=== PATIENT | male | born 1935 | race Caucasian/White ===

== ENCOUNTER 2016-04-19 | Outpatient (CLI) | END 2016-04-19 10:45 | disposition critical access hospital (66) | CPT/HCPCS: A0425; A0429 ==

== ENCOUNTER 2016-04-19 11:02 | Observation (INO) | payer MEDICARE, OTHER, MEDICAID ==
[2016-04-19] MEDS ORDERED: SODIUM CHLORIDE 0.9% 500 ML IV ONE ×2 (11:32→13:29)
[2016-04-19] MEDS ORDERED: SODIUM CHLORIDE FLUSH 0.9% 10 ML SYRINGE IVP PRN (18:18)
[2016-04-19] MEDS ORDERED: DEXTROSE 50% ABBOJECT 25 GM/50 ML SYRINGE IVP PRN (18:43)
[2016-04-19] MEDS ORDERED: DEXTROSE GEL 37.5 GM TUBE PO PRN (18:43)
[2016-04-19] MEDS ORDERED: GLUCAGON 1 MG/ML VIAL SUBQ PRN (18:43)
[2016-04-19] MEDS ORDERED: DEXTROSE 5% 1,000 ML IV PRN (18:43)
[2016-04-19] MEDS: BUDESONIDE 0.5 MG/2 ML NEB INH SCH (20:00)
[2016-04-19] MEDS: SODIUM CHLORIDE FLUSH 0.9% 10 ML SYRINGE IVP SCH (21:18)
[2016-04-19] MEDS: SODIUM CHLORIDE 0.9% 1,000 ML IV SCH (21:18)
[2016-04-20] MEDS: CALCIUM CARBONATE CHEW 500 MG TABLET PO PRN (00:37)
[2016-04-20] MEDS: SODIUM CHLORIDE FLUSH 0.9% 10 ML SYRINGE IVP SCH ×3 (06:30→23:33)
[2016-04-20] MEDS: BUDESONIDE 0.5 MG/2 ML NEB INH SCH ×2 (07:30→19:00)
[2016-04-20] MEDS: SODIUM CHLORIDE 0.9% 1,000 ML IV SCH (09:34)
[2016-04-20] MEDS: ENOXAPARIN 40 MG/0.4 ML SYRINGE SUBQ SCH (09:35)
[2016-04-20] MEDS ORDERED: METOPROLOL TARTRATE 25 MG TABLET PO SCH (11:00)
[2016-04-20] MEDS: IBUPROFEN 400 MG TABLET PO PRN (11:46)
[2016-04-21] MEDS: TAMSULOSIN 0.4 MG CAPSULE PO SCH ×2 (00:01→09:40)
[2016-04-21] MEDS: ACETAMINOPHEN 325 MG TABLET PO PRN ×2 (00:09→05:15)
[2016-04-21] MEDS: IBUPROFEN 400 MG TABLET PO PRN ×3 (00:09→18:54)
[2016-04-21] MEDS: SODIUM CHLORIDE FLUSH 0.9% 10 ML SYRINGE IVP SCH ×2 (05:44→14:19)
[2016-04-21] MEDS: BUDESONIDE 0.5 MG/2 ML NEB INH SCH ×2 (07:45→19:00)
[2016-04-21] MEDS: ENOXAPARIN 40 MG/0.4 ML SYRINGE SUBQ SCH (09:35)
[2016-04-21] MEDS: CALCIUM CARBONATE CHEW 500 MG TABLET PO PRN (09:50)
[2016-04-22] MEDS: SODIUM CHLORIDE FLUSH 0.9% 10 ML SYRINGE IVP SCH ×3 (04:41→14:01)
[2016-04-22] MEDS: ENOXAPARIN 40 MG/0.4 ML SYRINGE SUBQ SCH (09:38)
[2016-04-22] MEDS: TAMSULOSIN 0.4 MG CAPSULE PO SCH (09:38)
[2016-04-22] MEDS: IBUPROFEN 400 MG TABLET PO PRN (09:38)
[2016-04-22] MEDS: BUDESONIDE 0.5 MG/2 ML NEB INH SCH (09:45)
== END 2016-04-22 16:05 | disposition home or self-care (01) ==
DX: R26.0 Ataxic gait (principal); E86.0 Dehydration; M25.552 Pain in left hip; E11.9 Type 2 diabetes mellitus without complications; I15.2 Hypertension secondary to endocrine disorders; F03.90 Unspecified dementia, unspecified severity, without behavioral disturbance, psychotic disturbance, mood disturbance, and anxiety; J44.9 Chronic obstructive pulmonary disease, unspecified; Z79.84 Long term (current) use of oral hypoglycemic drugs; Z79.82 Long term (current) use of aspirin; Z87.891 Personal history of nicotine dependence; Z66 Do not resuscitate; Z60.2 Problems related to living alone; Z86.79 Personal history of other diseases of the circulatory system
CPT/HCPCS: 36415; 36600; 70450; 71010; 73502; 80048; 80053; 81001; 82248; 82550; 82553; 82803; 83036; 83690; 83880; 84484; 85025; 87275; 87276; 93005; 93010; 94640; 96360; 96361; 97116; 97162; 97530; 99285; A9270; G0378; G8978; G8979; J1650; J7626

== ENCOUNTER 2016-04-23 | Outpatient (CLI) | payer MEDICARE, OTHER | END 2016-04-23 07:13 | disposition critical access hospital (66) | DX: R06.02 Shortness of breath (principal) | CPT/HCPCS: A0425; A0427 ==

== ENCOUNTER 2016-04-23 07:31 | Inpatient (IN) | payer MEDICARE, OTHER, MEDICAID ==
[2016-04-23] MEDS ORDERED: ALBUTEROL NEB 2.5 MG/3 ML INH STA (07:45)
[2016-04-23] MEDS ORDERED: IPRATROPIUM/ALBUTEROL 3 ML NEB INH STA (07:52)
[2016-04-23] MEDS ORDERED: ALBUTEROL NEB 2.5 MG/3 ML INH ONE (08:00)
[2016-04-23] MEDS ORDERED: IPRATROPIUM/ALBUTEROL 3 ML NEB INH ONE (08:00)
[2016-04-23] MEDS ORDERED: SODIUM CHLORIDE 0.9% 500 ML IV ONE (08:15)
[2016-04-23] MEDS ORDERED: methylPREDNISolone SUCCINATE 125 MG/2 ML VIAL IVP STA (08:56)
[2016-04-23] MEDS ORDERED: methylPREDNISolone SUCCINATE 125 MG/2 ML VIAL IVP ONE (09:06)
[2016-04-23] MEDS ORDERED: SODIUM CHLORIDE 0.9% 1,000 ML IV ONE (09:44)
[2016-04-23] MEDS ORDERED: METOPROLOL TARTRATE 25 MG TABLET PO SCH (11:00)
[2016-04-23] MEDS ORDERED: ASPIRIN CHEW 81 MG TABLET PO SCH (11:00)
[2016-04-23] MEDS ORDERED: IPRATROPIUM/ALBUTEROL 3 ML NEB INH SCH (11:00)
[2016-04-23] MEDS: METOPROLOL TARTRATE 25 MG TABLET PO SCH ×2 (13:55→21:08)
[2016-04-23] MEDS: SODIUM CHLORIDE FLUSH 0.9% 10 ML SYRINGE IVP SCH ×2 (14:29→21:09)
[2016-04-23] MEDS: SODIUM CHLORIDE 0.9% 1,000 ML IV SCH ×2 (16:22→21:08)
[2016-04-23] MEDS ORDERED: glipiZIDE 5 MG TABLET PO SCH (16:30)
[2016-04-23] MEDS: IPRATROPIUM/ALBUTEROL 3 ML NEB INH SCH ×2 (16:51→23:55)
[2016-04-23] MEDS: FORMOTEROL FUMARATE NEB 20 MCG/2 ML INH SCH ×2 (16:54→16:55)
[2016-04-23] MEDS: BUDESONIDE 0.5 MG/2 ML NEB INH SCH ×2 (16:55)
[2016-04-23] MEDS ORDERED: metFORMIN 500 MG TABLET PO SCH (17:00)
[2016-04-23] MEDS ORDERED: DEXTROSE 5% 1,000 ML IV PRN (17:35)
[2016-04-23] MEDS ORDERED: DEXTROSE GEL 37.5 GM TUBE PO PRN (17:35)
[2016-04-23] MEDS ORDERED: DEXTROSE 50% ABBOJECT 25 GM/50 ML SYRINGE IVP PRN (17:35)
[2016-04-23] MEDS ORDERED: GLUCAGON 1 MG/ML VIAL SUBQ PRN (17:35)
[2016-04-23] MEDS ORDERED: MIN OIL/DIMETHICON/COCONUT OIL 92 GM TUBE TOP PRN (17:55)
[2016-04-23] MEDS: INSULIN ASPART 300 UNIT/3 ML PEN SUBQ SCH ×2 (18:36→21:07)
[2016-04-23] MEDS ORDERED: CLOPIDOGREL 300 MG TABLET PO ONE (19:30)
[2016-04-23] MEDS: methylPREDNISolone SUCCINATE 40 MG/ML VIAL IVP SCH (21:08)
[2016-04-23] MEDS: LATANOPROST 0.005% OPHTH DROPS EACHEYE SCH (21:08)
[2016-04-24] MEDS: IPRATROPIUM/ALBUTEROL 3 ML NEB INH SCH ×5 (00:08→16:30)
[2016-04-24] MEDS: SODIUM CHLORIDE FLUSH 0.9% 10 ML SYRINGE IVP SCH ×3 (06:44→23:07)
[2016-04-24] MEDS: SODIUM CHLORIDE 0.9% 1,000 ML IV SCH ×2 (07:01→17:39)
[2016-04-24] MEDS ORDERED: INSULIN GLARGINE 300 UNIT/3 ML PEN SUBQ SCH (08:00)
[2016-04-24] MEDS: CLOPIDOGREL 75 MG TABLET PO SCH (08:16)
[2016-04-24] MEDS: methylPREDNISolone SUCCINATE 40 MG/ML VIAL IVP SCH ×2 (08:16→23:05)
[2016-04-24] MEDS: METOPROLOL TARTRATE 25 MG TABLET PO SCH ×2 (08:19→23:06)
[2016-04-24] MEDS: POLYETHYLENE GLYCOL 3350 17 GM PACKET PO SCH (08:23)
[2016-04-24] MEDS: INSULIN ASPART 300 UNIT/3 ML PEN SUBQ SCH ×4 (08:25→23:05)
[2016-04-24] MEDS: FORMOTEROL FUMARATE NEB 20 MCG/2 ML INH SCH ×2 (09:30→16:30)
[2016-04-24] MEDS: BUDESONIDE 0.5 MG/2 ML NEB INH SCH ×2 (09:30→16:30)
[2016-04-24] MEDS ORDERED: DOCUSATE SODIUM 250 MG CAPSULE PO ONE (11:00)
[2016-04-24] MEDS ORDERED: INSULIN GLARGINE 300 UNIT/3 ML PEN SUBQ ONE (13:00)
[2016-04-24] MEDS: LATANOPROST 0.005% OPHTH DROPS EACHEYE SCH (23:05)
[2016-04-25] MEDS: IPRATROPIUM/ALBUTEROL 3 ML NEB INH SCH ×3 (02:10→13:03)
[2016-04-25] MEDS ORDERED: LORazepam 2 MG/ML SYRINGE IVP STA (05:53)
[2016-04-25] MEDS: SODIUM CHLORIDE FLUSH 0.9% 10 ML SYRINGE IVP SCH ×3 (05:58→17:07)
[2016-04-25] MEDS: FORMOTEROL FUMARATE NEB 20 MCG/2 ML INH SCH (07:15)
[2016-04-25] MEDS: BUDESONIDE 0.5 MG/2 ML NEB INH SCH ×2 (07:15→19:00)
[2016-04-25] MEDS: INSULIN ASPART 300 UNIT/3 ML PEN SUBQ SCH ×4 (08:00→21:23)
[2016-04-25] MEDS: INSULIN GLARGINE 300 UNIT/3 ML PEN SUBQ SCH (08:44)
[2016-04-25] MEDS ORDERED: LORazepam 2 MG/ML SYRINGE IVP PRN (09:29)
[2016-04-25] MEDS: methylPREDNISolone SUCCINATE 40 MG/ML VIAL IVP SCH ×2 (09:47→21:13)
[2016-04-25] MEDS: METOPROLOL TARTRATE 25 MG TABLET PO SCH ×2 (09:47→21:15)
[2016-04-25] MEDS: CLOPIDOGREL 75 MG TABLET PO SCH (09:47)
[2016-04-25] MEDS: POLYETHYLENE GLYCOL 3350 17 GM PACKET PO SCH (09:48)
[2016-04-25] MEDS: SODIUM CHLORIDE FLUSH 0.9% 10 ML SYRINGE IVP PRN ×2 (09:50→10:10)
[2016-04-25] MEDS: LORazepam 2 MG/ML SYRINGE IVP PRN ×3 (11:07→19:19)
[2016-04-25] MEDS ORDERED: SODIUM CHLORIDE 0.9% 500 ML IV ONE (15:21)
[2016-04-25] MEDS ORDERED: LEVALBUTEROL 1.25 MG INH PRN (16:15)
[2016-04-25] MEDS: SODIUM CHLORIDE 0.9% 1,000 ML IV SCH (17:11)
[2016-04-25] MEDS ORDERED: cefTRIAXone 2 GM in SODIUM CHLORIDE 0.9% MINIBAG 100 ML IV SCH (19:00)
[2016-04-25] MEDS ORDERED: VANCOMYCIN PER PHARMACY 1 GM in SODIUM CHLORIDE 0.9% 250 ML IV SCH (20:00)
[2016-04-25] MEDS: ACETAMINOPHEN 1,000 MG/100 ML 100 ML IV PRN (20:11)
[2016-04-25] MEDS: PIPERACILLIN/TAZOBACTAM 3.375 GM in SODIUM CHLORIDE 0.9% MINIBAG 100 ML IV SCH (20:38)
[2016-04-25] MEDS ORDERED: OSELTAMIVIR 75 MG CAPSULE PO SCH (21:00)
[2016-04-25] MEDS: LATANOPROST 0.005% OPHTH DROPS EACHEYE SCH (21:35)
[2016-04-25] MEDS: LEVALBUTEROL 1.25 MG INH SCH (22:00)
[2016-04-25] MEDS ORDERED: VANCOMYCIN INJ 1.25 GM in SODIUM CHLORIDE 0.9% 500 ML IV SCH (22:00)
[2016-04-25] MEDS ORDERED: METOPROLOL 5 MG/5 ML VIAL IVP SCH (22:22)
[2016-04-26] MEDS: SODIUM CHLORIDE FLUSH 0.9% 10 ML SYRINGE IVP SCH ×3 (00:37→21:04)
[2016-04-26] MEDS: PIPERACILLIN/TAZOBACTAM 3.375 GM in SODIUM CHLORIDE 0.9% MINIBAG 100 ML IV SCH ×4 (01:56→20:06)
[2016-04-26] MEDS: ACETAMINOPHEN 1,000 MG/100 ML 100 ML IV PRN (06:20)
[2016-04-26] MEDS: INSULIN REGULAR HUMAN 100 UNIT/1 ML 10 ML MDV SUBQ SCH ×2 (06:20→11:32)
[2016-04-26] MEDS: SODIUM CHLORIDE 0.9% 1,000 ML IV SCH ×2 (06:30→20:06)
[2016-04-26] MEDS: BUDESONIDE 0.5 MG/2 ML NEB INH SCH ×2 (07:40→20:55)
[2016-04-26] MEDS: LEVALBUTEROL 1.25 MG INH SCH ×3 (07:40→20:55)
[2016-04-26] MEDS: METOPROLOL TARTRATE 25 MG TABLET PO SCH ×2 (08:30→21:04)
[2016-04-26] MEDS: methylPREDNISolone SUCCINATE 40 MG/ML VIAL IVP SCH ×2 (08:30→21:03)
[2016-04-26] MEDS: INSULIN GLARGINE 300 UNIT/3 ML PEN SUBQ SCH (08:33)
[2016-04-26] MEDS: POLYETHYLENE GLYCOL 3350 17 GM PACKET PO SCH (09:24)
[2016-04-26] MEDS: CLOPIDOGREL 75 MG TABLET PO SCH (09:24)
[2016-04-26] MEDS: VANCOMYCIN INJ 1 GM in SODIUM CHLORIDE 0.9% 250 ML IV SCH ×2 (10:08→22:12)
[2016-04-26] MEDS ORDERED: LISINOPRIL 5 MG TABLET PO SCH ×2 (11:00→16:00)
[2016-04-26] MEDS: SODIUM CHLORIDE INHALATION 3 ML NEB INH PRN (14:15)
[2016-04-26] MEDS ORDERED: DEXTROSE 5% 1,000 ML IV PRN (15:49)
[2016-04-26] MEDS ORDERED: DEXTROSE GEL 37.5 GM TUBE PO PRN (15:49)
[2016-04-26] MEDS ORDERED: GLUCAGON 1 MG/ML VIAL SUBQ PRN (15:49)
[2016-04-26] MEDS ORDERED: DEXTROSE 50% ABBOJECT 25 GM/50 ML SYRINGE IVP PRN (15:49)
[2016-04-26] MEDS: INSULIN ASPART 300 UNIT/3 ML PEN SUBQ SCH ×2 (17:21→21:03)
[2016-04-26] MEDS ORDERED: SODIUM CHLORIDE 0.9% 500 ML IV ONE (20:59)
[2016-04-26] MEDS: LATANOPROST 0.005% OPHTH DROPS EACHEYE SCH (21:04)
[2016-04-27] MEDS: PIPERACILLIN/TAZOBACTAM 3.375 GM in SODIUM CHLORIDE 0.9% MINIBAG 100 ML IV SCH ×4 (02:32→20:17)
[2016-04-27] MEDS: ACETAMINOPHEN 325 MG TABLET PO PRN (03:44)
[2016-04-27] MEDS: SODIUM CHLORIDE FLUSH 0.9% 10 ML SYRINGE IVP SCH ×3 (05:20→21:44)
[2016-04-27] MEDS: BUDESONIDE 0.5 MG/2 ML NEB INH SCH ×2 (07:54→19:18)
[2016-04-27] MEDS: LEVALBUTEROL 1.25 MG INH SCH ×3 (07:54→19:18)
[2016-04-27] MEDS: SODIUM CHLORIDE INHALATION 3 ML NEB INH PRN ×3 (07:54→19:17)
[2016-04-27] MEDS: POLYETHYLENE GLYCOL 3350 17 GM PACKET PO SCH (08:45)
[2016-04-27] MEDS: INSULIN ASPART 300 UNIT/3 ML PEN SUBQ SCH ×4 (08:46→21:43)
[2016-04-27] MEDS: INSULIN GLARGINE 300 UNIT/3 ML PEN SUBQ SCH (08:47)
[2016-04-27] MEDS: CLOPIDOGREL 75 MG TABLET PO SCH (08:49)
[2016-04-27] MEDS: METOPROLOL TARTRATE 25 MG TABLET PO SCH ×2 (08:52→21:42)
[2016-04-27] MEDS: methylPREDNISolone SUCCINATE 40 MG/ML VIAL IVP SCH ×2 (08:52→21:42)
[2016-04-27] MEDS: SODIUM CHLORIDE 0.9% 1,000 ML IV SCH ×3 (08:53→21:47)
[2016-04-27] MEDS ORDERED: LISINOPRIL 5 MG TABLET PO SCH (09:00)
[2016-04-27] MEDS: VANCOMYCIN INJ 1 GM in SODIUM CHLORIDE 0.9% 250 ML IV SCH ×2 (10:14→21:54)
[2016-04-27] MEDS: LATANOPROST 0.005% OPHTH DROPS EACHEYE SCH (21:42)
[2016-04-28] MEDS: PIPERACILLIN/TAZOBACTAM 3.375 GM in SODIUM CHLORIDE 0.9% MINIBAG 100 ML IV SCH ×4 (02:08→20:10)
[2016-04-28] MEDS: ACETAMINOPHEN 325 MG TABLET PO PRN ×3 (03:47→17:45)
[2016-04-28] MEDS: SODIUM CHLORIDE FLUSH 0.9% 10 ML SYRINGE IVP SCH ×3 (06:10→21:42)
[2016-04-28] MEDS: INSULIN ASPART 300 UNIT/3 ML PEN SUBQ SCH ×4 (08:20→21:18)
[2016-04-28] MEDS: CLOPIDOGREL 75 MG TABLET PO SCH (08:21)
[2016-04-28] MEDS: INSULIN GLARGINE 300 UNIT/3 ML PEN SUBQ SCH (08:21)
[2016-04-28] MEDS: METOPROLOL TARTRATE 25 MG TABLET PO SCH ×2 (08:22→21:20)
[2016-04-28] MEDS: methylPREDNISolone SUCCINATE 40 MG/ML VIAL IVP SCH ×2 (08:30→21:17)
[2016-04-28] MEDS: POLYETHYLENE GLYCOL 3350 17 GM PACKET PO SCH (08:33)
[2016-04-28] MEDS: LEVALBUTEROL 1.25 MG INH SCH ×2 (09:33→14:55)
[2016-04-28] MEDS: BUDESONIDE 0.5 MG/2 ML NEB INH SCH (09:33)
[2016-04-28] MEDS: SODIUM CHLORIDE 0.9% 1,000 ML IV SCH ×2 (10:13→20:25)
[2016-04-28] MEDS: PHENAZOPYRIDINE 100 MG TABLET PO SCH ×3 (10:13→21:37)
[2016-04-28] MEDS: VANCOMYCIN INJ 1 GM in SODIUM CHLORIDE 0.9% 250 ML IV SCH ×2 (10:13→21:29)
[2016-04-28] MEDS: SODIUM CHLORIDE INHALATION 3 ML NEB INH PRN (14:55)
[2016-04-28] MEDS: LIDOCAINE JELLY 2% 30 ML TUBE TOP PRN ×2 (16:50→21:28)
[2016-04-28] MEDS: HYDROCORTISONE 1% CREAM 28 GM TUBE TOP SCH ×2 (16:50→21:28)
[2016-04-28] MEDS: LATANOPROST 0.005% OPHTH DROPS EACHEYE SCH (21:18)
[2016-04-29] MEDS: LEVALBUTEROL 1.25 MG INH SCH ×4 (00:37→20:10)
[2016-04-29] MEDS: BUDESONIDE 0.5 MG/2 ML NEB INH SCH ×3 (00:37→20:10)
[2016-04-29] MEDS: SODIUM CHLORIDE FLUSH 0.9% 10 ML SYRINGE IVP PRN ×3 (01:15→07:14)
[2016-04-29] MEDS: PIPERACILLIN/TAZOBACTAM 3.375 GM in SODIUM CHLORIDE 0.9% MINIBAG 100 ML IV SCH ×4 (01:15→21:16)
[2016-04-29] MEDS: ACETAMINOPHEN 325 MG TABLET PO PRN ×2 (01:15→06:32)
[2016-04-29] MEDS: LIDOCAINE JELLY 2% 30 ML TUBE TOP PRN ×2 (01:45→08:41)
[2016-04-29] MEDS: SODIUM CHLORIDE FLUSH 0.9% 10 ML SYRINGE IVP SCH ×3 (05:30→14:06)
[2016-04-29] MEDS: PHENAZOPYRIDINE 100 MG TABLET PO SCH ×3 (06:32→21:15)
[2016-04-29] MEDS: INSULIN GLARGINE 300 UNIT/3 ML PEN SUBQ SCH (07:13)
[2016-04-29] MEDS: INSULIN ASPART 300 UNIT/3 ML PEN SUBQ SCH ×4 (07:13→20:42)
[2016-04-29] MEDS: METOPROLOL TARTRATE 25 MG TABLET PO SCH ×2 (08:29→21:15)
[2016-04-29] MEDS: methylPREDNISolone SUCCINATE 40 MG/ML VIAL IVP SCH ×2 (08:29→21:15)
[2016-04-29] MEDS: CLOPIDOGREL 75 MG TABLET PO SCH (08:30)
[2016-04-29] MEDS: POLYETHYLENE GLYCOL 3350 17 GM PACKET PO SCH (08:31)
[2016-04-29] MEDS: HYDROCORTISONE 1% CREAM 28 GM TUBE TOP SCH ×2 (08:41→21:15)
[2016-04-29] MEDS: VANCOMYCIN INJ 1 GM in SODIUM CHLORIDE 0.9% 250 ML IV SCH ×2 (11:07→22:17)
[2016-04-29] MEDS ORDERED: LIDOCAINE OINTMENT 5% 35.44 GM TUBE TOP PRN (11:28)
[2016-04-29] MEDS: HYDROcod/ACETAM 10 MG/325 MG TABLET PO PRN (11:51)
[2016-04-29] MEDS: SODIUM CHLORIDE INHALATION 3 ML NEB INH PRN ×2 (13:35→20:10)
[2016-04-29] MEDS: HYDROcod/ACETAM 5/325 MG TABLET PO PRN (21:15)
[2016-04-29] MEDS: LATANOPROST 0.005% OPHTH DROPS EACHEYE SCH (21:21)
[2016-04-30] MEDS: PIPERACILLIN/TAZOBACTAM 3.375 GM in SODIUM CHLORIDE 0.9% MINIBAG 100 ML IV SCH ×2 (02:03→08:17)
[2016-04-30] MEDS: SODIUM CHLORIDE FLUSH 0.9% 10 ML SYRINGE IVP SCH ×3 (03:19→21:20)
[2016-04-30] MEDS: PHENAZOPYRIDINE 100 MG TABLET PO SCH ×3 (06:38→21:13)
[2016-04-30] MEDS: BUDESONIDE 0.5 MG/2 ML NEB INH SCH ×2 (07:30→19:35)
[2016-04-30] MEDS: LEVALBUTEROL 1.25 MG INH SCH ×3 (07:30→19:35)
[2016-04-30] MEDS: INSULIN ASPART 300 UNIT/3 ML PEN SUBQ SCH ×4 (08:24→21:35)
[2016-04-30] MEDS: INSULIN GLARGINE 300 UNIT/3 ML PEN SUBQ SCH (08:24)
[2016-04-30] MEDS: methylPREDNISolone SUCCINATE 40 MG/ML VIAL IVP SCH ×2 (08:26→21:13)
[2016-04-30] MEDS: CLOPIDOGREL 75 MG TABLET PO SCH (08:26)
[2016-04-30] MEDS: HYDROCORTISONE 1% CREAM 28 GM TUBE TOP SCH ×2 (08:26→21:35)
[2016-04-30] MEDS: POLYETHYLENE GLYCOL 3350 17 GM PACKET PO SCH (08:29)
[2016-04-30] MEDS: METOPROLOL TARTRATE 25 MG TABLET PO SCH ×2 (08:31→21:14)
[2016-04-30] MEDS: AMOX/CLAV 875 MG/125 MG TABLET PO SCH ×2 (11:54→21:13)
[2016-04-30] MEDS: SODIUM CHLORIDE INHALATION 3 ML NEB INH PRN (15:00)
[2016-04-30] MEDS: HYDROcod/ACETAM 10 MG/325 MG TABLET PO PRN (17:42)
[2016-04-30] MEDS: LATANOPROST 0.005% OPHTH DROPS EACHEYE SCH (21:35)
[2016-05-01] MEDS ORDERED: CALCIUM CARBONATE CHEW 500 MG TABLET PO PRN (02:13)
[2016-05-01] MEDS: SODIUM CHLORIDE FLUSH 0.9% 10 ML SYRINGE IVP SCH (05:05)
[2016-05-01] MEDS: PHENAZOPYRIDINE 100 MG TABLET PO SCH ×2 (05:05→14:07)
[2016-05-01] MEDS: LEVALBUTEROL 1.25 MG INH SCH (07:20)
[2016-05-01] MEDS: BUDESONIDE 0.5 MG/2 ML NEB INH SCH (07:20)
[2016-05-01] MEDS ORDERED: glyBURIDE 2.5 MG TABLET PO SCH (08:00)
[2016-05-01] MEDS: metFORMIN 850 MG TABLET PO SCH ×2 (09:09→12:03)
[2016-05-01] MEDS: AMOX/CLAV 875 MG/125 MG TABLET PO SCH (09:10)
[2016-05-01] MEDS: CLOPIDOGREL 75 MG TABLET PO SCH (09:10)
[2016-05-01] MEDS: HYDROCORTISONE 1% CREAM 28 GM TUBE TOP SCH (09:11)
[2016-05-01] MEDS: INSULIN ASPART 300 UNIT/3 ML PEN SUBQ SCH ×2 (09:11→12:03)
[2016-05-01] MEDS: POLYETHYLENE GLYCOL 3350 17 GM PACKET PO SCH (09:11)
[2016-05-01] MEDS: METOPROLOL TARTRATE 25 MG TABLET PO SCH (09:14)
[2016-05-01] MEDS: HYDROcod/ACETAM 5/325 MG TABLET PO PRN (10:30)
== END 2016-05-01 15:00 | DRG 64 ==
DX: I63.29 Cerebral infarction due to unspecified occlusion or stenosis of other precerebral arteries (principal); J44.1 Chronic obstructive pulmonary disease with (acute) exacerbation; R09.02 Hypoxemia; R07.9 Chest pain, unspecified; I95.9 Hypotension, unspecified; F03.90 Unspecified dementia, unspecified severity, without behavioral disturbance, psychotic disturbance, mood disturbance, and anxiety; J69.0 Pneumonitis due to inhalation of food and vomit; E11.9 Type 2 diabetes mellitus without complications; Z79.84 Long term (current) use of oral hypoglycemic drugs; Z79.82 Long term (current) use of aspirin; Z87.891 Personal history of nicotine dependence; N39.0 Urinary tract infection, site not specified; G81.94 Hemiplegia, unspecified affecting left nondominant side; F03.91 Unspecified dementia, unspecified severity, with behavioral disturbance; R27.0 Ataxia, unspecified; R29.810 Facial weakness; B96.89 Other specified bacterial agents as the cause of diseases classified elsewhere; R31.29 Other microscopic hematuria; N32.89 Other specified disorders of bladder; R33.9 Retention of urine, unspecified; E11.65 Type 2 diabetes mellitus with hyperglycemia; I10 Essential (primary) hypertension; S50.319A Abrasion of unspecified elbow, initial encounter; S20.409A Unspecified superficial injuries of unspecified back wall of thorax, initial encounter; S09.90XA Unspecified injury of head, initial encounter; W06.XXXA Fall from bed, initial encounter; W18.30XA Fall on same level, unspecified, initial encounter; Y92.230 Patient room in hospital as the place of occurrence of the external cause; Z66 Do not resuscitate; Z78.1 Physical restraint status; Z91.81 History of falling

== ENCOUNTER 2016-05-05 08:00 | Outpatient (CLI) | payer MEDICARE, OTHER | END 2016-05-05 08:01 | disposition home or self-care (01) | DX: J09.X2 Influenza due to identified novel influenza A virus with other respiratory manifestations (principal) ==

== ENCOUNTER 2016-05-12 05:40 | Outpatient (CLI) | payer MEDICARE, OTHER | END 2016-05-12 05:41 | disposition home or self-care (01) | DX: R68.89 Other general symptoms and signs (principal); N39.0 Urinary tract infection, site not specified; I10 Essential (primary) hypertension ==

== ENCOUNTER 2016-05-21 | Outpatient (CLI) | payer MEDICARE, OTHER | END 2016-05-21 11:31 | disposition home or self-care (01) ==

== ENCOUNTER 2016-05-30 21:00 | Outpatient (CLI) | payer MEDICARE, OTHER | END 2016-05-30 21:01 | disposition home or self-care (01) | DX: N39.0 Urinary tract infection, site not specified (principal) ==

== ENCOUNTER 2016-05-31 | Outpatient (CLI) | payer MEDICARE, OTHER | END 2016-05-31 13:31 | disposition home or self-care (01) ==

== ENCOUNTER 2016-06-17 15:15 | Outpatient (CLI) | payer MEDICARE, OTHER | END 2016-06-17 15:16 | disposition home or self-care (01) | DX: J44.9 Chronic obstructive pulmonary disease, unspecified (principal); J18.9 Pneumonia, unspecified organism; Z99.81 Dependence on supplemental oxygen; L03.031 Cellulitis of right toe; R33.9 Retention of urine, unspecified; R05 Cough; I63.9 Cerebral infarction, unspecified; M79.662 Pain in left lower leg; M79.661 Pain in right lower leg; M79.672 Pain in left foot; M79.671 Pain in right foot; L60.0 Ingrowing nail; M25.519 Pain in unspecified shoulder; M54.9 Dorsalgia, unspecified; Z66 Do not resuscitate; Z51.5 Encounter for palliative care; E11.9 Type 2 diabetes mellitus without complications ==

== ENCOUNTER 2016-06-27 13:00 | Outpatient (CLI) | payer MEDICARE, OTHER | END 2016-06-27 13:01 | disposition home or self-care (01) | DX: J18.9 Pneumonia, unspecified organism (principal); B37.9 Candidiasis, unspecified; L03.031 Cellulitis of right toe; J44.9 Chronic obstructive pulmonary disease, unspecified; R63.0 Anorexia; G62.9 Polyneuropathy, unspecified; I50.9 Heart failure, unspecified; M54.9 Dorsalgia, unspecified; M25.519 Pain in unspecified shoulder; Z66 Do not resuscitate; Z51.5 Encounter for palliative care; E11.9 Type 2 diabetes mellitus without complications; Z99.3 Dependence on wheelchair ==

== ENCOUNTER 2016-06-27 16:30 | Outpatient (CLI) | payer MEDICARE, OTHER | END 2016-06-27 16:31 | disposition home or self-care (01) | DX: N39.0 Urinary tract infection, site not specified (principal) ==

== ENCOUNTER 2016-08-07 14:30 | Outpatient (CLI) | payer MEDICARE, OTHER | END 2016-08-07 14:31 | disposition home or self-care (01) | DX: Z51.5 Encounter for palliative care (principal); J44.9 Chronic obstructive pulmonary disease, unspecified; Z99.81 Dependence on supplemental oxygen; R63.0 Anorexia; R33.9 Retention of urine, unspecified; M25.511 Pain in right shoulder; R53.83 Other fatigue; Z66 Do not resuscitate; Z99.3 Dependence on wheelchair; Z79.51 Long term (current) use of inhaled steroids ==

== ENCOUNTER 2016-08-21 11:00 | Outpatient (CLI) | payer MEDICARE, OTHER | END 2016-08-21 11:01 | disposition home or self-care (01) | DX: R73.09 Other abnormal glucose (principal) ==

== ENCOUNTER 2016-09-10 16:52 | Outpatient (CLI) | payer MEDICARE, OTHER, MEDICAID ==
[2016-09-10 12:17] LABS: BILIRUBIN,URINE NEGATIVE (NEGATIVE); PH,URINE 7.5 PH (5.0-7.5)
[2016-09-10 12:45] LABS: UR CULTURE IF IND INDICATED; WBC,URINE >25 /HPF (0-3)
== END 2016-09-10 16:53 | disposition home or self-care (01) ==
LOC: LAB.R 16:52
PROVIDERS: ATTEND Family Medicine
DX: R82.5 Elevated urine levels of drugs, medicaments and biological substances (principal)
CPT/HCPCS: 81001; 87077; 87086

== ENCOUNTER 2016-09-18 09:30 | Outpatient (CLI) | payer MEDICARE, OTHER, MEDICAID ==
--- NOTE | 2016-09-19 06:43 | CONSULTATION NOTE ---
DATE OF CONSULTATION: 09/18/2016 00:00:00 REQUESTING PROVIDER: Dr. Alvarez Monge. TIME OF VISIT: 9:30 a.m. to 10. TOPIC: Followup palliative care consult. Thank you, Dr. Monge, for asking the palliative care consult service to be involved in the care of yo ur patient. I am seeing him at [facility], as this is his home now. I am providing support for pain and symptom management, as well as palliative care support. EXAM LIMITATIONS: The patient with very short term memory issues. Has friends who are providing overs ight and multiple clinical staff involved in care. BRIEF HISTORY OF PRESENT ILLNESS: This is a yung 81-year-old gentleman with severe end-stage COPD, recurrent pneumonias, most recently treated in June. He does have urinary retention with colonized u rine and was increasingly symptomatic on 09/10/2016. The patient was complaining of need to urinate, more confused and febrile. Bladder scan was negative. Had had severely resistant urine in the past, s o UA with CandS was obtained after catheter changed. 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 Did consult with Dr. Weiss, covering for Dr. Monge, and Omnicef was ord ered, a third generation cephalosporin, to satisfy coverage for now. He is just finishing this up. A concern of staff reported was that he had the same symptoms of needing to urinate and frequently into the bathroom to try. Currently, during our exam, he reports his catheter is "finally normal." He cam s appear to have constipation and indeed had passed just a few hard stools. The patient himself seems to be in quite good spirits. He does have still kind of a rough, red bright rash on his face and nec k. He had been on hydrocortisone 1% cream. It does get exacerbated with shaving, which he does like t o be shaved, but does seem to be worsening. SYMPTOM BURDEN: The patient does complain of bilateral shoulder pain, right greater, does demonstrate pain behaviors today with any kind of movement or demonstration and palpation. He denies fatigue. Re ports his appetite is good. No nausea. Does deny depression and perceives his quality of life as good enough. Reports his appetite has been doing well and the chart does show he has been working with sp eech therapy. I have left a message, but no feedback yet. CODE STATUS: THE PATIENT IS DO NOT ATTEMPT RESUSCITATION, DO NOT INTUBATE, LIMITED INTERVENTIONS, DET ERMINE THE USE OR LIMITATION OF ANTIBIOTICS WITH COMFORT THE GOAL AND NO MEDICALLY ASSISTED NUTRIT ION. HIS DPOAs are AlyElijah Bergeron and their phone number is [phone]. REVIEW OF SYSTEMS HEENT: The patient is hard of hearing. He denies trouble with swallowing. CARDIOVASCULAR: Denies chest pain. RESPIRATORY: Denies shortness of breath. He is back on oxygen. He does have an order to discontinue i f his sats are greater than 90%. GASTROINTESTINAL: He is reporting constipation. He was given a glass of prune juice during our visit. GENITOURINARY: Continues to have a Santamaria catheter. INTEGUMENTARY: His right toe is resolved. Candidiasis is improved as well. NEUROLOGIC: He does seem to recognize me, is able to recall my name. He is able to tell me as far as Gwendolyn and Vinny visiting and the fact that their dog had . He can speak in full sentences. He mariee s a yung sense of humor and does not appear confused from his baseline today. PSYCHIATRIC: Does not appear depressed or anxious, though I have ordered some lorazepam for p.r.n. ag itation given the report that he was having trouble with his catheter. This does seem more anxiety ba sed from the nurse I talked to. They have not used it yet. ENDOCRINE: He is on his metformin. His blood sugar has been running on the lower side. HEMATOLOGIC/IMMUNOLOGIC: Most recently was treated in June with Levaquin for community-acquired pneu monia, cellulitis in his right toe, and now has been treated with that for his UTI. PHYSICAL EXAMINATION GENERAL APPEARANCE: He does appear somewhat fatigued. He is making good eye contact. He still has alanna te a bit of facial rash and is unshaven. EYES: With slight periorbital edema. HEENT: His mucous membranes are slightly dry with some concern for candidiasis. I did have him take o ut his dentures, which were quite dirty. No signs of ulceration or candidiasis after he rinsed his mo uth. NECK: Trachea midline. No lymphadenopathy. RESPIRATORY: They are diminished, but clear. No wheezing, which is usually his baseline. CARDIOVASCULAR: His temperature is 98.8, O2 saturation 95% on 2 liters. I did take him off for about 10 minutes, and his sats dropped into the low 80s. His oxygen was replaced. His pulse is 95, blood pr essure 118/52. ABDOMEN: Rounded, soft. It is nontender to palpation. No bladder distention noted. SKIN: His groin folds are improved. His coccyx is clear. His right toe is healed. He is due for an ap pointment with Dr. Wilson. EXTREMITIES: He is able to move all extremities, but has limited range of motion in his upper arms, p articularly right shoulder. He remains mostly wheelchair bound. PALLIATIVE CARE DISCUSSION: Who is present, myself and the patient and Kathi De Jesus, the nurse practit lauren. He is getting regular visits from the palliative care floorleader, which he does enjoy. I did sonya ck with his DPOA, Gwendolyn. They are trying to visit at least 1-2 times a week and getting other members from the museum to drop in and check on him as well, trying to decrease his isolation. When asked wha t he worries about most, he says it does not do any good to worry. He does seem a little bit more lig hter than the last time I saw him. We did discuss about a volunteer to break up the isolation. I did speak with Gwendolyn, though he had only short service time, his being a has been very important w ith him and will refer him to our [facility] program. IMPRESSION: This is a yung 81-year-old gentleman, who has end-stage COPD, now presents with urinary tract infection. He does have multiple drug resistances and I am concerned that we are hopefully not running out of options for improving his quality of life, as well as extending quantity. He will rem ain colonized, but most recently exacerbated with symptoms. Today, he does feel like he is improving, though presents with constipation. RECOMMENDATIONS/COUNSELING DONE 1. Endstage chronic obstructive pulmonary disease. His oxygen sats still drop off of the O2 in the 80 's. In following up with the nursing staff, this has been sporadic, has been able to have it off for short periods of time. 2. Cellulitis of his right toe. This has resolved. I did phone both Gwendolyn, they do have an appointment with Dr. Wilson coming up. 3. Right shoulder pain. The patient is unable due to his underlying cognitive deficits to ask for Tyl enol consistently, does perceive it helps. I will go ahead and schedule 325 two tabs t.i.d. to see if there is improvement with that. If this is not improved, we will consider a stronger opioid or consi dering possibly an NSAID. 4. Facial rash. We will increase his hydrocortisone cream to 2.5% and have it scheduled for b.i.d. 5. Depression. It does appear improved. We will go ahead and make a referral to the [facility] program, as well as continue with floorleader visits, which he does enjoy on a regular basis. MEDICATION LIST 1. Ondansetron 4 mg every 6 hours as needed for nausea. 2. Lorazepam 0.5 mg 1/2 tab every 8 hours as needed for anxiety. 3. House bowel program. 4. Acetaminophen 325 mg 2 tabs t.i.d. 5. Glucagon emergency kit available. 6. Metformin 500 mg b.i.d. 7. Tums 500 mg b.i.d. 8. DuoNeb solution 0.5-2.5 mg in 3 mL, 1 vial 3 times a day. 9. Gabapentin 100 mg t.i.d. for lower extremity pain. 10. Advair Diskus 1 puff b.i.d. 11. Cefdinir capsule 300 mg 1 tab b.i.d. x10 days and date of 09/21. 12. Florastor 250 mg 1 tab b.i.d. 13. Plavix 75 mg daily. 14. Remeron 15 mg daily. 15. Tamsulosin 0.4 mg daily. 16. Latanoprost solution 1 drop in both eyes at bedtime. TIME SPENT: 30 minutes with greater than 50% of this done in counseling and coordination. Follow up w ith his DPOA and facility staff. JOB #: [id number] EXT JOB #:[id number]
== END 2016-09-18 09:31 | disposition home or self-care (01) ==
LOC: PC 09:30
PROVIDERS: ATTEND Nurse Practitioner Adult Health
DX: Z51.5 Encounter for palliative care (principal); J44.9 Chronic obstructive pulmonary disease, unspecified; Z99.81 Dependence on supplemental oxygen; M25.512 Pain in left shoulder; M25.511 Pain in right shoulder; R21 Rash and other nonspecific skin eruption; F32.9 Major depressive disorder, single episode, unspecified; R41.3 Other amnesia; N39.0 Urinary tract infection, site not specified; K59.00 Constipation, unspecified; Z66 Do not resuscitate; R45.1 Restlessness and agitation; Z99.3 Dependence on wheelchair; Z79.51 Long term (current) use of inhaled steroids; E11.9 Type 2 diabetes mellitus without complications
CPT/HCPCS: 99309

== ENCOUNTER 2016-10-03 11:30 | Outpatient (CLI) | payer MEDICARE, OTHER, MEDICAID ==
--- NOTE | 2016-10-04 18:10 | CONSULTATION NOTE ---
DATE OF CONSULTATION: 10/03/2016 00:00:00 REQUESTING PROVIDER: Dr. Monge. TIME OF VISIT: 11:30 to 12:15. TOPIC: Followup palliative care consult. Thank you, Dr. Monge for asking the palliative care consult service to be involved in the care of your patient. I am seeing the patient at [facility] as he is transitioning to his Medicaid stay and providing support for pain and symptom management. EXAMINATION LIMITATIONS: The patient with very poor short-term memory. His friends are providing oversight but has multiple clinical staff who are involved in his care. BRIEF HISTORY OF PRESENT ILLNESS UPDATE: This is a yung 81-year-old gentleman with severe end-stage COPD, recurrent pneumonias and recurrent urinary infections. He does have urinary retention, but had been increasing symptomatic and was treated with Omnicef. had improved his symptoms somewhat, but over the last week he has had signs and symptoms of a viral infection. There has been a cold going around the facility. He was reported to have a low-grade temperature of 99.7 on the with a runny nose, clear drainage and productive cough. His O2 saturations remained stable at 94% and was eating and drinking. Continues to kind of wax and wane and most recently in the last few days he denies shortness of breath. He does have some expiratory rhonchi in the right lower lobe. He is diminished throughout but is afebrile. He is taking his nebulizer 3 times a day , his temperature today is 97.8, O2 saturations on 2 liters 93%, as well as off about 3 minutes 93%. His pulse is 87, blood pressure 132/64. He reports he just does not "feel well." He is unable to really pinpoint what is uncomfortable. He denies shortness of breath. He denies pain, but does report pain on exam with his bilateral shoulder pain. He just seems quite depressed and withdrawn. Of note, his mirtazapine was decreased to 7.5 because of his weight gain and the need to revisit psychotropic drugs in a nursing facility. The patient does perceive himself as depressed. SYMPTOM BURDEN: The patient does complain of bilateral shoulder pain, is tender with palpation. Does demonstrate pain behaviors with movement. The patient remains quite reticent to take "medications" as far as asking if he would like something better to manage this. The staff reports his appetite has been poor and does seem much more withdrawn and less energetic today. CODE STATUS: THE PATIENT IS A DO NOT ATTEMPT RESUSCITATION, DO NOT INTUBATE, LIMITED INTERVENTIONS, DETERMINE USE OR LIMITATION OF ANTIBIOTICS WITH COMFORT THE GOAL AND NO MEDICALLY ASSISTED NUTRITION. HIS DPOA IS AD NARANJO THEIR PHONE NUMBER IS [phone]. REVIEW OF SYSTEMS: HEENT: The patient is hard of hearing. CARDIOVASCULAR: Denies chest pain. RESPIRATORY: Denies shortness of breath. He is on baseline oxygen. GASTROINTESTINAL: He did have diarrhea and some vomiting last week. GENITOURINARY: He continues to have a Santamaria catheter. NEUROLOGIC: He does seem to recognize me, cannot recall my name. He does speak in full sentences, but he is quite quiet today. PSYCHIATRIC: He does appear much more depressed, withdrawn. Does report he is feeling poorly, staff have reported this as well. ENDOCRINE: His blood sugars continue to run on the low side. HEMATOLOGIC/IMMUNOLOGIC: Recently treated for his UTI. PHYSICAL EXAMINATION: GENERAL APPEARANCE: He does appear somewhat fatigued. He is less energetic, has still some facial rash and is unshaven. EYES: With slight periorbital edema. ENT: Mucous membranes are slightly dry. NECK: Trachea midline. No lymphadenopathy. RESPIRATORY: As noted above. CARDIOVASCULAR: Vital signs as noted above, his regular rate and rhythm. ABDOMEN: Rounded, soft, nontender to palpation. No bladder distention noted. SKIN: His coccyx is clear. His right toe is healed, his heels are clear. EXTREMITIES: He is a difficult transfer as far as weightbearing, has limited range of motion in his upper arms. This does exacerbate his pain, and he remains mostly wheelchair bound. PALLIATIVE CARE DISCUSSION/WHO IS PRESENT: Myself, the patient, and Kathi Rodríguez , nurse practitioner. He is getting regular visits from the palliative care staff antisubmarine officer. He does report feeling depressed, staff are concerned as he is less "jovial." Is spending more time sleeping and time in the chair. He is eating less, is unclear to really be able to put pinpoint anything in particular other than this viral illness and his decrease in his mirtazapine. Did make a volunteer referral, it does not look that has been initiated yet. He is getting visits from the palliative care staff antisubmarine officer. This is a yung 78-year-old gentleman who has end-stage COPD recently treated for a urinary tract infection. He does have multiple drug resistances. He has had recently within the last couple weeks a viral illness, this has been improving though he has had increased weight loss. He was 149.6 today, diminished energy, increased symptoms of depression and sleeping more. RECOMMENDATIONS/COUNSELING DONE: 1. End-stage chronic obstructive pulmonary disease. He does have risk for recurrent pneumonia. He has been improving with his viral illness. He is afebrile. He does have some advantageous breath sounds as far as rhonchi with expiration in the right lobe but diminished in bases, but it is not tight or wheezy, does not perceive himself as short of breath. We will get a CBC to see if his white count is elevated. 2. He is receiving scheduled Tylenol. Unclear if this has been more effective for him. We can possibly consider an NSAID, a CMP has been taken and will look at his kidney function. 3. Facial rash, it is slightly improved, though still present. 4. Depression. We will go head and increase mirtazapine back up to 50 mg daily. We will followup on volunteer, continue with palliative care staff antisubmarine officer visits. 5. Diabetes type 2. His A1c was well within the range. He continues to have intermittent low blood sugars and he is eating less. Will go ahead and stop his metformin and keep an eye on his blood sugars for 2 weeks and see if this is impactfull. TIME SPENT: Forty-five minutes with greater than 50% of this done in counseling and coordination of care. I will followup on his labs and DPOA, did followup with facility staff for plan of care. ADDENDUM: 10/07 Follow up with Alyyesenia, notices rash resolving, reports he was doing better on Friday. Worried about continued shoulder pain, has difficulty dressing. Patient has been hesitant to add "more" pills. Will try Voltaren Gel three times a day, kidney function was good, will continue the APAP as well. Update provided, no further concerns. JOB #: [id number] EXT JOB #:[id number] DAVID
== END 2016-10-03 11:31 | disposition home or self-care (01) ==
LOC: PC 11:30
PROVIDERS: ATTEND Nurse Practitioner Adult Health
DX: Z51.5 Encounter for palliative care (principal); J44.9 Chronic obstructive pulmonary disease, unspecified; R21 Rash and other nonspecific skin eruption; F32.9 Major depressive disorder, single episode, unspecified; E11.9 Type 2 diabetes mellitus without complications; R33.9 Retention of urine, unspecified; M25.512 Pain in left shoulder; M25.511 Pain in right shoulder; H91.93 Unspecified hearing loss, bilateral; Z96.0 Presence of urogenital implants; N39.0 Urinary tract infection, site not specified; J18.9 Pneumonia, unspecified organism; Z66 Do not resuscitate
CPT/HCPCS: 99310

== ENCOUNTER 2016-10-04 07:21 | Outpatient (CLI) | payer MEDICARE, OTHER, MEDICAID ==
[2016-10-04 08:59] LABS: BASOPHILS % (AUTO) 0.5 %; EOSINOPHILS # (AUTO) 0.6 10^3/uL (0.0-0.7); EOSINOPHILS % (AUTO) 6.8 %; HCT - HEMATOCRIT 34.3 % (42.0-52.0); HGB - HEMOGLOBIN 11.4 g/dL (14.0-18.0); LYMPHOCYTES # (AUTO) 1.6 10^3/uL (1.5-3.5); LYMPHOCYTES % (AUTO) 19.7 %; MEAN CORPUSCULAR HEMOGLOBIN 30.8 pg (27.0-31.0); MEAN CORPUSCULAR HGB CONC 33.2 g/dL (32.0-36.0); MEAN CORPUSCULAR VOLUME 92.6 fL (80.0-94.0); MEAN PLATELET VOLUME 7.4 fL (7.4-11.4); MONOCYTES # (AUTO) 0.6 10^3/uL (0.0-1.0); MONOCYTES % (AUTO) 6.9 %; NEUTROPHILS # (AUTO) 5.5 10^3/uL (1.5-6.6); NEUTROPHILS % (AUTO) 66.1 %; NUCLEATED RED BLOOD CELLS AUTO 0.1 /100WBC; RED BLOOD COUNT 3.71 10^6/uL (4.70-6.10); RED CELL DISTRIBUTION WIDTH 12.6 % (12.0-15.0); UNCORRECTED WHITE BLOOD COUNT 8.4 x10^3/uL; WHITE BLOOD COUNT 8.4 x10^3/uL (4.8-10.8)
[2016-10-04 09:07] LABS: ALBUMIN/GLOBULIN RATIO 0.9 (1.0-2.2); BILIRUBIN,TOTAL 0.3 mg/dL (0.2-1.0); CALCIUM 8.9 mg/dL (8.5-10.3); CREATININE 0.7 mg/dL (0.6-1.2); POTASSIUM 4.3 mmol/L (3.5-5.0); TOTAL PROTEIN 6.5 g/dL (6.7-8.2)
== END 2016-10-04 07:22 | disposition home or self-care (01) ==
LOC: LAB.R 07:21
DX: Z79.899 Other long term (current) drug therapy (principal)
CPT/HCPCS: 80053; 85025

== ENCOUNTER 2016-11-02 12:38 | Outpatient (CLI) | payer MEDICARE, OTHER, MEDICAID | END 2016-11-02 12:39 | disposition critical access hospital (66) | LOC: EMS 12:38 | PROVIDERS: ATTEND Surgery | DX: R39.9 Unspecified symptoms and signs involving the genitourinary system (principal); R10.30 Lower abdominal pain, unspecified | CPT/HCPCS: A0425; A0429 ==

== ENCOUNTER 2016-11-02 12:41 | Inpatient (IN) | payer MEDICARE, OTHER, MEDICAID ==
[2016-11-02] MEDS ORDERED: HYDROmorphone 1 MG/ML SYRINGE IVP STA (13:30)
[2016-11-02] MEDS ORDERED: HYDROmorphone 1 MG/ML SYRINGE ONE (13:34)
[2016-11-02] MEDS ORDERED: LIDOCAINE 2% URO-JET 5 ML SYRINGE UR ONE (13:40)
[2016-11-02 13:46] LABS: BASOPHILS # (AUTO) 0.1 10^3/uL (0.0-0.1); BASOPHILS % (AUTO) 0.6 %; EOSINOPHILS # (AUTO) 0.2 10^3/uL (0.0-0.7); EOSINOPHILS % (AUTO) 1.1 %; HCT - HEMATOCRIT 36.7 % (42.0-52.0); HGB - HEMOGLOBIN 12.4 g/dL (14.0-18.0); LYMPHOCYTES # (AUTO) 0.8 10^3/uL (1.5-3.5); MEAN CORPUSCULAR HEMOGLOBIN 30.8 pg (27.0-31.0); MEAN CORPUSCULAR HGB CONC 33.9 g/dL (32.0-36.0); MEAN CORPUSCULAR VOLUME 91.1 fL (80.0-94.0); MEAN PLATELET VOLUME 7.8 fL (7.4-11.4); MONOCYTES # (AUTO) 0.7 10^3/uL (0.0-1.0); MONOCYTES % (AUTO) 4.8 %; NEUTROPHILS # (AUTO) 13.6 10^3/uL (1.5-6.6); NEUTROPHILS % (AUTO) 88.5 %; NUCLEATED RED BLOOD CELLS AUTO 0.1 /100WBC; RED BLOOD COUNT 4.03 10^6/uL (4.70-6.10); RED CELL DISTRIBUTION WIDTH 13.9 % (12.0-15.0); UNCORRECTED WHITE BLOOD COUNT 15.3 x10^3/uL; WHITE BLOOD COUNT 15.3 x10^3/uL (4.8-10.8)
[2016-11-02 14:10] LABS: ALBUMIN/GLOBULIN RATIO 0.9 (1.0-2.2); BILIRUBIN,TOTAL 0.8 mg/dL (0.2-1.0); CALCIUM 9.5 mg/dL (8.5-10.3); CREATININE 0.7 mg/dL (0.6-1.2); POTASSIUM 4.3 mmol/L (3.5-5.0); TOTAL PROTEIN 7.4 g/dL (6.7-8.2)
[2016-11-02 14:13] LABS: BILIRUBIN,URINE NEGATIVE (NEGATIVE); PH,URINE 6.5 PH (5.0-7.5)
[2016-11-02 14:14] LABS: UA CHARGE (STRIP ONLY) YES
[2016-11-02 14:15] LABS: UR CULTURE IF IND INDICATED
[2016-11-02] MEDS ORDERED: cefTRIAXone 1 GM in SODIUM CHLORIDE 0.9% MINIBAG 100 ML IV STA (14:20)
[2016-11-02] MEDS ORDERED: IOPAMIDOL-300 100 ML VIAL IVP ONE (14:31)
[2016-11-02] MEDS ORDERED: cefTRIAXone 1 GM VIAL ONE (14:36)
--- NOTE | 2016-11-02 14:36 | ED Physician Documentation ---
PD HPI ABD PAIN - Stated complaint Stated Complaint: MALE - Chief complaint Chief Complaint: Abd Pain - History obtained from History obtained from: Patient, EMS - History of Present Illness Timing - onset: Today Timing - duration: Days (1) Timing - details: Abrupt onset Pain level max: 10 Pain level now: 10 Quality: Pain Location: Suprapubic, LLQ Improved by: Other (nothing) Worsened by: Other (nothing) Associated symptoms: No: Fever, Nausea, Vomiting, Hematemesis, Diarrhea, Constipation, Melena, Hematochezia, Dysuria Similar symptoms before: Has not had sx before Recently seen: Not recently seen Review of Systems Ten Systems: 10 systems reviewed and negative Constitutional: denies: Fever, Chills Ears: denies: Ear pain Throat: denies: Sore throat Cardiac: denies: Chest pain / pressure Respiratory: denies: Cough GI: denies: Nausea, Vomiting, Diarrhea Skin: denies: Rash Musculoskeletal: denies: Neck pain, Back pain Neurologic: denies: Focal weakness, Numbness, Headache PD PAST MEDICAL HISTORY - Past Medical History Cardiovascular: Congestive heart failure, Hypertension Respiratory: COPD Neuro: None, Other Endocrine/Autoimmune: Type 2 diabetes GI: None : None HEENT: Chronic vision loss, Other Psych: None Musculoskeletal: Chronic back pain Derm: None - Past Surgical History Past Surgical History: Yes General: Colonoscopy HEENT: Cataracts - Present Medications Home Medications: Ambulatory Orders Medication Instructions Recorded Confirmed Latanoprost 1 drops EACHEYE QPM 12/25/15 11/02/16 Acetaminophen 325 mg PO Q4H PRN 03/09/16 11/02/16 Fluticasone/Salmeterol [Advair 1 inh INH BID 03/09/16 11/02/16 100-50 Diskus] Calcium Carbonate [Tums (Calcium 500 mg PO Q8HR PRN #0 tablet 05/01/16 11/02/16 Carbonate 500mg)] Clopidogrel [Plavix] 75 mg PO DAILY 30 Days 05/01/16 11/02/16 Gabapentin [Neurontin] 100 mg PO TID 11/02/16 11/02/16 Ipratropium/Albuterol [Duoneb] 3 ml INH Q6H PRN 11/02/16 11/02/16 Lorazepam 0.25 mg PO TID PRN 11/02/16 11/02/16 Mirtazapine [Remeron] 15 mg PO QPM 11/02/16 11/02/16 Tamsulosin HCl [Flomax] 0.4 mg PO QPM 11/02/16 11/02/16 - Allergies Allergies/Adverse Reactions: Allergies Allergy/AdvReac Type Severity Reaction Status Date / Time No Known Drug Allergies Allergy Verified 11/02/16 13:07 - Social History Does the pt smoke?: No Smoking Status: Former smoker Does the pt drink ETOH?: No Does the pt have substance abuse?: No - Immunizations Immunizations are current?: No Immunizations: TDAP >10years/unknown - POLST Patient has POLST: No PD ED PE NORMAL - Vitals Vital signs reviewed: Yes - General General: Alert and oriented X 3, No acute distress - HEENT HEENT: Moist mucous membranes - Neck Neck: Supple, no meningeal sign - Cardiac Cardiac: RRR, Strong equal pulses - Respiratory Respiratory: No respiratory distress, Clear bilaterally - Abdomen Abdomen: Soft, Other (TTP LLQ/suprapubic) - Back Back: No CVA TTP, No spinal TTP - Derm Derm: Warm and dry - Neuro Neuro: Alert and oriented X 3 - Psych Psych: Normal mood, Normal affect Results - Vitals Vitals: Vital Signs - 24 hr 11/02/16 11/02/16 11/02/16 12:44 14:46 15:46 Temperature 36.8 C Heart Rate 135 H 115 H 110 H Respiratory 22 22 20 Rate Blood Pressure 146/72 H 102/54 L 109/51 L O2 Saturation 96 93 97 11/02/16 16:01 Temperature 36.1 C L Heart Rate Respiratory Rate Blood Pressure O2 Saturation Oxygen O2 Source [With Activity] Room air O2 Source [Without Activity] 2L via NC O2 Source Nasal cannula - Labs Labs: Laboratory Tests 11/02/16 11/02/16 11/02/16 13:30 13:30 13:40 WBC 15.3 H RBC 4.03 L Hgb 12.4 L Hct 36.7 L MCV 91.1 MCH 30.8 MCHC 33.9 RDW 13.9 Plt Count 290 MPV 7.8 Neut # 13.6 H Lymph # 0.8 L [place] # 0.7 Eos # 0.2 Baso # 0.1 Absolute Nucleated RBC 0.02 Nucleated RBCs 0.1 Sodium 136 Potassium 4.3 Chloride 97 L Carbon Dioxide 29 Anion Gap 10.0 BUN 10 Creatinine 0.7 Estimated GFR (MDRD) 108 Glucose 215 H Lactic Acid 1.7 Calcium 9.5 Total Bilirubin 0.8 AST 18 ALT 12 Alkaline Phosphatase 116 Total Protein 7.4 Albumin 3.6 Globulin 3.8 Albumin/Globulin Ratio 0.9 L Lipase 19 L Urine Color Urine Clarity Urine pH Ur Specific [place] Urine Protein Urine Glucose (UA) Urine Ketones Urine Occult Blood Urine Nitrite Urine Bilirubin Urine Urobilinogen Ur Leukocyte Esterase Ur Microscopic Review Urine Culture Comments 11/02/16 14:00 WBC RBC Hgb Hct MCV MCH MCHC RDW Plt Count MPV Neut # Lymph # [place] # Eos # Baso # Absolute Nucleated RBC Nucleated RBCs Sodium Potassium Chloride Carbon Dioxide Anion Gap BUN Creatinine Estimated GFR (MDRD) Glucose Lactic Acid Calcium Total Bilirubin AST ALT Alkaline Phosphatase Total Protein Albumin Globulin Albumin/Globulin Ratio Lipase Urine Color YELLOW Urine Clarity CLOUDY Urine pH 6.5 Ur Specific [place] 1.020 Urine Protein 100 H Urine Glucose (UA) NEGATIVE Urine Ketones NEGATIVE Urine Occult Blood LARGE H Urine Nitrite POSITIVE H Urine Bilirubin NEGATIVE Urine Urobilinogen 0.2 (NORMAL) Ur Leukocyte Esterase MODERATE H Ur Microscopic Review NOT INDICATED Urine Culture Comments INDICATED - Rads (name of study) CT abd/pelvis Radiology: Prelim report reviewed, EMP read contemporaneously, See rad report ( 1. Colon diverticulosis and probable mild diverticulitis in the proximal mid sigmoid colon without drainable abscess. Normal appendix. Negative for bowel obstruction. 2. Bilateral intrarenal stones, greater in the right tibia without hydronephrosis. 3. Cholelithiasis without acute cholecystitis or bile duct dilatation. 4. Borderline to mild splenomegaly without cirrhosis or adenopathy, nonspecific finding. 5. There is a small to moderately-sized right inguinal indirect hernia containing fat with minimal fat stranding. 6. Small dependent pulmonary opacity in the bilateral lung bases, greater left base with small left pleural effusion, infiltrate process or pneumonia in the left lower lobe may have similar appearance. ) PD MEDICAL DECISION MAKING - ED course Complexity details: reviewed old records, reviewed results, re-evaluated patient (Abdomen remains mildly tender in the left lower quadrant where the diverticulitis was seen on CT scan.), considered differential, d/w patient, d/w senior energy consultant ED course: Patient is an 81-year-old gentleman who presents to the emergency department with abdominal pain, tachycardia. He was found to have urinary obstruction with a blocked catheter from pyuria. This was attempted to be irrigated, but this did not work therefore a new catheter was placed and drained well. His abdominal pain resolved, but his heart rate remained elevated at 110-115. Given IV fluids and did not change his tachycardia much. Also found to be hypotensive, systolic around 100-110. His lactate is normal. We will admit him to the hospital for further evaluation and care. He was started on Rocephin IV. He was also found to have mild diverticulitis on the CT scan, therefore Flagyl was added to this. Discussed the case with the hospitalist, Dr. Andrade who accepts. This document was made in part using voice recognition software. While efforts are made to proofread this document, sound alike and grammatical errors may occur. Initially HR was charted at 96 upon arrival, after discussion with RN, it was updated to reflect his true HR of 135 at the time of presentation (1550). Departure - Departure Disposition: 66 [facility] DC/Xfer Clinical Impression: Acute urinary retention UTI (urinary tract infection) Qualifiers: Urinary tract infection type: acute cystitis Hematuria presence: without hematuria Qualified Code(s): N30.00 - Acute cystitis without hematuria Sepsis Qualifiers: Sepsis type: sepsis due to unspecified organism Qualified Code(s): A41.9 - Sepsis, unspecified organism Diverticulitis Qualifiers: Diverticulitis site: large intestine Diverticulitis bleeding: without bleeding Diverticulitis complication: without perforation or abscess Qualified Code(s): K57.32 - Diverticulitis of large intestine without perforation or abscess without bleeding Condition: Stable
[2016-11-02] MEDS ORDERED: SODIUM CHLORIDE 0.9% 1,000 ML IV ONE (14:49)
--- NOTE | 2016-11-02 15:36 | CT Report ---
EXAM: CT ABDOMEN AND PELVIS EXAM DATE: 11/02/2016 02:20 PM. CLINICAL HISTORY: Diffuse abdominal pain. COMPARISONS: None. TECHNIQUE: Routine helical CT imaging was performed through the abdomen and pelvis. IV contrast: 100 cc Isovue 300. Enteric contrast: No. Reconstructions: Coronal and sagittal. In accordance with CT protocol optimization, one or more of the following dose reduction techniques w ere utilized for this exam: automated exposure control, adjustment of mA and/or KV based on patient s ize, or use of iterative reconstructive technique. FINDINGS: Lung Bases: Bibasilar small dependent opacity and small left pleural effusion visualized. Coronary ar macarena calcification, aortic valve calcification without cardiomegaly are seen. There is tiny hiatal he rnia. Liver: No contour changes or masses. Gallbladder/Bile Ducts: Multiple small gallbladder stones without gallbladder wall thickening, abnorm al enhancement or bile duct dilatation visualized. Spleen: 13.7 cm in the longest dimension without splenic masses. Pancreas: Normal. Adrenal Glands: Normal. Kidneys: There is a stone in the left lower renal pelvis, 3 mm and there is also right main renal pel vis, 8 x 10 x 7 mm without hydronephrosis on either side. There are multiple bilateral small renal s imple cortical cysts. There is a focal cortical indentation containing a tiny calcification in the po sterior mid cortex of the right kidney, probable chronic scarring versus a tiny obstructing stone in the calyx with atrophic parenchyma. Peritoneal Cavity/Bowel: There is colon diverticulosis; there is borderline or minimal colon wall thi ckening with small eliezer colon fat stranding in the proximal mid sigmoid, otherwise, No discrete colon diverticulitis or pericolon abscess formation seen. No free fluid, free air or adenopathy. No small bowel dilatation or acute inflammatory process. The appendix is well visualized and normal. Pelvic Organs: There is Santamaria catheter in the bladder; otherwise, the bladder and visualized pelvic o rgans are within normal limits. Vasculature: No aneurysms or other significant abnormality. Bones: No bony destructive abnormality. Multilevel moderate to severe degenerative disk disease in th e spine, predominantly lower lumbar spine. Other: There is a small to moderately-sized right inguinal indirect hernia containing fat with minima l fat stranding. IMPRESSION: 1. Colon diverticulosis and probable mild diverticulitis in the proximal mid sigmoid colon without dr ainable abscess. Normal appendix. Negative for bowel obstruction. 2. Bilateral intrarenal stones, greater in the right tibia without hydronephrosis. 3. Cholelithiasis without acute cholecystitis or bile duct dilatation. 4. Borderline to mild splenomegaly without cirrhosis or adenopathy, nonspecific finding. 5. There is a small to moderately-sized right inguinal indirect hernia containing fat with minimal fa t stranding. 6. Small dependent pulmonary opacity in the bilateral lung bases, greater left base with small left p leural effusion, infiltrate process or pneumonia in the left lower lobe may have similar appearance. [facility] Referring Provider Line: [phone] SITE ID: [id number]
[2016-11-02] MEDS ORDERED: metroNIDAZOLE 500 MG/100 ML 100 ML IV ONE (16:00)
[2016-11-02] MEDS ORDERED: metroNIDAZOLE 500 MG/100 ML 100 ML ONE (16:08)
[2016-11-02] MEDS ORDERED: ONDANSETRON 4 MG/2 ML VIAL IVP PRN (17:14)
[2016-11-02] MEDS ORDERED: ALBUTEROL NEB 2.5 MG/3 ML INH PRN (17:30)
[2016-11-02] MEDS ORDERED: CALCIUM CARBONATE CHEW 500 MG TABLET PO PRN (17:31)
--- NOTE | 2016-11-02 18:06 | HISTORY & PHYSICAL EXAMINATION ---
Chief Complaint - Chief Complaint Chief Complaint: "did not feel so good for couple of days" History of Present Illness - Admitted From Admitted From:: emergence department - History Obtained From History obtained from: patient - History of Present Illness HPI Comment/Other: This is a 81-year-old male with a Past Medical History of hypertension , COPD, DM2, chronic vision loss, chronic back pain, chronic shoulder pain, questionable congenital heart failure, who present emergence department for evaluation of severe pain in penis. Patient initially report he has been on illness and felt not good for couple days. Upon further interview, patient specifically report he had severe pain in his penis, especially when he urinates. The patient is not a good historian, he does not provide much information about exact questions. Patient did report he did not have short of breathing, chest pain, headache, nausea, vomiting, abdominal pain. He report loose stool but no diarrhea. He report his shoulder pain before he came into emergence department, now he feel better "after they put something on." Review of patient's ECHO study on 04/2015, it reveals mild concentric LVH with normal systolic function, EF 65%, There is mild diastolic dysfunction but left atrium is normal in size. Aortic and mitrial valves are normal function. Normal right ventricular size and function. Pulmonary pressure could not be determined. CT of abdomen on today reveals colon diverticulosis and probable mild diverticulitis in the proximal mild sigmoid colon without drainable abscess, Normal appendix, negative for bowel obstruction, bilateral intrarenal stones without hydronephrosis, Cholelithiasis without acute cholecystitis, small left pleural effusion, infiltrate process or pneumonia in the left lower lobe may be similar appearance. CXR is pending. UA reveals positive urine protein, urine occult blood, nitrite, and leukocyte esterase. Patient has been inserted Santamaria catheter in the emergence department. Lab test reveals patient has elevated WBC to 15.3 and left shift. Glucose is 215. The nearest vital sign are as the following: Temperature 36.1, heart rate 110, blood pressure 109/51, RR 20, SO2 97% with 2 liter of O2. Patient is admitted to treatment for UTI, diverticulitis and pneumonia Review of Systems - Constitutional Constitutional: reports: Fatigue. denies: Fever, Chills, Malaise, Diaphoresis, Night sweats, Weight gain, Weight loss - Eyes Eyes: reports: Vision loss (chronic vision loss per patient report). denies: Pain, Irritation, Blurred vision, Spots in vision, Dipolpia - Ears, Nose & Throat Ears, Nose & Throat: denies: Ear pain, Hearing loss, Tinnitus, Vertigo, Nasal discharge, Nosebleeds, Sore throat, Mouth lesions, Dental pain - Cardiovascular Cariovascular: denies: Irregular heart rate, Palpitations, Chest pain, Edema, Lightheadedness, Syncope, Exertional dyspnea, Orthopnea - Respiratory Respiratory: reports: Cough. denies: Sputum production, Wheezing, Snoring, Hemoptysis, Orthopnea, SOB at rest - Gastrointestinal Gastrointestinal: reports: Constipation. denies: Abdominal pain, Abdominal distention, Diarrhea, Change in bowel habits, Rectal bleeding, Black stools, Nausea, Vomiting, Ernesto blood emesis - Genitourinary Genitourinary: reports: Dysuria, Frequency, Incontinence. denies: Urgency, Hematuria, Flank pain, Nocturia, Urethral discharge - Musculoskeletal Musculoskeletal: reports: Joint pain (bilateral shoulder pain). denies: Muscle pain, Back pain, Muscle aches, Stiffness, Limited range of motion, Joint swelling - Integumentary Integumentary: reports: Dryness. denies: Rash, Pruritis, Nail changes - Neurological Neurological: reports: General weakness. denies: Focal weakness, Headache, Dizziness, Numbness, Seizures, Slurred speech - Psychiatric Psychiatric: denies: Depression, Anxiety, Suicidal, Delusions, Hallucinations, Homicidal - Endocrine Endocrine: denies: Polyuria, Polydypsia, Polyphagia, Intolerance to cold, Intolerance to heat - Hematologic/Lymphatic Hematologic/Lymphatic: reports: Recurrent infections. denies: Bruising, Petechiae, Blood clots, Lymphadenopathy History - Past Medical History Cardiovascular: reports: Congestive heart failure, Hypertension Respiratory: reports: COPD Neuro: reports: None, Other Endocrine/Autoimmune: reports: Type 2 diabetes GI: reports: None : reports: None HEENT: reports: Chronic vision loss, Other Psych: reports: None Musculoskeletal: reports: Chronic back pain Derm: reports: None MRSA Hx?: No - Past Surgical History General: reports: Colonoscopy HEENT: reports: Cataracts - POLST Patient has POLST: No POLST Status: DNR Meds/Allgy - Home Medications Home Medications: Ambulatory Orders Medication Instructions Recorded Confirmed Latanoprost 1 drops EACHEYE QPM 09//16 11/02/17 Acetaminophen 325 mg PO Q4H PRN 03/09/16 11/02/16 Fluticasone/Salmeterol [Advair 1 inh INH BID 03/09/16 11/02/16 100-50 Diskus] Calcium Carbonate [Tums (Calcium 500 mg PO Q8HR PRN #0 tablet 05/01/16 11/02/16 Carbonate 500mg)] Clopidogrel [Plavix] 75 mg PO DAILY 30 Days 05/01/16 11/02/16 Gabapentin [Neurontin] 100 mg PO TID 11/02/16 11/02/16 Ipratropium/Albuterol [Duoneb] 3 ml INH Q6H PRN 11/02/16 11/02/16 Lorazepam 0.25 mg PO TID PRN 11/02/16 11/02/16 Mirtazapine [Remeron] 15 mg PO QPM 11/02/16 11/02/16 Tamsulosin HCl [Flomax] 0.4 mg PO QPM 11/02/16 11/02/16 Latanoprost 0.005% Ophth Drops 1 drops EACHEYE QPM #1 bottle 11/05/16 [Xalatan Ophth Drops] Lidocaine Patch 5% [Lidoderm Patch] 2 patch TOP DAILY PRN #15 patch 11/05/16 - Allergies Allergies/Adverse Reactions: Allergies Allergy/AdvReac Type Severity Reaction Status Date / Time No Known Drug Allergies Allergy Verified 11/02/16 13:07 Exam - Vital Signs Vital Signs: Vital Signs x48h Temp Pulse Resp BP Pulse Ox 11/02/16 17:41 109 H 22 92 11/02/16 16:01 36.1 C L 11/02/16 15:46 110 H 20 109/51 L 97 11/02/16 14:46 115 H 22 102/54 L 93 11/02/16 12:44 36.8 C 135 H 22 146/72 H 96 - Physical Exam General Appearance: positive: No acute distress, Alert Eyes Bilateral: positive: Normal inspection, PERRL ENT: positive: ENT inspection nml, Pharynx nml, No signs of dehydration Neck: positive: Nml inspection, Thyroid nml, No JVD, Trachea midline Respiratory: positive: Chest non-tender, No respiratory distress, Other (some cracker sound at left lobe) Cardiovascular: positive: Regular rate & rhythm, No murmur, No gallop, Tachycardia Peripheral Pulses: positive: 2+ Abdomen: positive: Non-tender, No organomegaly, Nml bowel sounds, No distention Back: positive: Nml inspection Skin: positive: Color nml, No rash, Warm, Dry Extremities: positive: Non-tender, Full ROM, Nml appearance Neurologic/Psychiatric: positive: Oriented x3, Motor nml, Sensation nml, Mood/ affect nml Conclusion/Plan - Problem List (1) Diverticulitis of sigmoid colon Conclusion/Plan: Flagyl IV follow up blood culture (2) UTI (urinary tract infection) with pyuria Conclusion/Plan: Unasyn can be used for both UTI and pneumonia follow up with blood culture (3) Acute urinary retention Conclusion/Plan: Santamaria catheter, reconciliation of home Flomax (4) Left lower lobe pneumonia Conclusion/Plan: treat with Unasyn, follow up blood culture (5) Sepsis associated hypotension Conclusion/Plan: hydration, antibiotics. IVF and NS bolus as needed on tele (6) History of COPD Conclusion/Plan: reconciliation of Duoneb PRN, albuteral PRN (7) Hypotension Conclusion/Plan: Patient at ER had BP 89/48, HR 99, Tem 37.2, RR 20, SO2 94% with 2L NC O2. Patient was given IVF bolus in ER. Patient will be closely monitored, mild to moderate IVF remain, check lactic acid, continue on antibiotic Qualifiers: Hypotension type: unspecified hypotension type Qualified Code(s): I95.9 - Hypotension, unspecified - Lab Results Fish Bones: 11/05/16 05:35 11/05/16 05:35 Issues/Core Measures - Anticipated LOS Anticipated Stay Length: 2 or more midnights - Issues Hospital Issues and Management Plan: SCD and Lovenox for DVT prophylaxis - DVT/VTE - Prophylaxis VTE/DVT Device ordered at admit?: Yes
[2016-11-02 18:09] LABS: HEMOGLOBIN A1C 0.64 g/dL
--- NOTE | 2016-11-02 18:18 | XRAY Preliminary Report ---
Exam: XR Chest 2 View PA/LAT IMPRESSION: No acute cardiopulmonary process. [facility] SITE ID: [id number]
--- NOTE | 2016-11-02 18:20 | XRAY Report ---
EXAM: CHEST RADIOGRAPHY EXAM DATE: 11/02/2016 05:30 PM. CLINICAL HISTORY: Cough. COMPARISON: 04/28/2016 chest x-ray. TECHNIQUE: 2 views. FINDINGS: Lungs/Pleura: Scarring and/or atelectasis medially at the right lung base. The lungs are otherwise cl ear. No pleural effusion or pneumothorax. Mediastinum: Heart and mediastinal contours are unremarkable. Other: None. IMPRESSION: No acute cardiopulmonary process. [facility] Referring Provider Line: [phone] SITE ID: [id number]
[2016-11-02] MEDS: SODIUM CHLORIDE 0.9% 1,000 ML IV SCH (18:25)
[2016-11-02] MEDS: AMPICILLIN/SULBACTAM 1.5 GM in SODIUM CHLORIDE 0.9% MINIBAG 100 ML IV SCH (19:16)
[2016-11-02] MEDS ORDERED: SALMETEROL INH SCH (21:00)
[2016-11-02] MEDS ORDERED: FLUTICASONE INH SCH (21:00)
[2016-11-02] MEDS: LATANOPROST 0.005% OPHTH DROPS EACHEYE SCH (21:13)
[2016-11-02] MEDS: SODIUM CHLORIDE FLUSH 0.9% 10 ML SYRINGE IVP SCH (21:14)
[2016-11-02] MEDS: TAMSULOSIN 0.4 MG CAPSULE PO SCH (21:14)
[2016-11-02] MEDS: MIRTAZAPINE 15 MG TABLET PO SCH (21:14)
[2016-11-02] MEDS: GABAPENTIN 100 MG CAPSULE PO SCH (21:14)
[2016-11-02] MEDS: INSULIN ASPART 300 UNIT/3 ML PEN SUBQ SCH (21:16)
[2016-11-02] MEDS: metroNIDAZOLE 500 MG/100 ML 100 ML IV SCH (23:48)
[2016-11-03] MEDS: AMPICILLIN/SULBACTAM 1.5 GM in SODIUM CHLORIDE 0.9% MINIBAG 100 ML IV SCH ×2 (01:26→06:26)
[2016-11-03] MEDS: GABAPENTIN 100 MG CAPSULE PO SCH ×3 (06:26→20:48)
[2016-11-03] MEDS: SODIUM CHLORIDE 0.9% 1,000 ML IV SCH ×3 (06:26→23:41)
[2016-11-03] MEDS: SODIUM CHLORIDE FLUSH 0.9% 10 ML SYRINGE IVP SCH ×3 (06:29→20:49)
[2016-11-03] MEDS: IPRATROPIUM/ALBUTEROL 3 ML NEB INH PRN (07:15)
[2016-11-03] MEDS: MORPHINE 2 MG/ML CARPUJECT IVP PRN (07:44)
[2016-11-03] MEDS: metroNIDAZOLE 500 MG/100 ML 100 ML IV SCH ×3 (07:45→23:40)
[2016-11-03] MEDS ORDERED: MAGNESIUM SULFATE 2 GRAM 50 ML IV ONE (08:30)
[2016-11-03 08:59] LABS: BASOPHILS # (AUTO) 0.1 10^3/uL (0.0-0.1); BASOPHILS % (AUTO) 1.1 %; EOSINOPHILS # (AUTO) 0.6 10^3/uL (0.0-0.7); EOSINOPHILS % (AUTO) 6.2 %; HCT - HEMATOCRIT 32.8 % (42.0-52.0); LYMPHOCYTES # (AUTO) 0.9 10^3/uL (1.5-3.5); LYMPHOCYTES % (AUTO) 10.1 %; MEAN CORPUSCULAR HEMOGLOBIN 31.1 pg (27.0-31.0); MEAN CORPUSCULAR HGB CONC 33.6 g/dL (32.0-36.0); MEAN CORPUSCULAR VOLUME 92.6 fL (80.0-94.0); MONOCYTES # (AUTO) 0.6 10^3/uL (0.0-1.0); MONOCYTES % (AUTO) 6.6 %; RED BLOOD COUNT 3.54 10^6/uL (4.70-6.10); RED CELL DISTRIBUTION WIDTH 14.3 % (12.0-15.0); UNCORRECTED WHITE BLOOD COUNT 9.2 x10^3/uL; WHITE BLOOD COUNT 9.2 x10^3/uL (4.8-10.8)
[2016-11-03] MEDS ORDERED: MAGNESIUM OXIDE 400 MG TABLET PO ONE (09:00)
[2016-11-03] MEDS ORDERED: cefTRIAXone 1 GM VIAL IVP SCH (09:00)
[2016-11-03 09:07] LABS: BILIRUBIN,TOTAL 0.9 mg/dL (0.2-1.0); CALCIUM 8.7 mg/dL (8.5-10.3); CREATININE 0.6 mg/dL (0.6-1.2); POTASSIUM 3.5 mmol/L (3.5-5.0); TOTAL PROTEIN 5.8 g/dL (6.7-8.2)
[2016-11-03] MEDS: FAMOTIDINE 20 MG TABLET PO SCH (09:25)
[2016-11-03] MEDS: CLOPIDOGREL 75 MG TABLET PO SCH (09:25)
[2016-11-03] MEDS: POLYETHYLENE GLYCOL 3350 17 GM PACKET PO SCH (09:26)
[2016-11-03] MEDS: ENOXAPARIN 40 MG/0.4 ML SYRINGE SUBQ SCH (09:28)
[2016-11-03] MEDS ORDERED: LIDOCAINE PATCH 5% TOP PRN ×3 (09:29→11:40)
[2016-11-03] MEDS: INSULIN ASPART 300 UNIT/3 ML PEN SUBQ SCH ×4 (09:42→20:42)
--- NOTE | 2016-11-03 10:23 | PROVIDER PROGRESS NOTE ---
Subjective - Subjective Pt reports feeling: Improved Subjective: patient report he feel better. Patient report some pain on his bilateral shoulders. Objective - Vital Signs/Intake & Output Vital Signs: Vital Signs x48h Temp Pulse Pulse Resp BP Pulse Ox 11/03/16 08:21 37.0 C 99 20 109/64 94 11/03/16 07:15 96 24 11/03/16 04:55 37.2 C 98 18 94 Intake & Output: Intake & Output 10/31/16 11/01/16 11/02/16 11/03/16 23:59 23:59 23:59 23:59 Intake Total 840 478 Output Total 850 700 Balance - - Objective General Appearance: positive: No acute distress, Alert Eyes Bilateral: positive: Normal inspection, PERRL ENT: positive: ENT inspection nml, Pharynx nml, No signs of dehydration Neck: positive: Nml inspection, Thyroid nml, Trachea midline Respiratory: positive: Chest non-tender, No respiratory distress, Other ( diminished but no abnormality of sound) Cardiovascular: positive: Regular rate & rhythm, No murmur Peripheral Pulses: 2+ Radial (R), 2+ Radial (L), 2+ Dorsalis pedis (R), 2+ Dorsalis pedis (L) Abdomen: positive: Non-tender, Nml bowel sounds, No distention Back: positive: Nml inspection Skin: positive: Color nml, Warm Extremities: positive: Non-tender, Full ROM, Nml appearance Neurologic/Psychiatric: positive: Oriented x3, Motor nml, Sensation nml, Mood/ affect nml - Lab Results Fish Bones: 11/05/16 05:35 11/05/16 05:35 Other Labs: Lab Results x24hrs 11/03/16 11/03/16 11/03/16 Range/Units 05:19 05:19 05:19 WBC 9.2 (4.8-10.8) x10^3/uL RBC 3.54 L (4.70-6.10) 10^6/uL Hgb 11.0 L (14.0-18.0) g/dL Hct 32.8 L (42.0-52.0) % MCV 92.6 (80.0-94.0) fL MCH 31.1 H (27.0-31.0) pg MCHC 33.6 (32.0-36.0) g/dL RDW 14.3 (12.0-15.0) % Plt Count 244 (130-450) 10^3/uL MPV 8.0 (7.4-11.4) fL Neut # 7.0 H (1.5-6.6) 10^3/uL Lymph # 0.9 L (1.5-3.5) 10^3/uL [place] # 0.6 (0.0-1.0) 10^3/uL Eos # 0.6 (0.0-0.7) 10^3/uL Baso # 0.1 (0.0-0.1) 10^3/uL Absolute Nucleated RBC 0.00 x10^3/uL Nucleated RBCs 0.0 /100WBC Sodium 140 (135-145) mmol/L Potassium 3.5 (3.5-5.0) mmol/L Chloride 104 (101-111) mmol/L Carbon Dioxide 30 (21-32) mmol/L Anion Gap 6.0 (6-13) BUN 7 (6-20) mg/dL Creatinine 0.6 (0.6-1.2) mg/dL Estimated GFR (MDRD) 129 (>89) Glucose 123 H (70-100) mg/dL Calcium 8.7 (8.5-10.3) mg/dL Magnesium 1.4 L (1.7-2.8) mg/dL Total Bilirubin 0.9 (0.2-1.0) mg/dL AST 15 (10-42) IU/L ALT 10 (10-60) IU/L Alkaline Phosphatase 80 (42-121) IU/L Total Protein 5.8 L (6.7-8.2) g/dL Albumin 2.9 L (3.2-5.5) g/dL Globulin 2.9 (2.1-4.2) g/dL Albumin/Globulin Ratio 1.0 (1.0-2.2) Assessment/Plan - Problem List (1) Diverticulitis of sigmoid colon Impression: patient denies diarrhea, abdominal pain, nausea and vomiting. continue to treat with flagyl, follow up culture (2) UTI (urinary tract infection) with pyuria Impression: patient with history PBH, urinary retention, UTI. follow up UA culture, use Levaquin, more specific for UTI, instead of Unasyn. Follow up culture (3) Acute urinary retention Impression: history of urinary retention, BPH, Santamaria Catheter. Continue on Santamaria, follow up the protocol to remove the Santamaria. reconciliation of BPH medication. (4) Left lower lobe pneumonia Impression: CT reveals pneumonia, CXR indicate no acute process. Patient has dry cough, feel not well, no fever but at high limited temperatures board, history of multiple times of pneumonia, came from longterm, still continue to treat with pneumonia with Levaquin now. Follow up blood culture. Patient was bed- bound in longterm, but will try PT as the best. (5) Sepsis associated hypotension Impression: patient is hemodynamically stable now, will continue IV of NS, antibiotics, follow up blood culture, closely monitor nurse report patient has lower BP, patient had 1.5 liter NS bolus. (6) History of COPD Impression: patient with history of end stage of COPD, SO2 stable, no obvious respiratory distress now. reconciliaition of home INH treatment, continue to treat, consult with RT (7) Shortness of breath Impression: patient developed shortness of breath, order CXR
[2016-11-03] MEDS: ACETAMINOPHEN 325 MG TABLET PO PRN (11:43)
[2016-11-03] MEDS ORDERED: SODIUM CHLORIDE 0.9% 500 ML IV ONE (11:45)
[2016-11-03] MEDS: DOCUSATE SODIUM 100 MG CAPSULE PO SCH (11:47)
[2016-11-03] MEDS ORDERED: LIDOCAINE PATCH 5% TOP ONE (12:00)
[2016-11-03] MEDS: BUDESONIDE 0.5 MG/2 ML NEB INH SCH ×2 (12:45→20:00)
[2016-11-03] MEDS: FORMOTEROL FUMARATE NEB 20 MCG/2 ML INH SCH ×2 (12:45→20:00)
[2016-11-03] MEDS ORDERED: cefTRIAXone 1 GM in SODIUM CHLORIDE 0.9% MINIBAG 100 ML IV SCH (14:00)
[2016-11-03] MEDS ORDERED: SODIUM CHLORIDE 0.9% 1,000 ML IV ONE (16:16)
--- NOTE | 2016-11-03 20:19 | XRAY Preliminary Report ---
Exam: XR Chest 2 View PA/LAT IMPRESSION: Small bilateral pleural effusions. [facility] SITE ID: [id number]
--- NOTE | 2016-11-03 20:21 | XRAY Report ---
EXAM: CHEST RADIOGRAPHY EXAM DATE: 11/03/2016 07:24 PM. CLINICAL HISTORY: Short of breathing. COMPARISON: None. TECHNIQUE: 2 views. FINDINGS: Lungs/Pleura: Small posterior sulcus effusions. The lungs are otherwise clear. No pneumothorax. Mediastinum: Heart and mediastinal contours are unremarkable. Other: None. IMPRESSION: Small bilateral pleural effusions. [facility] Referring Provider Line: [phone] SITE ID: [id number]
[2016-11-03] MEDS: TAMSULOSIN 0.4 MG CAPSULE PO SCH (20:48)
[2016-11-03] MEDS: MIRTAZAPINE 15 MG TABLET PO SCH (20:48)
[2016-11-03] MEDS: LATANOPROST 0.005% OPHTH DROPS EACHEYE SCH (20:48)
[2016-11-04] MEDS: MORPHINE 2 MG/ML CARPUJECT IVP PRN ×2 (01:51→21:38)
[2016-11-04] MEDS ORDERED: LORazepam 1 MG/0.5 ML ORAL SYRINGE PO STA (02:55)
[2016-11-04] MEDS: LORazepam 2 MG/ML SYRINGE IVP PRN ×3 (03:21→13:27)
[2016-11-04] MEDS: SODIUM CHLORIDE FLUSH 0.9% 10 ML SYRINGE IVP SCH ×3 (05:05→20:15)
[2016-11-04] MEDS: GABAPENTIN 100 MG CAPSULE PO SCH ×3 (05:38→20:14)
[2016-11-04 05:55] LABS: BASOPHILS % (AUTO) 0.3 %; EOSINOPHILS # (AUTO) 0.3 10^3/uL (0.0-0.7); HCT - HEMATOCRIT 31.8 % (42.0-52.0); HGB - HEMOGLOBIN 10.6 g/dL (14.0-18.0); LYMPHOCYTES % (AUTO) 12.7 %; MEAN CORPUSCULAR HEMOGLOBIN 30.9 pg (27.0-31.0); MEAN CORPUSCULAR HGB CONC 33.2 g/dL (32.0-36.0); MEAN CORPUSCULAR VOLUME 93.1 fL (80.0-94.0); MEAN PLATELET VOLUME 7.7 fL (7.4-11.4); MONOCYTES # (AUTO) 0.6 10^3/uL (0.0-1.0); MONOCYTES % (AUTO) 7.9 %; NEUTROPHILS # (AUTO) 6.1 10^3/uL (1.5-6.6); NEUTROPHILS % (AUTO) 75.1 %; NUCLEATED RED BLOOD CELLS AUTO 0.1 /100WBC; RED BLOOD COUNT 3.42 10^6/uL (4.70-6.10); UNCORRECTED WHITE BLOOD COUNT 8.2 x10^3/uL; WHITE BLOOD COUNT 8.2 x10^3/uL (4.8-10.8)
[2016-11-04 06:16] LABS: ALBUMIN/GLOBULIN RATIO 0.9 (1.0-2.2); CALCIUM 8.2 mg/dL (8.5-10.3); CREATININE 0.8 mg/dL (0.6-1.2); POTASSIUM 3.4 mmol/L (3.5-5.0)
[2016-11-04] MEDS: INSULIN ASPART 300 UNIT/3 ML PEN SUBQ SCH ×4 (07:32→20:39)
[2016-11-04] MEDS: metroNIDAZOLE 500 MG/100 ML 100 ML IV SCH ×3 (07:37→23:27)
[2016-11-04] MEDS ORDERED: MAGNESIUM SULFATE 1 GM in SODIUM CHLORIDE 0.9% 50 ML IV ONE (08:00)
[2016-11-04] MEDS: CLOPIDOGREL 75 MG TABLET PO SCH (08:01)
[2016-11-04] MEDS: FAMOTIDINE 20 MG TABLET PO SCH (08:01)
[2016-11-04] MEDS: DOCUSATE SODIUM 100 MG CAPSULE PO SCH (08:01)
[2016-11-04] MEDS: POLYETHYLENE GLYCOL 3350 17 GM PACKET PO SCH (08:02)
[2016-11-04] MEDS ORDERED: POTASSIUM CHLORIDE 20 MEQ TABLET PO ONE (08:30)
[2016-11-04] MEDS: ENOXAPARIN 40 MG/0.4 ML SYRINGE SUBQ SCH (08:42)
[2016-11-04] MEDS: FORMOTEROL FUMARATE NEB 20 MCG/2 ML INH SCH ×2 (10:49→12:29)
[2016-11-04] MEDS: BUDESONIDE 0.5 MG/2 ML NEB INH SCH ×3 (10:49→20:49)
--- NOTE | 2016-11-04 11:03 | PROVIDER PROGRESS NOTE ---
Subjective - Prog Note Date Prog Note Date: 11/04/16 Prog Note Time: 10:59 - Subjective Pt reports feeling: Improved Subjective: patient report he is better. patient cooperate to answer questions. Patient has a very good appetite. Patient was reported to have some confuse on last night, and attempted to pull out IV. Objective - Vital Signs/Intake & Output Vital Signs: Vital Signs x48h Temp Pulse Resp BP Pulse Ox 11/04/16 08:33 37.2 C 110 H 16 138/75 H 94 11/04/16 05:25 36.2 C L 71 18 132/68 H 93 Intake & Output: Intake & Output 11/01/16 11/02/16 11/03/16 11/04/16 23:59 23:59 23:59 23:59 Intake Total 840 2502 2257 Output Total 850 1550 2725 Balance -10 146 -605 - Objective General Appearance: positive: No acute distress, Alert Eyes Bilateral: positive: Normal inspection, PERRL ENT: positive: ENT inspection nml, Pharynx nml, No signs of dehydration Neck: positive: Nml inspection, Thyroid nml, Trachea midline Respiratory: positive: Chest non-tender, No respiratory distress, Other ( breathing sound is diminished more at right side, no rhonchi, or cracker sound) Cardiovascular: positive: Regular rate & rhythm, No murmur, No gallop Peripheral Pulses: 2+ Radial (R), 2+ Radial (L), 2+ Dorsalis pedis (R), 2+ Dorsalis pedis (L) Abdomen: positive: Non-tender, Nml bowel sounds, No distention Back: positive: Nml inspection Skin: positive: Color nml, Warm, Dry Extremities: positive: Non-tender, Full ROM, Nml appearance Neurologic/Psychiatric: positive: Oriented x3 (oriented X1 as his basal line), Motor nml, Sensation nml - Lab Results Fish Bones: 11/05/16 05:35 11/05/16 05:35 Other Labs: Lab Results x24hrs 11/04/16 11/04/16 11/04/16 Range/Units 07:27 05:33 05:33 WBC (4.8-10.8) x10^3/uL RBC (4.70-6.10) 10^6/uL Hgb (14.0-18.0) g/dL Hct (42.0-52.0) % MCV (80.0-94.0) fL MCH (27.0-31.0) pg MCHC (32.0-36.0) g/dL RDW (12.0-15.0) % Plt Count (130-450) 10^3/uL MPV (7.4-11.4) fL Neut # (1.5-6.6) 10^3/uL Lymph # (1.5-3.5) 10^3/uL [place] # (0.0-1.0) 10^3/uL Eos # (0.0-0.7) 10^3/uL Baso # (0.0-0.1) 10^3/uL Absolute Nucleated RBC x10^3/uL Nucleated RBCs /100WBC Sodium 139 (135-145) mmol/L Potassium 3.4 L (3.5-5.0) mmol/L Chloride 105 (101-111) mmol/L Carbon Dioxide 27 (21-32) mmol/L Anion Gap 7.0 (6-13) BUN 7 (6-20) mg/dL Creatinine 0.8 (0.6-1.2) mg/dL Estimated GFR (MDRD) 92 (>89) Glucose 148 H (70-100) mg/dL POC Whole Bld Glucose 128 H (70 - 100) mg/dL Lactic Acid (0.5-2.2) mmol/L Calcium 8.2 L (8.5-10.3) mg/dL Magnesium 1.4 L (1.7-2.8) mg/dL Total Bilirubin 1.0 (0.2-1.0) mg/dL AST 16 (10-42) IU/L ALT 10 (10-60) IU/L Alkaline Phosphatase 86 (42-121) IU/L B-Natriuretic Peptide (5-100) pg/mL Total Protein 6.0 L (6.7-8.2) g/dL Albumin 2.9 L (3.2-5.5) g/dL Globulin 3.1 (2.1-4.2) g/dL Albumin/Globulin Ratio 0.9 L (1.0-2.2) 11/04/16 11/03/16 11/03/16 Range/Units 05:33 16:24 16:02 WBC 8.2 (4.8-10.8) x10^3/uL RBC 3.42 L (4.70-6.10) 10^6/uL Hgb 10.6 L (14.0-18.0) g/dL Hct 31.8 L (42.0-52.0) % MCV 93.1 (80.0-94.0) fL MCH 30.9 (27.0-31.0) pg MCHC 33.2 (32.0-36.0) g/dL RDW 14.0 (12.0-15.0) % Plt Count 228 (130-450) 10^3/uL MPV 7.7 (7.4-11.4) fL Neut # 6.1 (1.5-6.6) 10^3/uL Lymph # 1.0 L (1.5-3.5) 10^3/uL [place] # 0.6 (0.0-1.0) 10^3/uL Eos # 0.3 (0.0-0.7) 10^3/uL Baso # 0.0 (0.0-0.1) 10^3/uL Absolute Nucleated RBC 0.01 x10^3/uL Nucleated RBCs 0.1 /100WBC Sodium (135-145) mmol/L Potassium (3.5-5.0) mmol/L Chloride (101-111) mmol/L Carbon Dioxide (21-32) mmol/L Anion Gap (6-13) BUN (6-20) mg/dL Creatinine (0.6-1.2) mg/dL Estimated GFR (MDRD) (>89) Glucose (70-100) mg/dL POC Whole Bld Glucose 100 (70 - 100) mg/dL Lactic Acid 1.0 (0.5-2.2) mmol/L Calcium (8.5-10.3) mg/dL Magnesium (1.7-2.8) mg/dL Total Bilirubin (0.2-1.0) mg/dL AST (10-42) IU/L ALT (10-60) IU/L Alkaline Phosphatase (42-121) IU/L B-Natriuretic Peptide (5-100) pg/mL Total Protein (6.7-8.2) g/dL Albumin (3.2-5.5) g/dL Globulin (2.1-4.2) g/dL Albumin/Globulin Ratio (1.0-2.2) 11/03/16 11/03/16 Range/Units 15:19 11:00 WBC (4.8-10.8) x10^3/uL RBC (4.70-6.10) 10^6/uL Hgb (14.0-18.0) g/dL Hct (42.0-52.0) % MCV (80.0-94.0) fL MCH (27.0-31.0) pg MCHC (32.0-36.0) g/dL RDW (12.0-15.0) % Plt Count (130-450) 10^3/uL MPV (7.4-11.4) fL Neut # (1.5-6.6) 10^3/uL Lymph # (1.5-3.5) 10^3/uL [place] # (0.0-1.0) 10^3/uL Eos # (0.0-0.7) 10^3/uL Baso # (0.0-0.1) 10^3/uL Absolute Nucleated RBC x10^3/uL Nucleated RBCs /100WBC Sodium (135-145) mmol/L Potassium (3.5-5.0) mmol/L Chloride (101-111) mmol/L Carbon Dioxide (21-32) mmol/L Anion Gap (6-13) BUN (6-20) mg/dL Creatinine (0.6-1.2) mg/dL Estimated GFR (MDRD) (>89) Glucose (70-100) mg/dL POC Whole Bld Glucose 206 H (70 - 100) mg/dL Lactic Acid (0.5-2.2) mmol/L Calcium (8.5-10.3) mg/dL Magnesium (1.7-2.8) mg/dL Total Bilirubin (0.2-1.0) mg/dL AST (10-42) IU/L ALT (10-60) IU/L Alkaline Phosphatase (42-121) IU/L B-Natriuretic Peptide 40 (5-100) pg/mL Total Protein (6.7-8.2) g/dL Albumin (3.2-5.5) g/dL Globulin (2.1-4.2) g/dL Albumin/Globulin Ratio (1.0-2.2) Assessment/Plan - Problem List (1) Diverticulitis of sigmoid colon Impression: continue to treat with flagyl. no diarrhea or abdominal pain is reported (2) UTI (urinary tract infection) with pyuria Impression: continue to treat with Levoquin, follow UA culture (4) Left lower lobe pneumonia Impression: continue to treat with Levoquin, follow up blood culture. Stop IVF, CXR reveals patient has bilateral small effusion (5) Sepsis associated hypotension Impression: patient is reported to have lower SBP yesterday. 1.5 liter NS was prescribed. Patient's SBP is around 130. Patient is well responded to fluid hydration. Since patient developed small bilateral pleural effusion, stop the IVF. will closely monitor, Q4H vital recheck (6) History of COPD Impression: patient's SO2 is around 96% at 2 L O2, no acute distress now. continue the current medical management. (7) Slurred speech Impression: CT of head. Patient is no other focus neurological deficits (8) Confused Impression: stop Ativan. test of Ammonia, B12, TSH. closely monitor, neurological check (9) Acute sinusitis Impression: CT of head reveals acute sinusitis. Switch pt's antibiotics Levaquin to Unasyn, since patient is confused as well.
[2016-11-04] MEDS: SODIUM CHLORIDE FLUSH 0.9% 10 ML SYRINGE IVP PRN ×3 (12:29→23:28)
[2016-11-04] MEDS: IPRATROPIUM/ALBUTEROL 3 ML NEB INH PRN (12:30)
[2016-11-04] MEDS: LIDOCAINE PATCH 5% TOP PRN (12:54)
--- NOTE | 2016-11-04 14:53 | CT Preliminary Report ---
Exam: CT Head W/O Stroke Protocol IMPRESSION: 1. No definite acute infarct, intracranial hemorrhage, mass, or hydrocephalus. 2. Fayw-tu-vftaceig white matter changes that appear similar to CT 04/25/2016 and may represent sequel a of chronic vessel ischemic disease. If there is clinical concern for acute stroke or clinical sympt oms persist an MR brain without contrast can be considered to evaluate for small or subtle infarct. 3. Large volume left maxillary sinus and right sphenoid sinus air-fluid levels that may represent acu te sinusitis in the proper clinical setting. [facility] The call report notification system was initiated by Dr. Alex Ludwig at 14:46 hrs on 10/13 07/29. The above findings were discussed with Montiel by Dr. Alex Ludwig at 14:52 hrs on . SITE ID: [id number]
--- NOTE | 2016-11-04 14:56 | CT Report ---
EXAM: CT HEAD EXAM DATE: 11/04/2016 02:30 PM. CLINICAL HISTORY: 81-year-old with altered mental status COMPARISON: CT head 04/25/2016. TECHNIQUE: Multiaxial CT images were obtained from the foramen magnum to the vertex. IV contrast: Non e. Reformats: Coronal. In accordance with CT protocol optimization, one or more of the following dose reduction techniques w ere utilized for this exam: automated exposure control, adjustment of mA and/or KV based on patient s ize, or use of iterative reconstructive technique. FINDINGS: Parenchyma: No definite acute parenchymal hemorrhage, mass, or midline shift. There is mild to modera te bilateral areas of white matter hypoattenuation that appears similar to 04/25/2016. There is no def inite new white matter hypoattenuation or loss of bustamante-white differentiation. Extraaxial Spaces: No abnormal extra axial fluid collection/mass seen. Ventricles: The ventricles and sulci appear prominent but appropriate for extent of volume loss. Vent ricular size and configuration are unchanged from prior study. Cisterns are patent Sinuses: There is large volume left maxillary sinus and right sphenoid sinus air-fluid levels that ma y represent acute sinusitis in the proper clinical setting. There is moderate mucosal thickening the ethmoid air cells. Mastoid air cells and middle ear cavities are clear. Orbits: Changes of bilateral lens replacement. Bones: No evidence of fracture or calvarial defect. Other: Extensive vascular calcifications of the cavernous ICA segments. Vascular calcifications of th e intradural vertebral arteries. IMPRESSION: 1. No definite acute infarct, intracranial hemorrhage, mass, or hydrocephalus. 2. Rxyt-da-[id number] white matter changes that appear similar to CT 04/25/2016 and may represent sequel a of chronic vessel ischemic disease. If there is clinical concern for acute stroke or clinical sympt oms persist an MR brain without contrast can be considered to evaluate for small or subtle infarct. 3. Large volume left maxillary sinus and right sphenoid sinus air-fluid levels that may represent acu te sinusitis in the proper clinical setting. [facility] The call report notification system was initiated by Dr. Alex Ludwig at 14:46 hrs on 10/13 07/29. The above findings were discussed with Montiel by Dr. Alex Ludwig at 14:52 hrs on . Referring Provider Line: [phone] SITE ID: [id number]
[2016-11-04] MEDS ORDERED: AMPICILLIN/SULBACTAM 1.5 GM in SODIUM CHLORIDE 0.9% MINIBAG 100 ML IV SCH (15:00)
[2016-11-04 17:58] LABS: THYROID STIMULATING HORMONE 4.95 uIU/mL (0.34-5.60)
[2016-11-04] MEDS: AMPICILLIN/SULBACTAM 1.5 GM in SODIUM CHLORIDE 0.9% MINIBAG 100 ML IV SCH (19:42)
[2016-11-04] MEDS: TAMSULOSIN 0.4 MG CAPSULE PO SCH (20:14)
[2016-11-04] MEDS: LATANOPROST 0.005% OPHTH DROPS EACHEYE SCH (20:14)
[2016-11-04] MEDS: MIRTAZAPINE 15 MG TABLET PO SCH (20:14)
[2016-11-04] MEDS: IPRATROPIUM/ALBUTEROL 3 ML NEB INH SCH (20:49)
[2016-11-04] MEDS ORDERED: OLANZapine 10 MG VIAL IM ONE (22:27)
[2016-11-04] MEDS ORDERED: OLANZapine ODT 5 MG TABLET TL PRN (22:28)
[2016-11-05] MEDS: MORPHINE 2 MG/ML CARPUJECT IVP PRN ×4 (01:35→18:23)
[2016-11-05] MEDS: AMPICILLIN/SULBACTAM 1.5 GM in SODIUM CHLORIDE 0.9% MINIBAG 100 ML IV SCH ×2 (01:36→07:42)
[2016-11-05] MEDS: GABAPENTIN 100 MG CAPSULE PO SCH ×3 (05:38→22:37)
[2016-11-05] MEDS: SODIUM CHLORIDE FLUSH 0.9% 10 ML SYRINGE IVP SCH ×3 (05:38→18:14)
[2016-11-05 06:08] LABS: BASOPHILS % (AUTO) 0.5 %; EOSINOPHILS # (AUTO) 0.4 10^3/uL (0.0-0.7); EOSINOPHILS % (AUTO) 6.7 %; HCT - HEMATOCRIT 31.2 % (42.0-52.0); HGB - HEMOGLOBIN 10.6 g/dL (14.0-18.0); LYMPHOCYTES # (AUTO) 0.9 10^3/uL (1.5-3.5); LYMPHOCYTES % (AUTO) 13.6 %; MEAN CORPUSCULAR HEMOGLOBIN 31.5 pg (27.0-31.0); MEAN CORPUSCULAR HGB CONC 33.9 g/dL (32.0-36.0); MEAN PLATELET VOLUME 7.9 fL (7.4-11.4); MONOCYTES # (AUTO) 0.7 10^3/uL (0.0-1.0); MONOCYTES % (AUTO) 10.8 %; NEUTROPHILS # (AUTO) 4.4 10^3/uL (1.5-6.6); NEUTROPHILS % (AUTO) 68.4 %; RED BLOOD COUNT 3.35 10^6/uL (4.70-6.10); RED CELL DISTRIBUTION WIDTH 13.9 % (12.0-15.0); UNCORRECTED WHITE BLOOD COUNT 6.4 x10^3/uL; WHITE BLOOD COUNT 6.4 x10^3/uL (4.8-10.8)
[2016-11-05 06:24] LABS: ALBUMIN/GLOBULIN RATIO 0.9 (1.0-2.2); BILIRUBIN,TOTAL 1.3 mg/dL (0.2-1.0); BUN - BLOOD UREA NITROGEN 5 mg/dL (6-20); CALCIUM 8.2 mg/dL (8.5-10.3); CARBON DIOXIDE - CO2 29 mmol/L (21-32); CHLORIDE 103 mmol/L (101-111); CREATININE 0.6 mg/dL (0.6-1.2); GFR - MDRD 129 (>89); GLUCOSE 95 mg/dL (70-100); POTASSIUM 3.5 mmol/L (3.5-5.0); SODIUM 139 mmol/L (135-145); TOTAL PROTEIN 5.8 g/dL (6.7-8.2)
[2016-11-05] MEDS: FORMOTEROL FUMARATE NEB 20 MCG/2 ML INH SCH ×3 (07:22→20:10)
[2016-11-05] MEDS: INSULIN ASPART 300 UNIT/3 ML PEN SUBQ SCH ×4 (07:46→22:32)
[2016-11-05] MEDS: BUDESONIDE 0.5 MG/2 ML NEB INH SCH ×2 (07:49→20:09)
[2016-11-05] MEDS: IPRATROPIUM/ALBUTEROL 3 ML NEB INH SCH ×4 (07:49→20:00)
[2016-11-05] MEDS: ENOXAPARIN 40 MG/0.4 ML SYRINGE SUBQ SCH (08:38)
[2016-11-05] MEDS: DOCUSATE SODIUM 100 MG CAPSULE PO SCH (08:38)
[2016-11-05] MEDS: FAMOTIDINE 20 MG TABLET PO SCH (08:38)
[2016-11-05] MEDS: CLOPIDOGREL 75 MG TABLET PO SCH (08:38)
[2016-11-05] MEDS: POLYETHYLENE GLYCOL 3350 17 GM PACKET PO SCH (08:39)
[2016-11-05] MEDS: metroNIDAZOLE 500 MG/100 ML 100 ML IV SCH ×2 (08:44→16:36)
--- NOTE | 2016-11-05 11:33 | Discharge Plan ---
Discharge Plan Disposition: [facility] DC/Xfer Condition: Good Prescriptions: Calcium Carbonate [Tums (Calcium Carbonate 500mg)] 500 mg PO Q8HR PRN #30 tablet PRN Reason: Indigestion Lidocaine Patch 5% [Lidoderm Patch] 2 patch TOP DAILY PRN #15 patch PRN Reason: Pain Cholecalciferol [Vitamin D3] 5,000 unit PO BID #30 capsule Latanoprost 0.005% Ophth Drops [Xalatan Ophth Drops] 1 drops EACHEYE QPM #1 bottle Linezolid [Zyvox] 600 mg PO BID #20 tablet Diet: Cardiac Activity Restrictions: Activity as Tolerated Shower Restrictions: No Driving Restrictions: No Assistance Devices: Walker, Cane Weight Bearing: Full Weight Instruction Topics: Catheter Indwelling Urinary Dc Additional Instructions or Follow Up instructions: Please continue all home medications as prescribed. continue on antibiotic for pneumonia. You will need to see your primary care provider 1 week after discharge or sooner if the symptoms worsen. Continue on your regular diet cardiac as tolerated. You will need to get plenty of water daily and avoid soda and caffeineproducts. Walking is good exercise daily. Use your cane and or walker for assistance with ambulation Return to the ER if symptoms should get worse or you have chest pain or shortness of breath. No Smoking: If you smoke, Please STOP! Call for help. Follow-up with: Alvarez Monge DO [Primary Care Provider] -
[2016-11-05] MEDS ORDERED: MAGNESIUM SULFATE 2 GRAM 50 ML IV ONE (11:45)
--- NOTE | 2016-11-05 12:01 | PROVIDER PROGRESS NOTE ---
Assessment/Plan - Problem List (1) Low blood magnesium level Assessment/Plan: acute. replace magnesium with IV and continue to monitor daily with labs (2) B12 deficiency anemia Qualifiers: Vitamin B12 deficiency anemia type: unspecified B12 deficiency Qualified Code(s): D51.9 - Vitamin B12 deficiency anemia, unspecified Assessment/Plan: acute. gave B12 injection and will monitor CBC with daily labs (3) Acute urinary retention Assessment/Plan: acute. with UTI with staph aureus bacterial organism. stopped Levaquin since bacteria is resistant and started on Zyvox. continue to monitor WBC with daily lab draw. monitor output. continue with indwelling gonzáles (4) History of COPD Assessment/Plan: chronic. acute shortness of breath with bilateral pleural effusins. question CHF exacerbation. will repeat BNP and get chest xray (5) Acute sinusitis Qualifiers: Sinusitis location: frontal Recurrence: recurrent Qualified Code(s): J01.11 - Acute recurrent frontal sinusitis Assessment/Plan: resolving. continue with antibiotic therapy. RT support - Current Meds Current Meds: Current Medications Generic Name Dose Route Start Last Admin Trade Name Freq PRN Reason Stop Dose Admin Acetaminophen 650 mg 11/02/16 17:14 11/03/16 11:43 Tylenol PO 650 mg Q4HR PRN Administration Pain 1 to 4 Albuterol/Ipratropium 3 ml 11/04/16 17:35 11/05/16 11:22 Duoneb INH 3 ml RTQ4H QUINTON Administration Budesonide 0.5 mg 11/03/16 12:00 11/05/16 07:49 Pulmicort INH 0.5 mg RTBID QUINTON Administration Clopidogrel Bisulfate 75 mg 11/03/16 09:00 11/05/16 08:38 Plavix PO 75 mg DAILY QUINTON Administration Docusate Sodium 100 mg 11/03/16 10:00 11/05/16 08:38 Colace 100mg Capsule PO 100 mg DAILY QUINTNO Administration Enoxaparin Sodium 40 mg 11/03/16 09:00 11/05/16 08:38 Lovenox SUBQ 40 mg DAILY QUINTON Administration Famotidine 20 mg 11/03/16 09:00 11/05/16 08:38 Pepcid PO 20 mg DAILY QUINTON Administration Formoterol Fumarate 20 mcg 11/03/16 12:00 11/05/16 07:49 Perforomist INH 20 mcg RTBID QUINTON Administration Gabapentin 100 mg 11/02/16 22:00 11/05/16 05:38 Neurontin PO 100 mg TID QUINTON Administration Metronidazole 100 mls @ 100 mls/hr 11/03/16 00:00 11/05/16 08:44 Flagyl 500 Mg/100 Ml IV 100 mls/hr Q8H QUINTON Administration Insulin Aspart 1 - 9 unit 11/02/16 21:00 11/05/16 07:46 Novolog SUBQ Not Given 0800,1200,1700,2100 [facility] Protocol Latanoprost 1 drops 11/02/16 21:00 11/04/16 20:14 Xalatan Ophth Drops EACHEYE 1 drops QPM QUINTON Administration Lidocaine 2 patch 11/04/16 09:00 11/04/16 12:54 Lidoderm Patch TOP 2 patch DAILY PRN Administration PAIN Mirtazapine 15 mg 11/02/16 21:00 11/04/16 20:14 Remeron PO 15 mg QPM QUINTON Administration Morphine Sulfate 2 mg 11/02/16 17:14 11/05/16 09:21 Morphine IVP 2 mg Q2HR PRN Administration Pain 8 to 10 Polyethylene Glycol 17 gm 11/03/16 09:00 11/05/16 08:39 Miralax PO 17 gm DAILY QUINTON Administration Sodium Chloride 10 ml 11/02/16 17:14 11/04/16 23:28 Normal Saline Flush 0.9% IVP 10 ml PRN PRN Administration NEEDED PER PROVIDER ORDERS Sodium Chloride 10 ml 11/02/16 22:00 11/05/16 05:38 Normal Saline Flush 0.9% IVP 10 ml Q8HR QUINTON Administration Tamsulosin HCl 0.4 mg 11/02/16 21:00 11/04/16 20:14 Flomax PO 0.4 mg QPM QUINTON Administration - Lab Result Lab results reviewed: Yes Fish Bone Diagrams: 11/06/16 09:03 11/06/16 09:03 Other Lab Results: Abnormal Lab Results 11/04/16 11/04/16 11/04/16 05:33 05:33 05:33 RBC 3.42 10^6/uL L 10^6/uL (4.70-6.10) Hgb 10.6 g/dL L g/dL (14.0-18.0) Hct 31.8 % L % (42.0-52.0) MCH Lymph # 1.0 10^3/uL L 10^3/uL (1.5-3.5) ABG pO2 ABG HCO3 ABG Total CO2 ABG O2 Saturation ABG Base Excess Potassium 3.4 mmol/L L mmol/L (3.5-5.0) BUN Glucose 148 mg/dL H mg/dL (70-100) POC Whole Bld Glucose Calcium 8.2 mg/dL L mg/dL (8.5-10.3) Magnesium 1.4 mg/dL L mg/dL (1.7-2.8) Total Bilirubin ALT Total Protein 6.0 g/dL L g/dL (6.7-8.2) Albumin 2.9 g/dL L g/dL (3.2-5.5) Albumin/Globulin Ratio 0.9 L (1.0-2.2) 11/04/16 11/05/16 11/05/16 07:27 05:35 05:35 RBC 3.35 10^6/uL L 10^6/uL (4.70-6.10) Hgb 10.6 g/dL L g/dL (14.0-18.0) Hct 31.2 % L % (42.0-52.0) MCH 31.5 pg H pg (27.0-31.0) Lymph # 0.9 10^3/uL L 10^3/uL (1.5-3.5) ABG pO2 ABG HCO3 ABG Total CO2 ABG O2 Saturation ABG Base Excess Potassium BUN 5 mg/dL L mg/dL (6-20) Glucose POC Whole Bld Glucose 128 mg/dL H mg/dL (70 - 100) Calcium 8.2 mg/dL L mg/dL (8.5-10.3) Magnesium Total Bilirubin 1.3 mg/dL H mg/dL (0.2-1.0) ALT < 10 IU/L L IU/L (10-60) Total Protein 5.8 g/dL L g/dL (6.7-8.2) Albumin 2.8 g/dL L g/dL (3.2-5.5) Albumin/Globulin Ratio 0.9 L (1.0-2.2) 11/05/16 12:00 RBC Hgb Hct MCH Lymph # ABG pO2 51 mmHg L* mmHg (80-100) ABG HCO3 29.5 mmol/L H mmol/L (22.0-26.0) ABG Total CO2 30.9 MMOL/L H MMOL/L (21.0-29.0) ABG O2 Saturation 88 % L % (94-98) ABG Base Excess 4.6 mmol/L H mmol/L (-2.0-3.0) Potassium BUN Glucose POC Whole Bld Glucose Calcium Magnesium Total Bilirubin ALT Total Protein Albumin Albumin/Globulin Ratio - EKG Results EKG Interpreted Independently: No - Additional Planning Condition/Complexity: Stable My Orders: My Active Orders 11/05/16 11:42 Discharge [RC] .ONCE 11/05/16 11:44 ABG [Arterial Blood Gases - RT] [RC] .ONCE ABG - ARTERIAL BLOOD GAS [BG] Stat 11/05/16 11:45 Magnesium Sulfate 2 Gram [Magnesium Sulfate] 50 ml IV ONCE 11/05/16 12:00 Linezolid 600 mg/300 ml [Zyvox 600 mg/300 ml] 300 ml IV Q12H Consult/Specialty: OT, PT Plan Discussed with:: Patient, Case Management Time Spent: 31-60 minutes Subjective - Subjective Patient Reports: Resting Comfortably, No Complaints, Shortness of Breath (with walking and off oxygen. patient is on 2liters. He drops to 88% without NC oxygen.) Nursing Reports: Confused, Shortness of Breath Objective Vital Signs: Vital Signs - 24 hr 11/04/16 11/04/16 11/04/16 12:30 15:51 18:34 Temperature 37.4 C Heart Rate 110 H Heart Rate [ 100 106 H Brachial] Respiratory 20 18 Rate Blood Pressure 172/77 H [Left Brachial artery] Blood Pressure 157/71 H [Right Brachial artery] O2 Saturation 95 94 11/04/16 11/04/16 11/05/16 20:49 21:00 01:00 Temperature 37.5 C 37.1 C Heart Rate 110 H Heart Rate [ 114 H 91 Brachial] Respiratory 20 12 20 Rate Blood Pressure 197/82 H [Left Brachial artery] Blood Pressure 117/59 L [Right Brachial artery] O2 Saturation 98 96 11/05/16 11/05/16 11/05/16 05:45 07:52 08:27 Temperature 36.8 C 36.7 C Heart Rate 77 Heart Rate [ 86 92 Brachial] Respiratory 18 20 16 Rate Blood Pressure 136/53 H [Left Brachial artery] Blood Pressure 123/56 L [Right Brachial artery] O2 Saturation 97 96 11/05/16 11:26 Temperature Heart Rate 84 Heart Rate [ Brachial] Respiratory 16 Rate Blood Pressure [Left Brachial artery] Blood Pressure [Right Brachial artery] O2 Saturation Oxygen O2 Source Nasal cannula I&O (Last 24 Hrs): Intake and Output Totals x24h 11/03/16 11/04/16 11/05/16 23:59 23:59 23:59 Intake Total 2502 2961 508 Output Total 1550 3875 350 Balance 952 -914 158 General: Alert, Cooperative, No acute distress HEENT: PERRLA, EOMI Neck: Supple, No JVD, No thyromegaly Lymphatic: no adenopathy Neuro: Alert, Disoriented Cardiovascular: Normal S1, Normal S2 Respiratory: Chest non-tender, No respiratory distress, Rhonchi Abdomen: Soft, No hepatospenomegaly Genitourinary: No Mass, Abnormal Prostate, No Discharge, Other (gonzáles to gravity with dark yellow urine no sediment) Extremities: No clubbing, No cyanosis, No edema, Normal pulses Skin: No rashes, No breakdown, No significant lesion - Results Results: Laboratory Results WBC 6.4 x10^3/uL (4.8-10.8) 11/05/16 05:35 RBC 3.35 10^6/uL (4.70-6.10) L 11/05/16 05:35 Hgb 10.6 g/dL (14.0-18.0) L 11/05/16 05:35 Hct 31.2 % (42.0-52.0) L 11/05/16 05:35 MCV 93.0 fL (80.0-94.0) 11/05/16 05:35 MCH 31.5 pg (27.0-31.0) H 11/05/16 05:35 MCHC 33.9 g/dL (32.0-36.0) 11/05/16 05:35 RDW 13.9 % (12.0-15.0) 11/05/16 05:35 Plt Count 201 10^3/uL (130-450) 11/05/16 05:35 MPV 7.9 fL (7.4-11.4) 11/05/16 05:35 Neut # 4.4 10^3/uL (1.5-6.6) 11/05/16 05:35 Lymph # 0.9 10^3/uL (1.5-3.5) L 11/05/16 05:35 [place] # 0.7 10^3/uL (0.0-1.0) 11/05/16 05:35 Eos # 0.4 10^3/uL (0.0-0.7) 11/05/16 05:35 Baso # 0.0 10^3/uL (0.0-0.1) 11/05/16 05:35 Absolute Nucleated RBC 0.00 x10^3/uL 11/05/16 05:35 Nucleated RBCs 0.0 /100WBC 11/05/16 05:35 Sodium 139 mmol/L (135-145) 11/05/16 05:35 Potassium 3.5 mmol/L (3.5-5.0) 11/05/16 05:35 Chloride 103 mmol/L (101-111) 11/05/16 05:35 Carbon Dioxide 29 mmol/L (21-32) 11/05/16 05:35 Anion Gap 7.0 (6-13) 11/05/16 05:35 BUN 5 mg/dL (6-20) L 11/05/16 05:35 Creatinine 0.6 mg/dL (0.6-1.2) 11/05/16 05:35 Estimated GFR (MDRD) 129 (>89) 11/05/16 05:35 Glucose 95 mg/dL (70-100) 11/05/16 05:35 POC Whole Bld Glucose 128 mg/dL (70 - 100) H 11/04/16 07:27 Glycated Hemoglobin 6.5 % (4.6-6.2) H 11/02/16 13:30 Estim Average Glucose 140 (70-100) H 11/02/16 13:30 Lactic Acid 1.0 mmol/L (0.5-2.2) 11/03/16 16:02 Calcium 8.2 mg/dL (8.5-10.3) L 11/05/16 05:35 Magnesium 1.7 mg/dL (1.7-2.8) 11/05/16 05:35 Total Bilirubin 1.3 mg/dL (0.2-1.0) H 11/05/16 05:35 AST 18 IU/L (10-42) 11/05/16 05:35 ALT < 10 IU/L (10-60) L 11/05/16 05:35 Alkaline Phosphatase 67 IU/L (42-121) 11/05/16 05:35 Ammonia 25.2 umol/L (7-35) 11/04/16 Unknown B-Natriuretic Peptide 40 pg/mL (5-100) 11/03/16 15:19 Total Protein 5.8 g/dL (6.7-8.2) L 11/05/16 05:35 Albumin 2.8 g/dL (3.2-5.5) L 11/05/16 05:35 Globulin 3.0 g/dL (2.1-4.2) 11/05/16 05:35 Albumin/Globulin Ratio 0.9 (1.0-2.2) L 11/05/16 05:35 Lipase 19 U/L (22-51) L 11/02/16 13:30 Vitamin B12 200 pg/mL (180-914) 11/04/16 16:11 TSH 4.95 uIU/mL (0.34-5.60) 11/04/16 16:11 Urine Color YELLOW 11/02/16 14:00 Urine Clarity CLOUDY (CLEAR) 11/02/16 14:00 Urine pH 6.5 PH (5.0-7.5) 11/02/16 14:00 Ur Specific [place] 1.020 (1.002-1.030) 11/02/16 14:00 Urine Protein 100 mg/dL (NEGATIVE) H 11/02/16 14:00 Urine Glucose (UA) NEGATIVE mg/dL (NEGATIVE) 11/02/16 14:00 Urine Ketones NEGATIVE mg/dL (NEGATIVE) 11/02/16 14:00 Urine Occult Blood LARGE (NEGATIVE) H 11/02/16 14:00 Urine Nitrite POSITIVE (NEGATIVE) H 11/02/16 14:00 Urine Bilirubin NEGATIVE (NEGATIVE) 11/02/16 14:00 Urine Urobilinogen 0.2 (NORMAL) E.U./dL (NORMAL) 11/02/16 14:00 Ur Leukocyte Esterase MODERATE (NEGATIVE) H 11/02/16 14:00 Ur Microscopic Review NOT INDICATED 11/02/16 14:00 Urine Culture Comments INDICATED 11/02/16 14:00 - Procedures Procedures: Procedures CATARAC PHACOEMULS/ASPIR (04/28/14) INSERT LENS AT CATAR EXT (04/28/14)
[2016-11-05] MEDS ORDERED: CYANOCOBALAMIN 1,000 MCG/ML VIAL IM ONE (12:02)
[2016-11-05 12:09] LABS: ABG ANALYSIS TIME 1210; ABG PCO2 45 mmHg (34-45); ABG PH 7.43 (7.35-7.45)
[2016-11-05 12:10] LABS: ABG BASE EXCESS 4.6 mmol/L (-2.0-3.0); ABG HCO3 29.5 mmol/L (22.0-26.0); ABG OXYGEN SATURATION 88 % (94-98); ABG SITE OF DRAW LEFT BRACHIAL; ABG TCO2 30.9 MMOL/L (21.0-29.0)
[2016-11-05 12:11] LABS: ABG ROOM AIR YES
[2016-11-05 12:19] LABS: ABG PO2 51 mmHg (80-100)
[2016-11-05] MEDS: ACETAMINOPHEN 325 MG TABLET PO PRN (13:15)
[2016-11-05] MEDS: LINEZOLID 600 MG/300 ML 300 ML IV SCH (13:15)
--- NOTE | 2016-11-05 17:08 | XRAY Preliminary Report ---
Exam: XR Chest 1 View IMPRESSION: 1. Interval increase in perihilar reticular opacity. There are small to moderate-sized bilateral pleu ral effusions. Findings may represent developing lung edema. 2. There is no evidence of focal infiltrate or pneumothorax. [facility] SITE ID: [id number]
--- NOTE | 2016-11-05 17:10 | XRAY Report ---
EXAM: CHEST RADIOGRAPHY EXAM DATE: 11/05/2016 04:43 PM. CLINICAL HISTORY: Dyspnea. COMPARISON: 11/03/2016. TECHNIQUE: 1 view. FINDINGS: Lungs/Pleura: Costophrenic sulcus blunting may represent small effusions. There is perihilar reticula r opacity which is slightly increased as compared to the previous study. No evidence of focal infiltr ate. No pneumothorax. Mediastinum: Within exam limitations, cardiomediastinal contour is normal. 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 IMPRESSION: 1. Interval increase in perihilar reticular opacity. There are small to moderate-sized bilateral pleu ral effusions. Findings may represent developing lung edema. 2. There is no evidence of focal infiltrate or pneumothorax. [facility] Referring Provider Line: [phone] SITE ID: [id number]
[2016-11-05] MEDS: SODIUM CHLORIDE FLUSH 0.9% 10 ML SYRINGE IVP PRN (19:58)
[2016-11-05] MEDS: FUROSEMIDE 40 MG/4 ML VIAL IVP SCH (19:58)
[2016-11-05] MEDS ORDERED: CHOLECALCIFEROL 5,000 UNIT CAPSULE PO SCH (21:00)
[2016-11-05] MEDS: TAMSULOSIN 0.4 MG CAPSULE PO SCH (21:15)
[2016-11-05] MEDS: CHOLECALCIFEROL 5,000 UNIT CAPSULE PO SCH (21:16)
[2016-11-05] MEDS: MIRTAZAPINE 15 MG TABLET PO SCH (21:16)
[2016-11-05] MEDS: LATANOPROST 0.005% OPHTH DROPS EACHEYE SCH (21:16)
[2016-11-06] MEDS: LINEZOLID 600 MG/300 ML 300 ML IV SCH ×2 (00:25→11:58)
[2016-11-06] MEDS: SODIUM CHLORIDE FLUSH 0.9% 10 ML SYRINGE IVP PRN (00:25)
[2016-11-06] MEDS ORDERED: IPRATROPIUM/ALBUTEROL 3 ML NEB INH PRN (01:29)
[2016-11-06] MEDS: metroNIDAZOLE 500 MG/100 ML 100 ML IV SCH ×3 (01:47→16:34)
[2016-11-06] MEDS: GABAPENTIN 100 MG CAPSULE PO SCH ×3 (06:50→21:13)
[2016-11-06] MEDS: SODIUM CHLORIDE FLUSH 0.9% 10 ML SYRINGE IVP SCH ×3 (06:50→21:23)
[2016-11-06] MEDS: FORMOTEROL FUMARATE NEB 20 MCG/2 ML INH SCH ×2 (07:30→19:35)
[2016-11-06] MEDS: BUDESONIDE 0.5 MG/2 ML NEB INH SCH ×2 (07:30→19:35)
[2016-11-06] MEDS: INSULIN ASPART 300 UNIT/3 ML PEN SUBQ SCH ×4 (08:34→21:22)
[2016-11-06] MEDS: FUROSEMIDE 40 MG/4 ML VIAL IVP SCH (08:35)
[2016-11-06] MEDS: ENOXAPARIN 40 MG/0.4 ML SYRINGE SUBQ SCH (08:35)
[2016-11-06] MEDS: CLOPIDOGREL 75 MG TABLET PO SCH (08:35)
[2016-11-06] MEDS: FAMOTIDINE 20 MG TABLET PO SCH (08:35)
[2016-11-06] MEDS: CHOLECALCIFEROL 5,000 UNIT CAPSULE PO SCH ×2 (08:35→21:22)
[2016-11-06] MEDS: POLYETHYLENE GLYCOL 3350 17 GM PACKET PO SCH (08:35)
[2016-11-06] MEDS: DOCUSATE SODIUM 100 MG CAPSULE PO SCH (08:35)
[2016-11-06] MEDS ORDERED: IMIPENEM/CILASTATIN 1,000 MG in SODIUM CHLORIDE 0.9% 250 ML IV SCH (09:00)
--- NOTE | 2016-11-06 09:01 | PROVIDER PROGRESS NOTE ---
Assessment/Plan - Problem List (1) UTI (urinary tract infection) Qualifiers: Urinary tract infection type: acute cystitis Hematuria presence: without hematuria Qualified Code(s): N30.00 - Acute cystitis without hematuria Assessment/Plan: acute. micro culture positive for enterobacter cloacae. sensitive to imipenem. will give IV. continue to monitor CBC with daily lab draws. (2) Hypokalemia due to loss of potassium Assessment/Plan: acute. will replace with potassium oral 40meq and repeat levels in the morning. (3) B12 deficiency anemia Qualifiers: Vitamin B12 deficiency anemia type: unspecified B12 deficiency Qualified Code(s): D51.9 - Vitamin B12 deficiency anemia, unspecified Assessment/Plan: resolved. already replaced with B12 shot. (4) Acute urinary retention Assessment/Plan: resolving. continue to give oral replacement and monitor output of urine in gonzáles (5) History of COPD Assessment/Plan: chronic. continue with supplemental oxygen and with respiratory therapy support. Duonebs when needed. (6) Low blood magnesium level Assessment/Plan: acute. will continue to monitor the magnesium levels with daily lab values. stable now at 1.8 - Current Meds Current Meds: Current Medications Generic Name Dose Route Start Last Admin Trade Name Freq PRN Reason Stop Dose Admin Acetaminophen 650 mg 11/02/16 17:14 11/05/16 13:15 Tylenol PO 650 mg Q4HR PRN Administration Pain 1 to 4 Budesonide 0.5 mg 11/03/16 12:00 11/06/16 07:30 Pulmicort INH 0.5 mg RTBID QUINTON Administration Cholecalciferol 5,000 unit 11/05/16 21:00 11/06/16 08:35 Vitamin D3 PO 5,000 unit BID QUINTON Administration Clopidogrel Bisulfate 75 mg 11/03/16 09:00 11/06/16 08:35 Plavix PO 75 mg DAILY QUINTON Administration Docusate Sodium 100 mg 11/03/16 10:00 11/06/16 08:35 Colace 100mg Capsule PO 100 mg DAILY QUINTON Administration Enoxaparin Sodium 40 mg 11/03/16 09:00 11/06/16 08:35 Lovenox SUBQ 40 mg DAILY QUINTON Administration Famotidine 20 mg 11/03/16 09:00 11/06/16 08:35 Pepcid PO 20 mg DAILY QUINTON Administration Formoterol Fumarate 20 mcg 11/03/16 12:00 11/06/16 07:30 Perforomist INH 20 mcg RTBID QUINTON Administration Furosemide 40 mg 11/05/16 20:00 11/06/16 08:35 Lasix Inj 40 Mg Vial IVP 40 mg DAILY QUINTON Administration Gabapentin 100 mg 11/02/16 22:00 11/06/16 06:50 Neurontin PO 100 mg TID QUINTON Administration Metronidazole 100 mls @ 100 mls/hr 11/03/16 00:00 11/06/16 07:57 Flagyl 500 Mg/100 Ml IV 100 mls/hr Q8H QUINTON Administration Linezolid 300 mls @ 300 mls/hr 11/05/16 12:00 11/06/16 00:25 Zyvox 600 Mg/300 Ml IV 300 mls/hr Q12H QUINTON Administration Insulin Aspart 1 - 9 unit 11/02/16 21:00 11/06/16 08:34 Novolog SUBQ Not Given 0800,1200,1700,2100 [facility] Protocol Latanoprost 1 drops 11/02/16 21:00 11/05/16 21:16 Xalatan Ophth Drops EACHEYE 1 drops QPM QUINTON Administration Lidocaine 2 patch 11/04/16 09:00 11/04/16 12:54 Lidoderm Patch TOP 2 patch DAILY PRN Administration PAIN Mirtazapine 15 mg 11/02/16 21:00 11/05/16 21:16 Remeron PO 15 mg QPM QUINTON Administration Morphine Sulfate 2 mg 11/02/16 17:14 11/05/16 18:23 Morphine IVP 2 mg Q2HR PRN Administration Pain 8 to 10 Polyethylene Glycol 17 gm 11/03/16 09:00 11/06/16 08:35 Miralax PO 17 gm DAILY QUINTON Administration Sodium Chloride 10 ml 11/02/16 17:14 11/06/16 00:25 Normal Saline Flush 0.9% IVP 10 ml PRN PRN Administration NEEDED PER PROVIDER ORDERS Sodium Chloride 10 ml 11/02/16 22:00 11/06/16 06:50 Normal Saline Flush 0.9% IVP 10 ml Q8HR QUINTON Administration Tamsulosin HCl 0.4 mg 11/02/16 21:00 11/05/16 21:15 Flomax PO 0.4 mg QPM QUINTON Administration - Lab Result Lab results reviewed: Yes Fish Bone Diagrams: 11/06/16 09:03 11/06/16 09:03 Other Lab Results: Abnormal Lab Results 11/04/16 11/04/16 11/04/16 11:14 16:27 20:38 RBC Hgb Hct MCH Lymph # ABG pO2 ABG HCO3 ABG Total CO2 ABG O2 Saturation ABG Base Excess Potassium Chloride BUN Glucose POC Whole Bld Glucose 111 mg/dL H mg/dL 106 mg/dL H mg/dL 110 mg/dL H mg/dL (70 - 100) (70 - 100) (70 - 100) Calcium Total Bilirubin ALT Total Protein Albumin Albumin/Globulin Ratio 11/05/16 11/05/16 11/05/16 05:35 05:35 11:25 RBC 3.35 10^6/uL L 10^6/uL (4.70-6.10) Hgb 10.6 g/dL L g/dL (14.0-18.0) Hct 31.2 % L % (42.0-52.0) MCH 31.5 pg H pg (27.0-31.0) Lymph # 0.9 10^3/uL L 10^3/uL (1.5-3.5) ABG pO2 ABG HCO3 ABG Total CO2 ABG O2 Saturation ABG Base Excess Potassium Chloride BUN 5 mg/dL L mg/dL (6-20) Glucose POC Whole Bld Glucose 152 mg/dL H mg/dL (70 - 100) Calcium 8.2 mg/dL L mg/dL (8.5-10.3) Total Bilirubin 1.3 mg/dL H mg/dL (0.2-1.0) ALT < 10 IU/L L IU/L (10-60) Total Protein 5.8 g/dL L g/dL (6.7-8.2) Albumin 2.8 g/dL L g/dL (3.2-5.5) Albumin/Globulin Ratio 0.9 L (1.0-2.2) 11/05/16 11/05/16 11/05/16 12:00 16:49 20:41 RBC Hgb Hct MCH Lymph # ABG pO2 51 mmHg L* mmHg (80-100) ABG HCO3 29.5 mmol/L H mmol/L (22.0-26.0) ABG Total CO2 30.9 MMOL/L H MMOL/L (21.0-29.0) ABG O2 Saturation 88 % L % (94-98) ABG Base Excess 4.6 mmol/L H mmol/L (-2.0-3.0) Potassium Chloride BUN Glucose POC Whole Bld Glucose 191 mg/dL H mg/dL 117 mg/dL H mg/dL (70 - 100) (70 - 100) Calcium Total Bilirubin ALT Total Protein Albumin Albumin/Globulin Ratio 11/06/16 11/06/16 09:03 09:03 RBC 3.43 10^6/uL L 10^6/uL (4.70-6.10) Hgb 10.7 g/dL L g/dL (14.0-18.0) Hct 31.5 % L % (42.0-52.0) MCH 31.3 pg H pg (27.0-31.0) Lymph # 1.2 10^3/uL L 10^3/uL (1.5-3.5) ABG pO2 ABG HCO3 ABG Total CO2 ABG O2 Saturation ABG Base Excess Potassium 3.2 mmol/L L mmol/L (3.5-5.0) Chloride 100 mmol/L L mmol/L (101-111) BUN Glucose 140 mg/dL H mg/dL (70-100) POC Whole Bld Glucose Calcium 8.3 mg/dL L mg/dL (8.5-10.3) Total Bilirubin ALT Total Protein 6.3 g/dL L g/dL (6.7-8.2) Albumin 2.9 g/dL L g/dL (3.2-5.5) Albumin/Globulin Ratio 0.9 L (1.0-2.2) - EKG Results EKG Interpreted Independently: No - Additional Planning Condition/Complexity: Improved My Orders: My Active Orders 11/05/16 11:42 Discharge [RC] .ONCE 11/05/16 12:00 Linezolid 600 mg/300 ml [Zyvox 600 mg/300 ml] 300 ml IV Q12H 11/05/16 20:00 FUROSEMIDE INJ 40mg VIAL [LASIX INJ 40 mg VIAL] 40 mg IVP DAILY 11/05/16 21:00 Cholecalciferol [Vitamin D3] 5,000 unit PO BID 11/06/16 01:29 Ipratropium/Albuterol [Duoneb] 3 ml INH RTQ6H PRN 11/06/16 09:00 Imipenem/Cilastatin [Primaxin] 1,000 mg Sodium Chloride 0.9% [Normal Saline 0.9%] 250 ml IV Q8HR Consult/Specialty: OT, PT Plan Discussed with:: Patient, Case Management (patient will be going back to [facility] tomorrow. He is needing one more overnight. He will go home on antibiotics for UTI) Time Spent: 31-60 minutes Subjective - Subjective Patient Reports: Feeling Better, Resting Comfortably Nursing Reports: No Complaints, Confused (baseline is confused but he is improved and more alert today) Objective Vital Signs: Vital Signs - 24 hr 11/05/16 11/05/16 11/05/16 11:26 13:00 14:02 Temperature 37.7 C H 36.9 C Heart Rate 84 Heart Rate [ 98 96 Brachial] Respiratory 16 22 18 Rate Blood Pressure 106/47 L 115/50 L [Left Brachial artery] Blood Pressure [Right Brachial artery] O2 Saturation 92 95 11/05/16 11/05/16 11/05/16 15:11 15:43 20:00 Temperature 37.0 C Heart Rate 94 87 Heart Rate [ 104 H Brachial] Respiratory 18 22 18 Rate Blood Pressure 106/50 L [Left Brachial artery] Blood Pressure [Right Brachial artery] O2 Saturation 92 11/05/16 11/06/16 11/06/16 20:34 01:00 05:36 Temperature 37.1 C 37.6 C H 37.2 C Heart Rate Heart Rate [ 89 87 86 Brachial] Respiratory 24 16 18 Rate Blood Pressure 132/58 H [Left Brachial artery] Blood Pressure 125/57 L 127/51 L [Right Brachial artery] O2 Saturation 94 93 94 11/06/16 11/06/16 07:30 08:55 Temperature 37.4 C Heart Rate 84 Heart Rate [ 85 Brachial] Respiratory 24 20 Rate Blood Pressure [Left Brachial artery] Blood Pressure 119/52 L [Right Brachial artery] O2 Saturation 92 Oxygen O2 Source Nasal cannula I&O (Last 24 Hrs): Intake and Output Totals x24h 11/04/16 11/05/16 11/06/16 23:59 23:59 23:59 Intake Total 2961 1964 555 Output Total 3875 1005 350 Balance -914 959 205 General: Alert, Cooperative, No acute distress HEENT: Atraumatic, PERRLA Neck: No thyromegaly Lymphatic: no adenopathy Neuro: Alert, Other (oriented to his name and birthdate) Cardiovascular: Regular rate, Normal S1, Normal S2 Respiratory: Chest non-tender, No respiratory distress, Other (diminished but improving.) Abdomen: Normal bowel sounds, No tenderness, No hepatospenomegaly, No masses Genitourinary: No Mass, Other (gonzáles in place) Extremities: No clubbing, No cyanosis, No edema, Normal pulses, No tenderness/ swelling Skin: No rashes, No breakdown, No significant lesion - Results Results: Laboratory Results WBC 6.4 x10^3/uL (4.8-10.8) 11/05/16 05:35 RBC 3.35 10^6/uL (4.70-6.10) L 11/05/16 05:35 Hgb 10.6 g/dL (14.0-18.0) L 11/05/16 05:35 Hct 31.2 % (42.0-52.0) L 11/05/16 05:35 MCV 93.0 fL (80.0-94.0) 11/05/16 05:35 MCH 31.5 pg (27.0-31.0) H 11/05/16 05:35 MCHC 33.9 g/dL (32.0-36.0) 11/05/16 05:35 RDW 13.9 % (12.0-15.0) 11/05/16 05:35 Plt Count 201 10^3/uL (130-450) 11/05/16 05:35 MPV 7.9 fL (7.4-11.4) 11/05/16 05:35 Neut # 4.4 10^3/uL (1.5-6.6) 11/05/16 05:35 Lymph # 0.9 10^3/uL (1.5-3.5) L 11/05/16 05:35 [place] # 0.7 10^3/uL (0.0-1.0) 11/05/16 05:35 Eos # 0.4 10^3/uL (0.0-0.7) 11/05/16 05:35 Baso # 0.0 10^3/uL (0.0-0.1) 11/05/16 05:35 Absolute Nucleated RBC 0.00 x10^3/uL 11/05/16 05:35 Nucleated RBCs 0.0 /100WBC 11/05/16 05:35 Bld Gas Analysis Time 1210 11/05/16 12:00 Sample Site LEFT BRACHIAL 11/05/16 12:00 ABG pH 7.43 (7.35-7.45) 11/05/16 12:00 ABG pCO2 45 mmHg (34-45) 11/05/16 12:00 ABG pO2 51 mmHg (80-100) L* 11/05/16 12:00 ABG HCO3 29.5 mmol/L (22.0-26.0) H 11/05/16 12:00 ABG Total CO2 30.9 MMOL/L (21.0-29.0) H 11/05/16 12:00 ABG O2 Saturation 88 % (94-98) L 11/05/16 12:00 ABG Base Excess 4.6 mmol/L (-2.0-3.0) H 11/05/16 12:00 Ozzie Test NOT APPLICABLE 11/05/16 12:00 Room Air YES 11/05/16 12:00 Sodium 139 mmol/L (135-145) 11/05/16 05:35 Potassium 3.5 mmol/L (3.5-5.0) 11/05/16 05:35 Chloride 103 mmol/L (101-111) 11/05/16 05:35 Carbon Dioxide 29 mmol/L (21-32) 11/05/16 05:35 Anion Gap 7.0 (6-13) 11/05/16 05:35 BUN 5 mg/dL (6-20) L 11/05/16 05:35 Creatinine 0.6 mg/dL (0.6-1.2) 11/05/16 05:35 Estimated GFR (MDRD) 129 (>89) 11/05/16 05:35 Glucose 95 mg/dL (70-100) 11/05/16 05:35 POC Whole Bld Glucose 191 mg/dL (70 - 100) H 11/05/16 16:49 Glycated Hemoglobin 6.5 % (4.6-6.2) H 11/02/16 13:30 Estim Average Glucose 140 (70-100) H 11/02/16 13:30 Lactic Acid 1.0 mmol/L (0.5-2.2) 11/03/16 16:02 Calcium 8.2 mg/dL (8.5-10.3) L 11/05/16 05:35 Magnesium 1.8 mg/dL (1.7-2.8) 11/06/16 05:20 Total Bilirubin 1.3 mg/dL (0.2-1.0) H 11/05/16 05:35 AST 18 IU/L (10-42) 11/05/16 05:35 ALT < 10 IU/L (10-60) L 11/05/16 05:35 Alkaline Phosphatase 67 IU/L (42-121) 11/05/16 05:35 Ammonia 25.2 umol/L (7-35) 11/04/16 Unknown B-Natriuretic Peptide 40 pg/mL (5-100) 11/03/16 15:19 Total Protein 5.8 g/dL (6.7-8.2) L 11/05/16 05:35 Albumin 2.8 g/dL (3.2-5.5) L 11/05/16 05:35 Globulin 3.0 g/dL (2.1-4.2) 11/05/16 05:35 Albumin/Globulin Ratio 0.9 (1.0-2.2) L 11/05/16 05:35 Lipase 19 U/L (22-51) L 11/02/16 13:30 Vitamin B12 200 pg/mL (180-914) 11/04/16 16:11 TSH 4.95 uIU/mL (0.34-5.60) 11/04/16 16:11 Urine Color YELLOW 11/02/16 14:00 Urine Clarity CLOUDY (CLEAR) 11/02/16 14:00 Urine pH 6.5 PH (5.0-7.5) 11/02/16 14:00 Ur Specific Ackerly 1.020 (1.002-1.030) 11/02/16 14:00 Urine Protein 100 mg/dL (NEGATIVE) H 11/02/16 14:00 Urine Glucose (UA) NEGATIVE mg/dL (NEGATIVE) 11/02/16 14:00 Urine Ketones NEGATIVE mg/dL (NEGATIVE) 11/02/16 14:00 Urine Occult Blood LARGE (NEGATIVE) H 11/02/16 14:00 Urine Nitrite POSITIVE (NEGATIVE) H 11/02/16 14:00 Urine Bilirubin NEGATIVE (NEGATIVE) 11/02/16 14:00 Urine Urobilinogen 0.2 (NORMAL) E.U./dL (NORMAL) 11/02/16 14:00 Ur Leukocyte Esterase MODERATE (NEGATIVE) H 11/02/16 14:00 Ur Microscopic Review NOT INDICATED 11/02/16 14:00 Urine Culture Comments INDICATED 11/02/16 14:00 - Procedures Procedures: Procedures CATARAC PHACOEMULS/ASPIR (04/28/14) INSERT LENS AT CATAR EXT (04/28/14)
[2016-11-06] MEDS ORDERED: MAGNESIUM SULFATE 2 GRAM 50 ML IV ONE (09:02)
[2016-11-06 09:24] LABS: BASOPHILS % (AUTO) 0.3 %; EOSINOPHILS # (AUTO) 0.5 10^3/uL (0.0-0.7); EOSINOPHILS % (AUTO) 5.6 %; HCT - HEMATOCRIT 31.5 % (42.0-52.0); HGB - HEMOGLOBIN 10.7 g/dL (14.0-18.0); LYMPHOCYTES # (AUTO) 1.2 10^3/uL (1.5-3.5); LYMPHOCYTES % (AUTO) 13.8 %; MEAN CORPUSCULAR HEMOGLOBIN 31.3 pg (27.0-31.0); MEAN CORPUSCULAR HGB CONC 34.1 g/dL (32.0-36.0); MEAN CORPUSCULAR VOLUME 91.9 fL (80.0-94.0); MEAN PLATELET VOLUME 7.7 fL (7.4-11.4); MONOCYTES # (AUTO) 0.7 10^3/uL (0.0-1.0); MONOCYTES % (AUTO) 8.2 %; NEUTROPHILS # (AUTO) 6.4 10^3/uL (1.5-6.6); NEUTROPHILS % (AUTO) 72.1 %; RED BLOOD COUNT 3.43 10^6/uL (4.70-6.10); RED CELL DISTRIBUTION WIDTH 14.3 % (12.0-15.0); UNCORRECTED WHITE BLOOD COUNT 8.9 x10^3/uL; WHITE BLOOD COUNT 8.9 x10^3/uL (4.8-10.8)
[2016-11-06 09:40] LABS: ALBUMIN/GLOBULIN RATIO 0.9 (1.0-2.2); CALCIUM 8.3 mg/dL (8.5-10.3); CREATININE 0.8 mg/dL (0.6-1.2); POTASSIUM 3.2 mmol/L (3.5-5.0); TOTAL PROTEIN 6.3 g/dL (6.7-8.2)
[2016-11-06] MEDS: IMIPENEM/CILASTATIN 1,000 MG in SODIUM CHLORIDE 0.9% 250 ML IV SCH ×2 (10:48→18:32)
[2016-11-06] MEDS: ACETAMINOPHEN 325 MG TABLET PO PRN (16:33)
[2016-11-06] MEDS ORDERED: POTASSIUM CHLOR 10 MEQ/100 ML 100 ML IV SCH (18:00)
[2016-11-06] MEDS ORDERED: HYDROcod/ACETAM 5/325 MG TABLET PO PRN (20:29)
[2016-11-06] MEDS: TAMSULOSIN 0.4 MG CAPSULE PO SCH (21:13)
[2016-11-06] MEDS: POTASSIUM CHLOR 10 MEQ/100 ML 100 ML IV SCH ×3 (21:13→23:45)
[2016-11-06] MEDS: HYDROcod/ACETAM 10 MG/325 MG TABLET PO PRN (21:13)
[2016-11-06] MEDS: LINEZOLID 600 MG TABLET PO SCH (21:17)
[2016-11-06] MEDS: MIRTAZAPINE 15 MG TABLET PO SCH (21:17)
[2016-11-06] MEDS: LATANOPROST 0.005% OPHTH DROPS EACHEYE SCH (21:22)
[2016-11-07] MEDS: metroNIDAZOLE 500 MG/100 ML 100 ML IV SCH ×2 (00:42→08:06)
[2016-11-07] MEDS: IMIPENEM/CILASTATIN 1,000 MG in SODIUM CHLORIDE 0.9% 250 ML IV SCH ×2 (02:16→10:41)
[2016-11-07] MEDS: HYDROcod/ACETAM 10 MG/325 MG TABLET PO PRN (03:24)
[2016-11-07] MEDS: SODIUM CHLORIDE FLUSH 0.9% 10 ML SYRINGE IVP SCH ×2 (05:55→14:01)
[2016-11-07] MEDS: GABAPENTIN 100 MG CAPSULE PO SCH ×2 (05:55→14:00)
[2016-11-07] MEDS: MORPHINE 2 MG/ML CARPUJECT IVP PRN (05:55)
[2016-11-07] MEDS: FORMOTEROL FUMARATE NEB 20 MCG/2 ML INH SCH (07:20)
[2016-11-07] MEDS: BUDESONIDE 0.5 MG/2 ML NEB INH SCH (07:20)
[2016-11-07] MEDS: CLOPIDOGREL 75 MG TABLET PO SCH (08:06)
[2016-11-07] MEDS: DOCUSATE SODIUM 100 MG CAPSULE PO SCH (08:06)
[2016-11-07] MEDS: LINEZOLID 600 MG TABLET PO SCH (08:06)
[2016-11-07] MEDS: FAMOTIDINE 20 MG TABLET PO SCH (08:06)
[2016-11-07] MEDS: FUROSEMIDE 40 MG/4 ML VIAL IVP SCH (08:06)
[2016-11-07] MEDS: ENOXAPARIN 40 MG/0.4 ML SYRINGE SUBQ SCH (08:07)
[2016-11-07] MEDS ORDERED: POTASSIUM CHLORIDE 20 MEQ/15 ML UDC PO SCH (09:00)
[2016-11-07 09:13] LABS: BASOPHILS # (AUTO) 0.1 10^3/uL (0.0-0.1); BASOPHILS % (AUTO) 0.8 %; EOSINOPHILS # (AUTO) 0.6 10^3/uL (0.0-0.7); EOSINOPHILS % (AUTO) 7.7 %; HCT - HEMATOCRIT 30.8 % (42.0-52.0); HGB - HEMOGLOBIN 10.5 g/dL (14.0-18.0); LYMPHOCYTES # (AUTO) 1.6 10^3/uL (1.5-3.5); MEAN CORPUSCULAR HEMOGLOBIN 31.4 pg (27.0-31.0); MEAN CORPUSCULAR HGB CONC 33.9 g/dL (32.0-36.0); MEAN CORPUSCULAR VOLUME 92.5 fL (80.0-94.0); MEAN PLATELET VOLUME 7.8 fL (7.4-11.4); MONOCYTES # (AUTO) 0.7 10^3/uL (0.0-1.0); MONOCYTES % (AUTO) 9.2 %; NEUTROPHILS # (AUTO) 4.5 10^3/uL (1.5-6.6); NEUTROPHILS % (AUTO) 60.3 %; RED BLOOD COUNT 3.34 10^6/uL (4.70-6.10); RED CELL DISTRIBUTION WIDTH 14.4 % (12.0-15.0); UNCORRECTED WHITE BLOOD COUNT 7.4 x10^3/uL; WHITE BLOOD COUNT 7.4 x10^3/uL (4.8-10.8)
[2016-11-07] MEDS: INSULIN ASPART 300 UNIT/3 ML PEN SUBQ SCH ×2 (09:15→11:51)
[2016-11-07 09:26] LABS: ALBUMIN/GLOBULIN RATIO 0.9 (1.0-2.2); BILIRUBIN,TOTAL 0.7 mg/dL (0.2-1.0); CREATININE 0.7 mg/dL (0.6-1.2); POTASSIUM 3.5 mmol/L (3.5-5.0)
[2016-11-07] MEDS: POLYETHYLENE GLYCOL 3350 17 GM PACKET PO SCH (10:41)
[2016-11-07] MEDS: CHOLECALCIFEROL 5,000 UNIT CAPSULE PO SCH (11:50)
--- NOTE | 2016-11-07 12:19 | DISCHARGE SUMMARY ---
Discharge Summary Admit Date: 11/02/16 Discharge Date: 11/07/16 Discharging Provider: Alley Sy APRN Primary Care Provider: Jake Stephen MD Code Status: Attempt Resuscitation Condition at Discharge: Good Discharge Disposition: SNF DC/Xfer Discharge Facility Name: [facility] - DIAGNOSES Admission Diagnoses: 1. Septicemia with Urinary tract infection, unspecified bacteria 2. noninsulin diabetes melllitus, uncontrolled 3. Hypotension, unspecified 4. Diverticulitis, mild 5. Possible Pneumonia Discharge Diagnoses with Status of Each Condition: 1. Acute urinary tract infection secondary to sepsis with enterobacter clocae bacteria 2. Acute hypotension 3. 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 Acute hypokalemia 5. Acute low magnesium level in serum 6. Chronic indwelling gonzáles catheter for urinary retention - HPI History of Present Illness: his is a 81-year-old male with a Past Medical History of hypertension , COPD, DM2, chronic vision loss, chronic back pain, chronic shoulder pain, questionable congenital heart failure, who present emergence department for evaluation of severe pain in penis. Patient initially report he has been on illness and felt not good for couple days. Upon further interview, patient specifically report he had severe pain in his penis, especially when he urinates. The patient is not a good historian, he does not provide much information about exact questions. Patient did report he did not have short of breathing, chest pain, headache, nausea, vomiting, abdominal pain. He report loose stool but no diarrhea. He report his shoulder pain before he came into emergence department, now he feel better "after they put something on." Review of patient's ECHO study on 04/2015, it reveals mild concentric LVH with normal systolic function, EF 65%, There is mild diastolic dysfunction but left atrium is normal in size. Aortic and mitrial valves are normal function. Normal right ventricular size and function. Pulmonary pressure could not be determined. CT of abdomen on today reveals colon diverticulosis and probable mild diverticulitis in the proximal mild sigmoid colon without drainable abscess, Normal appendix, negative for bowel obstruction, bilateral intrarenal stones without hydronephrosis, Cholelithiasis without acute cholecystitis, small left pleural effusion, infiltrate process or pneumonia in the left lower lobe may be similar appearance. CXR is pending. UA reveals positive urine protein, urine occult blood, nitrite, and leukocyte esterase. Patient has been inserted Gonzáles catheter in the emergence department. Lab test reveals patient has elevated WBC to 15.3 and left shift. Glucose is 215. The nearest vital sign are as the following: Temperature 36.1, heart rate 110, blood pressure 109/51, RR 20, SO2 97% with 2 liter of O2. Patient is admitted to treatment for UTI, diverticulitis and pneumonia - CONSULTS | PROCEDURES Consultations: none Procedures: gonzáles placement - HOSPITAL COURSE Hospital Course: Patient is a 81-year-old male with a Past Medical History of hypertension, COPD, DM2, chronic vision loss, chronic back pain, chronic shoulder pain, questionable congenital heart failure, who presented to the ER and admitted with severe pain in penis. Patient was admitted with UTI and chronic indwelling gonzáles, with a new one placed in the ER prior to admission. He was started on antibiotic treatment in the ER, Rocephin and then changed to Unasyn after admission. He was on Levaquin for UTI and unasyn for sinusitis. Once sensitivities were reported from culture, patient was changed to Imipenem. He is resistant to multiple antibiotics. He will need to be discahrge to [facility] on appropriate oral antibioitcs. He continued with indwelling gonzáles as inpatient. He worked with pT and OT to assist with ambulation. Upon review of ECHO study on 04/2015, it reveals mild concentric LVH with normal systolic function, EF 65%, There is mild diastolic dysfunction but left atrium is normal in size. Aortic and mitrial valves are normal function. Normal right ventricular size and function. Pulmonary pressure could not be determined. He did have some mild pulmonary edema, probably from IVF hydartion and was given lasix 40mg IV and his oxygenation improved to 92% or better. He had a CT of abdomen on today revealing colon diverticulosis and probable mild diverticulitis in the proximal mild sigmoid colon without drainable abscess, He was being treated with antibiotics including Flagyl PO. At admission, he was thought to have a small infiltrate in the lung. Repeat Chest xray showed no infiltrate or effusion but more edema in the lungs. UA had protein, urine occult blood, nitrite, and leukocyte esterase. His diabetes was treated with diabetic diet and blood glucose monitored daily ACHS and sliding scale insulin. He received breathing treatments with RT. Physical and occupational therapy worked with patient for ambulation. On day of discharge to [facility], he was more alert and able to be safely discharged. . He will be discharged to SNF on antibiotics and home medications. - ALLERGIES Allergies/Adverse Reactions: Allergies Allergy/AdvReac Type Severity Reaction Status Date / Time No Known Drug Allergies Allergy Verified 11/02/16 13:07 - MEDICATIONS Home Medications: Ambulatory Orders Medication Instructions Recorded Confirmed Latanoprost 1 drops EACHEYE QPM 12/25/15 11/02/16 Acetaminophen 325 mg PO Q4H PRN 03/09/16 11/02/16 Fluticasone/Salmeterol [Advair 1 inh INH BID 03/09/16 11/02/16 100-50 Diskus] Calcium Carbonate [Tums (Calcium 500 mg PO Q8HR PRN #0 tablet 05/01/16 11/02/16 Carbonate 500mg)] Clopidogrel [Plavix] 75 mg PO DAILY 30 Days 05/01/16 11/02/16 Gabapentin [Neurontin] 100 mg PO TID 11/02/16 11/02/16 Ipratropium/Albuterol [Duoneb] 3 ml INH Q6H PRN 11/02/16 11/02/16 Lorazepam 0.25 mg PO TID PRN 11/02/16 11/02/16 Mirtazapine [Remeron] 15 mg PO QPM 11/02/16 11/02/16 Tamsulosin HCl [Flomax] 0.4 mg PO QPM 11/02/16 11/02/16 Latanoprost 0.005% Ophth Drops 1 drops EACHEYE QPM #1 bottle 11/05/16 [Xalatan Ophth Drops] Lidocaine Patch 5% [Lidoderm Patch] 2 patch TOP DAILY PRN #15 patch 11/05/16 Calcium Carbonate [Tums (Calcium 500 mg PO Q8HR PRN #30 tablet 11/07/16 Carbonate 500mg)] Cholecalciferol [Vitamin D3] 5,000 unit PO BID #30 capsule 11/07/16 Linezolid [Zyvox] 600 mg PO BID #20 tablet 11/07/16 - PHYSICAL EXAM AT DISCHARGE General Appearance: positive: No acute distress, Alert Eyes Bilateral: positive: Normal inspection, PERRL ENT: positive: ENT inspection nml, Pharynx nml, No signs of dehydration Neck: positive: Nml inspection, Thyroid nml, No JVD Respiratory: positive: Chest non-tender, No respiratory distress, Other ( diminished in bases) Cardiovascular: positive: Regular rate & rhythm, No murmur, No gallop Peripheral Pulses: positive: 2+ Abdomen: positive: Non-tender, No organomegaly, Nml bowel sounds, No distention Back: positive: Nml inspection. negative: CVA tenderness (R) Skin: positive: No rash, Warm, Dry Neurologic/Psychiatric: positive: Sensation nml, Mood/affect nml, Disoriented to person. negative: Sensory loss, Facial droop Physical Exam Other/Comments: Will have pt follow up with PCP for further care or return if pt worsens. Pt comfortable with plan. Time spent with patient for planning and assessment was 45 minutes - LABS Result Diagrams: 11/07/16 09:03 11/07/16 09:03 - DIAGNOSTIC IMAGING Diagnostic Imaging Results Comments: Ambulatory Orders Medication Instructions Recorded Confirmed Latanoprost 1 drops EACHEYE QPM 12/25/15 11/02/16 Acetaminophen 325 mg PO Q4H PRN 03/09/16 11/02/16 Fluticasone/Salmeterol [Advair 1 inh INH BID 03/09/16 11/02/16 100-50 Diskus] Calcium Carbonate [Tums (Calcium 500 mg PO Q8HR PRN #0 tablet 05/01/16 11/02/16 Carbonate 500mg)] Clopidogrel [Plavix] 75 mg PO DAILY 30 Days 05/01/16 11/02/16 Gabapentin [Neurontin] 100 mg PO TID 11/02/16 11/02/16 Ipratropium/Albuterol [Duoneb] 3 ml INH Q6H PRN 11/02/16 11/02/16 Lorazepam 0.25 mg PO TID PRN 11/02/16 11/02/16 Mirtazapine [Remeron] 15 mg PO QPM 11/02/16 11/02/16 Tamsulosin HCl [Flomax] 0.4 mg PO QPM 11/02/16 11/02/16 Latanoprost 0.005% Ophth Drops 1 drops EACHEYE QPM #1 bottle 11/05/16 [Xalatan Ophth Drops] Lidocaine Patch 5% [Lidoderm Patch] 2 patch TOP DAILY PRN #15 patch 11/05/16 Calcium Carbonate [Tums (Calcium 500 mg PO Q8HR PRN #30 tablet 11/07/16 Carbonate 500mg)] Cholecalciferol [Vitamin D3] 5,000 unit PO BID #30 capsule 11/07/16 Linezolid [Zyvox] 600 mg PO BID #20 tablet 11/07/16 - FOLLOW UP Follow Up: Abnormal Lab Results 11/04/16 11/04/16 11/04/16 11:14 16:27 20:38 RBC Hgb Hct MCH Lymph # Potassium Chloride Glucose POC Whole Bld Glucose 111 mg/dL H mg/dL 106 mg/dL H mg/dL 110 mg/dL H mg/dL (70 - 100) (70 - 100) (70 - 100) Calcium Total Protein Albumin Albumin/Globulin Ratio 11/05/16 11/05/16 11/05/16 11:25 16:49 20:41 RBC Hgb Hct MCH Lymph # Potassium Chloride Glucose POC Whole Bld Glucose 152 mg/dL H mg/dL 191 mg/dL H mg/dL 117 mg/dL H mg/dL (70 - 100) (70 - 100) (70 - 100) Calcium Total Protein Albumin Albumin/Globulin Ratio 11/06/16 11/06/16 11/06/16 09:03 09:03 16:39 RBC 3.43 10^6/uL L 10^6/uL (4.70-6.10) Hgb 10.7 g/dL L g/dL (14.0-18.0) Hct 31.5 % L % (42.0-52.0) MCH 31.3 pg H pg (27.0-31.0) Lymph # 1.2 10^3/uL L 10^3/uL (1.5-3.5) Potassium 3.2 mmol/L L mmol/L (3.5-5.0) Chloride 100 mmol/L L mmol/L (101-111) Glucose 140 mg/dL H mg/dL (70-100) POC Whole Bld Glucose 134 mg/dL H mg/dL (70 - 100) Calcium 8.3 mg/dL L mg/dL (8.5-10.3) Total Protein 6.3 g/dL L g/dL (6.7-8.2) Albumin 2.9 g/dL L g/dL (3.2-5.5) Albumin/Globulin Ratio 0.9 L (1.0-2.2) 11/06/16 11/07/16 11/07/16 20:43 07:48 09:03 RBC 3.34 10^6/uL L 10^6/uL (4.70-6.10) Hgb 10.5 g/dL L g/dL (14.0-18.0) Hct 30.8 % L % (42.0-52.0) MCH 31.4 pg H pg (27.0-31.0) Lymph # Potassium Chloride Glucose POC Whole Bld Glucose 154 mg/dL H mg/dL 121 mg/dL H mg/dL (70 - 100) (70 - 100) Calcium Total Protein Albumin Albumin/Globulin Ratio 11/07/16 11/07/16 09:03 11:21 RBC Hgb Hct MCH Lymph # Potassium Chloride 100 mmol/L L mmol/L (101-111) Glucose 181 mg/dL H mg/dL (70-100) POC Whole Bld Glucose 141 mg/dL H mg/dL (70 - 100) Calcium 8.0 mg/dL L mg/dL (8.5-10.3) Total Protein 6.0 g/dL L g/dL (6.7-8.2) Albumin 2.8 g/dL L g/dL (3.2-5.5) Albumin/Globulin Ratio 0.9 L (1.0-2.2)
[2016-11-07] MEDS: LIDOCAINE PATCH 5% TOP PRN (12:42)
[2016-11-07 15:54] VITALS: BP 133/59
== END 2016-11-07 16:40 | DRG 871 ==
LOC: EDUNIT# → ED 12:41 → MS 17:14 → MS2 11-04 09:33
PROVIDERS: ADMIT Nurse Practitioner Gerontology; ATTEND Nurse Practitioner
DX: T83.091A Other mechanical complication of indwelling urethral catheter, initial encounter (principal); A41.59 Other Gram-negative sepsis; A41.9 Sepsis, unspecified organism; N30.00 Acute cystitis without hematuria; J18.9 Pneumonia, unspecified organism; J81.1 Chronic pulmonary edema; I11.0 Hypertensive heart disease with heart failure; I50.9 Heart failure, unspecified; N30.01 Acute cystitis with hematuria; E11.9 Type 2 diabetes mellitus without complications; K57.32 Diverticulitis of large intestine without perforation or abscess without bleeding; Z87.891 Personal history of nicotine dependence; J44.0 Chronic obstructive pulmonary disease with (acute) lower respiratory infection; I95.9 Hypotension, unspecified; E11.65 Type 2 diabetes mellitus with hyperglycemia; E11.22 Type 2 diabetes mellitus with diabetic chronic kidney disease; N18.9 Chronic kidney disease, unspecified; E87.6 Hypokalemia; N40.1 Benign prostatic hyperplasia with lower urinary tract symptoms; R33.8 Other retention of urine; J01.11 Acute recurrent frontal sinusitis; D51.9 Vitamin B12 deficiency anemia, unspecified; I10 Essential (primary) hypertension; M25.512 Pain in left shoulder; M25.511 Pain in right shoulder; G89.29 Other chronic pain; Z16.24 Resistance to multiple antibiotics; Z66 Do not resuscitate; Z96.0 Presence of urogenital implants; Z79.02 Long term (current) use of antithrombotics/antiplatelets; Z74.01 Bed confinement status; Z78.1 Physical restraint status
CPT/HCPCS: 36415; 36600; 51700; 51702; 70450; 71010; 71020; 74177; 80053; 81001; 81003; 82140; 82607; 82803; 83036; 83605; 83690; 83735; 83880; 84443; 85025; 87040; 87077; 87086; 87640; 94640; 96361; 96365; 96367; 96375; 99284; 99285

== ENCOUNTER 2016-11-12 15:48 | Outpatient (CLI) | payer MEDICARE, OTHER, MEDICAID ==
--- NOTE | 2016-11-12 15:57 | PROVIDER PROGRESS NOTE ---
Palliative Care Follow Up - Referral Referring Provider: Dr. Alvarez Monge Time of Visit: 14:30 Referral setting: [facility] ([facility]) - Information Sources History obtained from: Patient, Other (Nursing staff) Exam limitations: No limitations, Clinical condition (The patient has very poor short-term memory. His friends are providing oversight but he has multiple clinical saff who are involved in his care.) - History of Present Illness Update Brief HPI Update: This is a yung 81-year-old gentleman with severe end-stage COPD, recurrent pneumonias and recurrent urinary infections. He was hospitalized last week with shortness of breath and pain in penis, especially with urination. He was treated for UTI and initially pneumonia with a series of antibiotics (Rocephin, Unasyn, Levaquin, imipenem, Flagyl) as cultures came back revealing multiple resistance. Repeat chest radiographs revealed edema in the lungs rather than infiltrate or effusion. He was discharged to [facility] on linezolid and cefuroxime , and is currently completing the course of cefuroxime. Nursing reports he is significantly improved post-hospitalization, eating, participating in the exercise classes, more energy and joking and talking with staff and appears to be back to baseline. He agrees that he feels well and see his quality of life as good. When I asked him if he did or didnt want to go to the hospital in the future if needed, he couldnt see why he wouldnt want go. He knows he was recently in the hospital, but his short term memory is very poor and he doesnt recall much about it. He is pleasant today, able to joke and smile with me, and was able to sit up on the edge of the bed from a lying position with me helping pull him up by his arms. He does tire after sitting up, with no back support, after 10-15 minutes. He is drinking more cranberry juice and urine color has improved and he doesnt appear dehydrated. Previously he was drinking a lot of V8 juice. Nursing says he doesnt drink much water. His weight has fluctuated since May from 142.l8 lbs to 160 and most recently (10/25/16) at 157 lbs. Patient is not a reliable historian but states his normal weight is around 160 lbs. His appetite is good. Social History - Living Situation Living arrangement: skilled nursing Support System: Co-DPOAs lRdejon Cherry and Jenise ("Tayolr") Ade live in the area. See "Palliative Care" for contact details. Medications/Allergies - Medications Home Medications: Ambulatory Orders Medication Instructions Recorded Confirmed Acetaminophen 325 mg PO Q4H PRN 03/09/16 11/12/16 Fluticasone/Salmeterol [Advair 1 inh INH BID 03/09/16 11/12/16 100-50 Diskus] Clopidogrel [Plavix] 75 mg PO DAILY 30 Days 05/01/16 11/12/16 Gabapentin [Neurontin] 100 mg PO TID 11/02/16 11/12/16 Ipratropium/Albuterol [Duoneb] 3 ml INH Q6H PRN 11/02/16 11/12/16 Lorazepam 0.25 mg PO TID PRN 11/02/16 11/12/16 Mirtazapine [Remeron] 15 mg PO QPM 11/02/16 11/12/16 Tamsulosin HCl [Flomax] 0.4 mg PO QPM 11/02/16 11/12/16 Latanoprost 0.005% Ophth Drops 1 drops EACHEYE QPM #1 bottle 11/05/16 11/12/16 [Xalatan Ophth Drops] Lidocaine Patch 5% [Lidoderm Patch] 2 patch TOP DAILY PRN #15 patch 11/05/1604/30 Calcium Carbonate [Tums (Calcium 500 mg PO Q8HR PRN #30 tablet 11/07/16 11/12/16 Carbonate 500mg)] Cefuroxime Axetil [Ceftin] 500 mg PO BID #20 susp.recon 11/07/16 11/12/16 Cholecalciferol [Vitamin D3] 5,000 unit PO BID #30 capsule 11/07/16 11/12/16 - Allergies Allergies/Adverse Reactions: Allergies Allergy/AdvReac Type Severity Reaction Status Date / Time No Known Drug Allergies Allergy Verified 11/02/16 13:07 Review of Systems - Constitutional Constitutional: denies: Fever, Chills, Poor appetite - Eyes Eyes: reports: Pain (Chronic shoulder pain) - Cardiovascular Cariovascular: denies: Chest pain - Respiratory Respiratory: reports: SOB with exertion (On O2). denies: Cough, Sputum production - Gastrointestinal Gastrointestinal: denies: Abdominal pain - Neurological Neurological: reports: Memory problems - Psychiatric Psychiatric: reports: Depression, Anxiety (He's not sure what he is anxious about) Physical Examination - Vital Signs Temperature: 98.8 C Pulse Rate: 85 O2 Saturation: 95 Blood Pressure: 125/68 - Physical Exam General Appearance: positive: No acute distress, Alert Eyes Bilateral: positive: EOMI, No lid inflammation, Conjunctivae nml, No scleral icterus, Other (mild periorbital edema) ENT: positive: No signs of dehydration Neck: positive: Trachea midline Cardiovascular: positive: Regular rate & rhythm Abdomen: positive: Non-tender Skin: positive: No symptoms Extremities: positive: No pedal edema, Other (Holds shoulders stiffly) Neurologic/Psychiatric: positive: Mood/affect nml, Weakness (in hand shop cooper) Palliative Care - POLST Patient has POLST: No POLST Status: DNR, Limited Interventions Pain: Pain unchanged Drowsiness: None Nausea: None Dyspnea: Mild (1-3) Anorexia: None Insomnia: Sleeps well Constipation: No Feelings of wellbeing/Perceived Quality of Life: Comment (Not anxious about his health or the future. "The good lord takes care of me.") Performance Status: Current level of functioning: Improved since hospitalization; returning to baseline. He is eating and drinking cranberry juice, participating in activities , talking and joking with staff and me. This is a noticeable improvement from my recent encounters. Short term memory is significantly impaired. He is still weak, able to sit up on the side of the bed for 10-15 minutes. Has weak hand shop cooper. Palliative Care Performance Status: 60% - Palliative Care Discussion: Who is present: Patient and myself. I also interviewed several staff members. Surrogate decision maker: Co-DPOAs: Vinny Cherry [phone] and mobile [phone]. Jenise ("Taylor") Ade mobile [phone] or [phone]. Patient/Family understanding of the illness: Patients understanding of his disease is limited due to his short-term memory loss and dementia. He mentioned his daughter who at age 57, which was 10-15 years ago Most important goals: Previous goal had been to avoid hospitalization, but patient stated today that he would want to go back to the hospital if necessary. Patient/family concerns: DPOAs not reachable by phone today. I will follow up with them regarding clarification of goals of care. Impression and Recommendations - Palliative Care Impression: This is a yung 78-year-old gentleman who has end-stage COPD and recent and repetitive urinary tract infections with multiple drug resistances. He has improved energy and mental status since recent hospitalization and antibiotic treatment and reports being satisfied with his current quality of life. Recommendations/Counseling Done: 1. End-stage COPD: He continues at risk for recurrent pneumonia, recent radiographs indicate lung edema. Lung sounds diminished. Continue O2 and inhaled corticosteroids. 2. Chronic pain: Stable, he is not complaining about shoulder pain today. Will continue voltaren gel with Tylenol as needed and gabapentin scheduled three times a day. May consider NSAID in the future if pain worsens. Kidney function good: GFR on 11/07/16 is 108, BUN and Cr normal. Liver function tests also normal. 3. Depression: No current symptoms on mirtazapine 15mg daily. 4. Anxiety: Mild, reports satisfaction with life. Use lorazepam as needed. 5. Advanced care planning: Previous goals had been to avoid hospitalization, today he says he would want hospitalization if needed. I will follow up with DPOA. Time Spent: 30 minutes with greater than 50% of this done in counseling, symptom management , goals of care, and coordination of care.
== END 2016-11-12 15:49 | disposition home or self-care (01) ==
LOC: PC 15:48
PROVIDERS: ATTEND Nurse Practitioner
DX: Z51.5 Encounter for palliative care (principal); J44.9 Chronic obstructive pulmonary disease, unspecified; G89.29 Other chronic pain; F32.9 Major depressive disorder, single episode, unspecified; F41.9 Anxiety disorder, unspecified; R41.3 Other amnesia; Z79.51 Long term (current) use of inhaled steroids; R06.09 Other forms of dyspnea; Z66 Do not resuscitate; F03.90 Unspecified dementia, unspecified severity, without behavioral disturbance, psychotic disturbance, mood disturbance, and anxiety; J81.1 Chronic pulmonary edema; N39.0 Urinary tract infection, site not specified; J18.9 Pneumonia, unspecified organism
CPT/HCPCS: 99309

== ENCOUNTER 2016-12-03 14:30 | Outpatient (CLI) | payer MEDICARE, OTHER, MEDICAID ==
--- NOTE | 2016-12-03 16:04 | PROVIDER PROGRESS NOTE ---
Palliative Care Follow Up - Referral Referring Provider: Alvarez Monge MD Time of Visit: 12/03/16 14:30 Referral setting: Residential Facility - Information Sources Exam limitations: Clinical condition (The patient has very poor short-term memory, and he is an unreliable historian. His friends/DPOA provide oversight and he has multiple clinical staff who are involved in his care.) - History of Present Illness Update Brief HPI Update: This is a yung 81-year-old gentleman with severe end-stage COPD, recurrent pneumonias and recurrent urinary infections. He was hospitalized last month and was treated for UTI and initially pneumonia with a series of antibiotics ( Rocephin, Unasyn, Levaquin, imipenem, Flagyl) as cultures came back revealing multiple resistance. Repeat chest radiographs revealed edema in the lungs rather than infiltrate or effusion. He was discharged to [facility] on antibiotics and has completed those regimens Nursing reports he has been stable since his hospitalization, with a good appetite and drinking more often than previously. His friends/DPOAs, Taylor and Vinny, visit him regularly and see that he is doing well and seems to be enjoying life. The patient himself states to me that he feels his quality of life is good, and when asked if he ever feels depressed or unhappy, replies Depressed is not part of my vocabulary. Sliding scale Novolog was started during hospitalization, and he was very unhappy about the repetitive blood sugar checks. We have DCd the insulin and decreased BS checks to every other day, with the hope and intent of discontinuing them altogether, if an acceptable BG range is noted. He continues with generalized weakness, unable to independently raise himself from lying to sitting without aid, and is able to sit up for only a short period before wanting to lie down. One thing he is particularly happy about is that his special cowboy hat, which was recently lost, was found today. He mentioned that several times. Although his short-term memory is deficient, he does remember people and emotional events. He remembers ZACHERY Landaverde, saying, She is always full of corine. During my last visit he mentioned his daughter, who has . During this visit he said he would like to see his grandchildren. When I explored this further, he said he hadnt seen them in many years and does not want to pursue it. I spoke with Onee, the DPOA, and she has had similar experiences with him. She knows very little about his background except that perhaps he may be estranged from them. His advanced dementia effectively prevents any further ability to help him reconnect with his family. Social History - Living Situation Living arrangement: retirement Support System: Co-DPOAs Vinny Cherry and Jenise ("Taylor") dAe (a couple) live in the area. See "Palliative Care" for contact details. Medications/Allergies - Medications Home Medications: Ambulatory Orders Medication Instructions Recorded Confirmed Acetaminophen 325 mg PO Q4H PRN 03/09/16 12/03/16 Fluticasone/Salmeterol [Advair 1 inh INH BID 03/09/16 12/03/16 100-50 Diskus] Clopidogrel [Plavix] 75 mg PO DAILY 30 Days 05/01/16 12/03/16 Gabapentin [Neurontin] 100 mg PO TID 11/02/16 12/03/16 Ipratropium/Albuterol [Duoneb] 3 ml INH Q6H PRN 11/02/16 12/03/16 Lorazepam 0.25 mg PO TID PRN 11/02/16 12/03/16 Mirtazapine [Remeron] 15 mg PO QPM 11/02/16 12/03/16 Tamsulosin HCl [Flomax] 0.4 mg PO QPM 11/02/16 12/03/16 Latanoprost 0.005% Ophth Drops 1 drops EACHEYE QPM #1 bottle 11/05/16 12/03/16 [Xalatan Ophth Drops] Calcium Carbonate [Tums (Calcium 500 mg PO Q8HR PRN #30 tablet 11/07/16 12/03/16 Carbonate 500mg)] Cholecalciferol [Vitamin D3] 5,000 unit PO BID #30 capsule 11/07/16 12/03/16 - Allergies Allergies/Adverse Reactions: Allergies Allergy/AdvReac Type Severity Reaction Status Date / Time No Known Drug Allergies Allergy Verified 11/02/16 13:07 Review of Systems - Constitutional Constitutional: denies: Fever, Chills, Malaise - Cardiovascular Cariovascular: denies: Chest pain - Respiratory Respiratory: denies: Cough, SOB at rest - Gastrointestinal Gastrointestinal: denies: Abdominal pain, Constipation, Diarrhea - Genitourinary Genitourinary: denies: Dysuria - Musculoskeletal Musculoskeletal: reports: Back pain (chronic), Joint pain (chronic bilateral shoulders, especially left shoulder) - Neurological Neurological: reports: General weakness - Psychiatric Psychiatric: denies: Depression, Anxiety, Suicidal Physical Examination - Vital Signs Temperature: 98.9 C Pulse Rate: 67 O2 Saturation: 95 Blood Pressure: 128/60 - Physical Exam General Appearance: positive: No acute distress Eyes Bilateral: positive: EOMI, No lid inflammation, Conjunctivae nml, No scleral icterus Neck: positive: Trachea midline Respiratory: positive: Chest non-tender, No respiratory distress. negative: Wheezes, Rales, Rhonchi Cardiovascular: positive: Systolic murmur (3/6) Abdomen: positive: Non-tender, No distention, Abnml bowel sounds (hypoactive) Skin: positive: No symptoms Neurologic/Psychiatric: positive: Motor nml, Sensation nml, Mood/affect nml, Weakness (unable to raise himself up from lying to sitting position in bed without aid) Palliative Care - POLST Patient has POLST: Yes POLST Status: Limited Interventions Pain: Pain unchanged (chronic lumbar pain and bilateral shoulder pain. No longer complaining of pain in wrist.) Drowsiness: None Nausea: None Anxiety: None Dyspnea: Mild (1-3) (requires continuous oxygen) Anorexia: None Insomnia: Sleeps well Performance Status: Previous level of function prior to this episode: Improved since hospitalization, but generally slowly declining. Risk factors: history of repetitive infections and hospitalizations; chronic indwelling catheter. Current level of functioning: Requires considerable help with ADLs, unable to sit up in bed without help; has bed alarm due to requiring help with all transfers. Short term memory is significantly impaired. Palliative Care Performance Status: 60% - Palliative Care Discussion: Who is present: Patient and myself. I interviewed several staff members and telephoned DONNA Vazquez, before and after visit. Surrogate decision maker: Co-DPOAs: Vinny Cherry [phone] and mobile [phone]. Jenise ("Taylor") Ade mobile [phone] or [phone]. Patient/Family understanding of the illness: Patients understanding of his disease is limited due to his short-term memory loss and dementia. Discussed with DPOA his recent hospitalization and his advanced care planning. She and her visit him regularly. She had seen him several times during the October hospitalization, and noted that one day he was doing very poorly and appeared weak and very sick, but the next day he was sitting up, talking, and appearing to enjoy himself. We reviewed the current POLST (DNR with limited intervention, ie, allowing hospitalization), and agreed to continue with this for now. I provided anticipatory guidance about eventually moving to comfort care, declining further hospitalizations when burden outweighs benefits, and eventual transition to Hospice. DONNA feels he is currently enjoying life and has already recuperated from numerous hospitalizations in the past and will want to continue to be cared for in this way as long as the hospitalizations permit him to go back to his current level of functioning. Most important goals: Quality of life, controlling chronic pain. Impression and Recommendations - Palliative Care Impression: This is a charming 78-year-old gentleman who has end-stage COPD and a history of repetitive urinary tract infections with multiple drug resistances and multiple hospitalizations. He does not currently qualify for Hospice, but has significant risk of future infections, hospitalizations, and continuing decline. Recommendations/Counseling Done: 1. End-stage COPD: High risk for pneumonia due to h/o recurrent pneumonias and fytsv-jcoo-lfoeroqum organisms. Continue eaeed-llj-vzyyt O2 via nasal cannula and inhaled corticosteroids. 2. Diabetes: Stopped sliding scale Novolin, which was started in hospital. Continue checking blood sugar every other day for 7-14 days to see trends, consider starting an oral medication and checking A1C every 3 months. 3. Chronic pain: Stable, he is not complaining about shoulder pain today. Restarted Voltaren gel TID on shoulders and lower back, plus use as needed on those joints, and wrists too. Do not exceed 32g/day. Continue Tylenol 325mg Q4hr as needed and gabapentin 100mg TID. 4. Depression: Stable, no symptoms. Continue mirtazapine 15mg daily. 5. Advanced care planning: Discussed with DPMIYA the current POLST being DNR with limited intervention (ie, hospitalization), and will continue with this for the time being. Provided anticipatory guidance about eventually moving to comfort care and no further hospitalizations; DPMIYA feels the patient is not currently ready. Time Spent: 30 minutes with greater than 50% of this done in counseling, symptom management , as well as goals of care and anticipatory guidance with DPOA.
== END 2016-12-03 14:31 | disposition home or self-care (01) ==
LOC: PC 14:30
PROVIDERS: ATTEND Nurse Practitioner
DX: Z51.5 Encounter for palliative care (principal); J44.9 Chronic obstructive pulmonary disease, unspecified; E11.9 Type 2 diabetes mellitus without complications; F32.9 Major depressive disorder, single episode, unspecified; M54.5 Low back pain; Z99.81 Dependence on supplemental oxygen; Z87.01 Personal history of pneumonia (recurrent); Z96.0 Presence of urogenital implants; R41.3 Other amnesia; Z87.440 Personal history of urinary (tract) infections; R53.1 Weakness; F03.90 Unspecified dementia, unspecified severity, without behavioral disturbance, psychotic disturbance, mood disturbance, and anxiety; Z79.82 Long term (current) use of aspirin; Z79.51 Long term (current) use of inhaled steroids; M25.512 Pain in left shoulder; M25.511 Pain in right shoulder; R06.00 Dyspnea, unspecified; Z66 Do not resuscitate
CPT/HCPCS: 99310

== ENCOUNTER 2016-12-29 23:21 | Outpatient (CLI) | payer MEDICARE, OTHER, MEDICAID | END 2016-12-29 23:22 | disposition critical access hospital (66) | LOC: EMS 23:21 | PROVIDERS: ATTEND Surgery | DX: R50.9 Fever, unspecified (principal); R39.9 Unspecified symptoms and signs involving the genitourinary system | CPT/HCPCS: A0425; A0429 ==

== ENCOUNTER 2016-12-29 23:25 | Inpatient (IN) | payer MEDICARE, OTHER, MEDICAID ==
--- NOTE | 2016-12-30 00:04 | ED Physician Documentation ---
PD HPI DYSPNEA - Stated complaint Stated Complaint: SOA - Chief complaint Chief Complaint: Resp - History obtained from History obtained from: Patient, EMS - History of Present Illness Timing - onset: How many days ago (2) Timing - onset during: Rest Timing - duration: Days (2) Timing - details: Gradual onset, Still present Inciting event(s): URI Improved by: O2 Worsened by: Exertion, Coughing Associated symptoms: Fever, Cough Similar symptoms before: Diagnosis (pneumonia and sepsis) Recently seen: Admitted (In October for urosepsis) - Additional information Additional information: 81-year-old male was a resident of [facility] with chronic urinary retention with indwelling Santamaria catheter has had an admission for urosepsis back in October of this year he has been encouraged since that time. He has had increased shortness of breath tachycardia and altered level of consciousness. Review of Systems Unable to obtain: AMS, Confused PD PAST MEDICAL HISTORY - Past Medical History Cardiovascular: Congestive heart failure, Hypertension Respiratory: COPD Neuro: None, Other Endocrine/Autoimmune: Type 2 diabetes GI: None : None HEENT: Chronic vision loss, Other Psych: None Musculoskeletal: Chronic back pain Derm: None - Past Surgical History Past Surgical History: Yes General: Colonoscopy HEENT: Cataracts - Present Medications Home Medications: Ambulatory Orders Medication Instructions Recorded Confirmed Acetaminophen 325 mg PO Q4H PRN 03/09/16 12/30/16 Fluticasone/Salmeterol [Advair 1 inh INH BID 03/09/16 12/30/16 100-50 Diskus] Clopidogrel [Plavix] 75 mg PO DAILY 30 Days 05/01/16 12/30/16 Gabapentin [Neurontin] 100 mg PO TID 11/02/16 12/30/16 Ipratropium/Albuterol [Duoneb] 3 ml INH Q6H PRN 11/02/16 12/30/16 Lorazepam 0.25 mg PO TID PRN 11/02/16 12/30/16 Mirtazapine [Remeron] 15 mg PO QPM 11/02/16 12/30/16 Tamsulosin HCl [Flomax] 0.4 mg PO QPM 11/02/16 12/30/16 Latanoprost 0.005% Ophth Drops 1 drops EACHEYE QPM #1 bottle 11/05/16 12/30/16 [Xalatan Ophth Drops] Calcium Carbonate [Tums (Calcium 500 mg PO Q8HR PRN #30 tablet 11/07/16 12/30/16 Carbonate 500mg)] Cholecalciferol [Vitamin D3] 5,000 unit PO BID #30 capsule 11/07/16 12/30/16 - Allergies Allergies/Adverse Reactions: Allergies Allergy/AdvReac Type Severity Reaction Status Date / Time No Known Drug Allergies Allergy Verified 11/02/16 13:07 - Social History Does the pt smoke?: No Smoking Status: Former smoker Does the pt drink ETOH?: No Does the pt have substance abuse?: No - Immunizations Immunizations are current?: No Immunizations: TDAP >10years/unknown - POLST Patient has POLST: Yes POLST Status: DNR PD ED PE NORMAL - Vitals Vital signs reviewed: Yes (tachcy hypotensive and hypoxic) - General General: Well developed/nourished, Other (The patient is minimally responsive and ) - HEENT HEENT: Atraumatic - Cardiac Cardiac: RRR, No murmur - Respiratory Respiratory: Other (tachypneic with bibasilar rhonchi) - Abdomen Abdomen: Soft, Non tender - Back Back: No CVA TTP, No spinal TTP - Derm Derm: Normal color, No rash - Extremities Extremities: No deformity, No edema - Neuro Neuro: No motor deficit, No sensory deficit Results - Vitals Vitals: Vital Signs - 24 hr 12/29/16 12/30/16 12/30/16 23:27 00:00 00:15 Temperature 37.2 C Heart Rate 117 H 119 H 118 H Respiratory 24 20 20 Rate Blood Pressure 88/39 L 74/40 L 77/38 L O2 Saturation 90 L 95 95 12/30/16 00:28 Temperature Heart Rate 117 H Respiratory 22 Rate Blood Pressure 89/43 L O2 Saturation 99 Oxygen O2 Source [] Room air O2 Source [] 2L via NC O2 Source Nasal cannula - Labs Labs: Laboratory Tests 12/30/16 12/30/16 12/30/16 00:00 00:00 00:00 WBC 28.4 H RBC 3.76 L Hgb 11.8 L Hct 35.5 L MCV 94.6 H MCH 31.4 H MCHC 33.2 RDW 13.1 Plt Count 225 MPV 8.2 Sodium 131 L Potassium 4.2 Chloride 96 L Carbon Dioxide 24 Anion Gap 11.0 BUN 27 H Creatinine 2.0 H Estimated GFR (MDRD) 32 L Glucose 200 H Lactic Acid Calcium 8.5 Total Bilirubin 4.3 H AST 21 ALT 11 Alkaline Phosphatase 74 Troponin I < 0.04 Total Protein 6.2 L Albumin 3.1 L Globulin 3.1 Albumin/Globulin Ratio 1.0 Lipase 10 L 12/30/ 00:00 WBC RBC Hgb Hct MCV MCH MCHC RDW Plt Count MPV Sodium Potassium Chloride Carbon Dioxide Anion Gap BUN Creatinine Estimated GFR (MDRD) Glucose Lactic Acid 4.4 H* Calcium Total Bilirubin AST ALT Alkaline Phosphatase Troponin I Total Protein Albumin Globulin Albumin/Globulin Ratio Lipase Procedures - IVC sono (time) 3248 Bedside IVC sono: IVC measures (cm) (0.98), IVC collapsed c insp (cm) (complete) , Dehydration PD MEDICAL DECISION MAKING - ED course Complexity details: reviewed old records, reviewed results, re-evaluated patient , considered differential, d/w patient ED course: 81-year-old male with a history of sepsis previously presents today with what appears to be sepsis he has low central venous pressure hypotension hypoxia tachypnea and tachycardia. He has been given 750 mL's of saline prior to arrival to the emergency department he continues to have low central venous pressure and he is administered further fluids as workup is begun. Departure - Departure Disposition: 66 [facility] DC/Xfer Clinical Impression: Altered level of consciousness Sepsis Qualifiers: Sepsis type: sepsis due to unspecified organism Qualified Code(s): A41.9 - Sepsis, unspecified organism Condition: Critical
[2016-12-30 00:14] LABS: BASOPHILS % (AUTO) 0.3 %; HCT - HEMATOCRIT 35.5 % (42.0-52.0); HGB - HEMOGLOBIN 11.8 g/dL (14.0-18.0); LYMPHOCYTES % (AUTO) 4.1 %; MEAN CORPUSCULAR HEMOGLOBIN 31.4 pg (27.0-31.0); MEAN CORPUSCULAR HGB CONC 33.2 g/dL (32.0-36.0); MEAN CORPUSCULAR VOLUME 94.6 fL (80.0-94.0); MEAN PLATELET VOLUME 8.2 fL (7.4-11.4); MONOCYTES % (AUTO) 4.1 %; NEUTROPHILS % (AUTO) 91.5 %; RED BLOOD COUNT 3.76 10^6/uL (4.70-6.10); RED CELL DISTRIBUTION WIDTH 13.1 % (12.0-15.0); UNCORRECTED WHITE BLOOD COUNT 28.4 x10^3/uL; WHITE BLOOD COUNT 28.4 x10^3/uL (4.8-10.8)
[2016-12-30 00:24] LABS: BILIRUBIN,TOTAL 4.3 mg/dL (0.2-1.0); CALCIUM 8.5 mg/dL (8.5-10.3); POTASSIUM 4.2 mmol/L (3.5-5.0); TOTAL PROTEIN 6.2 g/dL (6.7-8.2)
[2016-12-30 00:42] LABS: UA w/ MICROSCOPIC CHARGE YES
[2016-12-30 00:43] LABS: BILIRUBIN,URINE NEGATIVE (NEGATIVE)
[2016-12-30 00:44] LABS: UR CULTURE IF IND INDICATED
[2016-12-30 00:51] LABS: BAND NEUTROPHILS % (MANUAL) 20 %; LYMPHOCYTES % (MANUAL) 4 %; NEUTROPHILS % (MANUAL) 70 %; TOTAL CELLS COUNTED 100
[2016-12-30] MEDS ORDERED: ACETAMINOPHEN 325 MG TABLET PO PRN (00:51)
[2016-12-30] MEDS ORDERED: IPRATROPIUM 0.2 MG/ML NEB INH PRN (00:51)
[2016-12-30] MEDS ORDERED: SODIUM CHLORIDE FLUSH 0.9% 10 ML SYRINGE IVP PRN (00:51)
[2016-12-30 00:52] LABS: NP AUTO DIFFERENTIAL? YES; NP MAN DIFFERENTIAL? NO; PLATELET ESTIMATE, MANUAL NORMAL (130-450,000) (NORMAL); PLATELET MORPHOLOGY NORMAL APPEARANCE (NORMAL)
--- NOTE | 2016-12-30 00:56 | XRAY Preliminary Report ---
Exam: XR Chest 1 View IMPRESSION: Pulmonary venous congestion with no focal airspace disease or significant edema. [facility] SITE ID: [id number]
--- NOTE | 2016-12-30 00:58 | XRAY Report ---
EXAM: CHEST RADIOGRAPHY EXAM DATE: 12/30/2016 12:27 AM. CLINICAL HISTORY: Shortness of breath COMPARISON: None. TECHNIQUE: 1 view. FINDINGS: Lungs/Pleura: Pulmonary vascular congestion without overt edema. No lobar consolidation. No pleural e ffusion or pneumothorax. Mediastinum: Within exam limitations, cardiomediastinal contour is normal. Other: None. IMPRESSION: Pulmonary venous congestion with no focal airspace disease or significant edema. [facility] Referring Provider Line: [phone] SITE ID: [id number]
[2016-12-30] MEDS ORDERED: IMIPENEM/CILASTATIN 500 MG in SODIUM CHLORIDE 0.9% MINIBAG 100 ML IV SCH (01:00)
[2016-12-30] MEDS: SODIUM CHLORIDE 0.9% 1,000 ML IV SCH ×3 (01:20→18:20)
[2016-12-30] MEDS ORDERED: SODIUM CHLORIDE 0.9% 2,000 ML IV ONE (01:27)
[2016-12-30] MEDS ORDERED: IMIPENEM/CILASTATIN 250 MG in SODIUM CHLORIDE 0.9% MINIBAG 100 ML IV SCH (02:00)
[2016-12-30] MEDS ORDERED: metroNIDAZOLE 500 MG/100 ML 100 ML ONE (02:19)
[2016-12-30] MEDS: metroNIDAZOLE 500 MG/100 ML 100 ML IV SCH ×4 (02:22→19:37)
[2016-12-30] MEDS: ACETAMINOPHEN 1,000 MG/100 ML 100 ML IV SCH ×4 (03:02→18:15)
[2016-12-30] MEDS ORDERED: HALOPERIDOL 5 MG/ML VIAL IVP PRN (04:27)
--- NOTE | 2016-12-30 06:03 | XRAY Preliminary Report ---
Exam: XR Chest for Line Placement IMPRESSION: 1. Interim development of right lung pulmonary edema. Small bibasilar opacities may be from atelectas is or edema. 2. Trace right effusion. 3. Right adjacent to venous catheter tip projects over the midportion of SVC. [facility] SITE ID: [id number]
--- NOTE | 2016-12-30 06:08 | HISTORY & PHYSICAL EXAMINATION ---
DATE OF ADMISSION: 12/30/2016 CHIEF COMPLAINT: Multiple complaints including shortness of breath and altered mental status. SOURCE OF HISTORY: The history was obtained from the ER physician and reviewing the electronic medical record. The patient was acutely ill with altered mental status and could not meaningfully interact. PRIMARY CARE PHYSICIAN: Jake Stephen MD. HISTORY OF PRESENT ILLNESS: The patient is an 81-year-old chronically ill white male with multiple past medical problems who was hospitalized at the end of October at [facility] with urosepsis. His urine culture grew multiple organisms including Enterobacter cloacae, Staphylococcus aureus, and in the past he also had enterococcus in his urine. Following 5 days hospitalization in October, he was discharged to an extended care facility. Overnight on 12/29 through 12/30, he was brought in to [facility] ER by ambulance from a local care home. He appeared acutely ill. On admission, his vital signs were unstable, he was hypotensive with blood pressure in the 80s, which did not improve after IV hydration. The patient received initially 750 mL IV fluid and another 750 in the ER and altogether after 1.5 liters IV fluid, he still remained hypotensive. He also was tachycardic with heart rate in the 120s and his heart rate did not decrease during the ER stay. If anything, it actually increased. His temperature was 37.5, so it was mildly elevated. He was saturating 100% on 2 liters nasal cannula; however, when observed, he appeared gurgling with his breathing. The ER workup showed multiple severe abnormalities including white blood cell count of 28.4, lactic acid of 4.4, creatinine of 2. Of note, last time creatinine was 0.7. Urinalysis was positive, but not overly impressive. It did show some bacteria and yeast as well. Of note, the patient has chronic urinary retention and he does have an indwelling Santamaria catheter. Chest x-ray showed pulmonary vascular congestion, but the radiologist did not describe discrete infiltrate. Blood glucose was 200. Notably, troponin was negative. The patient has a POLST form, which lists DO NOT RESUSCITATE CODE STATUS WITH LIMITED ADDITIONAL INTERVENTION. When I examined the patient in the ER, he could not meaningfully interact and he could not provide any history. He appeared acutely and severely ill. PAST MEDICAL HISTORY 1. Diabetes. 2. Chronic urinary retention, has indwelling Santamaria catheter. 3. History of pneumonia. 4. Urinary tract infection. 5. Chronic kidney disease; however, creatinine during last admission was normal. 6. Hypertension. 7. COPD. 8. Chronic back pain. 9. Diastolic dysfunction. Last echocardiogram in the electronic medical record showed normal systolic function. 10. Diverticulosis. 11. Cerebrovascular accident. 12. Dementia. 13. Dyslipidemia. 14. History of pneumothorax. 15. History of B12 deficiency. OUTPATIENT MEDICATIONS Included 1. Gabapentin. 2. Latanoprost eyedrops. 3. Advair. 4. Tums. 5. Remeron. 6. DuoNebs. 7. Flomax. 8. Lorazepam. 9. Plavix. 10. Vitamin D. 11. Tylenol. ALLERGIES: NO KNOWN DRUG ALLERGIES. SOCIAL HISTORY: The patient is an extended care facility resident, he could not provide social history. FAMILY HISTORY: Unobtainable due to altered mental status. REVIEW OF SYMPTOMS: Unobtainable due to altered mental status. PHYSICAL EXAMINATION VITAL SIGNS: Please see listed above in history of present illness. GENERAL: The patient is a well developed, acutely ill-appearing male who was in acute distress. SKIN: With pallor, diaphoretic. NEUROLOGIC: Appeared encephalopathic, with global encephalopathy. No focal deficit was arousable, could not meaningfully interact. PSYCH: Mildly agitated, moaning, appearing uncomfortable, complaining of discomfort, could not localize pain. CVS: S1, S2, regular, fast rhythm. I could not hear a murmur. RESPIRATORY: Borderline airway protection, gurgling breath sounds. Decreased air entry about all lung cmapa. No wheezes. Few crackles posteriorly. ABDOMEN: Distended, nontender. Bowel tones hypoactive. No rebound tenderness. LYMPH: No lymphedema. MUSCULOSKELETAL: Without obvious trauma. ASSESSMENT/ACTIVE ISSUES/DIAGNOSES 1. Severe sepsis/septic shock. Did not improve on IV hydration. Will require ICU admission and vasopressors. Also notable that the patient at age 81 could not likely tolerate aggressive IV hydration. He already received about 2-3 liters in the first couple of hours and it is unlikely that he would remain stable with his respiratory status as he already seems without much reserve. Notably, his CODE STATUS IS DO NOT RESUSCITATE AND DO NOT INTUBATE. 2. End organ failure including encephalopathy and acute renal failure. 3. Acute renal failure. Creatinine is more than doubled. This is in the setting of sepsis. 4. Altered mental status, encephalopathy secondary to hypotensive shock and sepsis. 5. Severe lactic acidosis. 6. Source of sepsis could be urinary tract infection. Could be bacteremia as well and pneumonia cannot be ruled out. Notably, the patient's chest x-ray did not show significant abnormality. However, on physical exam, he did have gurgling breath sounds. He did have crackles as well and appeared being a high risk to aspirate. In addition, it is notable that the patient is dehydrated and in that state, his lung might not show an infiltrate. After rehydration, an infiltrate is more likely to show up. 7. Hyperglycemia with blood glucose of 200 in the setting of severe illness with history of diabetes. 8. Worsening overall status and critical illness. During the ER stay, the patient did not improve. His heart rate increased. His blood pressure remained low around 80 and subsequently he developed worsening respiratory status. Initially he was saturating 100% on 2 liters nasal cannula and on room air. Subsequently, when arrived to the ICU, his oxygen saturation dropped to the mid 90s, was 94% on 2 liters nasal cannula. That is a sign that the patient does not really tolerate further aggressive fluid hydration and he will need pressors. 9. No urine output with renal failure in the setting of sepsis. 10. Multiple chronic medical illnesses. Please see listed in past medical history. PLAN AND ORDERS 1. Admitted to the ICU. 2. I contacted Anesthesia to come in, and the on-call anesthesiologist will put in a central line emergently. 3. Start Levophed. There is not much reserve for further aggressive IV hydration. 4. Maintenance rate IV fluids as tolerated. 5. We will be prepared to use CPAP if pulmonary edema develops. The patient is not a candidate for further aggressive management such as intubation. 6. Regarding antibiotic coverage, I will use imipenem to cover for healthcare- acquired pneumonia if that would be the case. Also, imipenem would cover for aspiration. Further, the patient had history of urine infections and imipenem would cover for most multidrug resistant organisms. In addition, I added Diflucan because the urinalysis showed some yeast, and yeast bacteremia or yeast urinary infection is possible as well. To further cover for aspiration, I added Flagyl. Therefore, we will use 3 agents now, imipenem, Diflucan and Flagyl. Gonzalez cultures were sent, including C difficile, blood cultures, respiratory cultures. We will check MRSA screen. If positive, then we will consider vancomycin as well. 7. Deep venous thrombosis prophylaxis with decreased dose of subcutaneous heparin, considering increased bleeding risk with advanced age and renal failure. 8. Continue inhalers for history of COPD. 9. For now, the patient is n.p.o. We will advance his diet if he will be awake enough to take oral intake. In that case, we will do bedside swallow screen and start with dysphagia diet. I doubt, however, that the patient's condition will improve that quickly. I expect him to be n.p.o. until his condition improves. 10. The patient is getting admitted as inpatient. I expect a somewhat prolonged hospital stay, at least 3-4 days. There is also risk that this patient would not improve. He has high mortality risk given his advanced age and severe sepsis with end organ failure. Critical care time spent with the care of this patient was 70 minutes. JOB #: [id number] EXT JOB #:[id number] DAVID
--- NOTE | 2016-12-30 06:38 | XRAY Report ---
EXAM: CHEST RADIOGRAPHY EXAM DATE: 12/30/2016 05:17 AM. CLINICAL HISTORY: Right IJ central line placement COMPARISON: Exam earlier today at 12:31 AM TECHNIQUE: 1 view. FINDINGS: Lungs/Pleura: There is diffuse pulmonary interstitial prominence within the right lung. Small bibasil ar opacities. Possible trace right effusion. No pneumothorax. Mediastinum: Indistinct pulmonary vessels. Cardiac silhouette is within normal limits. Other: Right IJ central venous catheter tip projects over the midportion of the SVC. Severe degenerat jocelyn change about the shoulder bilaterally. IMPRESSION: 1. Interim development of right lung pulmonary edema. Small bibasilar opacities may be from atelectas is or edema. 2. Trace right effusion. 3. Right IJ central venous catheter tip projects over the midportion of the SVC. PERI Referring Provider Line: [phone] SITE ID: [id number]
[2016-12-30] MEDS ORDERED: FORMOTEROL FUMARATE NEB 20 MCG/2 ML INH SCH (07:00)
[2016-12-30] MEDS ORDERED: BUDESONIDE 0.5 MG/2 ML NEB INH SCH (07:00)
[2016-12-30 07:17] LABS: BASOPHILS % (AUTO) 0.2 %; EOSINOPHILS % (AUTO) 0.1 %; HCT - HEMATOCRIT 33.7 % (42.0-52.0); HGB - HEMOGLOBIN 11.1 g/dL (14.0-18.0); LYMPHOCYTES % (AUTO) 4.8 %; MEAN CORPUSCULAR HEMOGLOBIN 31.3 pg (27.0-31.0); MEAN CORPUSCULAR VOLUME 94.8 fL (80.0-94.0); MEAN PLATELET VOLUME 8.4 fL (7.4-11.4); MONOCYTES % (AUTO) 3.9 %; RED BLOOD COUNT 3.56 10^6/uL (4.70-6.10); UNCORRECTED WHITE BLOOD COUNT 28.2 x10^3/uL; WHITE BLOOD COUNT 28.2 x10^3/uL (4.8-10.8)
[2016-12-30] MEDS: SODIUM CHLORIDE FLUSH 0.9% 10 ML SYRINGE IVP SCH ×3 (07:20→22:00)
[2016-12-30] MEDS: PANTOPRAZOLE 40 MG VIAL IVP SCH (07:22)
[2016-12-30] MEDS: BUDESONIDE 0.5 MG/2 ML NEB INH SCH ×2 (07:45→20:41)
[2016-12-30] MEDS: FORMOTEROL FUMARATE NEB 20 MCG/2 ML INH SCH ×2 (07:45→20:41)
[2016-12-30 08:03] LABS: BAND NEUTROPHILS % (MANUAL) 23 %; LYMPHOCYTES % (MANUAL) 3 %; NEUTROPHILS % (MANUAL) 67 %; TOTAL CELLS COUNTED 100
[2016-12-30 08:04] LABS: NP AUTO DIFFERENTIAL? YES; NP MAN DIFFERENTIAL? NO; PLATELET ESTIMATE, MANUAL NORMAL (130-450,000) (NORMAL); PLATELET MORPHOLOGY 1+ GIANT PLATELETS (NORMAL)
[2016-12-30] MEDS: INSULIN ASPART 300 UNIT/3 ML PEN SUBQ SCH ×4 (08:23→21:14)
[2016-12-30] MEDS: HEPARIN 5,000 UNIT/ML VIAL SUBQ SCH ×2 (08:49→21:07)
[2016-12-30] MEDS: FLUCONAZOLE 200 MG/100 ML 50 ML IV SCH (09:35)
[2016-12-30] MEDS: IMIPENEM/CILASTATIN 500 MG in SODIUM CHLORIDE 0.9% MINIBAG 100 ML IV SCH ×2 (10:10→17:18)
--- NOTE | 2016-12-30 17:11 | PROVIDER PROGRESS NOTE ---
Palliative Care Follow Up - Referral Referring Provider: Dr. Norma Norton Time of Visit: [id number] Referral setting: Hospitalized patient Referral Reason: Goals of Care - Information Sources Records Reviewed: RN notes reviewed, Old records reviewed History obtained from: Other (notes and patient known to me) Exam limitations: Clinical condition (patient at baseline able to recognize people; speak in full sentences but has severe STM deficits and does not have decision making capacity) - History of Present Illness Update Brief HPI Update: This is a yung 81-year-old gentleman well known to me from my palliative care outpatient practice, who has severe COPD, and was problematic, has been his recurrent pneumonias and recurrent urinary infections. He does have an indwelling catheter for BPH, and his cultures have continued to show increasing multiple drug resistance. His last hospitalization, was complicated in attempting to treat his pneumonia and UTI. He did have significant delirium, and multiple difficulties with fluid management and effusions. I am meeting with both Gwendolyn and Vinny Cherry, who have been his DPOAs, since he was no longer able to manage decision making on his own. He has no immediate family, and is currently residing at [facility], as a permanent resident. They actually visited yesterday, he was doing actually fairly well, and was actively engaged, and had a reasonable conversation. Gwendolyn, reports, staff called as he had taken a fairly significant change for the worse and was wondering about hospitalization. The goals have been DNAR, but as long as able to return to past level of functioning, have chosen to continue with hospitalizations. Patient had told clinical staff he did not want to go, but is unable to realized the consequences of this decision, thus they made the decision to have him come in. Patient presents with acute sepsis, currently on pressors, but is responsive and recognizes myself and friends. He remains very fragile, and given his multiple hospitalizations, there is concern regarding his ability to recover this time. Social History - Living Situation Living arrangement: long-term (patient is permenant resident of [facility] since 05/31 as unable to manage needs at home; there under medicaid) Support System: His only daughter at age 52 of brain cancer; was ; is estranged from 2 granddaughter. His friends Gwendolyn and Vinny have over seen and supported him this last year, he knows them from working in the [employer] together. His a a Vet. Staff at [facility] are very fond of him, he does seem to have settled in. Is supported by Palliative Care CUSTOMER SALES ADVISOR and Cloud Services Architect. Medications/Allergies - Medications Active Medication List: Active Medications Acetaminophen (Tylenol) 650 mg PO Q4HR PRN PRN Reason: Pain 1 to 4 Albuterol/Ipratropium (Duoneb) 3 ml INH Q6H PRN PRN Reason: Wheezing Budesonide (Pulmicort) 0.5 mg INH RTBID [facility] Last Admin: 12/30/16 07:45 Dose: 0.5 mg Formoterol Fumarate (Perforomist) 20 mcg INH RTBID [facility] Last Admin: 12/30/16 07:45 Dose: 20 mcg Haloperidol (Haldol Inj) 0.5 mg IVP Q6H PRN PRN Reason: Agitation Heparin Sodium (Porcine) () 2,500 unit SUBQ BID [facility] Last Admin: 12/30/16 08:49 Dose: 2,500 unit Sodium Chloride (Normal Saline 0.9%) 1,000 mls @ 100 mls/hr IV .Q10H [facility] Last Admin: 12/30/16 03:03 Dose: 100 mls/hr Fluconazole (Diflucan 200 Mg/100 Ml) 50 mls @ 100 mls/hr IV DAILY [facility] Last Admin: 12/30/16 09:35 Dose: 100 mls/hr Metronidazole (Flagyl 500 Mg/100 Ml) 100 mls @ 100 mls/hr IV Q6H [facility] Last Admin: 12/30/16 14:00 Dose: 100 mls/hr Imipenem/Cilastatin Sodium 500 (mg/ Sodium Chloride) 100 mls @ 200 mls/hr IV Q8H [facility] Last Admin: 12/30/16 10:10 Dose: 200 mls/hr Acetaminophen (Ofirmev) 100 mls @ 400 mls/hr IV Q8H [facility] Stop: 01/01/17 10:59 Last Admin: 12/30/16 11:04 Dose: 400 mls/hr Norepinephrine Bitartrate 8 mg (/ Dextrose) 250 mls @ 11.25 mls/hr IV .[id number] [facility]; 6 MCG/MIN PRN Reason: Protocol Last Admin: 12/30/16 15:59 Dose: 8 mls/hr Insulin Aspart (Novolog) 1 - 5 unit SUBQ 0800,1200,1700,2100 [facility] PRN Reason: Protocol Last Admin: 12/30/16 11:47 Dose: 1 unit Latanoprost (Xalatan Ophth Drops) 1 drops EACHEYE QPM [facility] Pantoprazole Sodium (Protonix) 40 mg IVP QDAC [facility] Last Admin: 12/30/16 07:22 Dose: 40 mg Sodium Chloride (Normal Saline Flush 0.9%) 10 ml IVP Q8HR [facility] Last Admin: 12/30/16 15:08 Dose: 10 ml Sodium Chloride (Normal Saline Flush 0.9%) 20 ml IVP PRN PRN PRN Reason: After Blood Draw Acetaminophen 325 mg PO Q4H PRN 03/09/16 Fluticasone/Salmeterol [Advair 100-50 Diskus] 1 inh INH BID 03/09/16 Gabapentin [Neurontin] 100 mg PO TID 11/02/16 Ipratropium/Albuterol [Duoneb] 3 ml INH Q6H PRN 11/02/16 Lorazepam 0.25 mg PO TID PRN 11/02/16 Mirtazapine [Remeron] 15 mg PO QPM 11/02/16 Tamsulosin HCl [Flomax] 0.4 mg PO QPM 11/02/16 - Allergies Allergies/Adverse Reactions: Allergies Allergy/AdvReac Type Severity Reaction Status Date / Time No Known Drug Allergies Allergy Verified 11/02/16 13:07 Review of Systems - Other Findings Other Findings: Patient unable to participate in review of systems, he denies pain or discomfort , aware he is in the hospital, and recognizes myself and friends. He denies SOB though seems to be having some distress. Physical Examination - Vital Signs Vital Signs: Vital Signs x48h Temp Pulse Resp BP Pulse Ox 12/30/16 16:00 102 H 20 97/52 L 94 12/30/16 15:00 102 H 20 94/62 93 12/30/16 14:00 105 H 21 99/48 L 96 12/30/16 13:00 112 H 23 104/54 L 96 12/30/16 12:00 36.6 C 104 H 21 97/50 L 96 12/30/16 11:00 109 H 22 120/53 L 95 12/30/16 10:00 108 H 22 110/91 H 97 - Physical Exam General Appearance: positive: Mild distress (respiratoy) Eyes Bilateral: positive: Other (has flakey eye lashes; slight reddend conjunctivae) ENT: positive: Dry mucous membranes, Other (dry lips) Neck: positive: Trachea midline Respiratory: positive: Wheezes, Rhonchi, Other (diminished bases; presents with respiratory effort) Cardiovascular: positive: Tachycardia Abdomen: positive: No distention, Other (gonzáles with dark yellow urine) Skin: positive: Pallor, Dryness, Rash (tends to get rash with shaving; facililty trys to shave weekly to minimize) Extremities: positive: No pedal edema Neurologic/Psychiatric: positive: Disoriented to place, Disoriented to time, Other (voice week; aware is in hospital unclear what brought him here) Palliative Care - POLST Patient has POLST: Yes POLST Status: DNR, Limited Interventions Pain: Location (has long standing chronic back pain; most acute pain has been bilateral shoulder pain; denies pain at time of visit) Performance Status: Patient at baseline is wheelchair bound, he is able to self propel through facility, he can self feed. He is dependent on facility staff for ADLs. He does spend a majority of the time sleeping. He is up for meals, and occasionally for other activities. - Palliative Care Discussion: Surrogate decision maker-Nina Churchill [phone].Met with Nina regarding the seriousness of patient's current condition. He has been seriously and acutely ill before, but each time it has been a longer time of recovery, and more complications. They are where some of the difficulty is currently with his hypotension as a result of his sepsis, and that's it is always difficult to find a balance for him with his heart, lungs, kidneys and finding of right drug for his infection. We did discuss hoping for the best, but being prepared for the worst. Most likely will have an idea of which direction this is going in the next 24-48 hours. They are aware of this area the situation. In the context of what might be best for Jose Miguel, we did discuss if he was not going to respond to treatment and/or experienced complications that would impact his quality of life further, we may be transitioning to comfort measures. And in preparing for the worst, discussion was had, where to support Jose Miguel for end-of-life. If possible, to return back to [facility], to staff to he is familiar with and fond of with hospice support. Results - Lab Results Lab results reviewed: Yes Fish Bones: 12/30/16 06:56 12/30/16 00:00 Lab and Imaging Results: Lab Results x24hrs 12/30/16 12/30/16 Range/Units 08:00 06:56 WBC 28.2 H (4.8-10.8) x10^3/uL RBC 3.56 L (4.70-6.10) 10^6/uL Hgb 11.1 L (14.0-18.0) g/dL Hct 33.7 L (42.0-52.0) % MCV 94.8 H (80.0-94.0) fL MCH 31.3 H (27.0-31.0) pg MCHC 33.0 (32.0-36.0) g/dL RDW 13.0 (12.0-15.0) % Plt Count 216 (130-450) 10^3/uL MPV 8.4 (7.4-11.4) fL Neut # Not Reportable Lymph # Not Reportable Burleigh # Not Reportable Eos # Not Reportable Baso # Not Reportable Absolute Nucleated RBC Not Reportable Total Counted 100 Band Neuts % (Manual) 23 H (0 - 10) % Metamyelocytes % 3 H ( - 0) % Neutrophils # (Manual) 25.4 H (1.5-6.6) 10^3/uL Lymphocytes # (Manual) 0.8 L (1.5-3.5) 10^3/uL Monocytes # (Manual) 1.1 H (0.0-1.0) 10^3/uL Nucleated RBCs Not Reportable Differential Comment MANUAL DIFFERENTIAL Platelet Estimate NORMAL (130-450,000) (NORMAL) Platelet Morphology 1+ GIANT PLATELETS (NORMAL) RBC Morph Micro Appear NORMAL APPEARANCE (NORMAL) Lactic Acid 3.9 H* (0.5-2.2) mmol/L Impression and Recommendations - Palliative Care Impression: This is a yung 81-year-old gentleman who has end-stage COPD now acutely admitted with sepsis and urinary tract infection. He has had multiple hospitalizations, repetitive urinary tract infections, with multiple drug resistances. He has had slow but steady decline over the last several months. He has an indwelling catheter, it has made it a challenge, to avoid infections. He presents today he is very frail, recognizing he is in precaurious position, the long-term goals were very have always been to focus on quality of life, treat reversible conditions, and not to prolong suffering. Recommendations/Counseling Done: 1. Sepsis, currently attributed to his UTI. Patient with history of multiple recurrent urinary tract infections, indwelling catheter, the multidrug resistant organisms. Recognizing patient with his multiple comorbidities, advanced age, and palliative care performance status is 30% is at high risk for further sequela and deterioration of his current status. 2. Dementia without behavioral disturbances. Patient is pleasant at baseline, has severe short-term memory issues, can speak in full sentences but does not have decision-making capacity. He can be included in conversation, and is aware at times of the seriousness of his condition, but his friends oversee his care and make his decisions. 3. Advanced care planning. Family meeting with Zenobia and Vinny, reviewed the seriousness of his condition, and concerns about possible further decline. There biggest goal for Jose Miguel, is for him to be comfortable, not to extend suffering, and to treat it allows him to go back to his previous level of functioning. Patient did perceives his quality of life is acceptable prior to hospitalization. Will continue to follow patient, assist with shared decision making if patient needs to transition to comfort care. Palliative care security systems technician has been notified and will visit patient tomorrow, patient has a strong spirituality and enjoys Kostas's visits. Time Spent: Time spent 60 minutes with greater than 50% of this done in counseling regarding goals of care, coordination of care with hospitalists and clinical staff.
[2016-12-30] MEDS: IPRATROPIUM/ALBUTEROL 3 ML NEB INH PRN (20:41)
[2016-12-30] MEDS: LATANOPROST 0.005% OPHTH DROPS EACHEYE SCH (21:09)
[2016-12-31] MEDS: IMIPENEM/CILASTATIN 500 MG in SODIUM CHLORIDE 0.9% MINIBAG 100 ML IV SCH ×3 (01:34→17:26)
[2016-12-31] MEDS: SODIUM CHLORIDE 0.9% 1,000 ML IV SCH ×2 (01:34→14:56)
[2016-12-31] MEDS: ACETAMINOPHEN 1,000 MG/100 ML 100 ML IV SCH ×3 (02:55→18:32)
[2016-12-31] MEDS: metroNIDAZOLE 500 MG/100 ML 100 ML IV SCH ×4 (03:29→19:40)
[2016-12-31] MEDS: SODIUM CHLORIDE FLUSH 0.9% 10 ML SYRINGE IVP SCH ×3 (05:18→22:39)
[2016-12-31 06:12] LABS: CALCIUM 8.2 mg/dL (8.5-10.3); CREATININE 0.8 mg/dL (0.6-1.2); PHOSPHORUS 1.9 mg/dL (2.5-4.6); POTASSIUM 3.4 mmol/L (3.5-5.0)
[2016-12-31] MEDS: PANTOPRAZOLE 40 MG VIAL IVP SCH (06:35)
[2016-12-31] MEDS ORDERED: POTASSIUM PHOSPHATE 15 MMOL in SODIUM CHLORIDE 0.9% 250 ML IV ONE (06:46)
[2016-12-31] MEDS ORDERED: MAGNESIUM SULFATE 2 GRAM 50 ML IV ONE (06:46)
[2016-12-31] MEDS: POTASSIUM CHLOR 20 MEQ/100 ML 100 ML IV SCH ×2 (07:18→08:16)
[2016-12-31] MEDS: FORMOTEROL FUMARATE NEB 20 MCG/2 ML INH SCH ×2 (07:42→19:45)
[2016-12-31] MEDS: IPRATROPIUM/ALBUTEROL 3 ML NEB INH PRN (07:42)
[2016-12-31] MEDS: BUDESONIDE 0.5 MG/2 ML NEB INH SCH ×2 (07:43→19:45)
[2016-12-31] MEDS: INSULIN ASPART 300 UNIT/3 ML PEN SUBQ SCH ×4 (08:42→21:00)
[2016-12-31] MEDS: FLUCONAZOLE 200 MG/100 ML 50 ML IV SCH (09:15)
[2016-12-31] MEDS: HEPARIN 5,000 UNIT/ML VIAL SUBQ SCH ×2 (09:44→21:07)
[2016-12-31] MEDS: SODIUM CHLORIDE FLUSH 0.9% 10 ML SYRINGE IVP PRN ×2 (14:33→18:35)
--- NOTE | 2016-12-31 14:54 | PROVIDER PROGRESS NOTE ---
Palliative Care Follow Up - Referral Referring Provider: Dr. Norma Norton Time of Visit: [id number] Referral setting: Hospitalized patient Referral Reason: Goals of care - Information Sources Records Reviewed: RN notes reviewed History obtained from: Other (clinical staff) Exam limitations: Clinical condition (patient with poor STM, more awake and able to participate) - History of Present Illness Update Brief HPI Update: Supriya 81-year-old gentleman who has severe COPD, with recurrent pneumonias, recurrent urinary tract infections, and recurrent hospitalizations. He does have an indwelling catheter for BPH, his cultures currently not available, but has been showing increasing multiple drug resistance. His white count has remained elevated today, they are titrating down his pressor with good response. He is more awake and alert, is quite tearful, but reports he just doesn't feel good. He is a permanent resident at [facility], and the goal is for him to return there, at time of discharge and/or if transitions to comfort care. He continues to remain fragile, but up to this point, has returned back to an acceptable level of functioning and quality of life deemed by his friends who are his DPOAs. Patient denies pain or distress, denies shortness of breath, is unable to identify how he "doesn't feel well". He does have crackles in his left lower lobe, and some expiratory wheezes. Reports he has no appetite, denies nausea or stomach distress, did have difficulties swallowing the previous evening. Social History - Living Situation Living arrangement: correction ([facility]; has bee resident since 05/31.) Medications/Allergies - Medications Active Medication List: Active Medications Acetaminophen (Tylenol) 650 mg PO Q4HR PRN PRN Reason: Pain 1 to 4 Albuterol/Ipratropium (Duoneb) 3 ml INH Q6H PRN PRN Reason: Wheezing Last Admin: 12/31/16 07:42 Dose: 3 ml Budesonide (Pulmicort) 0.5 mg INH RTBID [facility] Last Admin: 12/31/16 07:43 Dose: 0.5 mg Formoterol Fumarate (Perforomist) 20 mcg INH RTBID [facility] Last Admin: 12/31/16 07:42 Dose: 20 mcg Haloperidol (Haldol Inj) 0.5 mg IVP Q6H PRN PRN Reason: Agitation Heparin Sodium (Porcine) () 2,500 unit SUBQ BID [facility] Last Admin: 12/31/16 09:44 Dose: 2,500 unit Sodium Chloride (Normal Saline 0.9%) 1,000 mls @ 100 mls/hr IV .Q10H [facility] Last Admin: 12/31/16 01:34 Dose: 100 mls/hr Fluconazole (Diflucan 200 Mg/100 Ml) 50 mls @ 100 mls/hr IV DAILY [facility] Last Admin: 12/31/16 09:15 Dose: 100 mls/hr Metronidazole (Flagyl 500 Mg/100 Ml) 100 mls @ 100 mls/hr IV Q6H [facility] Last Admin: 12/31/16 13:58 Dose: 100 mls/hr Imipenem/Cilastatin Sodium 500 (mg/ Sodium Chloride) 100 mls @ 200 mls/hr IV Q8H [facility] Last Admin: 12/31/16 09:50 Dose: 200 mls/hr Acetaminophen (Ofirmev) 100 mls @ 400 mls/hr IV Q8H [facility] Stop: 01/01/17 10:59 Last Admin: 12/31/16 10:48 Dose: 400 mls/hr Norepinephrine Bitartrate 8 mg (/ Dextrose) 250 mls @ 11.25 mls/hr IV .[id number] [facility]; 6 MCG/MIN PRN Reason: Protocol Last Admin: 12/31/16 14:18 Dose: Not Given Insulin Aspart (Novolog) 1 - 5 unit SUBQ 0800,1200,1700,2100 [facility] PRN Reason: Protocol Last Admin: 12/31/16 11:41 Dose: Not Given Latanoprost (Xalatan Ophth Drops) 1 drops EACHEYE QPM [facility] Last Admin: 12/30/16 21:09 Dose: 1 drops Pantoprazole Sodium (Protonix) 40 mg IVP QDAC [facility] Last Admin: 12/31/16 06:35 Dose: 40 mg Sodium Chloride (Normal Saline Flush 0.9%) 10 ml IVP Q8HR [facility] Last Admin: 12/31/16 14:10 Dose: 10 ml Sodium Chloride (Normal Saline Flush 0.9%) 20 ml IVP PRN PRN PRN Reason: After Blood Draw Last Admin: 12/31/16 14:33 Dose: 20 ml Acetaminophen 325 mg PO Q4H PRN 03/09/16 Fluticasone/Salmeterol [Advair 100-50 Diskus] 1 inh INH BID 03/09/16 Gabapentin [Neurontin] 100 mg PO TID 11/02/16 Ipratropium/Albuterol [Duoneb] 3 ml INH Q6H PRN 11/02/16 Lorazepam 0.25 mg PO TID PRN 11/02/16 Mirtazapine [Remeron] 15 mg PO QPM 11/02/16 Tamsulosin HCl [Flomax] 0.4 mg PO QPM 11/02/16 - Allergies Allergies/Adverse Reactions: Allergies Allergy/AdvReac Type Severity Reaction Status Date / Time No Known Drug Allergies Allergy Verified 11/02/16 13:07 Review of Systems - Constitutional Constitutional: reports: Poor appetite - Ears, Nose & Throat Ears, Nose & Throat: reports: Hearing loss (mild) - Cardiovascular Cariovascular: denies: Chest pain - Gastrointestinal Gastrointestinal: reports: Other (nurse reports to bowel movements today; patient confirms dislikes constipation so is pleased) - Genitourinary Genitourinary: reports: Other (gonzáles catheter for BPH) - Musculoskeletal Musculoskeletal: reports: Stiffness, Other (needing assist for bed mobililty) - Neurological Neurological: reports: General weakness, Memory problems - Hematologic/Lymphatic Hematologic/Lymphatic: reports: Recurrent infections - Other Findings Other Findings: limited ROS related to patient's abililty to recall and participate Physical Examination - Vital Signs Vital Signs: Vital Signs x48h Temp Pulse Pulse Resp BP Pulse Ox 12/31/16 14:00 97 22 108/57 L 94 12/31/16 13:00 100 21 108/52 L 93 12/31/16 12:00 37 C 101 H 22 120/59 L 94 12/31/16 11:00 102 H 28 H 99/55 L 93 12/31/16 10:00 108 H 19 108/51 L 93 12/31/16 09:00 105 H 22 116/50 L 93 12/31/16 08:00 36.8 C 103 H 24 106/53 L 92 12/31/16 07:30 93 16 12/31/16 07:00 95 27 H 131/55 H 97 - Physical Exam General Appearance: positive: Mild distress, Lethargic Eyes Bilateral: positive: Conjunctivae nml ENT: positive: Dry mucous membranes Neck: positive: No JVD, Trachea midline Respiratory: positive: Other (as noted in HPI) Cardiovascular: positive: Tachycardia Abdomen: positive: Nml bowel sounds, Other (scrotal swelling) Skin: positive: Pallor, Rash (dry flakey skin) Extremities: positive: No pedal edema Neurologic/Psychiatric: positive: Disoriented to person, Disoriented to place, Depressed mood/affect Palliative Care - POLST Patient has POLST: Yes POLST Status: DNR, Limited Interventions Pain: Pain unchanged, Severity (lower extremity neuropathy; tender to touch when examined) Drowsiness: Mild (1-3) Nausea: None Anxiety: Mild (1-3) Anorexia: Severe (7-10) Constipation: No Feelings of wellbeing/Perceived Quality of Life: Worsening Performance Status: Patient at baseline is wheelchair dependent, is able to wheel himself somewhat independently in facility. Is dependent for ADLs. Is able to self feed. Currently needing feeding assistance, cuing, and is bed bound. - Palliative Care Discussion: Patient is tearful through visit, is wondering if "this is it". If it was his time, and if he was going to come get him. When asked for clarification, he is talking about GOD. Asked him if he is afraid to , that he wasn't scared but preferred to live. He is aware that we are in a precarious situation, waiting to see if he will get better or to worsen. Did followup with his friends Gwendolyn and Vinny, but up to date and current status, he continued to struggle as far his weighing benefits and burdens and care decisions for Jose Miguel. Encourage them to currently does take it at day at that time, recognizing he is quite frail, Gwendolyn reflects this been told as long as 2 years ago that he was going to and never return home. She does admit though, and he has continued to decline, this still perceives he enjoys his current level of functioning as support at [facility]. They're coming to visit, and provide support, this is shared with Jose Miguel. He is very much attached and tearful at the ongoing support his friends have provided. Palliative care product coordinator has made a visit for support as well, he sees him regularly over at [facility]. Frances really enjoys country music. Results - Lab Results Fish Bones: 12/30/16 06:56 12/31/16 05:10 Lab and Imaging Results: Lab Results x24hrs 12/31/16 12/31/16 12/31/16 Range/Units 11:38 08:40 05:10 Sodium (135-145) mmol/L Potassium (3.5-5.0) mmol/L Chloride (101-111) mmol/L Carbon Dioxide (21-32) mmol/L Anion Gap (6-13) BUN (6-20) mg/dL Creatinine (0.6-1.2) mg/dL Estimated GFR (MDRD) (>89) Glucose (70-100) mg/dL POC Whole Bld Glucose 135 H 126 H (70 - 100) mg/dL Calcium (8.5-10.3) mg/dL Phosphorus (2.5-4.6) mg/dL Magnesium 1.5 L (1.7-2.8) mg/dL Albumin (3.2-5.5) g/dL 12/31/16 12/30/16 12/30/16 Range/Units 05:10 21:12 17:08 Sodium 139 (135-145) mmol/L Potassium 3.4 L (3.5-5.0) mmol/L Chloride 108 (101-111) mmol/L Carbon Dioxide 27 (21-32) mmol/L Anion Gap 4.0 L (6-13) BUN 19 (6-20) mg/dL Creatinine 0.8 (0.6-1.2) mg/dL Estimated GFR (MDRD) 92 (>89) Glucose 135 H (70-100) mg/dL POC Whole Bld Glucose 151 H 109 H (70 - 100) mg/dL Calcium 8.2 L (8.5-10.3) mg/dL Phosphorus 1.9 L (2.5-4.6) mg/dL Magnesium (1.7-2.8) mg/dL Albumin 2.5 L (3.2-5.5) g/dL 12/30/16 12/30/16 Range/Units 11:42 08:01 Sodium (135-145) mmol/L Potassium (3.5-5.0) mmol/L Chloride (101-111) mmol/L Carbon Dioxide (21-32) mmol/L Anion Gap (6-13) BUN (6-20) mg/dL Creatinine (0.6-1.2) mg/dL Estimated GFR (MDRD) (>89) Glucose (70-100) mg/dL POC Whole Bld Glucose 150 H 145 H (70 - 100) mg/dL Calcium (8.5-10.3) mg/dL Phosphorus (2.5-4.6) mg/dL Magnesium (1.7-2.8) mg/dL Albumin (3.2-5.5) g/dL Impression and Recommendations - Palliative Care Impression: This is an 81-year-old gentleman with end-stage COPD, and multiple other comorbidities, adding to this risk for continued decline. He is showing some improvement, this certainly remains fragile, both patient and friends are aware of the current concern regarding outcome for this hospitalization. Recommendations/Counseling Done: 1. Advanced COPD, patient denies current respiratory distress, remains at high risk for aspiration, and recurrent pneumonias. 2. Depression. The patient presents quite tearful today, his son baseline and at the present, does well with support from friends and [place]. Would recommend when appropriate for oral meds to restart him on his Mirtazipine 15 mg at bedtime 3. Advanced care planning. We'll continue support Oli very DPOAs, and there struggled to oversee his health care needs, their main concern is that he remains comfortable and not to suffer. Aware he is currently in a precarious situation, the goal is to return to [facility] easier on discharge, or of transitioning to comfort measur Time Spent: 45 minutes with greater than 50% of this done in counseling and coordination of care regarding goals of care communication with clinical staff in followup with hospitalists. Providing anticipatory guidance to DPOAs.
--- NOTE | 2016-12-31 18:32 | PROVIDER PROGRESS NOTE ---
Subjective - Prog Note Date Prog Note Date: 12/31/16 Prog Note Time: 18:29 - Subjective Pt reports feeling: Improved Subjective: I have been able to get him off levophed by this afternoon. He is still on IV fluids at 100 cc an hour. He has been seen by palliative care. On review of systems he is tearful. Tells me he just does not feel good but he cannot tell me where he hurts. Do you have a headache? yes, do have chest pain? yes, do your bones hurt? yes, and he really hurts over his feet and shins. But he denies coughing, Rigors. All he can tell me is that everything hurts all over. Current Medications - Current Medications Current Medications: Active Medications Acetaminophen (Tylenol) 650 mg PO Q4HR PRN PRN Reason: Pain 1 to 4 Albuterol/Ipratropium (Duoneb) 3 ml INH Q6H PRN PRN Reason: Wheezing Last Admin: 12/31/16 07:42 Dose: 3 ml Budesonide (Pulmicort) 0.5 mg INH RTBID [facility] Last Admin: 12/31/16 07:43 Dose: 0.5 mg Formoterol Fumarate (Perforomist) 20 mcg INH RTBID [facility] Last Admin: 12/31/16 07:42 Dose: 20 mcg Haloperidol (Haldol Inj) 0.5 mg IVP Q6H PRN PRN Reason: Agitation Heparin Sodium (Porcine) () 2,500 unit SUBQ BID [facility] Last Admin: 12/31/16 09:44 Dose: 2,500 unit Fluconazole (Diflucan 200 Mg/100 Ml) 50 mls @ 100 mls/hr IV DAILY [facility] Last Admin: 12/31/16 09:15 Dose: 100 mls/hr Metronidazole (Flagyl 500 Mg/100 Ml) 100 mls @ 100 mls/hr IV Q6H [facility] Last Admin: 12/31/16 13:58 Dose: 100 mls/hr Imipenem/Cilastatin Sodium 500 (mg/ Sodium Chloride) 100 mls @ 200 mls/hr IV Q8H [facility] Last Admin: 12/31/16 17:26 Dose: 200 mls/hr Acetaminophen (Ofirmev) 100 mls @ 400 mls/hr IV Q8H [facility] Stop: 01/01/17 10:59 Last Admin: 12/31/16 10:48 Dose: 400 mls/hr Norepinephrine Bitartrate 8 mg (/ Dextrose) 250 mls @ 11.25 mls/hr IV .[id number] [facility]; 6 MCG/MIN PRN Reason: Protocol Last Admin: 12/31/16 14:18 Dose: Not Given Insulin Aspart (Novolog) 1 - 5 unit SUBQ 0800,1200,1700,2100 [facility] PRN Reason: Protocol Last Admin: 12/31/16 11:41 Dose: Not Given Latanoprost (Xalatan Ophth Drops) 1 drops EACHEYE QPM [facility] Last Admin: 12/30/16 21:09 Dose: 1 drops Pantoprazole Sodium (Protonix) 40 mg PO QDAC [facility] Potassium Chloride (K-Dur) 40 meq PO ONCE [facility] Stop: 12/31/16 20:00 Sodium Chloride (Normal Saline Flush 0.9%) 10 ml IVP Q8HR [facility] Last Admin: 12/31/16 14:10 Dose: 10 ml Sodium Chloride (Normal Saline Flush 0.9%) 20 ml IVP PRN PRN PRN Reason: After Blood Draw Last Admin: 12/31/16 14:33 Dose: 20 ml Acetaminophen 325 mg PO Q4H PRN 03/09/16 Fluticasone/Salmeterol [Advair 100-50 Diskus] 1 inh INH BID 03/09/16 Gabapentin [Neurontin] 100 mg PO TID 11/02/16 Ipratropium/Albuterol [Duoneb] 3 ml INH Q6H PRN 11/02/16 Lorazepam 0.25 mg PO TID PRN 11/02/16 Mirtazapine [Remeron] 15 mg PO QPM 11/02/16 Tamsulosin HCl [Flomax] 0.4 mg PO QPM 11/02/16 Objective - Vital Signs/Intake & Output Reviewed Vital Signs: Yes Vital Signs: Vital Signs x48h Temp Pulse Pulse Resp BP Pulse Ox 12/31/16 18:24 96 24 125/87 H 93 12/31/16 17:00 98 22 133/64 H 95 12/31/16 16:00 92 25 H 113/77 95 12/31/16 15:30 93 20 12/31/16 15:00 88 22 121/56 L 95 12/31/16 14:00 97 22 108/57 L 94 12/31/16 13:00 100 21 108/52 L 93 12/31/16 12:00 37 C 101 H 22 120/59 L 94 12/31/16 11:00 102 H 28 H 99/55 L 93 Intake & Output: Intake & Output 12/28/16 12/29/16 12/30/16 12/31/16 23:59 23:59 23:59 23:59 Intake Total 3278 3908 Output Total 2571 1527 Balance 707 2381 - Objective General Appearance: positive: No acute distress, Lethargic Eyes Bilateral: positive: PERRL ENT: positive: Dry mucous membranes (drank 500 cc per RN) Neck: positive: No JVD. negative: Stiff neck, Carotid bruit Respiratory: positive: Chest non-tender, No respiratory distress (but he had gurgling lungs on admit yesterday am), Rhonchi. negative: Wheezes, Rales Cardiovascular: positive: Regular rate & rhythm (he was tachy to 108 yesterday and down to 80's today), Systolic murmur. negative: Gallop/S4, Friction rub Abdomen: positive: Non-tender, No organomegaly, No distention, Abnml bowel sounds (quiet). negative: Guarding, Rebound Skin: positive: Dry, Pallor Extremities: positive: No pedal edema Neurologic/Psychiatric: positive: Motor nml (but generalized weakness), Disoriented to place, Disoriented to time, Sensory loss (of feet, hurts to touch from neuropathy), Depressed mood/affect - Lab Results Fish Bones: 12/30/16 06:56 12/31/16 05:10 Other Labs: Lab Results x24hrs 12/31/16 12/31/16 12/31/16 Range/Units 16:29 11:38 08:40 Sodium (135-145) mmol/L Potassium (3.5-5.0) mmol/L Chloride (101-111) mmol/L Carbon Dioxide (21-32) mmol/L Anion Gap (6-13) BUN (6-20) mg/dL Creatinine (0.6-1.2) mg/dL Estimated GFR (MDRD) (>89) Glucose (70-100) mg/dL POC Whole Bld Glucose 83 135 H 126 H (70 - 100) mg/dL Calcium (8.5-10.3) mg/dL Phosphorus (2.5-4.6) mg/dL Magnesium (1.7-2.8) mg/dL Albumin (3.2-5.5) g/dL 12/31/16 12/31/16 12/30/16 Range/Units 05:10 05:10 21:12 Sodium 139 (135-145) mmol/L Potassium 3.4 L (3.5-5.0) mmol/L Chloride 108 (101-111) mmol/L Carbon Dioxide 27 (21-32) mmol/L Anion Gap 4.0 L (6-13) BUN 19 (6-20) mg/dL Creatinine 0.8 (0.6-1.2) mg/dL Estimated GFR (MDRD) 92 (>89) Glucose 135 H (70-100) mg/dL POC Whole Bld Glucose 151 H (70 - 100) mg/dL Calcium 8.2 L (8.5-10.3) mg/dL Phosphorus 1.9 L (2.5-4.6) mg/dL Magnesium 1.5 L (1.7-2.8) mg/dL Albumin 2.5 L (3.2-5.5) g/dL 12/30/16 12/30/16 12/30/16 Range/Units 17:08 11:42 08:01 Sodium (135-145) mmol/L Potassium (3.5-5.0) mmol/L Chloride (101-111) mmol/L Carbon Dioxide (21-32) mmol/L Anion Gap (6-13) BUN (6-20) mg/dL Creatinine (0.6-1.2) mg/dL Estimated GFR (MDRD) (>89) Glucose (70-100) mg/dL POC Whole Bld Glucose 109 H 150 H 145 H (70 - 100) mg/dL Calcium (8.5-10.3) mg/dL Phosphorus (2.5-4.6) mg/dL Magnesium (1.7-2.8) mg/dL Albumin (3.2-5.5) g/dL Assessment/Plan - Problem List (1) Severe sepsis with septic shock Impression: As stated in history of present illness, the patient received aggressive IV fluid resuscitation. Levophed and a transfer to ICU. This is in the face of an elderly gentleman who has had multiple admissions, is a DO NOT RESUSCITATE, and has been gently and steadily failing over the last 1-2 years. His current episode of sepsis with shock is resolving today. Will stop IV fluids and IV lock for now. Stop the levophed. However we will resume it if needed. His power of tax associate attorney still wants the patient treated for as long as his quality of life is determined to be acceptable. In between episodes of infection and hospitalization he goes back to being a forgetful, charming, yung person who enjoys his Oreo cookies. He had his Oreo cookies the day before admission. peripheral blood culture neg central line blood culture neg urine C&S with <13009 urogenital estella C dif negative MRSA nares positive WBC is stil 28K Day#2 Imipenem, flagyl, diflucan (2) Multisystem organ failure Impression: With acute renal failure, elevated bilirubin, lactic acidosis, hypotension. All have improved somewhat today but not normalized yet. We will continue with IV antibiotics. See #1 Bili has been elevated a year ago but was only up to 1.8. Has multiple stones on CT abd but no acute cholecystitis in the past. currently without abd pain in RUQ does have bilateal kidney stones but no current flank pain per se. again, hurts all over. recheck lab status in am. If still with elevatated lactic acid may need change in abx. (3) Acute metabolic encephalopathy Impression: Improved. He is speaking complete sentences, able to express his emotions. Yesterday he was very very lethargic. While he is still sleepy, he is returning to his baseline personality (4) History of chronic urinary tract infection Impression: At this time this is the presumed source of his sepsis and shock. He has a long history of urinary retention, requiring a chronic indwelling Santamaria, and multiple multiple bacteria with multiple drug resistance. He is currently responding to the current drug regime. No change at this time. We will make sure Santamaria is changed out. Blood cultures negative so far, chest x-ray negative for pneumonia (5) Senescence Impression: With dementia. [facility] this [facility]. Power of tax associate attorney/close friends, are his advocates. He has had a palliative care consult with Mikayla Landaverde and continues to be seen by her. Yesterday and today's notes appreciated. Goal is to return to jail facility after this acute episode of care. He will continue to be readmitted as needed until his quality of life has deteriorated to the point that his advocates feel that comfort measures are required. (6) DM type 2, uncontrolled, with neuropathy Impression: not ususally on meds at SNF. Here will be on SS after ac qid checks.
[2016-12-31] MEDS ORDERED: POTASSIUM CHLORIDE 20 MEQ TABLET PO SCH (19:00)
[2016-12-31] MEDS: LATANOPROST 0.005% OPHTH DROPS EACHEYE SCH (21:07)
[2017-01-01] MEDS: IMIPENEM/CILASTATIN 500 MG in SODIUM CHLORIDE 0.9% MINIBAG 100 ML IV SCH ×3 (01:31→17:35)
[2017-01-01] MEDS: metroNIDAZOLE 500 MG/100 ML 100 ML IV SCH ×4 (02:09→20:16)
[2017-01-01] MEDS: ACETAMINOPHEN 1,000 MG/100 ML 100 ML IV SCH (03:18)
[2017-01-01 04:32] LABS: BASOPHILS % (AUTO) 0.2 %; EOSINOPHILS # (AUTO) 0.3 10^3/uL (0.0-0.7); EOSINOPHILS % (AUTO) 2.5 %; HCT - HEMATOCRIT 30.6 % (42.0-52.0); HGB - HEMOGLOBIN 10.2 g/dL (14.0-18.0); LYMPHOCYTES # (AUTO) 1.2 10^3/uL (1.5-3.5); LYMPHOCYTES % (AUTO) 10.4 %; MEAN CORPUSCULAR HEMOGLOBIN 31.5 pg (27.0-31.0); MEAN CORPUSCULAR HGB CONC 33.3 g/dL (32.0-36.0); MEAN CORPUSCULAR VOLUME 94.6 fL (80.0-94.0); MEAN PLATELET VOLUME 8.2 fL (7.4-11.4); MONOCYTES # (AUTO) 0.5 10^3/uL (0.0-1.0); MONOCYTES % (AUTO) 3.9 %; NEUTROPHILS # (AUTO) 9.6 10^3/uL (1.5-6.6); RED BLOOD COUNT 3.24 10^6/uL (4.70-6.10); RED CELL DISTRIBUTION WIDTH 13.5 % (12.0-15.0); UNCORRECTED WHITE BLOOD COUNT 11.6 x10^3/uL; WHITE BLOOD COUNT 11.6 x10^3/uL (4.8-10.8)
[2017-01-01 04:42] LABS: MAGNESIUM 1.5 mg/dL (1.7-2.8); PHOSPHORUS 2.3 mg/dL (2.5-4.6)
[2017-01-01 04:52] LABS: ALBUMIN/GLOBULIN RATIO 0.8 (1.0-2.2); BILIRUBIN,TOTAL 1.9 mg/dL (0.2-1.0); BUN - BLOOD UREA NITROGEN 13 mg/dL (6-20); CALCIUM 8.4 mg/dL (8.5-10.3); CARBON DIOXIDE - CO2 25 mmol/L (21-32); CHLORIDE 104 mmol/L (101-111); CREATININE 0.7 mg/dL (0.6-1.2); GFR - MDRD 108 (>89); GLUCOSE 112 mg/dL (70-100); POTASSIUM 3.8 mmol/L (3.5-5.0); SODIUM 134 mmol/L (135-145); TOTAL PROTEIN 5.5 g/dL (6.7-8.2)
[2017-01-01] MEDS ORDERED: MAGNESIUM SULFATE 2 GRAM 50 ML IV ONE (05:01)
[2017-01-01] MEDS: SODIUM CHLORIDE FLUSH 0.9% 10 ML SYRINGE IVP PRN (05:21)
[2017-01-01] MEDS: NEUTRA-PHOS 250 MG TABLET PO SCH ×2 (05:21→08:43)
[2017-01-01] MEDS: SODIUM CHLORIDE FLUSH 0.9% 10 ML SYRINGE IVP SCH ×3 (05:21→21:22)
[2017-01-01] MEDS: PANTOPRAZOLE 40 MG TABLET PO SCH (06:24)
[2017-01-01] MEDS: FORMOTEROL FUMARATE NEB 20 MCG/2 ML INH SCH ×2 (07:30→19:10)
[2017-01-01] MEDS: BUDESONIDE 0.5 MG/2 ML NEB INH SCH ×2 (07:30→19:10)
[2017-01-01] MEDS: INSULIN ASPART 300 UNIT/3 ML PEN SUBQ SCH ×4 (08:05→21:08)
--- NOTE | 2017-01-01 08:05 | PROVIDER PROGRESS NOTE ---
Subjective - Prog Note Date Prog Note Date: 01/01/17 Prog Note Time: 08:04 - Subjective Pt reports feeling: No change Subjective: He does know why he is here. Does not even remember being sick. He cautiously tells me that he thinks he is okay. Had a hurts all over and is really really tired but he denies any chest pain abdominal pain. Fed himself breakfast this morning. Oriented to himself, that he is in the hospital but that is about it. Current Medications - Current Medications Current Medications: Active Medications Acetaminophen (Tylenol) 650 mg PO Q4HR PRN PRN Reason: Pain 1 to 4 Albuterol/Ipratropium (Duoneb) 3 ml INH Q6H PRN PRN Reason: Wheezing Last Admin: 12/31/16 07:42 Dose: 3 ml Budesonide (Pulmicort) 0.5 mg INH RTBID [facility] Last Admin: 01/01/17 07:30 Dose: 0.5 mg Formoterol Fumarate (Perforomist) 20 mcg INH RTBID [facility] Last Admin: 01/01/17 07:30 Dose: 20 mcg Haloperidol (Haldol Inj) 0.5 mg IVP Q6H PRN PRN Reason: Agitation Heparin Sodium (Porcine) () 2,500 unit SUBQ BID [facility] Last Admin: 12/31/16 21:07 Dose: 2,500 unit Fluconazole (Diflucan 200 Mg/100 Ml) 50 mls @ 100 mls/hr IV DAILY [facility] Last Admin: 12/31/16 09:15 Dose: 100 mls/hr Metronidazole (Flagyl 500 Mg/100 Ml) 100 mls @ 100 mls/hr IV Q6H [facility] Last Admin: 01/01/17 08:04 Dose: 100 mls/hr Imipenem/Cilastatin Sodium 500 (mg/ Sodium Chloride) 100 mls @ 200 mls/hr IV Q8H [facility] Last Admin: 01/01/17 01:31 Dose: 200 mls/hr Acetaminophen (Ofirmev) 100 mls @ 400 mls/hr IV Q8H [facility] Stop: 01/01/17 10:59 Last Admin: 01/01/17 03:18 Dose: 400 mls/hr Norepinephrine Bitartrate 8 mg (/ Dextrose) 250 mls @ 11.25 mls/hr IV .[id number] [facility]; 6 MCG/MIN PRN Reason: Protocol Last Admin: 12/31/16 14:18 Dose: Not Given Insulin Aspart (Novolog) 1 - 5 unit SUBQ 0800,1200,1700,2100 [facility] PRN Reason: Protocol Last Admin: 01/01/17 08:05 Dose: Not Given Latanoprost (Xalatan Ophth Drops) 1 drops EACHEYE QPM [facility] Last Admin: 12/31/16 21:07 Dose: 1 drops Pantoprazole Sodium (Protonix) 40 mg PO QDAC [facility] Last Admin: 01/01/17 06:24 Dose: 40 mg Sodium Chloride (Normal Saline Flush 0.9%) 10 ml IVP Q8HR [facility] Last Admin: 01/01/17 05:21 Dose: 10 ml Sodium Chloride (Normal Saline Flush 0.9%) 20 ml IVP PRN PRN PRN Reason: After Blood Draw Last Admin: 01/01/17 05:21 Dose: 20 ml Acetaminophen 325 mg PO Q4H PRN 03/09/16 Fluticasone/Salmeterol [Advair 100-50 Diskus] 1 inh INH BID 03/09/16 Gabapentin [Neurontin] 100 mg PO TID 11/02/16 Ipratropium/Albuterol [Duoneb] 3 ml INH Q6H PRN 11/02/16 Lorazepam 0.25 mg PO TID PRN 11/02/16 Mirtazapine [Remeron] 15 mg PO QPM 11/02/16 Tamsulosin HCl [Flomax] 0.4 mg PO QPM 11/02/16 Objective - Vital Signs/Intake & Output Reviewed Vital Signs: Yes Vital Signs: Vital Signs x48h Temp Pulse Pulse Resp BP Pulse Ox 01/01/17 07:30 97 24 01/01/17 06:07 100 27 H 142/73 H 93 01/01/17 05:20 95 24 144/73 H 92 01/01/17 04:00 36.3 C L 99 20 134/82 H 92 01/01/17 03:00 93 24 103/71 93 01/01/17 02:00 90 23 135/63 H 92 01/01/17 01:00 97 27 H 122/87 H 92 01/01/17 00:18 36.5 C 96 25 H 139/75 H 92 Intake & Output: Intake & Output 12/29/16 12/30/16 12/31/16 01/01/17 23:59 23:59 23:59 23:59 Intake Total 3278 4238 460 Output Total 3398 7894 1162 Balance 707 0533 -215 - Objective General Appearance: positive: No acute distress, Alert, Other (diffuse mild seborrheic flaking of face and scalp) Eyes Bilateral: positive: PERRL, EOMI ENT: positive: Other (dentures) Neck: positive: No JVD. negative: Stiff neck, Carotid bruit Respiratory: positive: Chest non-tender, No respiratory distress, Rhonchi (fine rhonchi / crackles at base (no longer gurling like he was on admit)). negative : Wheezes, Rales Cardiovascular: positive: Regular rate & rhythm, Systolic murmur. negative: Gallop/S4, Friction rub Abdomen: positive: No organomegaly, Abnml bowel sounds (hypoactive), Other ( mild distension. new gonzáles done 2 days [employer].). negative: Guarding, Rebound Skin: positive: Warm, Dry Extremities: positive: Pedal edema Neurologic/Psychiatric: positive: CN's nml (2-12), Mood/affect nml (he's cheerful, flirtatious), Disoriented to person, Weakness (diffuse). negative: Motor nml (wheelchair bound) - Lab Results Fish Bones: 01/01/17 04:25 01/01/17 04:25 Other Labs: Lab Results x24hrs 01/01/17 01/01/17 01/01/17 Range/Units 07:33 04:25 04:25 WBC 11.6 H (4.8-10.8) x10^3/uL RBC 3.24 L (4.70-6.10) 10^6/uL Hgb 10.2 L (14.0-18.0) g/dL Hct 30.6 L (42.0-52.0) % MCV 94.6 H (80.0-94.0) fL MCH 31.5 H (27.0-31.0) pg MCHC 33.3 (32.0-36.0) g/dL RDW 13.5 (12.0-15.0) % Plt Count 205 (130-450) 10^3/uL MPV 8.2 (7.4-11.4) fL Neut # 9.6 H (1.5-6.6) 10^3/uL Lymph # 1.2 L (1.5-3.5) 10^3/uL [place] # 0.5 (0.0-1.0) 10^3/uL Eos # 0.3 (0.0-0.7) 10^3/uL Baso # 0.0 (0.0-0.1) 10^3/uL Absolute Nucleated RBC 0.00 x10^3/uL Nucleated RBCs 0.0 /100WBC Sodium 134 L (135-145) mmol/L Potassium 3.8 (3.5-5.0) mmol/L Chloride 104 (101-111) mmol/L Carbon Dioxide 25 (21-32) mmol/L Anion Gap 5.0 L (6-13) BUN 13 (6-20) mg/dL Creatinine 0.7 (0.6-1.2) mg/dL Estimated GFR (MDRD) 108 (>89) Glucose 112 H (70-100) mg/dL POC Whole Bld Glucose 137 H (70 - 100) mg/dL Lactic Acid (0.5-2.2) mmol/L Calcium 8.4 L (8.5-10.3) mg/dL Ionized Calcium NO Phosphorus (2.5-4.6) mg/dL Magnesium (1.7-2.8) mg/dL Total Bilirubin 1.9 H (0.2-1.0) mg/dL AST 10 (10-42) IU/L ALT < 10 L (10-60) IU/L Alkaline Phosphatase 65 (42-121) IU/L Total Protein 5.5 L (6.7-8.2) g/dL Albumin 2.4 L (3.2-5.5) g/dL Globulin 3.1 (2.1-4.2) g/dL Albumin/Globulin Ratio 0.8 L (1.0-2.2) 01/01/17 01/01/17 12/31/16 Range/Units 04:25 04:25 21:08 WBC (4.8-10.8) x10^3/uL RBC (4.70-6.10) 10^6/uL Hgb (14.0-18.0) g/dL Hct (42.0-52.0) % MCV (80.0-94.0) fL MCH (27.0-31.0) pg MCHC (32.0-36.0) g/dL RDW (12.0-15.0) % Plt Count (130-450) 10^3/uL MPV (7.4-11.4) fL Neut # (1.5-6.6) 10^3/uL Lymph # (1.5-3.5) 10^3/uL [place] # (0.0-1.0) 10^3/uL Eos # (0.0-0.7) 10^3/uL Baso # (0.0-0.1) 10^3/uL Absolute Nucleated RBC x10^3/uL Nucleated RBCs /100WBC Sodium (135-145) mmol/L Potassium (3.5-5.0) mmol/L Chloride (101-111) mmol/L Carbon Dioxide (21-32) mmol/L Anion Gap (6-13) BUN (6-20) mg/dL Creatinine (0.6-1.2) mg/dL Estimated GFR (MDRD) (>89) Glucose (70-100) mg/dL POC Whole Bld Glucose 137 H (70 - 100) mg/dL Lactic Acid 0.7 (0.5-2.2) mmol/L Calcium (8.5-10.3) mg/dL Ionized Calcium Phosphorus 2.3 L (2.5-4.6) mg/dL Magnesium 1.5 L (1.7-2.8) mg/dL Total Bilirubin (0.2-1.0) mg/dL AST (10-42) IU/L ALT (10-60) IU/L Alkaline Phosphatase (42-121) IU/L Total Protein (6.7-8.2) g/dL Albumin (3.2-5.5) g/dL Globulin (2.1-4.2) g/dL Albumin/Globulin Ratio (1.0-2.2) 12/31/16 12/31/16 12/31/16 Range/Units 16:29 11:38 08:40 WBC (4.8-10.8) x10^3/uL RBC (4.70-6.10) 10^6/uL Hgb (14.0-18.0) g/dL Hct (42.0-52.0) % MCV (80.0-94.0) fL MCH (27.0-31.0) pg MCHC (32.0-36.0) g/dL RDW (12.0-15.0) % Plt Count (130-450) 10^3/uL MPV (7.4-11.4) fL Neut # (1.5-6.6) 10^3/uL Lymph # (1.5-3.5) 10^3/uL [place] # (0.0-1.0) 10^3/uL Eos # (0.0-0.7) 10^3/uL Baso # (0.0-0.1) 10^3/uL Absolute Nucleated RBC x10^3/uL Nucleated RBCs /100WBC Sodium (135-145) mmol/L Potassium (3.5-5.0) mmol/L Chloride (101-111) mmol/L Carbon Dioxide (21-32) mmol/L Anion Gap (6-13) BUN (6-20) mg/dL Creatinine (0.6-1.2) mg/dL Estimated GFR (MDRD) (>89) Glucose (70-100) mg/dL POC Whole Bld Glucose 83 135 H 126 H (70 - 100) mg/dL Lactic Acid (0.5-2.2) mmol/L Calcium (8.5-10.3) mg/dL Ionized Calcium Phosphorus (2.5-4.6) mg/dL Magnesium (1.7-2.8) mg/dL Total Bilirubin (0.2-1.0) mg/dL AST (10-42) IU/L ALT (10-60) IU/L Alkaline Phosphatase (42-121) IU/L Total Protein (6.7-8.2) g/dL Albumin (3.2-5.5) g/dL Globulin (2.1-4.2) g/dL Albumin/Globulin Ratio (1.0-2.2) 12/30/16 12/30/16 12/30/16 Range/Units 21:12 17:08 11:42 WBC (4.8-10.8) x10^3/uL RBC (4.70-6.10) 10^6/uL Hgb (14.0-18.0) g/dL Hct (42.0-52.0) % MCV (80.0-94.0) fL MCH (27.0-31.0) pg MCHC (32.0-36.0) g/dL RDW (12.0-15.0) % Plt Count (130-450) 10^3/uL MPV (7.4-11.4) fL Neut # (1.5-6.6) 10^3/uL Lymph # (1.5-3.5) 10^3/uL [place] # (0.0-1.0) 10^3/uL Eos # (0.0-0.7) 10^3/uL Baso # (0.0-0.1) 10^3/uL Absolute Nucleated RBC x10^3/uL Nucleated RBCs /100WBC Sodium (135-145) mmol/L Potassium (3.5-5.0) mmol/L Chloride (101-111) mmol/L Carbon Dioxide (21-32) mmol/L Anion Gap (6-13) BUN (6-20) mg/dL Creatinine (0.6-1.2) mg/dL Estimated GFR (MDRD) (>89) Glucose (70-100) mg/dL POC Whole Bld Glucose 151 H 109 H 150 H (70 - 100) mg/dL Lactic Acid (0.5-2.2) mmol/L Calcium (8.5-10.3) mg/dL Ionized Calcium Phosphorus (2.5-4.6) mg/dL Magnesium (1.7-2.8) mg/dL Total Bilirubin (0.2-1.0) mg/dL AST (10-42) IU/L ALT (10-60) IU/L Alkaline Phosphatase (42-121) IU/L Total Protein (6.7-8.2) g/dL Albumin (3.2-5.5) g/dL Globulin (2.1-4.2) g/dL Albumin/Globulin Ratio (1.0-2.2) 17 Range/Units 08:01 WBC (4.8-10.8) x10^3/uL RBC (4.70-6.10) 10^6/uL Hgb (14.0-18.0) g/dL Hct (42.0-52.0) % MCV (80.0-94.0) fL MCH (27.0-31.0) pg MCHC (32.0-36.0) g/dL RDW (12.0-15.0) % Plt Count (130-450) 10^3/uL MPV (7.4-11.4) fL Neut # (1.5-6.6) 10^3/uL Lymph # (1.5-3.5) 10^3/uL [place] # (0.0-1.0) 10^3/uL Eos # (0.0-0.7) 10^3/uL Baso # (0.0-0.1) 10^3/uL Absolute Nucleated RBC x10^3/uL Nucleated RBCs /100WBC Sodium (135-145) mmol/L Potassium (3.5-5.0) mmol/L Chloride (101-111) mmol/L Carbon Dioxide (21-32) mmol/L Anion Gap (6-13) BUN (6-20) mg/dL Creatinine (0.6-1.2) mg/dL Estimated GFR (MDRD) (>89) Glucose (70-100) mg/dL POC Whole Bld Glucose 145 H (70 - 100) mg/dL Lactic Acid (0.5-2.2) mmol/L Calcium (8.5-10.3) mg/dL Ionized Calcium Phosphorus (2.5-4.6) mg/dL Magnesium (1.7-2.8) mg/dL Total Bilirubin (0.2-1.0) mg/dL AST (10-42) IU/L ALT (10-60) IU/L Alkaline Phosphatase (42-121) IU/L Total Protein (6.7-8.2) g/dL Albumin (3.2-5.5) g/dL Globulin (2.1-4.2) g/dL Albumin/Globulin Ratio (1.0-2.2) Assessment/Plan - Problem List (1) Severe sepsis with septic shock Impression: As stated in history of present illness, the patient received aggressive IV fluid resuscitation. Levophed and a transfer to ICU. This is in the face of an elderly gentleman who has had multiple admissions, is a DO NOT RESUSCITATE, and has been gently and steadily failing over the last 1-2 years. His current episode of sepsis with shock is resolving today. Will stop IV fluids and IV lock for now. I/O negative but he is drinking. Stopped the levophed 12/31. His power of senior attorney still wants the patient treated for as long as his quality of life is determined to be acceptable. In between episodes of infection and hospitalization he goes back to being a forgetful, charming, yung person who enjoys his Oreo cookies. He had his Oreo cookies the day before admission. peripheral blood culture neg central line blood culture neg urine C&S with <36461 urogenital estella C dif negative MRSA nares positive WBC is stil 28K Day#3 Imipenem, flagyl, diflucan (2) Multisystem organ failure Impression: With acute renal failure, elevated bilirubin, lactic acidosis, hypotension. All have improved to the point BP normal today. We will continue with IV antibiotics. See #1 Bili has been elevated a year ago but was only up to 1.8. Has multiple stones on CT abd but no acute cholecystitis in the past. currently without abd pain in RUQ does have bilateal kidney stones but no current flank pain per se. again, hurts all over. lactic acid 0.7 today. no change in abx needed (3) Acute metabolic encephalopathy Impression: Improved. He is speaking complete sentences, able to express his emotions. he was very very lethargic. seems to be at baseline personality. (4) History of chronic urinary tract infection Impression: At this time this is the presumed source of his sepsis and shock. He has a long history of urinary retention, requiring a chronic indwelling Gonzáles, and multiple multiple bacteria with multiple drug resistance. He is currently responding to the current drug regime. No change at this time. We will make sure Gonzáles is changed out. Blood cultures negative so far, chest x-ray negative for pneumonia (5) Senescence Impression: With dementia. Currently living at a [facility] facility since May of this year. Power of senior attorney/close friends, are his advocates. He has had a palliative care consult with Mikayla Landaverde and continues to be seen by her. Yesterday and today's notes appreciated. Goal is to return to [facility] facility after this acute episode of care. He will continue to be readmitted as needed until his quality of life has deteriorated to the point that his advocates feel that comfort measures are required. (6) DM type 2, uncontrolled, with neuropathy Impression: not ususally on meds at SNF. Here will be on SS after ac qid checks.
[2017-01-01] MEDS: HEPARIN 5,000 UNIT/ML VIAL SUBQ SCH ×2 (09:30→21:29)
[2017-01-01] MEDS: FLUCONAZOLE 200 MG/100 ML 50 ML IV SCH (09:38)
[2017-01-01] MEDS: LATANOPROST 0.005% OPHTH DROPS EACHEYE SCH (21:29)
[2017-01-02] MEDS: metroNIDAZOLE 500 MG/100 ML 100 ML IV SCH ×3 (01:16→13:14)
[2017-01-02] MEDS: SODIUM CHLORIDE FLUSH 0.9% 10 ML SYRINGE IVP SCH ×3 (01:17→14:55)
[2017-01-02] MEDS: IMIPENEM/CILASTATIN 500 MG in SODIUM CHLORIDE 0.9% MINIBAG 100 ML IV SCH ×2 (02:32→11:18)
[2017-01-02] MEDS: SODIUM CHLORIDE FLUSH 0.9% 10 ML SYRINGE IVP PRN ×2 (05:11→08:13)
[2017-01-02 05:26] LABS: MAGNESIUM 1.3 mg/dL (1.7-2.8); PHOSPHORUS 3.7 mg/dL (2.5-4.6)
[2017-01-02 05:40] LABS: ALBUMIN/GLOBULIN RATIO 0.9 (1.0-2.2); BILIRUBIN,TOTAL 1.6 mg/dL (0.2-1.0); BUN - BLOOD UREA NITROGEN 12 mg/dL (6-20); CALCIUM 8.8 mg/dL (8.5-10.3); CARBON DIOXIDE - CO2 27 mmol/L (21-32); CHLORIDE 100 mmol/L (101-111); CREATININE 0.7 mg/dL (0.6-1.2); GFR - MDRD 108 (>89); GLUCOSE 108 mg/dL (70-100); POTASSIUM 3.3 mmol/L (3.5-5.0); SODIUM 138 mmol/L (135-145); TOTAL PROTEIN 5.6 g/dL (6.7-8.2)
[2017-01-02 06:09] LABS: BASOPHILS % (AUTO) 0.5 %; EOSINOPHILS # (AUTO) 0.4 10^3/uL (0.0-0.7); EOSINOPHILS % (AUTO) 5.1 %; HCT - HEMATOCRIT 33.1 % (42.0-52.0); LYMPHOCYTES # (AUTO) 1.9 10^3/uL (1.5-3.5); LYMPHOCYTES % (AUTO) 24.3 %; MEAN CORPUSCULAR HEMOGLOBIN 31.2 pg (27.0-31.0); MEAN CORPUSCULAR HGB CONC 33.2 g/dL (32.0-36.0); MEAN CORPUSCULAR VOLUME 94.1 fL (80.0-94.0); MEAN PLATELET VOLUME 8.1 fL (7.4-11.4); MONOCYTES # (AUTO) 0.5 10^3/uL (0.0-1.0); MONOCYTES % (AUTO) 6.8 %; NEUTROPHILS % (AUTO) 63.3 %; RED BLOOD COUNT 3.52 10^6/uL (4.70-6.10); RED CELL DISTRIBUTION WIDTH 13.4 % (12.0-15.0); UNCORRECTED WHITE BLOOD COUNT 7.9 x10^3/uL; WHITE BLOOD COUNT 7.9 x10^3/uL (4.8-10.8)
[2017-01-02] MEDS: PANTOPRAZOLE 40 MG TABLET PO SCH (07:00)
[2017-01-02] MEDS: BUDESONIDE 0.5 MG/2 ML NEB INH SCH (07:26)
[2017-01-02] MEDS: FORMOTEROL FUMARATE NEB 20 MCG/2 ML INH SCH (07:28)
[2017-01-02 07:30] VITALS: BP 148/70
[2017-01-02] MEDS ORDERED: POTASSIUM CHLORIDE 20 MEQ TABLET PO STA (08:15)
[2017-01-02] MEDS: INSULIN ASPART 300 UNIT/3 ML PEN SUBQ SCH ×2 (08:21→11:23)
[2017-01-02] MEDS: HEPARIN 5,000 UNIT/ML VIAL SUBQ SCH (09:09)
[2017-01-02] MEDS: FLUCONAZOLE 200 MG/100 ML 50 ML IV SCH (09:29)
--- NOTE | 2017-01-16 06:58 | DISCHARGE SUMMARY ---
DATE OF ADMISSION: 12/30/2016 DATE OF DISCHARGE: 01/02/2017 PRIMARY CARE PROVIDER: Jake Stephen MD DISCHARGE DIAGNOSES 1. Septic shock. 2. Acute renal failure due to circulatory failure. 3. Elevated bilirubin. 4. Hypotension. 5. Acute encephalopathy. 6. History of chronic urinary tract infection. 7. Senescence. 8. Type 2 diabetes mellitus, uncontrolled with complications. DISCHARGE MEDICATIONS 1. Tums 500 mg every 8 hours as needed. 2. Acetaminophen 325 mg every 4 hours as needed. 3. Dulcolax 10 mg per rectum daily p.r.n. constipation. 4. Vitamin D 5000 unit capsule weekly. 5. Plavix 75 mg p.o. daily. 6. Advair 250/50 one puff b.i.d. 7. Gabapentin 100 mg p.o. t.i.d. 8. DuoNeb via nebulizer q.6 hours p.r.n. 9. Latanoprost eyedrops 1 drop each eye daily. 10. Lorazepam 0.25 mg every 6 hours as needed. 11. Remeron 15 mg p.o. q.p.m. 12. Flomax 0.4 mg p.o. q.p.m. 13. Antibiotic written for and assisted orders not scanned yet to verify which antibiotic for the next 4 days. PRINCIPAL PROCEDURES 1. Blood cultures negative after 5 days. 2. Urine culture showing less than 10,000 colonies of urogenital estella. 3. MRSA negative. 4. C difficile negative. 5. Chest x-ray negative for new infiltrate. HOSPITAL COURSE: The patient was admitted by hospitalist Kristen Najera, and her history and physical is referred to. He is a chronically ill gentleman who lives in a assisted facility. He has be en admitted multiple times with urosepsis attributed to a chronic indwelling Santamaria. He has grown out multiple organisms including Enterobacter, Staphylococcus, and Enterococcus. His last stay was in Oct. He was brought to the emergency room on 12/29/2016 with acute encephalopathy, manifested as i ncreasing lethargy and obtundation. He was found to be tachycardic, temperature 37.5, and hypotensive . Workup to find out source of infection with a white cell count of 28,000 and a lactic acid of 4.4 a nd a creatinine of 2, showed him to have only another UTI. He had pulmonary vascular congestion, but no acute infiltrate. Glucose was 200. Troponin was negative. The patient was placed in ICU and started on empiric IV antibiotic therapy to treat most likely urina ry pathogen. He was started on Levophed. While he has a gradually diminishing quality of life and has worsened over the last 1-2 years due to senescence and his infections, his price of senior trial attorney feel t hat the patient bounces back to an acceptable quality of life in between acute care episodes. As such , while he is DO NOT RESUSCITATE, they still want aggressive measures done to treat this patient's il lness. He responded quickly to the Levophed, IV fluids and IV antibiotics, and was transitioned to or d/surg unit. The patient gradually recovered with his encephalopathy and it was resolved by discharge . He was back to being at baseline. He is an exceedingly charming, affectionate elderly gentleman. He has really no good memory, but is completely appropriate and socially interactive, a delight to take care of. He was felt to have multisystem organ failure with gradual improvement of labs to almost normal. Whit e cell count came down. Cultures were as above. The patient was able to eat, and he is nonambulatory and as such, Physical Therapy did not see him. S wallowing evaluation was done and he has a slow weak swallow. He accumulates food in the pharynx and enters the laryngeal vestibule if he eats too fast or takes large bites. Eating was very fatiguing fo r him and his intake was poor. Dentures were loose and did not serve him well. He will have better in take and a moist, pureed diet. He should have aspiration precautions. He eats a dysphagia mechanical soft diet at [facility]. He was discharged in stable condition. Overall poor prognosis because of his worsening senescence. On the day of discharge, temperature was 36.9, pulse was 80, blood pressure 148/70, 95% on room air. He was a slightly hoarse voiced elderly gentleman with bilateral temporal wasting. Constant clearing of his throat when he talked. Lungs with intermittent rhonchi that cleared with deep cough. Regular rat e and rhythm. The abdomen was soft, nontender, not distended with normal bowel sounds. Had a chronic indwelling Santamaria that was just changed the day before admission. His encephalopathy was gone. His hypotension was resolved. Elevated bilirubin of 4.3 on admission was now 1.6. Glucose remained controlled between 106-144 during this admission. Creatinine was initially 2, and down to 0.7 at discharge. Greater than 30 minutes was spent coordinating discharge for this yung elderly gentleman. JOB #: [id number] EXT JOB #:[id number]
== END 2017-01-02 15:07 | DRG 698 ==
LOC: EDUNIT# → SUPCPDRO 23:25 → ED 23:25 → ICU 12-30 00:51 → MS2 01-01 13:53
PROVIDERS: ADMIT Internal Medicine; ATTEND Specialist
PROC: 02HV33Z Insertion of Infusion Device into Superior Vena Cava, Percutaneous Approach (ICD-10-PCS; principal; 2016-12-30)
DX: T83.511A Infection and inflammatory reaction due to indwelling urethral catheter, initial encounter (principal); A41.9 Sepsis, unspecified organism; I95.9 Hypotension, unspecified; R09.02 Hypoxemia; R65.21 Severe sepsis with septic shock; I11.0 Hypertensive heart disease with heart failure; I50.9 Heart failure, unspecified; G93.41 Metabolic encephalopathy; E11.9 Type 2 diabetes mellitus without complications; N17.9 Acute kidney failure, unspecified; E87.2 Acidosis; Z87.891 Personal history of nicotine dependence; N39.0 Urinary tract infection, site not specified; Y84.6 Urinary catheterization as the cause of abnormal reaction of the patient, or of later complication, without mention of misadventure at the time of the procedure; E86.0 Dehydration; R13.13 Dysphagia, pharyngeal phase; E11.65 Type 2 diabetes mellitus with hyperglycemia; F03.90 Unspecified dementia, unspecified severity, without behavioral disturbance, psychotic disturbance, mood disturbance, and anxiety; E11.22 Type 2 diabetes mellitus with diabetic chronic kidney disease; I13.10 Hypertensive heart and chronic kidney disease without heart failure, with stage 1 through stage 4 chronic kidney disease, or unspecified chronic kidney disease; N18.9 Chronic kidney disease, unspecified; E11.40 Type 2 diabetes mellitus with diabetic neuropathy, unspecified; N40.1 Benign prostatic hyperplasia with lower urinary tract symptoms; R33.8 Other retention of urine; J44.9 Chronic obstructive pulmonary disease, unspecified; G89.29 Other chronic pain; M54.9 Dorsalgia, unspecified; E78.5 Hyperlipidemia, unspecified; F32.9 Major depressive disorder, single episode, unspecified; Z51.5 Encounter for palliative care; Z16.24 Resistance to multiple antibiotics; Z66 Do not resuscitate; Z96.0 Presence of urogenital implants; Z87.01 Personal history of pneumonia (recurrent); Z87.448 Personal history of other diseases of urinary system; Z86.73 Personal history of transient ischemic attack (TIA), and cerebral infarction without residual deficits; Z87.19 Personal history of other diseases of the digestive system; Z79.02 Long term (current) use of antithrombotics/antiplatelets; Z99.3 Dependence on wheelchair; Z22.322 Carrier or suspected carrier of Methicillin resistant Staphylococcus aureus
CPT/HCPCS: 36415; 71010; 80053; 80069; 81001; 81003; 83605; 83690; 83735; 83880; 84100; 84484; 85025; 87040; 87070; 87086; 87150; 87205; 87493; 93005; 94640; 96360; 99233; 99284; 99285

== ENCOUNTER 2017-01-07 11:00 | Outpatient (CLI) | payer MEDICARE, OTHER, MEDICAID ==
--- NOTE | 2017-01-07 16:57 | CONSULTATION NOTE ---
Palliative Care Follow Up - Referral Referring Provider: Dr Alvarez Mejia Time of Visit: 11:00 [facility] - Information Sources Records Reviewed: RN notes reviewed, Old records reviewed History obtained from: Patient, Friend, Caregiver Exam limitations: Clinical condition (Dementia, severely impaired short-term memory) - History of Present Illness Update Brief HPI Update: This is a charming 81-year-old gentleman with severe end-stage COPD and chronic urinary retention with indwelling Santamaria catheter. He has a history of recurrent infections and hospitalizations. This history is complicated by an increasing resistance to multiple drugs, as indicated by his cultures. He was hospitalized in October and again last week for two days, presumably for urosepsis. He has been steadily and slowly declining for the past 1-2 years, but after each hospitalization, he rebounds and enjoys his life again. The goals of his DPOA, consistent with the patient's wishes, are to continue to re-hospitalize him as needed to maintain his quality of life; when his quality of life deteriorates to the point that the benefits outweigh the burdens of interventions, then transition him to comfort care/Hospice. He was discharged from hospital five days ago, and nursing reports one day since discharge where he was not doing very well. However, since then, nursing says he has been improving. Today he was up at breakfast, mobile in his wheelchair and participating in therapy. He recognizes me and is pleasant and charming as always. He is unable to remember being hospitalized, and denies all complaints when I question him. He does report some pain in his left leg and also does not like wearing his wool sweater as it scratches him. He was able to sit up on the side of the bed, with my help, and remained upright for several minutes while I examine him. He is an unreliable historian and is not able to tell me much about his condition. He denies coughing, SOB, and chest pain, but admits being tired, though not unusually so. He is consistent in stating that he wants to continue to go to the hospital if he needs to do so to "get better." Social History - Living Situation Living arrangement: care home ([facility]) Living Situation: With caregiver(s) Support System: DPOAs Vinny Cherry and Kyle ("Onee") Ade live close by, are his friends and advocates. He is popular and well liked by staff at the facility. Medications/Allergies - Medications Home Medications: Ambulatory Orders Medication Instructions Recorded Confirmed Acetaminophen 325 mg PO Q4H PRN 03/09/16 01/07/17 Fluticasone/Salmeterol [Advair 1 inh INH BID 03/09/16 01/07/17 100-50 Diskus] Clopidogrel [Plavix] 75 mg PO DAILY 30 Days tablet 05/01/16 01/07/17 Gabapentin [Neurontin] 100 mg PO TID 11/02/16 01/07/17 Ipratropium/Albuterol [Duoneb] 3 ml INH Q6H PRN 11/02/16 01/07/17 Lorazepam 0.25 mg PO Q6H PRN 11/02/16 01/07/17 Mirtazapine [Remeron] 15 mg PO QPM 11/02/16 01/07/17 Tamsulosin HCl [Flomax] 0.4 mg PO QPM 11/02/16 01/07/17 Latanoprost 0.005% Ophth Drops 1 drops EACHEYE QPM #1 bottle 11/05/16 01/07/17 [Xalatan Ophth Drops] Calcium Carbonate [Tums (Calcium 500 mg PO Q8HR PRN #30 tablet 11/07/16 01/07/17 Carbonate 500mg)] Cholecalciferol [Vitamin D3] 5,000 unit PO BID #30 capsule 11/07/16 01/07/17 Bisacodyl Supp [Dulcolax Supp] 10 mg IN DAILY PRN 01/07/17 01/07/17 Senna [Senokot] 1 - 2 tab PO DAILY PRN 01/07/17 01/07/17 - Allergies Allergies/Adverse Reactions: Allergies Allergy/AdvReac Type Severity Reaction Status Date / Time No Known Drug Allergies Allergy Verified 11/02/16 13:07 Review of Systems - Constitutional Constitutional: reports: Fatigue, Weakness. denies: Fever, Chills - Cardiovascular Cardiovascular: reports: Decr. exercise tolerance. denies: Chest pain - Respiratory Respiratory: denies: Cough, SOB at rest - Gastrointestinal Gastrointestinal: denies: Constipation, Nausea, Vomiting - Musculoskeletal Musculoskeletal: reports: Other (L leg pain) - Neurological Neurological: reports: General weakness, Memory problems - Psychiatric Psychiatric: denies: Depression - Endocrine Endocrine: reports: Diabetes type 2 (Not on medications. BGs taken every other day.) Physical Exam - Vital Signs Temperature: 98.4 F Pulse Rate: 83 O2 Saturation: 95 (on 2L O2) Blood Pressure: 117/62 - Physical Exam General Appearance: positive: No acute distress, Alert Eyes Bilateral: positive: EOMI, No lid inflammation, Conjunctivae nml, No scleral icterus Neck: positive: Trachea midline, Stiff neck Cardiovascular: positive: Regular rate & rhythm, Systolic murmur Respiratory: positive: No respiratory distress, Diminished in bases (Right), Rales (crackles R side.) Skin: positive: Dryness (flaky, reddened skin on cheeks, forehead) Neurologic/Psychiatric: positive: Mood/affect nml, Disoriented to place, Disoriented to time, Weakness Palliative Care - POLST Patient has POLST: Yes POLST Status: DNR, Limited Interventions Pain: Location (Left leg.) Tiredness/Fatigue: Mild (1-3) Drowsiness/Sedation: None Nausea: None Depression: None Anxiety: None Dyspnea: None Anorexia: None Sleep: Sleeps well Constipation: No Feelings of wellbeing/Perceived Quality of Life: Good Performance Status: Current level of functioning: Improvement since discharge 5 days ago from hospital, but overall he is slowly, steadily declining with repeated infections and hospitalizations. He has chronic urinary retention and indwelling Santamaria catheter. He requires help with all ADLs, ambulates in wheelchair, currently participates in therapy, and his short term memory is significantly impaired. Palliative Care Performance Status: 50% - Other Findings/Comments Additional Discussion: Who is present: Patient and myself. I spoke with one of his nurses and telephoned DONNA Vazquez, after the visit. Surrogate decision maker: Co-DPOAs: Vinny Cherry [phone] and mobile [phone]. Jenise ("Taylor") Ade mobile [phone] or [phone]. Most important goals: Taylor, his advocate and co-DPOA wants to continue to support him in maintaining his quality of life. As long as he is comfortable and is enjoying his quality of life, she wants to continue to medically intervene (hospitalize) as needed. The patient says he does too. When quality of life no longer justifies further hospitalization and treatment, transition to Hospice/comfort care at that time. Impression and Recommendations - Palliative Care Impression: This is a charming 78-year-old gentleman with end-stage COPD and chronic urinary retention, a history of repetitive urinary tract infections with multiple drug resistances and multiple hospitalizations. He continues to be at high risk for future infections, but both he and his advocates want to continue to treat him as long as his quality of life outweighs the burdens of hospitalization. When it no longer does, that will be the time to transition to comfort care. Recommendations/Counseling Done: 1. End-stage COPD: Continue O2 via nasal cannula, Duonebs, and Advair Diskus. 2. Diabetes: Insulin and other medications have been DCd. Checking BGs every other day. Fasting numbers range from 136-175. 3. Chronic pain: Tylenol as needed. 4. Advanced care planning: POLST in place: with limited intervention. DPOA advocates for patient to continue with hospitalizations as indicated, as long as quality of life and his ability to rebound post-hospitalization justify it. When quality of life deteriorates, then transition him to comfort care/Hospice. Time Spent: 30 minutes with greater than 50% of this done in coordination of care with nursing, counseling, and symptom management, as well as goals of care with DPOA.
== END 2017-01-07 11:01 | disposition home or self-care (01) ==
LOC: PC 11:00
PROVIDERS: ATTEND Nurse Practitioner
DX: Z51.5 Encounter for palliative care (principal); J44.9 Chronic obstructive pulmonary disease, unspecified; E11.9 Type 2 diabetes mellitus without complications; G89.29 Other chronic pain; R33.9 Retention of urine, unspecified; Z96.0 Presence of urogenital implants; M79.605 Pain in left leg; M62.81 Muscle weakness (generalized); Z66 Do not resuscitate
CPT/HCPCS: 99309

== ENCOUNTER 2017-02-20 16:30 | Outpatient (CLI) | payer MEDICARE, OTHER, MEDICAID ==
--- NOTE | 2017-02-20 19:56 | CONSULTATION NOTE ---
Palliative Care Follow Up - Referral Referring Provider: Dr Monge Time of Visit: 16:30 Referral setting: Residential Facility ([facility]) - Information Sources Records reviewed: Previous records reviewed History/Review of Systems obtained from: Patient, Nursing Exam limitations: Clinical condition (Dementia) - History of Present Illness Update Brief HPI Update: This is a charming 81-year-old gentleman with dementia, severe end-stage COPD, and chronic urinary retention with indwelling Santamaria catheter. He has a history of recurrent infections and hospitalizations. this history is complicated by an increasing resistance to multiple drugs, as indicated by his cultures. Today the injection molding machine tender reported patient thought he was getting the flu. Patient's vital signs are stable, he denies cough, headache, chest pain, night sweats, sore throat, fevers, N/V. He does report chills off and on. His breath sounds are clar without crackles, and with diminished breath sounds on R side. He has no s/s of respiratory distress. Nursing reports no flu-like symptoms and he was up and playing chess today. He is calm, awake, responsive, and pleasant today, without signs of distress or illness. His water pitcher at bedside was empty and I instructed nursing to monitor, keep it filled, and encourage adequate intake of fluids. Social History - Living Situation Living arrangement: half-way ([facility]) Living Situation: With caregiver(s) Support System: Sara Cherry and Kyle "Taylor" Ade live close by and are his friends and advocates. He is popular and well-liked by staff at the facility. Medications/Allergies - Medications Home Medications: Ambulatory Orders Medication Instructions Recorded Confirmed Acetaminophen 325 mg PO Q4H PRN 03/09/16 01/07/17 Fluticasone/Salmeterol [Advair 1 inh INH BID 03/09/16 01/07/17 100-50 Diskus] Clopidogrel [Plavix] 75 mg PO DAILY 30 Days tablet 05/01/16 01/07/17 Gabapentin [Neurontin] 100 mg PO TID 11/02/16 01/07/17 Ipratropium/Albuterol [Duoneb] 3 ml INH Q6H PRN 11/02/16 01/07/17 LORazepam [Lorazepam] 0.25 mg PO Q6H PRN 11/02/16 01/07/17 Mirtazapine [Remeron] 15 mg PO QPM 11/02/16 01/07/17 Tamsulosin HCl [Flomax] 0.4 mg PO QPM 11/02/16 01/07/17 Latanoprost 0.005% Ophth Drops 1 drops EACHEYE QPM #1 bottle 11/05/16 01/07/17 [Xalatan Ophth Drops] Calcium Carbonate [Tums (Calcium 500 mg PO Q8HR PRN #30 tablet 11/07/16 01/07/17 Carbonate 500mg)] Cholecalciferol [Vitamin D3] 5,000 unit PO BID #30 capsule 11/07/16 01/07/17 Bisacodyl Supp [Dulcolax Supp] 10 mg MA DAILY PRN 01/07/17 01/07/17 Senna [Senokot] 1 - 2 tab PO DAILY PRN 01/07/17 01/07/17 - Allergies Allergies/Adverse Reactions: Allergies Allergy/AdvReac Type Severity Reaction Status Date / Time No Known Drug Allergies Allergy Verified 11/02/16 13:07 Review of Systems - Constitutional Constitutional: reports: Chills (off and on). denies: Fever, Weakness, Diaphoresis, Night sweats - Ears, Nose & Throat Ears, Nose & Throat: reports: Hearing loss. denies: Nasal discharge, Nasal congestion, Postnasal drainage, Sore throat, Mouth lesions - Cardiovascular Cardiovascular: denies: Irregular heart rate, Palpitations, Chest pain - Respiratory Respiratory: reports: Sputum production. denies: Cough, Wheezing - Genitourinary Genitourinary: denies: Dysuria, Frequency, Urgency - Neurological Neurological: denies: Headache - Psychiatric Psychiatric: denies: Depression, Anxiety Physical Exam - Vital Signs Temperature: 98.6 F Pulse Rate: 85 O2 Saturation: 95 Blood Pressure: 108/50 - Physical Exam General Appearance: positive: No acute distress, Alert Eyes Bilateral: positive: EOMI, No lid inflammation, Conjunctivae nml, No scleral icterus ENT: positive: Pharynx nml. negative: Purulent nasal drainage Cardiovascular: positive: Regular rate & rhythm, No murmur, No gallop Respiratory: positive: Chest non-tender, No respiratory distress, Breath sounds nml, Diminished in bases (right side). negative: Rales, Rhonchi Skin: positive: Dryness Extremities: positive: Non-tender, No pedal edema Neurologic/Psychiatric: positive: Sensation nml, Mood/affect nml, Disoriented to time. negative: Disoriented to person, Disoriented to place Palliative Care - POLST Patient has POLST: Yes POLST Status: DNR, Limited Interventions Pain: No pain Tiredness/Fatigue: None Drowsiness/Sedation: None Nausea: None Depression: None Anxiety: None Dyspnea: Mild (1-3) Anorexia: None Sleep: Sleeps well Constipation: No Feelings of wellbeing/Perceived Quality of Life: Acceptable - Palliative Care Discussion: Goal is always to support him in maintaining his quality of life, and as long as he is enjoying his quality life, the DPOA will continue to hospitalize as needed. Transfer to Hospice will be appropriate when quality of life no longer justifies further hospitalization and treatment. Impression and Recommendations - Palliative Care Impression: This is a charming 81-year-old gentleman with dementia, end-stage COPD and chronic urinary retention and a history of repetitive pneumonia and hospitalizations. He and his DPOA want to continue to hospitalize as needed, as long as his quality and enjoyment of life justify it. When that is no longer the case, then transitioning to Hospice will be appropriate. Today he displays no signs of respiratory infection or flu, but given his history of multiple respiratory crises and hospitalizations, he needs close monitoring. Recommendations/Counseling Done: End stage COPD: No sign of respiratory distress or respiratory infection. Monitor closely for changes in mentation and functionality and increase in malaise. Encourage fluid intake. Chronic pain: stable, no complaints today. Continue Tylenol as needed. Advanced care planning: OK to hospitalize if indicated assuming his quality and enjoyment of life continue to justify it, and he continues to rebound after being in the hospital. If that becomes no longer the case, then transitioning to Hospice will be appropriate. Time Spent: 15 minutes with greater than 50% of this in evaluation of respiratory status and counseling and coordination of care.
== END 2017-02-20 16:31 | disposition home or self-care (01) ==
LOC: PC 16:30
PROVIDERS: ATTEND Nurse Practitioner
DX: Z51.5 Encounter for palliative care (principal); J44.9 Chronic obstructive pulmonary disease, unspecified; G89.29 Other chronic pain; R33.9 Retention of urine, unspecified; Z96.0 Presence of urogenital implants; Z79.51 Long term (current) use of inhaled steroids; Z87.01 Personal history of pneumonia (recurrent); Z66 Do not resuscitate
CPT/HCPCS: 99308

== ENCOUNTER 2017-02-21 15:15 | Outpatient (CLI) | payer MEDICARE, OTHER, MEDICAID ==
--- NOTE | 2017-02-21 16:42 | CONSULTATION NOTE ---
Palliative Care Follow Up - Referral Referring Provider: Dr. Monge Time of Visit: 15:15 Referral setting: Long-Term Facility ([facility]) - Information Sources Records reviewed: RN notes reviewed, Previous records reviewed History/Review of Systems obtained from: Patient, Nursing Exam limitations: Clinical condition (Dementia; patient is a poor historian) - History of Present Illness Update Brief HPI Update: This is a charming 81-year-old gentleman with dementia, severe end-stage COPD, and chronic urniary retention with indwelling Santamaria catheter. He has a history of recurrent infections and hospitalizations. This history is complicated by an increasing resistance to multiple antibiotics, as indicated by his cultures. Yesterday the toeing stockings reported that the patient said he was coming down with a flu. I assessed him and his vitals were normal, he had no complaint of cough, headache, or other symptoms though he did report chills. He is a poor historian , unable to articulate any specific issues or symptoms, but he appeared stable, and I asked nursing to monitor his condition closely. Today they reported by fax that he had productive cough with green sputum. He was still unable to express his symptoms but did say that he felt worse after I left. In addition, attempting to sit him up on the side of the bed exhausted him and he was too weak to remain upright and had to lie back down immediately He has a history of repeated pneumonia as well as UTIs resistant to multi- organisms, and his goals of care, and that of his DPOAs, is to continue to treat him as long as he is able to "bounce back," as he has been doing up to this point, and able to enjoy his quality of life. In view of his respiratory fragility, history of repeat infections, and the fact that it's Friday and palliative care is not available to monitor him and start any treatment over the weekend, I am starting empiric antibiotic treatment with the goal of keeping him out of the hospital. I consulted with Dr Gordon in ED, and based on his antibiogram and past cultures done in October, he recommended 10 days each of oral Bactrim DS bid and IM (or IV) ceftriaxone 1gm bid. I discussed this plan and the reasoning behind it with the patient in person and with his DPOA, Taylor, by telephone, and they were both in agreement. Just as a side note, there was a plan to include him in the [place] Day parade this weekend. He does enjoy this sort of celebration, and it is so unfortunate he won't be able to be part of it this year. Social History - Living Situation Living arrangement: senior living ([facility]) Living Situation: With caregiver(s) Support System: DPOAroshan Cherry and Kyle "Marina booker live close by and are his friends and advocates. He is popular and well-liked by staff at the facility. Medications/Allergies - Medications Home Medications: Ambulatory Orders Medication Instructions Recorded Confirmed Acetaminophen 325 mg PO Q4H PRN 03/09/16 01/07/17 Fluticasone/Salmeterol [Advair 1 inh INH BID 03/09/16 01/07/17 100-50 Diskus] Clopidogrel [Plavix] 75 mg PO DAILY 30 Days tablet 05/01/16 01/07/17 Gabapentin [Neurontin] 100 mg PO TID 11/02/16 01/07/17 Ipratropium/Albuterol [Duoneb] 3 ml INH Q6H PRN 11/02/16 01/07/17 LORazepam [Lorazepam] 0.25 mg PO Q6H PRN 11/02/16 01/07/17 Mirtazapine [Remeron] 15 mg PO QPM 11/02/16 01/07/17 Tamsulosin HCl [Flomax] 0.4 mg PO QPM 11/02/16 01/07/17 Latanoprost 0.005% Ophth Drops 1 drops EACHEYE QPM #1 bottle 11/05/16 01/07/17 [Xalatan Ophth Drops] Calcium Carbonate [Tums (Calcium 500 mg PO Q8HR PRN #30 tablet 11/07/16 01/07/17 Carbonate 500mg)] Cholecalciferol [Vitamin D3] 5,000 unit PO BID #30 capsule 11/07/16 01/07/17 Bisacodyl Supp [Dulcolax Supp] 10 mg HI DAILY PRN 01/07/17 01/07/17 Senna [Senokot] 1 - 2 tab PO DAILY PRN 01/07/17 01/07/17 Ceftriaxone 1 g IM BID MDD for 10 days 02/21/17 Guaifenesin [Child Mucinex Chest 10 ml PO Q4H PRN 02/21/17 02/21/17 Congestion] Lactobacillus Acidophilus/Fos 250 mg PO BID MDD For 21 days 02/21/17 02/21/17 [Acidophilus Probiotic Tablet] Sulfamethox/Trimeth 800/160 1 tab PO BID MDD for 10 days 02/21/17 02/21/17 [Bactrim Ds] - Allergies Allergies/Adverse Reactions: Allergies Allergy/AdvReac Type Severity Reaction Status Date / Time No Known Drug Allergies Allergy Verified 11/02/16 13:07 Review of Systems - Constitutional Constitutional: reports: Malaise (Reported that he felt worse after I left yesterday, that "everything fell apart" (healthwise). Was unable to be more explicit), Weakness - Cardiovascular Cardiovascular: denies: Chest pain, Edema - Respiratory Respiratory: reports: Cough, Sputum production, Wheezing - Gastrointestinal Gastrointestinal: denies: Constipation, Nausea, Vomiting - Integumentary Integumentary: reports: Dryness - Neurological Neurological: denies: Headache - Psychiatric Psychiatric: denies: Depression - Other Findings Other Findings: Poor historian, unable to obtain a complete or accurate ROS Physical Exam - Vital Signs Temperature: 98.6 F Pulse Rate: 102 O2 Saturation: 92 Blood Pressure: 120/62 - Physical Exam General Appearance: positive: No acute distress, Alert Eyes Bilateral: positive: EOMI, No lid inflammation, Conjunctivae nml, No scleral icterus ENT: positive: No signs of dehydration Neck: positive: Thyroid nml, No JVD, Trachea midline Cardiovascular: positive: Regular rate & rhythm, No gallop, Systolic murmur Respiratory: positive: Chest non-tender, No respiratory distress, Diminished throughout, Wheezes (inspiratory). negative: Rales, Rhonchi Skin: positive: Dryness Extremities: positive: No pedal edema Neurologic/Psychiatric: positive: Disoriented to time, Weakness, Other ( difficulty finding words, expressive aphasia) Palliative Care - POLST Patient has POLST: Yes POLST Status: DNR, Limited Interventions Pain: No pain Tiredness/Fatigue: Mild (1-3) Drowsiness/Sedation: None Nausea: None Depression: None Anxiety: None Dyspnea: Mild (1-3) Anorexia: None - Palliative Care Discussion: Who is present: The patient and myself. Surrogate decision maker: Co-DPOAs: Vinny Cherry [phone] and [phone] and mobile [phone]. Jenise Booker (Onee) mobile [phone].. Most important goals: OK to hospitalize to maintain his quality of life and as long as he continues to enjoy his life. He and his DPOA are in agreement to start antibiotic treatment empirically, in view of his history of repeated pneumonia and UTIs and his increasing resistance to multiple antibiotics. The goal is to prevent the suspected respiratory infection from progressing to pneumonia and hopefully avoid another hospitalization. Impression and Recommendations - Palliative Care Impression: This is a charming 81-year-old gentlean with dementia, end-stage COPD and chronic urinary retention and a history of repetitive pneumonia and multiple hospitalizations. He is developing a new respiratory infection, and in view of his susceptibility to pneumonia, empiric antibiotic treatment may help prevent progression to pneumonia and another hospitalization. Recommendations/Counseling Done: Acute respiratory infection on chronic, end-stage COPD: Worsening symptoms. Consulted with Dr Gordon in ED and based on the patient's antibiogram and history of repetitive pneumonia and UTIs and multiple hospitalizations, started empiric Bactrim DS PO BID x 10 days and ceftriaxone 1g IM BID x 10 days, and probiotics 250 mg PO BID x 21 days. Also start guaifenesin 100mg/5mL, 10mL q4h prn for cough/sputum production. Goal is to prevent hospitalization for pneumonia. Nursing to take VSs BID x 3 days (through the weekend), encourage fluids. Time Spent: 30 minutes with greater than 50% of this done in counseling and coordination of care regarding respiratory infection, symptom burden, and weighing benefits and burdens antibiotic treatment.
== END 2017-02-21 15:16 | disposition home or self-care (01) ==
LOC: PC 15:15
PROVIDERS: ATTEND Nurse Practitioner
DX: Z51.5 Encounter for palliative care (principal); J22 Unspecified acute lower respiratory infection; J44.0 Chronic obstructive pulmonary disease with (acute) lower respiratory infection; F03.90 Unspecified dementia, unspecified severity, without behavioral disturbance, psychotic disturbance, mood disturbance, and anxiety; R05 Cough; R33.9 Retention of urine, unspecified; Z96.0 Presence of urogenital implants; Z87.01 Personal history of pneumonia (recurrent); N39.0 Urinary tract infection, site not specified; Z79.51 Long term (current) use of inhaled steroids; R53.81 Other malaise; Z66 Do not resuscitate
CPT/HCPCS: 99309

== ENCOUNTER 2017-03-27 14:37 | Outpatient (CLI) | payer MEDICARE, OTHER, MEDICAID ==
[2017-03-27 10:40] LABS: BASOPHILS % (AUTO) 0.4 %; EOSINOPHILS # (AUTO) 0.5 10^3/uL (0.0-0.7); EOSINOPHILS % (AUTO) 6.9 %; HCT - HEMATOCRIT 37.4 % (42.0-52.0); HGB - HEMOGLOBIN 12.6 g/dL (14.0-18.0); LYMPHOCYTES # (AUTO) 1.7 10^3/uL (1.5-3.5); MEAN CORPUSCULAR HEMOGLOBIN 31.7 pg (27.0-31.0); MEAN CORPUSCULAR HGB CONC 33.8 g/dL (32.0-36.0); MEAN CORPUSCULAR VOLUME 93.6 fL (80.0-94.0); MEAN PLATELET VOLUME 7.9 fL (7.4-11.4); MONOCYTES # (AUTO) 0.6 10^3/uL (0.0-1.0); MONOCYTES % (AUTO) 7.8 %; NEUTROPHILS # (AUTO) 4.4 10^3/uL (1.5-6.6); NEUTROPHILS % (AUTO) 60.9 %; RED BLOOD COUNT 3.99 10^6/uL (4.70-6.10); RED CELL DISTRIBUTION WIDTH 14.2 % (12.0-15.0); UNCORRECTED WHITE BLOOD COUNT 7.3 x10^3/uL; WHITE BLOOD COUNT 7.3 x10^3/uL (4.8-10.8)
[2017-03-27 10:53] LABS: BILIRUBIN,TOTAL 1.1 mg/dL (0.2-1.0); BUN - BLOOD UREA NITROGEN 7 mg/dL (6-20); CALCIUM 8.9 mg/dL (8.5-10.3); CARBON DIOXIDE - CO2 30 mmol/L (21-32); CHLORIDE 98 mmol/L (101-111); CHOL/HDL RATIO 5.2 (<5.0); CHOLESTEROL 219 mg/dL; CREATININE 0.7 mg/dL (0.6-1.2); GFR - MDRD 107 (>89); GLUCOSE 176 mg/dL (70-100); HDL CHOLESTEROL 42 mg/dL; LDL/HDL RATIO 3.5 (<3.6); SODIUM 138 mmol/L (135-145); TOTAL PROTEIN 6.5 g/dL (6.7-8.2); TRIGLYCERIDES 142 mg/dL; VLDL CHOLESTEROL 28 mg/dL
[2017-03-27 11:05] LABS: HEMOGLOBIN A1C 0.61 g/dL
== END 2017-03-27 14:38 | disposition home or self-care (01) ==
LOC: LAB.R 14:37
DX: E11.9 Type 2 diabetes mellitus without complications (principal); E78.5 Hyperlipidemia, unspecified; E46 Unspecified protein-calorie malnutrition
CPT/HCPCS: 80053; 80061; 82043; 82570; 83036; 85025

== ENCOUNTER 2017-04-22 11:30 | Outpatient (CLI) | payer MEDICARE, OTHER, MEDICAID ==
--- NOTE | 2017-04-22 13:37 | CONSULTATION NOTE ---
Palliative Care Follow Up - Referral Referring Provider: Dr. Monge/Dr. Montenegro assuming care Time of Visit: [id number] Referral setting: Sn[facility] Facility Referral Reason: COPD/BPH - Information Sources Records reviewed: RN notes reviewed, Previous records reviewed History/Review of Systems obtained from: Patient Exam limitations: Clinical condition (Patient with short-term memory deficits, able to answer yes no and some recall.) - History of Present Illness Update Brief HPI Update: This is a yung 82-year-old gentleman with severe end-stage COPD, who has had a history of recurrent pneumonias and COPD exacerbations often though not always , resulting in hospitalizations and rehab stays, as well as history recurrent urinary infections both prior to and post gonzáles catheter placement for BPH and retention. He was hospitalized in April 2016 twice, with pneumonia and a urinary infection. His second hospitalization resulted in development of urinary retention, he had developed an acute pontine stroke for which he had been started on Plavix. At this point in time he was found that he was not able to return home and was sent to [facility] for rehab on Medicare stay. He adjusted nicely, enjoyed the interaction and support, and his care needs both emotional and physical were being met at an improved level. Given the patient's lack of social support and a caregiver and patients cognitive deficits, he was transitioned for ongoing [facility] care under a Medicaid benefit. In requested summary of chronic indwelling gonzáles catheter. In April had place post stroke stay for retention, from hospital, the patient had initially been referred to urologist, unfortunately at his urology appointment he had a fall and ended up in the ED and was not able to complete his evaluation. Patient had been trialed on tamulosin, and then trialed off catheter, this had to be aborted again as not successful at the [facility]. He continues to present with severe symptoms of BPH, including difficult catheter changes, urinary retention confirmed in subsequent hospital stays, and patient is not a candidate for surgical intervention given his fragility, palliative goals of care, and underlying advanced COPD. 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 He has done fairly well with his last hospitalization in December 2016, and his last treatment for respiratory symptoms in February 2017. He is at high risk for recurrent infections both respiratory and urinary given his past history and fragile status, goals remain to focus on quality of life issues and provide support. Social History - Living Situation Living arrangement: skilled nursing Support System: Patient is supported by his friends Taylor and Vinny Baldwin who are also DPOAs , They visit him weekly, oversee his appointments, and are involved in decision making as patient does not present with decision-making capacity. He is able to express his values and wishes on but unable to weigh benefits and burdens regarding critical thinking.They visit him on a weekly basis, and are truly committed and fond of him. Medications/Allergies - Medications Home Medications: Ambulatory Orders Medication Instructions Recorded Confirmed Acetaminophen 650 mg PO Q4H PRN 03/09/16 04/22/17 Fluticasone/Salmeterol [Advair 1 inh INH BID 03/09/16 04/22/17 100-50 Diskus] Clopidogrel [Plavix] 75 mg PO DAILY 30 Days tablet 05/01/16 04/22/17 Gabapentin [Neurontin] 100 mg PO TID 11/02/16 04/22/17 Ipratropium/Albuterol [Duoneb] 3 ml INH Q6H PRN 11/02/16 04/22/17 LORazepam [Lorazepam] 0.25 mg PO Q6H PRN 11/02/16 04/22/17 Mirtazapine [Remeron] 15 mg PO QPM 11/02/16 04/22/17 Tamsulosin HCl [Flomax] 0.4 mg PO QPM 11/02/16 04/22/17 Latanoprost 0.005% Ophth Drops 1 drops EACHEYE QPM #1 bottle 11/05/16 04/22/17 [Xalatan Ophth Drops] Calcium Carbonate [Tums (Calcium 500 mg PO Q8HR PRN #30 tablet 11/07/16 04/22/17 Carbonate 500mg)] Cholecalciferol [Vitamin D3] 5,000 unit PO BID #30 capsule 11/07/16 04/22/17 Bisacodyl Supp [Dulcolax Supp] [address] DAILY PRN 01/07/17 04/22/17 Senna [Senokot] 1 - 2 tab PO DAILY PRN 01/07/17 04/22/17 Guaifenesin [Child Mucinex Chest 10 ml PO Q4H PRN 02/21/17 04/22/17 Congestion] - Allergies Allergies/Adverse Reactions: Allergies Allergy/AdvReac Type Severity Reaction Status Date / Time No Known Drug Allergies Allergy Verified 11/02/16 13:07 Review of Systems - Constitutional Constitutional: reports: Fatigue, Weight gain (165.5) - Eyes Eyes: reports: Vision loss - Ears, Nose & Throat Ears, Nose & Throat: reports: Hearing loss - Cardiovascular Cardiovascular: reports: Exertional dyspnea, Decr. exercise tolerance - Respiratory Respiratory: reports: Wheezing, SOB with exertion - Gastrointestinal Gastrointestinal: reports: Change in bowel habits (Patient struggles with intermittent constipation alternating with diarrhea, does have somewhat of a bowel fixation and sometimes a dumping syndrome.), Good appetite. denies: Nausea - Genitourinary Genitourinary: reports: Other (gonzáles catheter for urinary retention) - Musculoskeletal Musculoskeletal: reports: Stiffness, Joint pain (severe right shoulder pain secondary to osteoarthritis), Transfer issues (Patient a difficult pivot transfer into wheelchair, secondary to stiffness and bilateral shoulder pain. 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 denies: Depression (Denies depression today, often defaults to what is the point as far as asking what he worries about. He is actually quite satisfied and content in his current setting) - Endocrine Endocrine: reports: Diabetes type 2 (within acceptable range recent Aic 03/27 6.4) - Hematologic/Lymphatic Hematologic/Lymphatic: reports: Recurrent infections (last infection respiratory treated 02/2017) - All Other Systems All Other Systems: reports: Reviewed and negative Physical Exam - Vital Signs Temperature: 98.4 C Pulse Rate: 80 Respiratory Rate: 20 O2 Saturation: 93 (on 2 liters at rest; 89-90 off oxygen for five minutes; with min. activity on pulse oxygen 91%) Blood Pressure: 132/72 - Physical Exam General Appearance: positive: No acute distress Eyes Bilateral: positive: Other (slightly reddened conjunctivae-norm for patient ) ENT: positive: No signs of dehydration Neck: positive: Trachea midline, Lymphadenopathy (R), Lymphadenopathy (L) ( tender to palpation; slight swelling), Stiff neck Cardiovascular: positive: Regular rate & rhythm Respiratory: positive: Diminished throughout, Wheezes (anteriorly exp. wheezes upper lobes) Abdomen: positive: Nml bowel sounds, Other (rounded and full secondary to weight gain) Skin: positive: Pallor, Dryness Extremities: positive: No pedal edema, Other (limited ROM in shoulders; right worse than left; difficult transfer to wheelchair secondary to poor shuffling of feet and min. weight bearing) Neurologic/Psychiatric: positive: Mood/affect nml, Disoriented to place, Disoriented to time, Weakness Palliative Care - POLST Patient has POLST: Yes POLST Status: DNR, Selective Treatment Pain: Pain worsening, Location (bilateral shoulder pain; reports fluctuating in status "good days and bad days" attributed to severe DJD; have trialed ATC apap without improvment; does receive about daily) Constipation: Intermittent constipation Feelings of wellbeing/Perceived Quality of Life: Fair, Acceptable Performance Status: Patient is dependent for bathing, needs assistance with dressing as well. He can feed himself but needs meals set up. Does have intermittent incontinence, is mostly wheelchair bound but is able to wheel himself about. He is in the restorative aid program continues to remain somewhat stable. - Palliative Care Discussion: Patient is unable to identify where he is, though he does report he is satisfied with the care and happy with the staff. He does recall that Chris visit on a regular basis, and he that he still really likes his Oreos. He does have support of the palliative care telecom specialist, he likes [employer] music, and does seem to have rapport with other residents as well at staff. Is a yung sense of humor, though he has difficulty initiating conversation is quite social and response. He denies have any worries or concerns, he does understand the fragility of his condition, was hoping to go in his sleep. Did follow up with Taylor, they had visited last week and found him quite jovial and they had an Oreo constitution party. Reports she is doing life review with him, he has many interesting stories and has been able to share those with prompting. They continue to visit weekly, and make arrangements for appointments and finances. Patient has been significantly sick last couple of hospitalizations, and has pulled through despite concerns otherwise, at this point the decision has been to hospitalize him until the point that he no longer appears to enjoy his current quality of life. Results - Lab Results Lab results reviewed: Yes Lab and Imaging Results: reviewed labs drawn 03/27/2017 no concerns Impression and Recommendations - Palliative Care Impression: This is a yung 82-year-old gentleman who lives at the prison, he has advanced end-stage COPD, and is at high risk for this sequela of recurrent infections both respiratory and urinary. His last infection was respiratory in February 2017, he remains quite frail, but is enjoying his current quality of life. The goals continue to be palliative in nature focusing on comfort, weighing benefits and burdens of interventions and treatment in the context of his trajectory, with the focus on quality of life Recommendations/Counseling Done: 1. Advanced COPD. Patient remains quite fragile with ongoing respiratory compromise, is oxygen dependent. Does demonstrate hypoxia off of his oxygen with activity, patient does like to take it off at times. Will write order for continuous 2 L oxygen, can remove for comfort if wants secondary to palliative goals. Patient remains at high risk for sequela of recurrent infections, will continue to monitor to clinical staff. Patient does have both nebulizzers and prn lorazepam for any distress, will continue current plan. 2. BPH/has urinary retention. Patient with ongoing chronic indwelling Gonzáles catheter, colonized at baseline. We will continue to treat only for systemic symptoms. Patient difficult catheter change and painful for patient, will keep on Tamulosin to treat BPH to mitigate this. 3. Weight gain. Patient does like his sweets including Oreos, does drink quite a bit of hot chocolate and cranberry juice for fluids. Patient's blood sugars though remain within acceptable range. And mirtazapine also can add to weight gain, will continue to monitor the patient is not in distress. Has been trialed on lower dose of mirtazipine with exacerbated depression, will leave currently. 4. Severe DJD right shoulder. This is intermittent in nature, declines wants any more "pills". Has been trialed on scheduled Tylenol without any improvement. Is using the Tylenol as needed, at this point in time patient declines any further intervention, most of his pains are with transfers and is fluctuating in nature. 5. Dementia without behavioral disturbances. Patient remains able to enjoy his current environment, involved and engage in social conversation, and has many admires here at the prison. His friends visit him on a weekly basis , are working on life review and have not noted decline. 6. Advanced care planning. Many conversations regarding goals of care have occurred both in the acute and SNF setting with both patient and DPOAs, POLST in place and reflective of current plan. Time Spent: 45 minutes with greater than 50% of this done in counseling with patient regarding current status, depression, pain management, and exploring quality of life issues. Follow-up and coordination of care with clinical staff as well as the DPOA.
== END 2017-04-22 11:31 | disposition home or self-care (01) ==
LOC: PC 11:30
PROVIDERS: ATTEND Nurse Practitioner Adult Health
DX: Z51.5 Encounter for palliative care (principal); J44.9 Chronic obstructive pulmonary disease, unspecified; Z99.81 Dependence on supplemental oxygen; N40.0 Benign prostatic hyperplasia without lower urinary tract symptoms; R63.5 Abnormal weight gain; M19.011 Primary osteoarthritis, right shoulder; F03.90 Unspecified dementia, unspecified severity, without behavioral disturbance, psychotic disturbance, mood disturbance, and anxiety; N40.1 Benign prostatic hyperplasia with lower urinary tract symptoms; R33.8 Other retention of urine; Z96.0 Presence of urogenital implants; Z79.02 Long term (current) use of antithrombotics/antiplatelets; Z79.51 Long term (current) use of inhaled steroids; R53.83 Other fatigue; M62.81 Muscle weakness (generalized); F41.9 Anxiety disorder, unspecified; E11.9 Type 2 diabetes mellitus without complications; K59.00 Constipation, unspecified; Z87.01 Personal history of pneumonia (recurrent); Z87.440 Personal history of urinary (tract) infections; Z99.3 Dependence on wheelchair; Z66 Do not resuscitate
CPT/HCPCS: 99310

== ENCOUNTER 2017-04-28 23:53 | Outpatient (CLI) | payer MEDICARE, MEDICAID | END 2017-04-28 23:54 | disposition critical access hospital (66) | LOC: EMS 23:53 | PROVIDERS: ATTEND Surgery | DX: M25.512 Pain in left shoulder (principal) | CPT/HCPCS: A0425; A0429 ==

== ENCOUNTER 2017-04-28 23:57 | Emergency (ER) | payer MEDICARE, MEDICAID ==
--- NOTE | 2017-04-29 01:39 | ED Physician Documentation ---
History of Present Illness - Stated complaint Stated Complaint: SHOULDER PAIN - Chief complaint Chief Complaint: Ext Problem - History obtained from History obtained from: Patient, EMS - History of Present Illness Timing: Unknown (patient is unreliable historian, cannot recall how long he has had this pain) Pain level now: 5 Improved by: rest Worsened by: movement - Additonal information Additional information: sent by ambulance from [facility] for shoulder pain. Transfer sheet indicates both shoulders, although patient tells me it is his left shoulder. As noted, he is unable to tell me when this started except "It's been going on for a while" ( per patient). When I ask if he means it has been hours, days, weeks, months, or years, he just repeats "for a while". Review of Systems Musculoskeletal: reports: Joint pain. denies: Neck pain, Back pain Neurologic: denies: Focal weakness, Numbness, Headache PD PAST MEDICAL HISTORY - Past Medical History Cardiovascular: Congestive heart failure, Hypertension Respiratory: COPD Neuro: Dementia Endocrine/Autoimmune: Type 2 diabetes GI: None : Renal insuffiency HEENT: Chronic hearing loss Psych: None Musculoskeletal: Chronic back pain Derm: None - Past Surgical History Past Surgical History: Yes General: Colonoscopy HEENT: Cataracts - Present Medications Home Medications: Ambulatory Orders Medication Instructions Recorded Confirmed Acetaminophen 650 mg PO Q4H PRN 03/09/16 04/29/17 Fluticasone/Salmeterol [Advair 1 inh INH BID 03/09/16 04/29/17 100-50 Diskus] Clopidogrel [Plavix] 75 mg PO DAILY 30 Days tablet 05/01/16 04/29/17 Gabapentin [Neurontin] 100 mg PO TID 11/02/16 04/29/17 Ipratropium/Albuterol [Duoneb] 3 ml INH Q6H PRN 11/02/16 04/29/17 LORazepam [Lorazepam] 0.25 mg PO Q6H PRN 11/02/16 04/29/17 Mirtazapine [Remeron] 15 mg PO QPM 11/02/16 04/29/17 Tamsulosin HCl [Flomax] 0.4 mg PO QPM 11/02/16 04/29/17 Latanoprost 0.005% Ophth Drops 1 drops EACHEYE QPM #1 bottle 11/05/16 04/29/17 [Xalatan Ophth Drops] Calcium Carbonate [Tums (Calcium 500 mg PO Q8HR PRN #30 tablet 11/07/16 04/29/17 Carbonate 500mg)] Cholecalciferol [Vitamin D3] 5,000 unit PO BID #30 capsule 11/07/16 04/29/17 Guaifenesin [Child Mucinex Chest 10 ml PO Q4H PRN 02/21/17 04/29/17 Congestion] - Allergies Allergies/Adverse Reactions: Allergies Allergy/AdvReac Type Severity Reaction Status Date / Time No Known Drug Allergies Allergy Verified 04/29/17 00:07 - Social History Does the pt smoke?: No Smoking Status: Never smoker Does the pt drink ETOH?: No Does the pt have substance abuse?: No - Immunizations Immunizations are current?: No Immunizations: TDAP >10years/unknown - POLST Patient has POLST: Yes POLST Status: DNR PD ED PE NORMAL - Vitals Vital signs reviewed: Yes - General General: No acute distress, Well developed/nourished, Other (awake, alert. disoriented to time, fluctuating orientation to place, oriented to self. ) - Cardiac Cardiac: RRR, No murmur - Respiratory Respiratory: No respiratory distress, Clear bilaterally - Derm Derm: Normal color, Warm and dry, No rash - Extremities Extremities: No edema - Neuro Neuro: No motor deficit, No sensory deficit PD ED PE EXPANDED - Extremities Extremities: Limited ROM (abduction or flexion of left shoulder beyond 45 degrees causes painful discomfort. no crepitus of joint with movement. LTS intact distally. ) Results - Vitals Vitals: Vital Signs - 24 hr 04/28/17 04/29/17 04/29/17 23:57 02:38 04:55 Temperature 36.7 C 36.7 C 36.5 C Heart Rate 81 90 88 Respiratory 22 16 18 Rate Blood Pressure 121/65 135/70 H 132/74 H O2 Saturation 92 94 97 Oxygen O2 Source [] Room air O2 Source [] 2L via NC O2 Source Room air - Rads (name of study) left shoulder xrays Radiology: Prelim report reviewed, See rad report PD MEDICAL DECISION MAKING - ED course Complexity details: reviewed results, re-evaluated patient, considered differential, d/w patient Departure - Departure Disposition: 01 Home, Self Care Clinical Impression: Arthritis Condition: Good Instructions: ED Joint Pain, ED Degenerative Joint Disease Follow-Up: Ariel Rodriguez MD [Primary Care Provider] -
--- NOTE | 2017-04-29 02:46 | XRAY Preliminary Report ---
Exam: XR SHOULDER 3 VIEW LT IMPRESSION: Severe degenerative changes about the left shoulder without acute abnormality seen. [facility] SITE ID: [id number]
--- NOTE | 2017-04-29 02:52 | XRAY Report ---
EXAM: LEFT SHOULDER RADIOGRAPHY EXAM DATE: 04/29/2017 02:19 AM. CLINICAL HISTORY: Nontraumatic left shoulder, tenderness. COMPARISON: 05/25/2013. TECHNIQUE: 3 views. FINDINGS: Bones: Normal. No fracture or bone lesion. Joints: The glenohumeral and acromioclavicular joints are normally aligned. Severe acromioclavicular degenerative changes. Severe glenohumeral degenerative changes. Soft tissues: The visualized hemithorax is unremarkable. No soft tissue swelling. IMPRESSION: Severe degenerative changes about the left shoulder without acute abnormality seen. [facility] Referring Provider Line: [phone] SITE ID: [id number]
[2017-04-29] MEDS ORDERED: ACETAMINOPHEN 325 MG TABLET PO STA (02:59)
[2017-04-29 08:08] VITALS: BP 159/68
== END 2017-04-29 08:00 | disposition home or self-care (01) ==
LOC: EDUNIT# → SUPCPDRO 23:57 → ED 23:57
DX: M13.812 Other specified arthritis, left shoulder (principal); I11.0 Hypertensive heart disease with heart failure; I50.9 Heart failure, unspecified; E11.9 Type 2 diabetes mellitus without complications; F03.90 Unspecified dementia, unspecified severity, without behavioral disturbance, psychotic disturbance, mood disturbance, and anxiety
CPT/HCPCS: 73030; 99283; A9270

== ENCOUNTER 2017-05-06 16:30 | Outpatient (CLI) | payer MEDICARE, MEDICAID, OTHER ==
[2017-05-06 18:33] LABS: BILIRUBIN,URINE NEGATIVE (NEGATIVE); GLUCOSE, URINE (UA) NEGATIVE (NEGATIVE); KETONES,URINE (UA) NEGATIVE (NEGATIVE); LEUKOCYTE ESTERASE, URINE LARGE (NEGATIVE); NITRITE,URINE POSITIVE (NEGATIVE); OCCULT BLOOD,URINE LARGE (NEGATIVE); PROTEIN,URINE 30 mg/dL (NEGATIVE); UROBILINOGEN,URINE 0.2 (NORMAL) E.U./dL (NORMAL)
[2017-05-06 18:34] LABS: CLARITY,URINE HAZY (CLEAR)
[2017-05-06 18:39] LABS: RBC,URINE TNTC /HPF (0-5)
[2017-05-06 18:40] LABS: BACTERIA,URINE Few /HPF (None Seen); SQUAMOUS EPITHELIAL CELL,UR RARE Squamous (<= Few)
== END 2017-05-06 16:31 | disposition home or self-care (01) ==
LOC: LAB.R 16:30
DX: R30.0 Dysuria (principal)
CPT/HCPCS: 81001; 81003; 87086

== ENCOUNTER 2017-05-08 18:52 | Outpatient (CLI) | payer MEDICARE, MEDICAID ==
--- NOTE | 2017-05-08 19:55 | CONSULTATION NOTE ---
Palliative Care Follow Up - Referral Referring Provider: Dr. Nicolas Montenegro Time of Visit: [id number] Referral setting: Care Home Facility Referral Reason: Fever Unknown Origin/COPD exacerbation - Information Sources Records reviewed: Previous records reviewed History/Review of Systems obtained from: Caregiver Exam limitations: Clinical condition (patient with dementia; able to answer questions in the moment) - History of Present Illness Update Brief HPI Update: This is a yung 82 old gentleman with severe end-stage COPD who has had a history of recurrent pneumonias and COPD exacerbations as well as intermittent history of recurrent urinary infections both prior to and post 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 He did present on 123 with a temp of 100.7, as well as reported from staff expiratory wheezes and some shortness of breath. At that point in time chest x-ray was obtained which was negative for infiltrate, UA was obtained as well still pending results. Though his urine does appear clear and without sediment today. He still had a temperature 99.8 yesterday p.m. today he presents at 98.4. He does have increasing discomfort in his shoulders bilaterally, we have titrated up his gabapentin slowly to see if this would assist. He has been on scheduled acetaminophen in the past without any improvement, he remains on the Voltaren gel 3 times a day. Patient himself does not want to add more "pills". He reports he is feeling better, denies any cough, he does have a few inspiratory and expiratory wheezes but does present with O2 sats at 95% on 2 L and does not appear acutely ill today. Social History - Living Situation Living arrangement: half-way Support System: His DPOA's Gwendolyn and Vinny remain Committed and visited him on a regular basis. Patient does not have any other family that is available to provide support. On patient's permanent residence is [facility], he has somewhat resigned to this fact and does actually feels like he is "in a good place". Medications/Allergies - Medications Home Medications: Ambulatory Orders Medication Instructions Recorded Confirmed Acetaminophen 650 mg PO Q4H PRN 03/09/16 05/08/17 Fluticasone/Salmeterol [Advair 1 inh INH BID 03/09/16 05/08/17 100-50 Diskus] Clopidogrel [Plavix] 75 mg PO DAILY 30 Days tablet 05/01/16 05/08/17 Gabapentin [Neurontin] 100 mg PO .0700, 1400 11/02/16 05/08/17 Ipratropium/Albuterol [Duoneb] 3 ml INH Q6H PRN 11/02/16 05/08/17 Mirtazapine [Remeron] 15 mg PO QPM 11/02/16 05/08/17 Tamsulosin HCl [Flomax] 0.4 mg PO QPM 11/02/16 05/08/17 Latanoprost 0.005% Ophth Drops 1 drops EACHEYE QPM #1 bottle 11/05/16 05/08/17 [Xalatan Ophth Drops] Calcium Carbonate [Tums (Calcium 500 mg PO Q8HR PRN #30 tablet 11/07/16 05/08/17 Carbonate 500mg)] Guaifenesin [Child Mucinex Chest 10 ml PO Q4H PRN 02/21/17 05/08/17 Congestion] Cholecalciferol [Vitamin D3] 5,000 unit PO DAILY 05/08/17 05/08/17 Diclofenac Sodium [Voltaren] 2 gm TOP TID 05/08/17 05/08/17 Prednisone 10 mg PO .DAILY FOR 5 DAYS 05/08/17 05/08/17 Saccharomyces Boulardii [Florastor] 1 tab PO BID 05/08/17 05/08/17 Sulfamethox/Trimeth 800/160 1 tab PO BID 05/08/17 05/08/17 [Bactrim Ds] Senna [Senokot] 1 tab PO DAILY 05/09/17 05/09/17 - Allergies Allergies/Adverse Reactions: Allergies Allergy/AdvReac Type Severity Reaction Status Date / Time No Known Drug Allergies Allergy Verified 04/29/17 00:07 Review of Systems - Constitutional Constitutional: reports: Fatigue, Weight stable - Eyes Eyes: reports: Vision loss - Cardiovascular Cardiovascular: denies: Chest pain - Respiratory Respiratory: reports: SOB with exertion - Gastrointestinal Gastrointestinal: reports: Constipation (staff feel patient needed regular bowel medication as is inconsistent; scheduled Senna with good BM today per report), Good appetite. denies: Nausea - Genitourinary Genitourinary: reports: Other (gonzáles catheter for BPH) - Musculoskeletal Musculoskeletal: reports: Limited range of motion (bilateral shoulder pain/ limitations left greater than right today) - Integumentary Integumentary: reports: Rash (dry flakey skin on head/face) - Neurological Neurological: reports: General weakness, Memory problems (very much in moment; aware of limitations) - Psychiatric Psychiatric: denies: Depression - Endocrine Endocrine: reports: Diabetes type 2 - Hematologic/Lymphatic Hematologic/Lymphatic: reports: Recurrent infections (pneumonia/uti's) - All Other Systems All Other Systems: reports: Reviewed and negative Physical Exam - Vital Signs Temperature: 98.4 C Pulse Rate: 65 Respiratory Rate: 20 O2 Saturation: 95 (ra @ rest) Blood Pressure: 122/64 - Physical Exam General Appearance: positive: No acute distress Eyes Bilateral: positive: Normal inspection ENT: positive: No signs of dehydration Neck: positive: No JVD, Trachea midline Cardiovascular: positive: Regular rate & rhythm Respiratory: positive: Wheezes (few scattered insp/exp. wheezes; no cough) Abdomen: positive: Non-tender, Soft, Nml bowel sounds Skin: positive: Dryness Extremities: positive: No pedal edema, Other (limited range of motion with pain on exam to left shoulder; mild discomfort with right shoulder) Neurologic/Psychiatric: positive: Mood/affect nml, Disoriented to time, Weakness (transfers to wheelchair only/toilet) Palliative Care - POLST Patient has POLST: Yes POLST Status: DNR, Selective Treatment Pain: Pain unchanged, Location (bilateral shoulder pain; did have ED visit; unclear what precipitated it; was told sent out for "abdominal" pain;) Feelings of wellbeing/Perceived Quality of Life: Fair, Acceptable Performance Status: Patient mostly wheelchair bound, does need some assistance with transfers to toilet or wheelchair. Does go to meals done in the dining room. Is dependent on staff for all ADLs. We put him at a PPS of 60% - Palliative Care Discussion: Patient continues to report he "does not worry about anything", denies depression, patient has always been somewhat pragmatic and in the moment. Denies any worries or concerns related to his current healthcare status, he does remain quite fragile with the goal to avoid hospitalization if possible. Results - Lab Results Lab results reviewed: Yes Lab and Imaging Results: Chest x-ray negative, ua results pending Impression and Recommendations - Palliative Care Impression: This is a yung 82-year-old gentleman who remains at high risk for continuing sequela of his advanced COPD and recurrent urinary tract infections. He has presented recently with fever, increase in wheezing, and concern for acute illness. Patient also continues to struggle with intermittent shoulder pain, will titrate gabapentin up slowly and evaluate response. Recommendations/Counseling Done: 1. COPD exacerbation. Patient currently on prednisone 10 mg daily for 5 days, does appear to have responded with decreased wheezing and respiratory effort. No progression noted. Is only needed occasional intermittent albuterol treatments. Patient denies respiratory distress at this point in time. Chest x -ray was negative. 2. A Gonzáles catheter. It is draining clear yellow urine at this point in time. He is on currently on antibiotics. Patient is chronically colonized. Pain previously had described as sharp shooting and needing to go, has since resolved. 3. Constipation. Staff perceived patient having difficulty with bowel movements, patient actually not able to recall. Did schedule regular senna 8.6 mg daily and attempt to address this. I report good bowel movement this morning by staff. Will continue to monitor if this is adequate program. 4. Depression. Patient does appear to be bright, presents without anxiety or depressive symptoms. Has spent more time in bed the last couple days, but otherwise no further changes. 5. Advanced care planning. The goal is to try and avoid hospitalization, did treat empirically with subjective response, will continue to monitor. Addendum report on 05/09 patient with low-grade temperature in the evening, did respond to albuterol treatment. We will go ahead and schedule 3 times daily through the weekend and evaluate ongoing response. UA was negative, follow-up with Dr. Montenegro, will continue as patient has responded to Bactrim at this point in time given his fragile status and advanced disease state with goals stated as avoiding hospitalization Time Spent: 30 minutes with greater than 50% of this done in counseling coordination of care with clinical staff support for patient's ongoing depression and will continue to monitor pain management and response
== END 2017-05-08 18:53 | disposition home or self-care (01) ==
LOC: PC 18:52
PROVIDERS: ATTEND Nurse Practitioner Adult Health
DX: Z51.5 Encounter for palliative care (principal); J44.1 Chronic obstructive pulmonary disease with (acute) exacerbation; Z96.0 Presence of urogenital implants; K59.00 Constipation, unspecified; F32.9 Major depressive disorder, single episode, unspecified; Z87.01 Personal history of pneumonia (recurrent); Z87.440 Personal history of urinary (tract) infections; Z99.81 Dependence on supplemental oxygen; Z79.51 Long term (current) use of inhaled steroids; N40.0 Benign prostatic hyperplasia without lower urinary tract symptoms; M62.81 Muscle weakness (generalized); E11.9 Type 2 diabetes mellitus without complications; M25.512 Pain in left shoulder; M25.511 Pain in right shoulder; Z66 Do not resuscitate; Z99.3 Dependence on wheelchair
CPT/HCPCS: 99309

== ENCOUNTER 2017-06-09 15:45 | Outpatient (CLI) | payer MEDICARE, OTHER, MEDICAID ==
--- NOTE | 2017-06-09 16:54 | CONSULTATION NOTE ---
Palliative Care Follow Up - Referral Referring Provider: Dr Jian Montenegro Time of Visit: 06/09/2017. 15:45 - 16:00 Referral setting: [facility] - Information Sources Records reviewed: RN notes reviewed, Previous records reviewed History/Review of Systems obtained from: Patient, Nursing Exam limitations: Clinical condition (Dementia; memory deficits) - History of Present Illness Update Brief HPI Update: This is a yung 82-year-old gentleman with severe end-stage COPD and history of recurrent pneumonias and COPD exacerbations, as well as an intermittent history of recurrent urinary infections both prior to and post-Santamaria catheter placement for BPH and retention. This patient has been stable since the last visit, and appears to be 1 of the few residents at his facility who did not succumb to the recent GI infection in the facility. He does state today he is not feeling very well but is not able to elaborate further except to say I "just feel wore out." He denies pain, nausea, vomiting, SOB, chest pain, dysuria. Vital signs are stable and O2 sats are at 97% on 2.5 L of oxygen. He does report "itchy" legs, but the skin is clear, with no signs of rash or redness or lesions. Social History - Living Situation Living arrangement: [facility] Living Situation: With caregiver(s) (His friends/DPOAs, Gwendolyn and Vinny, visit him frequently, the patient has no other family or close friends available for support.) Medications/Allergies - Medications Home Medications: Ambulatory Orders Medication Instructions Recorded Confirmed Acetaminophen 650 mg PO Q6H PRN 03/09/16 06/09/17 Fluticasone/Salmeterol [Advair 1 inh INH BID 03/09/16 06/09/17 100-50 Diskus] Clopidogrel [Plavix] 75 mg PO DAILY 30 Days tablet 05/01/16 06/09/17 Gabapentin [Neurontin] 100 mg PO .0700, 1400 11/02/16 06/09/17 Ipratropium/Albuterol [Duoneb] 3 ml INH Q6H PRN 11/02/16 06/09/17 Mirtazapine [Remeron] 15 mg PO QPM 11/02/16 06/09/17 Tamsulosin HCl [Flomax] 0.4 mg PO QPM 11/02/16 06/09/17 Latanoprost 0.005% Ophth Drops 1 drops EACHEYE QPM #1 bottle 11/05/16 06/09/17 [Xalatan Ophth Drops] Calcium Carbonate [Tums (Calcium 500 mg PO Q8HR PRN #30 tablet 11/07/16 06/09/17 Carbonate 500mg)] Guaifenesin [Child Mucinex Chest 10 ml PO Q4H PRN 02/21/17 06/09/17 Congestion] Cholecalciferol [Vitamin D3] 5,000 unit PO .EVERY Friday05/08/17 06/09/17 Diclofenac Sodium [Voltaren] 2 gm TOP TID 05/08/17 05/08/17 Saccharomyces Boulardii [Florastor] 1 tab PO BID 05/08/17 06/09/17 Senna [Senokot] 1 tab PO DAILY 05/09/17 06/09/17 Gabapentin 200 mg PO .QHS 06/09/17 06/09/17 - Allergies Allergies/Adverse Reactions: Allergies Allergy/AdvReac Type Severity Reaction Status Date / Time No Known Drug Allergies Allergy Verified 04/29/17 00:07 Review of Systems - Constitutional Constitutional: reports: Fatigue, Weight gain (165.3 lbs on 05/20/2017. 156.9 lbs 10/18/2016. 144.4 lbs 05/15/2016.) - Eyes Eyes: reports: Corrective lenses - Ears, Nose & Throat Ears, Nose & Throat: reports: Hearing loss - Respiratory Respiratory: reports: SOB with exertion. denies: Wheezing, SOB at rest - Gastrointestinal Gastrointestinal: denies: Abdominal pain, Constipation, Diarrhea, Nausea, Poor appetite - Genitourinary Genitourinary: reports: Other (Santamaria catheter). denies: Dysuria, Frequency - Musculoskeletal Musculoskeletal: reports: Other (Chronic shoulder pain, no complaints today) - Integumentary Integumentary: reports: Pruritis (on lower extremities. Monitor) - Neurological Neurological: reports: General weakness (unable to sit up in bed without aid), Memory problems, Slurred speech - Psychiatric Psychiatric: denies: Depression, Anxiety, Behavior disturbances - Hematologic/Lymphatic Hematologic/Lymphatic: reports: Recurrent infections (UTIs and pneumonias) Physical Exam - Vital Signs Temperature: 97.4 F Pulse Rate: 63 O2 Saturation: 97 Blood Pressure: 119/68 - Physical Exam General Appearance: positive: No acute distress, Alert Eyes Bilateral: positive: EOMI, No lid inflammation, Conjunctivae nml, No scleral icterus ENT: positive: No signs of dehydration Neck: positive: Thyroid nml, No JVD, Trachea midline Cardiovascular: positive: Regular rate & rhythm, Systolic murmur Respiratory: positive: Chest non-tender, No respiratory distress, Diminished throughout. negative: Wheezes, Rales Skin: positive: No symptoms Extremities: positive: Nml appearance, No pedal edema Neurologic/Psychiatric: positive: Mood/affect nml, Disoriented to place, Disoriented to time Palliative Care - POLST Patient has POLST: Yes POLST Status: DNR, Comfort Measures Pain: Comment (No complaints of shoulder pain today) Depression: None Dyspnea: None Sleep: Sleeps well - Palliative Care Discussion: Focus is comfort and quality of life. OK to transfer to hospital, but would prefer to avoid hospitalization. He is agreeable to be treated if quality of life can be maintained. He does state that today he "just feels wore out." Impression and Recommendations - Palliative Care Impression: This is a yung 82 year old man with several significant co-morbidities and h/ o recurrent pneumonias and UTIs, for which he is at high risk of continuing sequelae. He is currently stable but complains of feeling "wore out." Recommendations/Counseling Done: End-stage COPD: Currently stable. Continue Duonebs treatment as needed, continuous oxygen via nasal cannula, Advair BID, and ipratropium/albuterol as needed. Constipation: Improved particularly in the last week, continue Senna one tab daily. Continue to monitor, consider adding Miralax daily. Shoulder pain: Improved with the addition of gabapentin at nighttime, continue current dosage: Gabapentin 100mg BID, and gabapentin 200mg at bedtime. Confirm if Voltaren gel is still being given. Advanced care planning: Goal is comfort care and quality of life, OK to transfer to hospital as needed but prefers to avoid. Decide on case by case basis, as long as his quality of life can be maintained. Follow up monthly and as needed. Time Spent: 15 minutes were spent with more than 50% of the time spent on counseling, education, and coordination of care.
== END 2017-06-09 15:46 | disposition home or self-care (01) ==
LOC: PC 15:45
PROVIDERS: ATTEND Nurse Practitioner
DX: Z51.5 Encounter for palliative care (principal); J44.9 Chronic obstructive pulmonary disease, unspecified; K59.00 Constipation, unspecified; R53.83 Other fatigue; Z96.0 Presence of urogenital implants; Z99.81 Dependence on supplemental oxygen; M62.81 Muscle weakness (generalized); R63.5 Abnormal weight gain; N40.0 Benign prostatic hyperplasia without lower urinary tract symptoms; Z66 Do not resuscitate
CPT/HCPCS: 99308

== ENCOUNTER 2017-06-18 00:04 | Outpatient (CLI) | payer MEDICARE, MEDICAID | END 2017-06-18 00:05 | disposition critical access hospital (66) | LOC: EMS 00:04 | PROVIDERS: ATTEND Surgery | DX: R39.89 Other symptoms and signs involving the genitourinary system (principal); R50.9 Fever, unspecified; R03.1 Nonspecific low blood-pressure reading | CPT/HCPCS: A0425; A0427 ==

== ENCOUNTER 2017-06-18 00:10 | Inpatient (IN) | payer MEDICARE, MEDICAID ==
[2017-06-18] MEDS ORDERED: SODIUM CHLORIDE 0.9% 1,000 ML IV ONE ×2 (00:16→01:49)
[2017-06-18 00:44] LABS: BASOPHILS # (AUTO) 0.1 10^3/uL (0.0-0.1); BASOPHILS % (AUTO) 0.6 %; EOSINOPHILS # (AUTO) 0.1 10^3/uL (0.0-0.7); LYMPHOCYTES # (AUTO) 1.8 10^3/uL (1.5-3.5); MEAN CORPUSCULAR VOLUME 93.8 fL (80.0-94.0); MONOCYTES # (AUTO) 1.3 10^3/uL (0.0-1.0); MONOCYTES % (AUTO) 8.6 %; NEUTROPHILS % (AUTO) 77.8 %; PLT - PLATELET COUNT 217 10^3/uL (130-450); RED BLOOD COUNT 3.46 10^6/uL (4.70-6.10); RED CELL DISTRIBUTION WIDTH 13.2 % (12.0-15.0); WHITE BLOOD COUNT 15.4 x10^3/uL (4.8-10.8)
[2017-06-18 00:58] LABS: ALKALINE PHOSPHATASE 112 IU/L (42-121); ALT ALANINE AMINOTRANSFERASE < 10 IU/L (10-60); AST ASPARTATE AMINOTRANSFERASE 17 IU/L (10-42); BILIRUBIN,TOTAL 1.5 mg/dL (0.2-1.0); BUN - BLOOD UREA NITROGEN 15 mg/dL (6-20); CARBON DIOXIDE - CO2 30 mmol/L (21-32); CHLORIDE 96 mmol/L (101-111); CREATININE 0.9 mg/dL (0.6-1.2); GFR - MDRD 80 (>89); GLUCOSE 143 mg/dL (70-100); LIPASE < 10 U/L (22-51); SODIUM 133 mmol/L (135-145)
[2017-06-18 01:00] LABS: BILIRUBIN,URINE NEGATIVE (NEGATIVE); GLUCOSE, URINE (UA) NEGATIVE (NEGATIVE); KETONES,URINE (UA) NEGATIVE (NEGATIVE); LEUKOCYTE ESTERASE, URINE LARGE (NEGATIVE); NITRITE,URINE POSITIVE (NEGATIVE); OCCULT BLOOD,URINE MODERATE (NEGATIVE); PH,URINE >=9.0 PH (5.0-7.5); PROTEIN,URINE 100 mg/dL (NEGATIVE); UROBILINOGEN,URINE 0.2 (NORMAL) E.U./dL (NORMAL)
[2017-06-18 01:16] LABS: BACTERIA,URINE Many /HPF (None Seen); CLARITY,URINE CLOUDY (CLEAR); CRYSTALS,URINE 6-10 Triple Phos /LPF; SQUAMOUS EPITHELIAL CELL,UR NONE SEEN (<= Few)
[2017-06-18] MEDS ORDERED: cefTRIAXone 1 GM in SODIUM CHLORIDE 0.9% MINIBAG 100 ML IV STA (01:34)
[2017-06-18] MEDS ORDERED: IOPAMIDOL-300 100 ML VIAL ONE (01:40)
--- NOTE | 2017-06-18 01:41 | ED Physician Documentation ---
History of Present Illness - Stated complaint Stated Complaint: HYPOTENSION, WARM TO TOUCH - Chief complaint Chief Complaint: General - History obtained from History obtained from: Patient, EMS - History of Present Illness Timing: Today - Additonal information Additional information: Patient is an 82 year old male with multiple co-morbidities who is presenting to the emergency department for hypotension and fever. According to ems the senior care staff stated that his blood pressures were in the 70s, and that he felt warm. For ems patient had systolics in the 80s. Patient does have an indwelling catheter in and complained of penile pain. Review of Systems Constitutional: reports: Fever, Chills Eyes: reports: Reviewed and negative Ears: reports: Reviewed and negative Nose: denies: Congestion Throat: denies: Sore throat Respiratory: denies: Cough, Wheezing GI: reports: Abdominal Pain, Nausea. denies: Vomiting, Diarrhea Skin: denies: Rash, Lesions Neurologic: reports: Generalized weakness Immunocompromised: denies: Immunocompromised PD PAST MEDICAL HISTORY - Past Medical History Cardiovascular: Congestive heart failure, Hypertension Respiratory: COPD Neuro: Dementia Endocrine/Autoimmune: Type 2 diabetes GI: None : Renal insuffiency HEENT: Chronic hearing loss Psych: None Musculoskeletal: Chronic back pain Derm: None - Past Surgical History Past Surgical History: Yes General: Colonoscopy HEENT: Cataracts - Present Medications Home Medications: Ambulatory Orders Medication Instructions Recorded Confirmed Acetaminophen 650 mg PO Q6H PRN 03/09/16 06/18/17 Fluticasone/Salmeterol [Advair 1 inh INH BID 03/09/16 06/09/17 100-50 Diskus] Clopidogrel [Plavix] 75 mg PO DAILY 30 Days tablet 05/01/16 06/18/17 Ipratropium/Albuterol [Duoneb] 3 ml INH Q6H PRN 11/02/16 06/09/17 Mirtazapine [Remeron] 15 mg PO QPM 11/02/16 06/18/17 Tamsulosin HCl [Flomax] 0.4 mg PO QPM 11/02/16 06/18/17 Latanoprost 0.005% Ophth Drops 1 drops EACHEYE QPM #1 bottle 11/05/16 06/09/17 [Xalatan Ophth Drops] Calcium Carbonate [Tums (Calcium 500 mg PO Q8HR PRN #30 tablet 11/07/16 06/09/17 Carbonate 500mg)] Guaifenesin [Child Mucinex Chest 10 ml PO Q4H PRN 02/21/17 06/09/17 Congestion] Cholecalciferol [Vitamin D3] 5,000 unit PO .EVERY Friday05/08/17 06/09/17 Saccharomyces Boulardii [Florastor] 1 tab PO BID 05/08/17 06/09/17 Senna [Senokot] 1 tab PO DAILY 05/09/17 06/09/17 Gabapentin 200 mg PO .QHS 06/09/17 06/18/17 - Allergies Allergies/Adverse Reactions: Allergies Allergy/AdvReac Type Severity Reaction Status Date / Time No Known Drug Allergies Allergy Verified 04/29/17 00:07 - Social History Does the pt smoke?: No Smoking Status: Never smoker Does the pt drink ETOH?: No Does the pt have substance abuse?: No - Immunizations Immunizations are current?: No Immunizations: TDAP >10years/unknown - POLST Patient has POLST: Yes POLST Status: DNR PD ED PE NORMAL - Vitals Vital signs reviewed: Yes - General General: Alert and oriented X 3 - HEENT HEENT: Atraumatic - Neuro Neuro: Alert and oriented X 3, No motor deficit, Normal speech Eye Opening: Spontaneous Motor: Obeys Commands Verbal: Oriented GCS Score: 15 PD ED PE EXPANDED - General General: Alert - HEENT HEENT: Dry mucous membranes - Cardiac Cardiac: Tachy - Abdomen Abdomen: Tender to palpation, Suprapubic, LLQ - Male Male : Other (penile pain and discharge ) - Extremities Extremities: Pedal edema bilateral Results - Vitals Vitals: Vital Signs - 24 hr 06/18/17 06/18/17 00:12 01:18 Temperature 37.1 C Heart Rate 110 H 107 H Respiratory 20 28 H Rate Blood Pressure 113/65 97/58 L O2 Saturation 97 98 Oxygen O2 Source [With Activity] Room air O2 Source [Without Activity] 2L via NC O2 Source Nasal cannula Oxygen Flow Rate 2 - Labs Labs: Laboratory Tests 06/18/17 06/18/17 06/18/17 00:32 00:35 00:35 WBC 15.4 H RBC 3.46 L Hgb 11.0 L Hct 32.4 L MCV 93.8 MCH 32.0 H MCHC 34.0 RDW 13.2 Plt Count 217 MPV 8.0 Neut # 12.0 H Lymph # 1.8 Kidder # 1.3 H Eos # 0.1 Baso # 0.1 Absolute Nucleated RBC 0.00 Nucleated RBC % 0.0 Sodium 133 L Potassium 3.6 Chloride 96 L Carbon Dioxide 30 Anion Gap 7.0 BUN 15 Creatinine 0.9 Estimated GFR (MDRD) 80 L Glucose 143 H Lactic Acid Calcium 8.0 L Total Bilirubin 1.5 H AST 17 ALT < 10 L Alkaline Phosphatase 112 Troponin I B-Natriuretic Peptide Total Protein 6.0 L Albumin 3.0 L Globulin 3.0 Albumin/Globulin Ratio 1.0 Lipase < 10 L Urine Color Urine Clarity Urine pH Ur Specific [place] Urine Protein Urine Glucose (UA) Urine Ketones Urine Occult Blood Urine Nitrite Urine Bilirubin Urine Urobilinogen Ur Leukocyte Esterase Urine RBC Urine WBC Ur Squamous Epith Cells Urine Crystals Urine Bacteria Ur Microscopic Review Urine Culture Comments Influenza A (Rapid) Negative Influenza B (Rapid) Negative Influenza Types A,B Ag - 06/18/17 06/18/17 06/18/17 00:35 00:35 00:35 WBC RBC Hgb Hct MCV MCH MCHC RDW Plt Count MPV Neut # Lymph # Kidder # Eos # Baso # Absolute Nucleated RBC Nucleated RBC % Sodium Potassium Chloride Carbon Dioxide Anion Gap BUN Creatinine Estimated GFR (MDRD) Glucose Lactic Acid 0.9 Calcium Total Bilirubin AST ALT Alkaline Phosphatase Troponin I < 0.04 B-Natriuretic Peptide 36 Total Protein Albumin Globulin Albumin/Globulin Ratio Lipase Urine Color Urine Clarity Urine pH Ur Specific [place] Urine Protein Urine Glucose (UA) Urine Ketones Urine Occult Blood Urine Nitrite Urine Bilirubin Urine Urobilinogen Ur Leukocyte Esterase Urine RBC Urine WBC Ur Squamous Epith Cells Urine Crystals Urine Bacteria Ur Microscopic Review Urine Culture Comments Influenza A (Rapid) Influenza B (Rapid) Influenza Types A,B Ag 06/18/17 00:50 WBC RBC Hgb Hct MCV MCH MCHC RDW Plt Count MPV Neut # Lymph # Kidder # Eos # Baso # Absolute Nucleated RBC Nucleated RBC % Sodium Potassium Chloride Carbon Dioxide Anion Gap BUN Creatinine Estimated GFR (MDRD) Glucose Lactic Acid Calcium Total Bilirubin AST ALT Alkaline Phosphatase Troponin I B-Natriuretic Peptide Total Protein Albumin Globulin Albumin/Globulin Ratio Lipase Urine Color YELLOW Urine Clarity CLOUDY Urine pH >=9.0 H Ur Specific [place] 1.010 Urine Protein 100 H Urine Glucose (UA) NEGATIVE Urine Ketones NEGATIVE Urine Occult Blood MODERATE H Urine Nitrite POSITIVE H Urine Bilirubin NEGATIVE Urine Urobilinogen 0.2 (NORMAL) Ur Leukocyte Esterase LARGE H Urine RBC 6-10 H Urine WBC 11-25 H Ur Squamous Epith Cells NONE SEEN Urine Crystals 6-10 Triple Phos Urine Bacteria Many H Ur Microscopic Review INDICATED Urine Culture Comments INDICATED Influenza A (Rapid) Influenza B (Rapid) Influenza Types A,B Ag - Rads (name of study) ct abdomen and pelvis Radiology: Final report received (finding ), Discussed with rads (gonzáles balloon in prostate, cystitis, diverticular disease) PD MEDICAL DECISION MAKING - ED course Complexity details: reviewed old records, reviewed results, re-evaluated patient , considered differential, d/w patient, d/w public relations consultant ED course: Patient was seen and examined at bedside. IV access was gained and labs were drawn. Patient was treated with fluid bolus. urine was collected as well as blood cultures. Due to the history of diverticulits and the llq pain CT was ordered. Patient did have a urinary tract infection and was started on rocephin after looking at previous culture results. Hospitalist was contacted and the case was discussed with him. Patient was admitted for further evaluation and care. Departure - Departure Disposition: 66 [facility] DC/Xfer Clinical Impression: SIRS (systemic inflammatory response syndrome) UTI (urinary tract infection) Qualifiers: Urinary tract infection type: catheter-associated UTI Indwelling urinary catheter type: indwelling urethral catheter Condition: Stable
[2017-06-18] MEDS ORDERED: ONDANSETRON ODT 4 MG TABLET TL PRN (01:49)
[2017-06-18] MEDS ORDERED: PROCHLORPERAZINE 10 MG/2 ML VIAL IVP PRN (01:49)
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
[2017-06-18] MEDS ORDERED: IOPAMIDOL-300 100 ML VIAL IVP ONE (01:58)
[2017-06-18] MEDS ORDERED: VANCOMYCIN PER PHARMACY 0 GM in SODIUM CHLORIDE 0.9% 250 ML IV SCH (02:00)
[2017-06-18] MEDS ORDERED: LIDOCAINE 2% URO-JET 5 ML SYRINGE UR ONE (02:08)
--- NOTE | 2017-06-18 02:34 | CT Preliminary Report ---
Exam: CT ABDOMEN/PELVIS W/ IMPRESSION: 1. Cystitis/prostatitis. Favor primary cystitis over secondary cystitis from nonvisualized diverticul itis. There is severe colonic diverticulosis. 2. Santamaria catheter balloon is inflated within the prostate, suggest replacement. 3. Cholelithiasis. 4. Moderate atherosclerotic disease of the aorta and branches. This includes a severely diseased supe rior mesenteric artery. 5. Small hiatal hernia. Results discussed with Dr. Green. [facility] SITE ID: [id number]
--- NOTE | 2017-06-18 02:35 | XRAY Report ---
EXAM: CHEST RADIOGRAPHY EXAM DATE: 06/18/2017 02:03 AM. CLINICAL HISTORY: Fever, hypotension. COMPARISON: 12/30/2016, CT abdomen same day. TECHNIQUE: 1 view. FINDINGS: Lungs/Pleura: No focal opacities evident. No pleural effusion. No pneumothorax. Mediastinum: Within exam limitations, the cardiomediastinal contour is normal. Other: None. IMPRESSION: Negative single view chest. [facility] Referring Provider Line: [phone] SITE ID: [id number]
--- NOTE | 2017-06-18 02:40 | CT Report ---
EXAM: CT ABDOMEN AND PELVIS EXAM DATE: 06/18/2017 02:02 AM. CLINICAL HISTORY: Left lower quadrant pain, history of diverticulitis. COMPARISONS: 11/02/2016. TECHNIQUE: Routine helical CT imaging was performed through the abdomen and pelvis. IV contrast: 100 mL Isovue 300. Enteric contrast: No . Reconstructions: Coronal and sagittal. In accordance with CT protocol optimization, one or more of the following dose reduction techniques w ere utilized for this exam: automated exposure control, adjustment of mA and/or KV based on patient s ize, or use of iterative reconstructive technique. FINDINGS: Lung Bases: Severe coronary calcifications. Mild right lower lobe scarring. Liver: Unremarkable. No suspicious masses. Gallbladder/Bile Ducts: Cholelithiasis, otherwise unremarkable. Spleen: Unremarkable. Pancreas: Unremarkable. Adrenal Glands: Unremarkable. Kidneys: Numerous bilateral nonobstructing renal stones measuring up to 10 mm in the right renal pelv is. No ureteral stone or hydronephrosis. Small cysts bilaterally. Peritoneal Cavity/Bowel: Extensive colonic diverticulosis. No bowel obstruction or inflammatory proce ss seen. No free air or significant free fluid. No masses or adenopathy. No excessive stool burden. Pelvic Organs: Urinary bladder appears inflamed. There is mild edema around the prostate as well. Fol ey catheter balloon is inflated within the prostatic urethra. Vasculature: Moderate atherosclerotic disease of the aorta and branches. This includes a severely dis eased superior mesenteric artery. No aneurysm seen. Bones: No acute abnormality seen. Bridging syndesmophytes throughout the visualized thoracic spine. Other: Fat containing right inguinal hernia without apparent complication. IMPRESSION: 1. Cystitis/prostatitis. Favor primary cystitis over secondary cystitis from nonvisualized diverticul itis. There is severe colonic diverticulosis. 2. Santamaria catheter balloon is inflated within the prostate, suggest replacement. 3. Cholelithiasis. 4. Moderate atherosclerotic disease of the aorta and branches. This includes a severely diseased supe rior mesenteric artery. 5. Small hiatal hernia. 6. Numerous bilateral nonobstructing renal stones. Results discussed with Dr. Green. [facility] Referring Provider Line: [phone] SITE ID: [id number]
[2017-06-18] MEDS ORDERED: VANCOMYCIN INJ 1.5 GM in SODIUM CHLORIDE 0.9% 500 ML IV SCH (03:00)
[2017-06-18] MEDS: FORMOTEROL FUMARATE NEB 20 MCG/2 ML INH SCH ×3 (03:20→19:15)
[2017-06-18] MEDS: BUDESONIDE 0.5 MG/2 ML NEB INH SCH ×3 (03:20→19:15)
[2017-06-18] MEDS ORDERED: WATER FOR INJECTION,STERILE 40 ML ONE (03:26)
[2017-06-18] MEDS: GABAPENTIN 100 MG CAPSULE PO SCH ×2 (03:31→21:32)
[2017-06-18] MEDS: oxyCODONE 5 MG TABLET PO PRN ×4 (03:31→22:02)
[2017-06-18] MEDS: SODIUM CHLORIDE 0.9% 1,000 ML IV SCH ×3 (04:41→22:59)
[2017-06-18 06:11] LABS: BASOPHILS % (AUTO) 0.2 %; EOSINOPHILS # (AUTO) 0.1 10^3/uL (0.0-0.7); EOSINOPHILS % (AUTO) 0.9 %; HGB - HEMOGLOBIN 10.4 g/dL (14.0-18.0); LYMPHOCYTES # (AUTO) 1.4 10^3/uL (1.5-3.5); LYMPHOCYTES % (AUTO) 9.8 %; MEAN CORPUSCULAR HEMOGLOBIN 31.1 pg (27.0-31.0); MEAN CORPUSCULAR VOLUME 94.2 fL (80.0-94.0); MEAN PLATELET VOLUME 8.2 fL (7.4-11.4); MONOCYTES # (AUTO) 1.1 10^3/uL (0.0-1.0); MONOCYTES % (AUTO) 7.4 %; NEUTROPHILS # (AUTO) 11.8 10^3/uL (1.5-6.6); NEUTROPHILS % (AUTO) 81.7 %; PLT - PLATELET COUNT 199 10^3/uL (130-450); RED BLOOD COUNT 3.35 10^6/uL (4.70-6.10); RED CELL DISTRIBUTION WIDTH 13.4 % (12.0-15.0); WHITE BLOOD COUNT 14.4 x10^3/uL (4.8-10.8)
[2017-06-18 06:23] LABS: ALBUMIN 2.8 g/dL (3.2-5.5); ALBUMIN/GLOBULIN RATIO 0.8 (1.0-2.2); BILIRUBIN,TOTAL 1.2 mg/dL (0.2-1.0); CALCIUM 7.9 mg/dL (8.5-10.3); CREATININE 0.7 mg/dL (0.6-1.2); TOTAL PROTEIN 6.1 g/dL (6.7-8.2)
[2017-06-18 06:40] LABS: HB2 TOTAL 10.9 g/dL; HEMOGLOBIN A1C 0.5 g/dL; HEMOGLOBIN A1C % 6.3 % (4.6-6.2)
[2017-06-18] MEDS: IPRATROPIUM/ALBUTEROL 3 ML NEB INH PRN ×2 (07:18→19:15)
[2017-06-18] MEDS ORDERED: CEFEPIME 2 GM in SODIUM CHLORIDE 0.9% MINIBAG 100 ML IV SCH (09:00)
[2017-06-18] MEDS: CLOPIDOGREL 75 MG TABLET PO SCH (09:34)
[2017-06-18] MEDS: FAMOTIDINE 20 MG TABLET PO SCH (09:35)
[2017-06-18] MEDS: SACCHAROMYCES BOULARDII 250 MG CAPSULE PO SCH ×2 (09:36→21:32)
[2017-06-18] MEDS: SODIUM CHLORIDE FLUSH 0.9% 10 ML SYRINGE IVP SCH ×2 (09:38→18:07)
[2017-06-18] MEDS: ENOXAPARIN 40 MG/0.4 ML SYRINGE SUBQ SCH (09:42)
[2017-06-18] MEDS: INSULIN ASPART 300 UNIT/3 ML PEN SUBQ SCH ×4 (09:44→21:13)
[2017-06-18] MEDS: POLYETHYLENE GLYCOL 3350 17 GM PACKET PO SCH (10:00)
--- NOTE | 2017-06-18 15:44 | PROVIDER PROGRESS NOTE ---
Subjective - Prog Note Date Prog Note Date: 06/18/17 - Subjective Pt reports feeling: Improved Subjective: pt state he feels better, denies dysurine, fever, chill, chest pain, cough, Shortness of breath. pt has some kind of confusion as well Current Medications - Current Medications Current Medications: Active Medications Acetaminophen (Tylenol) 650 mg PO Q4HR PRN PRN Reason: Pain 1 to 4 Albuterol/Ipratropium (Duoneb) 3 ml INH Q4HR PRN PRN Reason: Wheezing Last Admin: 06/18/17 07:18 Dose: 3 ml Budesonide (Pulmicort) 0.5 mg INH RTBID [facility] Last Admin: 06/18/17 07:18 Dose: 0.5 mg Clopidogrel Bisulfate (Plavix) 75 mg PO DAILY [facility] Last Admin: 06/18/17 09:34 Dose: 75 mg Enoxaparin Sodium (Lovenox) 40 mg SUBQ DAILY [facility] Last Admin: 06/18/17 09:42 Dose: 40 mg Famotidine (Pepcid) 20 mg PO DAILY [facility] Last Admin: 06/18/17 09:35 Dose: 20 mg Formoterol Fumarate (Perforomist) 20 mcg INH RTBID [facility] Last Admin: 06/18/17 07:18 Dose: 20 mcg Gabapentin (Neurontin) 200 mg PO HS [facility] Last Admin: 06/18/17 03:31 Dose: 200 mg Guaifenesin (Robitussin Liquid) 200 mg PO Q4H PRN PRN Reason: Cough Sodium Chloride (Normal Saline 0.9%) 1,000 mls @ 120 mls/hr IV .Q8H20M [facility] Last Admin: 06/18/17 15:04 Dose: 120 mls/hr Ceftriaxone Sodium 2 gm/ (Sodium Chloride) 100 mls @ 200 mls/hr IV Q24H [facility] Vancomycin/Sodium Chloride (Vanco/Sod Chloride 0.9%) 1.5 gm in 500 mls @ 250 mls/hr IV Q24H [facility] Insulin Aspart (Novolog) 1 - 5 unit SUBQ 0800,1200,1700,2100 [facility] PRN Reason: Protocol Last Admin: 06/18/17 12:52 Dose: 1 unit Latanoprost (Xalatan Ophth Drops) 0 drops EACHEYE QPM [facility] Mirtazapine (Remeron) 15 mg PO QPM [facility] Ondansetron HCl (Zofran Odt) 4 mg TL Q6HR PRN PRN Reason: Nausea / Vomiting Oxycodone HCl (Roxicodone) 5 mg PO Q4HR PRN PRN Reason: Pain 5 to 7 Last Admin: 06/18/17 14:53 Dose: 5 mg Polyethylene Glycol (Miralax) 17 gm PO DAILY [facility] Last Admin: 06/18/17 10:00 Dose: 17 gm Prochlorperazine Edisylate (Compazine Inj) 10 mg IVP Q6HR PRN PRN Reason: Nausea / Vomiting Saccharomyces Boulardii (Florastor) 250 mg PO BID [facility] Last Admin: 06/18/17 09:36 Dose: 250 mg Sodium Chloride (Normal Saline Flush 0.9%) 10 ml IVP PRN PRN PRN Reason: NEEDED PER PROVIDER ORDERS Sodium Chloride (Normal Saline Flush 0.9%) 10 ml IVP 0100,0900,1700 [facility] Last Admin: 06/18/17 09:38 Dose: Not Given Tamsulosin HCl (Flomax) 0.4 mg PO QPM [facility] Acetaminophen 650 mg PO Q6H PRN 03/09/16 Fluticasone/Salmeterol [Advair 100-50 Diskus] 1 inh INH BID 03/09/16 Ipratropium/Albuterol [Duoneb] 3 ml INH Q6H PRN 11/02/16 Mirtazapine [Remeron] 15 mg PO QPM 11/02/16 Tamsulosin HCl [Flomax] 0.4 mg PO QPM 11/02/16 Guaifenesin [Child Mucinex Chest Congestion] 10 ml PO Q4H PRN 02/21/17 Cholecalciferol [Vitamin D3] 5,000 unit PO .EVERY Friday05/08/17 Saccharomyces Boulardii [Florastor] 1 tab PO BID 05/08/17 Senna [Senokot] 1 tab PO DAILY 05/09/17 Gabapentin 200 mg PO .QHS 06/09/17 Objective - Vital Signs/Intake & Output Reviewed Vital Signs: Yes Vital Signs: Vital Signs x48h Temp Pulse Resp BP Pulse Ox 06/18/17 14:00 37.7 C H 102 H 20 110/49 L 96 06/18/17 07:51 37.5 C 105 H 20 127/52 L 95 Intake & Output: Intake & Output 06/15/17 06/16/17 06/17/17 06/18/17 23:59 23:59 23:59 23:59 Intake Total 2600 Output Total 200 Balance 2400 - Objective General Appearance: positive: No acute distress, Alert. negative: Lethargic Eyes Bilateral: positive: Normal inspection, PERRL, No lid inflammation, Conjunctivae nml ENT: positive: ENT inspection nml, Pharynx nml, No signs of dehydration. negative: Purulent nasal drainage, Pharyngeal erythema, Oral lesions Neck: positive: Nml inspection, Thyroid nml, No JVD, Trachea midline. negative : Thyromegaly, Lymphadenopathy (R), Lymphadenopathy (L), Stiff neck, Carotid bruit, Swelling/bruising, Tracheal deviation Respiratory: positive: Chest non-tender, No respiratory distress, Breath sounds nml. negative: Wheezes, Rales, Rhonchi Cardiovascular: positive: Regular rate & rhythm, No murmur, No gallop. negative : Irregularly irregular, Extrasystoles, Tachycardia, Bradycardia, Systolic murmur, Diastolic murmur Peripheral Pulses: 2+ Radial (R), 2+ Radial (L), 2+ Dorsalis pedis (R), 2+ Dorsalis pedis (L) Abdomen: positive: Non-tender, No organomegaly, Nml bowel sounds, No distention. negative: Tenderness, Guarding, Rebound Back: positive: Nml inspection. negative: CVA tenderness (R), CVA tenderness (L ) Skin: positive: Color nml, No rash, Warm, Dry. negative: Cyanosis, Diaphoresis , Pallor Extremities: positive: Non-tender, Full ROM, Nml appearance. negative: Calf tenderness, Joint swelling, Manjinder's sign/cords Neurologic/Psychiatric: positive: Sensation nml, Mood/affect nml. negative: Sensory loss, Facial droop, Slurred/abnml speech, Depressed mood/affect - Lab Results Fish Bones: 06/18/17 06:00 06/18/17 06:00 Other Labs: Lab Results x24hrs 06/18/17 06/18/17 06/18/17 Range/Units 06:00 06:00 06:00 WBC 14.4 H (4.8-10.8) x10^3/uL RBC 3.35 L (4.70-6.10) 10^6/uL Hgb 10.4 L (14.0-18.0) g/dL Hct 31.6 L (42.0-52.0) % MCV 94.2 H (80.0-94.0) fL MCH 31.1 H (27.0-31.0) pg MCHC 33.0 (32.0-36.0) g/dL RDW 13.4 (12.0-15.0) % Plt Count 199 (130-450) 10^3/uL MPV 8.2 (7.4-11.4) fL Neut # 11.8 H (1.5-6.6) 10^3/uL Lymph # 1.4 L (1.5-3.5) 10^3/uL Chester # 1.1 H (0.0-1.0) 10^3/uL Eos # 0.1 (0.0-0.7) 10^3/uL Baso # 0.0 (0.0-0.1) 10^3/uL Absolute Nucleated RBC 0.00 x10^3/uL Nucleated RBC % 0.0 /100WBC Sodium 133 L (135-145) mmol/L Potassium 3.8 (3.5-5.0) mmol/L Chloride 97 L (101-111) mmol/L Carbon Dioxide 28 (21-32) mmol/L Anion Gap 8.0 (6-13) BUN 12 (6-20) mg/dL Creatinine 0.7 (0.6-1.2) mg/dL Estimated GFR (MDRD) 107 (>89) Glucose 162 H (70-100) mg/dL Glycated Hemoglobin 6.3 H (4.6-6.2) % Estim Average Glucose 134 H (70-100) Calcium 7.9 L (8.5-10.3) mg/dL Total Bilirubin 1.2 H (0.2-1.0) mg/dL AST 14 (10-42) IU/L ALT 11 (10-60) IU/L Alkaline Phosphatase 107 (42-121) IU/L Total Protein 6.1 L (6.7-8.2) g/dL Albumin 2.8 L (3.2-5.5) g/dL Globulin 3.3 (2.1-4.2) g/dL Albumin/Globulin Ratio 0.8 L (1.0-2.2) Assessment/Plan - Problem List (1) Sepsis Impression: (1) Sepsis Conclusion/Plan: pt has fever, review of CXR and CT of abdomen continue Rocephin and Vancomycin follow up blood and urine culture continue IVF vital, lab continue monitor Patient has previous history of septic shock during presentation in December 2016 secondary to urinary tract infection. Today the patient presented with fever at [facility] however temperature was only 37.1 on arrival, tachycardia with heart rate in the 110s, patient was tachypneic with respiratory rate greater than 20 and patient had leukocytosis of greater than 15 ,000. The patient appeared to be quite dry and was hypotensive both at carriage and again in the emergency department here. Source of patient's infection appeared to be a urinary tract infection likely due to a indwelling Santamaria catheter. Patient did have symptoms of dysuria and fever. The patient's UA was grossly positive and urine in the catheter looked cloudy. Plan: Patient will be continued on IV fluids he has been given 2 L in the emergency department and will be given an additional 1 L bolus and then placed on maintenance fluid We will monitor patient's blood pressure every 4 hours Patient will be given IV ceftriaxone and vancomycin given his previous urine cultures and we will await his urine culture and blood cultures We will remove patient's Santamaria catheter and replaced with new catheter if needed. (2) UTI (urinary tract infection) Conclusion/Plan: continue antibiotics pt's Santamaria was removed, pt has urination, check bladder scan, will follow up follow up UA culture Patient has history of recurrent UTIs including 2 episodes in 2017 with sepsis including most recent episode in December 2016 requiring intensive care with septic shock. Today patient appears to be presenting with early sepsis and is again found to have a urinary tract infection. Patient did present with symptoms of dysuria and fever. Patient's urine analysis was grossly positive. The patient's Santamaria catheter had cloudy urine and it was unclear as to when it was last changed. Plan: Patient is being started on IV vancomycin and ceftriaxone as patient's previous urine cultures grew staph aureus and Enterobacter cloacae which were susceptible to vancomycin and ceftriaxone Urine cultures have been collected and will be followed up Patient's Santamaria catheter has been removed in the emergency department and after removal patient was able to urinate therefore we will leave the Santamaria catheter out and allow for urinary tract infection to be treated. We will check bladder scans to see if patient does require urinary catheter in the future. 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 Patient has end- stage COPD and is being followed by palliative care at [facility]. He is on duo nebs and Advair at home with which the patient has been stable. Plan: Patient will be placed on duo nebs as needed along with budesonide and formoterol twice a day We will continue his home dose of oxygen (4) BPH (benign prostatic hyperplasia) Conclusion/Plan: continue Flomax check bladder scan, if pt need Santamaria in the future The patient has history of BPH and has an indwelling Santamaria catheter. The patient is also on Flomax at home. Given the patient's recurrent urinary tract infections and ongoing urinary tract infection the patient's current Santamaria catheter was removed. Patient was able to void after having the catheter removed therefore a new catheter has not yet been placed. We will monitor to see if patient still needs a Santamaria catheter. The patient will get bladder scans throughout the day and if residuals are high or he has discomfort we may need to place a new Santamaria catheter. The patient will be continued on his home dose of Flomax. (5) Diabetes Conclusion/Plan: pt's A1C 6.3, is in the good control Patient has a history of type 2 diabetes but is not currently on any medications. The patient is diet controlled. The patient's blood glucose on presentation the emergency department is in the 140s which is only mildly elevated. Given the patient's urinary tract infection we will try to tightly control his blood glucose therefore the patient will be placed on sliding scale insulin and we will check a hemoglobin A1c. (6) Hyponatremia Conclusion/Plan: Patient has a sodium of 133 on presentation. The patient does appear to be quite dry this appears to be hypovolemic hyponatremia. The patient has low blood pressures therefore he will be given IV fluids and we will continue to monitor his sodium
[2017-06-18] MEDS: ACETAMINOPHEN 325 MG TABLET PO PRN ×2 (16:34→22:55)
[2017-06-18] MEDS ORDERED: VANCOMYCIN INJ 1.25 GM in SODIUM CHLORIDE 0.9% 250 ML IV SCH (21:00)
[2017-06-18] MEDS: LATANOPROST 0.005% OPHTH DROPS EACHEYE SCH (21:31)
[2017-06-18] MEDS: TAMSULOSIN 0.4 MG CAPSULE PO SCH (21:32)
[2017-06-18] MEDS: MIRTAZAPINE 15 MG TABLET PO SCH (21:32)
[2017-06-19] MEDS: cefTRIAXone 2 GM in SODIUM CHLORIDE 0.9% MINIBAG 100 ML IV SCH (01:17)
[2017-06-19] MEDS: SODIUM CHLORIDE FLUSH 0.9% 10 ML SYRINGE IVP SCH ×3 (01:23→18:19)
[2017-06-19] MEDS: oxyCODONE 5 MG TABLET PO PRN ×2 (05:28→11:05)
[2017-06-19 05:45] LABS: BASOPHILS % (AUTO) 0.2 %; EOSINOPHILS # (AUTO) 0.3 10^3/uL (0.0-0.7); EOSINOPHILS % (AUTO) 2.6 %; HGB - HEMOGLOBIN 9.7 g/dL (14.0-18.0); LYMPHOCYTES # (AUTO) 1.2 10^3/uL (1.5-3.5); LYMPHOCYTES % (AUTO) 10.4 %; MEAN CORPUSCULAR HEMOGLOBIN 30.9 pg (27.0-31.0); MEAN CORPUSCULAR HGB CONC 32.4 g/dL (32.0-36.0); MEAN CORPUSCULAR VOLUME 95.4 fL (80.0-94.0); MEAN PLATELET VOLUME 8.2 fL (7.4-11.4); MONOCYTES # (AUTO) 0.9 10^3/uL (0.0-1.0); MONOCYTES % (AUTO) 7.6 %; NEUTROPHILS # (AUTO) 8.9 10^3/uL (1.5-6.6); NEUTROPHILS % (AUTO) 79.2 %; PLT - PLATELET COUNT 193 10^3/uL (130-450); RED BLOOD COUNT 3.14 10^6/uL (4.70-6.10); RED CELL DISTRIBUTION WIDTH 13.6 % (12.0-15.0); WHITE BLOOD COUNT 11.3 x10^3/uL (4.8-10.8)
[2017-06-19 05:52] LABS: ALBUMIN 2.6 g/dL (3.2-5.5); ALBUMIN/GLOBULIN RATIO 0.9 (1.0-2.2); ALKALINE PHOSPHATASE 91 IU/L (42-121); ALT ALANINE AMINOTRANSFERASE < 10 IU/L (10-60); AST ASPARTATE AMINOTRANSFERASE 10 IU/L (10-42); BILIRUBIN,TOTAL 0.7 mg/dL (0.2-1.0); BUN - BLOOD UREA NITROGEN 11 mg/dL (6-20); CALCIUM 7.8 mg/dL (8.5-10.3); CARBON DIOXIDE - CO2 26 mmol/L (21-32); CHLORIDE 103 mmol/L (101-111); CREATININE 0.8 mg/dL (0.6-1.2); GFR - MDRD 92 (>89); GLUCOSE 116 mg/dL (70-100); MAGNESIUM 1.6 mg/dL (1.7-2.8); SODIUM 137 mmol/L (135-145); TOTAL PROTEIN 5.6 g/dL (6.7-8.2)
[2017-06-19] MEDS: IPRATROPIUM/ALBUTEROL 3 ML NEB INH PRN ×2 (07:19→16:14)
[2017-06-19] MEDS: FORMOTEROL FUMARATE NEB 20 MCG/2 ML INH SCH ×2 (07:20→16:14)
[2017-06-19] MEDS: BUDESONIDE 0.5 MG/2 ML NEB INH SCH ×2 (07:20→16:14)
[2017-06-19] MEDS: SODIUM CHLORIDE 0.9% 1,000 ML IV SCH ×2 (07:59→20:34)
[2017-06-19] MEDS ORDERED: MAGNESIUM SULFATE 2 GRAM 2 GM/50 ML BAG IV ONE (08:00)
[2017-06-19] MEDS ORDERED: VANCOMYCIN 1.5 GM/NS 500 ML 1.5 GM/500 ML BAG IV SCH (08:00)
[2017-06-19] MEDS: INSULIN ASPART 300 UNIT/3 ML PEN SUBQ SCH ×4 (08:14→21:35)
[2017-06-19] MEDS: FAMOTIDINE 20 MG TABLET PO SCH (08:15)
[2017-06-19] MEDS: SACCHAROMYCES BOULARDII 250 MG CAPSULE PO SCH ×2 (08:15→21:18)
[2017-06-19] MEDS: POLYETHYLENE GLYCOL 3350 17 GM PACKET PO SCH (08:15)
[2017-06-19] MEDS: CLOPIDOGREL 75 MG TABLET PO SCH (08:15)
[2017-06-19] MEDS: ENOXAPARIN 40 MG/0.4 ML SYRINGE SUBQ SCH (08:15)
[2017-06-19] MEDS: guaiFENesin 100 MG/5 ML UDC PO PRN (11:05)
--- NOTE | 2017-06-19 11:16 | PROVIDER PROGRESS NOTE ---
Subjective - Prog Note Date Prog Note Date: 06/19/17 - Subjective Pt reports feeling: No change Subjective: pt confused as his baseline. No fever reported on last night. No chest pain and shortness of breath, cough reported. Current Medications - Current Medications Current Medications: Active Medications Acetaminophen (Tylenol) 650 mg PO Q4HR PRN PRN Reason: Pain 1 to 4 Last Admin: 06/18/17 22:55 Dose: 650 mg Albuterol/Ipratropium (Duoneb) 3 ml INH Q4HR PRN PRN Reason: Wheezing Last Admin: 06/19/17 07:19 Dose: 3 ml Budesonide (Pulmicort) 0.5 mg INH RTBID [facility] Last Admin: 06/19/17 07:20 Dose: 0.5 mg Clopidogrel Bisulfate (Plavix) 75 mg PO DAILY [facility] Last Admin: 06/19/17 08:15 Dose: 75 mg Enoxaparin Sodium (Lovenox) 40 mg SUBQ DAILY [facility] Last Admin: 06/19/17 08:15 Dose: 40 mg Famotidine (Pepcid) 20 mg PO DAILY [facility] Last Admin: 06/19/17 08:15 Dose: 20 mg Formoterol Fumarate (Perforomist) 20 mcg INH RTBID [facility] Last Admin: 06/19/17 07:20 Dose: 20 mcg Gabapentin (Neurontin) 200 mg PO HS [facility] Last Admin: 06/18/17 21:32 Dose: 200 mg Guaifenesin (Robitussin Liquid) 200 mg PO Q4H PRN PRN Reason: Cough Last Admin: 06/19/17 11:05 Dose: 200 mg Sodium Chloride (Normal Saline 0.9%) 1,000 mls @ 120 mls/hr IV .Q8H20M [facility] Last Admin: 06/19/17 07:59 Dose: 120 mls/hr Ceftriaxone Sodium 2 gm/ (Sodium Chloride) 100 mls @ 200 mls/hr IV Q24H [facility] Last Infusion: 06/19/17 07:54 Dose: Infused Vancomycin/Sodium Chloride (Vanco/Sod Chloride 0.9%) 1.5 gm in 500 mls @ 250 mls/hr IV Q24H [facility] Last Admin: 06/19/17 10:26 Dose: 250 mls/hr Insulin Aspart (Novolog) 1 - 5 unit SUBQ 0800,1200,1700,2100 [facility] PRN Reason: Protocol Last Admin: 06/19/17 08:14 Dose: Not Given Latanoprost (Xalatan Ophth Drops) 0 drops EACHEYE QPM [facility] Last Admin: 06/18/17 21:31 Dose: 1 drops Mirtazapine (Remeron) 15 mg PO QPM [facility] Last Admin: 06/18/17 21:32 Dose: 15 mg Ondansetron HCl (Zofran Odt) 4 mg TL Q6HR PRN PRN Reason: Nausea / Vomiting Oxycodone HCl (Roxicodone) 5 mg PO Q4HR PRN PRN Reason: Pain 5 to 7 Last Admin: 06/19/17 11:05 Dose: 5 mg Polyethylene Glycol (Miralax) 17 gm PO DAILY [facility] Last Admin: 06/19/17 08:15 Dose: 17 gm Prochlorperazine Edisylate (Compazine Inj) 10 mg IVP Q6HR PRN PRN Reason: Nausea / Vomiting Saccharomyces Boulardii (Florastor) 250 mg PO BID [facility] Last Admin: 06/19/17 08:15 Dose: 250 mg Sodium Chloride (Normal Saline Flush 0.9%) 10 ml IVP PRN PRN PRN Reason: NEEDED PER PROVIDER ORDERS Sodium Chloride (Normal Saline Flush 0.9%) 10 ml IVP 0100,0900,1700 [facility] Last Admin: 06/19/17 08:16 Dose: Not Given Tamsulosin HCl (Flomax) 0.4 mg PO QPM [facility] Last Admin: 06/18/17 21:32 Dose: 0.4 mg Acetaminophen 650 mg PO Q6H PRN 03/09/16 Fluticasone/Salmeterol [Advair 100-50 Diskus] 1 inh INH BID 03/09/16 Ipratropium/Albuterol [Duoneb] 3 ml INH Q6H PRN 11/02/16 Mirtazapine [Remeron] 15 mg PO QPM 11/02/16 Tamsulosin HCl [Flomax] 0.4 mg PO QPM@1800 11/02/16 Guaifenesin [Child Mucinex Chest Congestion] 10 ml PO Q4H PRN 02/21/17 Cholecalciferol [Vitamin D3] 5,000 unit PO FR@0800 05/08/17 Senna [Senokot] 1 tab PO DAILY@1200 05/09/17 Gabapentin 200 mg PO QPM 06/09/17 Gabapentin [Neurontin] 200 mg PO 0700,1400 06/18/17 Objective - Vital Signs/Intake & Output Reviewed Vital Signs: Yes Vital Signs: Vital Signs x48h Temp Pulse Pulse Resp BP Pulse Ox 06/19/17 09:29 37.6 C H 114 H 19 104/43 L 93 06/19/17 07:20 94 16 06/19/17 04:18 37.2 C 96 18 110/51 L 95 Intake & Output: Intake & Output 06/16/17 06/17/17 06/18/17 06/19/17 23:59 23:59 23:59 23:59 Intake Total 3650 1350 Output Total 200 Balance 3450 1350 - Objective General Appearance: positive: No acute distress, Alert. negative: Lethargic Eyes Bilateral: positive: Normal inspection, PERRL, No lid inflammation, Conjunctivae nml ENT: positive: ENT inspection nml, Pharynx nml, No signs of dehydration. negative: Purulent nasal drainage, Pharyngeal erythema, Oral lesions Neck: positive: Nml inspection, Thyroid nml, No JVD, Trachea midline. negative : Thyromegaly, Lymphadenopathy (R), Lymphadenopathy (L), Stiff neck, Carotid bruit, Swelling/bruising, Tracheal deviation Respiratory: positive: Chest non-tender, No respiratory distress, Breath sounds nml. negative: Wheezes, Rales, Rhonchi Cardiovascular: positive: Regular rate & rhythm, No murmur, No gallop. negative : Irregularly irregular, Extrasystoles, Tachycardia, Bradycardia, Systolic murmur, Diastolic murmur Peripheral Pulses: 2+ Radial (R), 2+ Radial (L), 2+ Dorsalis pedis (R), 2+ Dorsalis pedis (L) Abdomen: positive: Non-tender, No organomegaly, Nml bowel sounds, No distention. negative: Tenderness, Guarding, Rebound Skin: positive: Color nml, No rash, Warm, Dry. negative: Cyanosis, Diaphoresis , Pallor Extremities: positive: Non-tender, Nml appearance. negative: Calf tenderness, Joint swelling, Manjinder's sign/cords Neurologic/Psychiatric: positive: Sensation nml, Mood/affect nml. negative: Sensory loss, Facial droop, Slurred/abnml speech, Depressed mood/affect - Lab Results Fish Bones: 06/19/17 05:20 06/19/17 05:20 Other Labs: Lab Results x24hrs 06/19/17 06/19/17 06/19/17 Range/Units 07:36 05:20 05:20 WBC 11.3 H (4.8-10.8) x10^3/uL RBC 3.14 L (4.70-6.10) 10^6/uL Hgb 9.7 L (14.0-18.0) g/dL Hct 29.9 L (42.0-52.0) % MCV 95.4 H (80.0-94.0) fL MCH 30.9 (27.0-31.0) pg MCHC 32.4 (32.0-36.0) g/dL RDW 13.6 (12.0-15.0) % Plt Count 193 (130-450) 10^3/uL MPV 8.2 (7.4-11.4) fL Neut # 8.9 H (1.5-6.6) 10^3/uL Lymph # 1.2 L (1.5-3.5) 10^3/uL Dunn # 0.9 (0.0-1.0) 10^3/uL Eos # 0.3 (0.0-0.7) 10^3/uL Baso # 0.0 (0.0-0.1) 10^3/uL Absolute Nucleated RBC 0.00 x10^3/uL Nucleated RBC % 0.0 /100WBC Sodium 137 (135-145) mmol/L Potassium 3.7 (3.5-5.0) mmol/L Chloride 103 (101-111) mmol/L Carbon Dioxide 26 (21-32) mmol/L Anion Gap 8.0 (6-13) BUN 11 (6-20) mg/dL Creatinine 0.8 (0.6-1.2) mg/dL Estimated GFR (MDRD) 92 (>89) Glucose 116 H (70-100) mg/dL POC Whole Bld Glucose 115 H (70 - 100) mg/dL Calcium 7.8 L (8.5-10.3) mg/dL Magnesium 1.6 L (1.7-2.8) mg/dL Total Bilirubin 0.7 (0.2-1.0) mg/dL AST 10 (10-42) IU/L ALT < 10 L (10-60) IU/L Alkaline Phosphatase 91 (42-121) IU/L Total Protein 5.6 L (6.7-8.2) g/dL Albumin 2.6 L (3.2-5.5) g/dL Globulin 3.0 (2.1-4.2) g/dL Albumin/Globulin Ratio 0.9 L (1.0-2.2) 06/18/17 06/18/17 Range/Units 20:33 16:44 WBC (4.8-10.8) x10^3/uL RBC (4.70-6.10) 10^6/uL Hgb (14.0-18.0) g/dL Hct (42.0-52.0) % MCV (80.0-94.0) fL MCH (27.0-31.0) pg MCHC (32.0-36.0) g/dL RDW (12.0-15.0) % Plt Count (130-450) 10^3/uL MPV (7.4-11.4) fL Neut # (1.5-6.6) 10^3/uL Lymph # (1.5-3.5) 10^3/uL Dunn # (0.0-1.0) 10^3/uL Eos # (0.0-0.7) 10^3/uL Baso # (0.0-0.1) 10^3/uL Absolute Nucleated RBC x10^3/uL Nucleated RBC % /100WBC Sodium (135-145) mmol/L Potassium (3.5-5.0) mmol/L Chloride (101-111) mmol/L Carbon Dioxide (21-32) mmol/L Anion Gap (6-13) BUN (6-20) mg/dL Creatinine (0.6-1.2) mg/dL Estimated GFR (MDRD) (>89) Glucose (70-100) mg/dL POC Whole Bld Glucose 140 H 123 H (70 - 100) mg/dL Calcium (8.5-10.3) mg/dL Magnesium (1.7-2.8) mg/dL Total Bilirubin (0.2-1.0) mg/dL AST (10-42) IU/L ALT (10-60) IU/L Alkaline Phosphatase (42-121) IU/L Total Protein (6.7-8.2) g/dL Albumin (3.2-5.5) g/dL Globulin (2.1-4.2) g/dL Albumin/Globulin Ratio (1.0-2.2) Assessment/Plan - Problem List (1) Sepsis Impression: (1) Sepsis Conclusion/Plan: no fever on last night WBC decreased blood culture preliminary show no growth of bacteria continue antibiotics continue mild to moderate IVF vital and lab continue monitor pt has fever, review of CXR and CT of abdomen continue Rocephin and Vancomycin follow up blood and urine culture continue IVF vital, lab continue monitor Patient has previous history of septic shock during presentation in December 2016 secondary to urinary tract infection. Today the patient presented with fever at [facility] however temperature was only 37.1 on arrival, tachycardia with heart rate in the 110s, patient was tachypneic with respiratory rate greater than 20 and patient had leukocytosis of greater than 15 ,000. The patient appeared to be quite dry and was hypotensive both at carriage and again in the emergency department here. Source of patient's infection appeared to be a urinary tract infection likely due to a indwelling Santamaria catheter. Patient did have symptoms of dysuria and fever. The patient's UA was grossly positive and urine in the catheter looked cloudy. Plan: Patient will be continued on IV fluids he has been given 2 L in the emergency department and will be given an additional 1 L bolus and then placed on maintenance fluid We will monitor patient's blood pressure every 4 hours Patient will be given IV ceftriaxone and vancomycin given his previous urine cultures and we will await his urine culture and blood cultures We will remove patient's Santamaria catheter and replaced with new catheter if needed. (2) UTI (urinary tract infection) Conclusion/Plan: UA culture reveals positive Proteus Mirabilis, and sensitive to Rocephin continue Rocephin continue vital monitor continue antibiotics pt's Santamaria was removed, pt has urination, check bladder scan, will follow up follow up UA culture Patient has history of recurrent UTIs including 2 episodes in 2017 with sepsis including most recent episode in December 2016 requiring intensive care with septic shock. Today patient appears to be presenting with early sepsis and is again found to have a urinary tract infection. Patient did present with symptoms of dysuria and fever. Patient's urine analysis was grossly positive. The patient's Santamaria catheter had cloudy urine and it was unclear as to when it was last changed. Plan: Patient is being started on IV vancomycin and ceftriaxone as patient's previous urine cultures grew staph aureus and Enterobacter cloacae which were susceptible to vancomycin and ceftriaxone Urine cultures have been collected and will be followed up Patient's Santamaria catheter has been removed in the emergency department and after removal patient was able to urinate therefore we will leave the Santamaria catheter out and allow for urinary tract infection to be treated. We will check bladder scans to see if patient does require urinary catheter in the future. 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 Patient has end- stage COPD and is being followed by palliative care at [facility]. He is on duo nebs and Advair at home with which the patient has been stable. Plan: Patient will be placed on duo nebs as needed along with budesonide and formoterol twice a day We will continue his home dose of oxygen (4) BPH (benign prostatic hyperplasia) Conclusion/Plan: continue Flomax check bladder scan, if pt need Santamaria in the future The patient has history of BPH and has an indwelling Santamaria catheter. The patient is also on Flomax at home. Given the patient's recurrent urinary tract infections and ongoing urinary tract infection the patient's current Santamaria catheter was removed. Patient was able to void after having the catheter removed therefore a new catheter has not yet been placed. We will monitor to see if patient still needs a Santamaria catheter. The patient will get bladder scans throughout the day and if residuals are high or he has discomfort we may need to place a new Santamaria catheter. The patient will be continued on his home dose of Flomax. (5) Diabetes Conclusion/Plan: pt's A1C 6.3, glucose is in the good control Patient has a history of type 2 diabetes but is not currently on any medications. The patient is diet controlled. The patient's blood glucose on presentation the emergency department is in the 140s which is only mildly elevated. Given the patient's urinary tract infection we will try to tightly control his blood glucose therefore the patient will be placed on sliding scale insulin and we will check a hemoglobin A1c. (6) Hyponatremia resolved. Na is 137 (7) urinary retention history of Santamaria and UTI, sepsis from UTI now Santamaria is out, pt has urinary incontinence Bladder scan is less than 100cc per nurse report discuss with palliative care provider, Ms.Carla Landaverde, if pt does not have Santamaria, pt will walk and high risk of fall, but in the Santamaria, pt had four times of UTI and sepsis. continue Flomax
[2017-06-19] MEDS: ACETAMINOPHEN 325 MG TABLET PO PRN (15:52)
[2017-06-19] MEDS: GABAPENTIN 100 MG CAPSULE PO SCH (21:18)
[2017-06-19] MEDS: TAMSULOSIN 0.4 MG CAPSULE PO SCH (21:18)
[2017-06-19] MEDS: MIRTAZAPINE 15 MG TABLET PO SCH (21:18)
[2017-06-19] MEDS: LATANOPROST 0.005% OPHTH DROPS EACHEYE SCH (21:23)
[2017-06-20] MEDS: SODIUM CHLORIDE FLUSH 0.9% 10 ML SYRINGE IVP SCH ×3 (01:53→17:37)
[2017-06-20] MEDS: cefTRIAXone 2 GM in SODIUM CHLORIDE 0.9% MINIBAG 100 ML IV SCH (01:53)
[2017-06-20 06:02] LABS: BASOPHILS % (AUTO) 0.1 %; EOSINOPHILS # (AUTO) 0.3 10^3/uL (0.0-0.7); HGB - HEMOGLOBIN 9.8 g/dL (14.0-18.0); LYMPHOCYTES # (AUTO) 1.3 10^3/uL (1.5-3.5); LYMPHOCYTES % (AUTO) 10.3 %; MEAN CORPUSCULAR HEMOGLOBIN 31.1 pg (27.0-31.0); MEAN CORPUSCULAR HGB CONC 32.3 g/dL (32.0-36.0); MEAN CORPUSCULAR VOLUME 96.4 fL (80.0-94.0); MEAN PLATELET VOLUME 8.5 fL (7.4-11.4); MONOCYTES # (AUTO) 0.8 10^3/uL (0.0-1.0); MONOCYTES % (AUTO) 6.4 %; NEUTROPHILS # (AUTO) 10.4 10^3/uL (1.5-6.6); NEUTROPHILS % (AUTO) 81.2 %; PLT - PLATELET COUNT 222 10^3/uL (130-450); RED BLOOD COUNT 3.16 10^6/uL (4.70-6.10); RED CELL DISTRIBUTION WIDTH 13.4 % (12.0-15.0); WHITE BLOOD COUNT 12.8 x10^3/uL (4.8-10.8)
[2017-06-20 06:12] LABS: ALBUMIN 2.7 g/dL (3.2-5.5); ALBUMIN/GLOBULIN RATIO 0.9 (1.0-2.2); ALKALINE PHOSPHATASE 96 IU/L (42-121); ALT ALANINE AMINOTRANSFERASE < 10 IU/L (10-60); AST ASPARTATE AMINOTRANSFERASE 13 IU/L (10-42); BILIRUBIN,TOTAL 0.9 mg/dL (0.2-1.0); BUN - BLOOD UREA NITROGEN 7 mg/dL (6-20); CALCIUM 8.1 mg/dL (8.5-10.3); CARBON DIOXIDE - CO2 23 mmol/L (21-32); CHLORIDE 102 mmol/L (101-111); CREATININE 0.7 mg/dL (0.6-1.2); GFR - MDRD 107 (>89); GLUCOSE 127 mg/dL (70-100); SODIUM 137 mmol/L (135-145); TOTAL PROTEIN 5.7 g/dL (6.7-8.2)
[2017-06-20] MEDS: SODIUM CHLORIDE 0.9% 1,000 ML IV SCH ×3 (06:39→14:31)
[2017-06-20] MEDS: IPRATROPIUM/ALBUTEROL 3 ML NEB INH PRN ×2 (07:25→19:34)
[2017-06-20] MEDS: FORMOTEROL FUMARATE NEB 20 MCG/2 ML INH SCH ×2 (07:25→19:34)
[2017-06-20] MEDS: BUDESONIDE 0.5 MG/2 ML NEB INH SCH ×2 (07:26→19:34)
[2017-06-20] MEDS: SACCHAROMYCES BOULARDII 250 MG CAPSULE PO SCH ×2 (08:44→17:42)
[2017-06-20] MEDS: CLOPIDOGREL 75 MG TABLET PO SCH (08:44)
[2017-06-20] MEDS: FAMOTIDINE 20 MG TABLET PO SCH (08:44)
[2017-06-20] MEDS: ENOXAPARIN 40 MG/0.4 ML SYRINGE SUBQ SCH (08:46)
[2017-06-20] MEDS: INSULIN ASPART 300 UNIT/3 ML PEN SUBQ SCH ×4 (08:48→21:31)
[2017-06-20] MEDS: POLYETHYLENE GLYCOL 3350 17 GM PACKET PO SCH (08:48)
[2017-06-20] MEDS: oxyCODONE 5 MG TABLET PO PRN (10:43)
--- NOTE | 2017-06-20 11:21 | PROVIDER PROGRESS NOTE ---
Subjective - Prog Note Date Prog Note Date: 06/20/17 - Subjective Pt reports feeling: No change Subjective: pt is still confused, may be baseline. Pt is reported poor appetite. The ticketing agent follow up pt now. Current Medications - Current Medications Current Medications: Active Medications Acetaminophen (Tylenol) 650 mg PO Q4HR PRN PRN Reason: Pain 1 to 4 Last Admin: 06/19/17 15:52 Dose: 650 mg Albuterol/Ipratropium (Duoneb) 3 ml INH Q4HR PRN PRN Reason: Wheezing Last Admin: 06/20/17 07:25 Dose: 3 ml Budesonide (Pulmicort) 0.5 mg INH RTBID [facility] Last Admin: 06/20/17 07:26 Dose: 0.5 mg Clopidogrel Bisulfate (Plavix) 75 mg PO DAILY [facility] Last Admin: 06/20/17 08:44 Dose: 75 mg Enoxaparin Sodium (Lovenox) 40 mg SUBQ DAILY [facility] Last Admin: 06/20/17 08:46 Dose: 40 mg Famotidine (Pepcid) 20 mg PO DAILY [facility] Last Admin: 06/20/17 08:44 Dose: 20 mg Formoterol Fumarate (Perforomist) 20 mcg INH RTBID [facility] Last Admin: 06/20/17 07:25 Dose: 20 mcg Gabapentin (Neurontin) 200 mg PO HS [facility] Last Admin: 06/19/17 21:18 Dose: 200 mg Guaifenesin (Robitussin Liquid) 200 mg PO Q4H PRN PRN Reason: Cough Last Admin: 06/19/17 11:05 Dose: 200 mg Sodium Chloride (Normal Saline 0.9%) 1,000 mls @ 120 mls/hr IV .Q8H20M [facility] Last Admin: 06/20/17 06:40 Dose: Not Given Ceftriaxone Sodium 2 gm/ (Sodium Chloride) 100 mls @ 200 mls/hr IV Q24H [facility] Last Infusion: 06/20/17 02:23 Dose: Infused Insulin Aspart (Novolog) 1 - 5 unit SUBQ 0800,1200,1700,2100 [facility] PRN Reason: Protocol Last Admin: 06/20/17 08:48 Dose: Not Given Latanoprost (Xalatan Ophth Drops) 0 drops EACHEYE QPM [facility] Last Admin: 03/08/18 21:23 Dose: 1 drops Mirtazapine (Remeron) 15 mg PO QPM [facility] Last Admin: 06/19/17 21:18 Dose: 15 mg Ondansetron HCl (Zofran Odt) 4 mg TL Q6HR PRN PRN Reason: Nausea / Vomiting Oxycodone HCl (Roxicodone) 5 mg PO Q4HR PRN PRN Reason: Pain 5 to 7 Last Admin: 06/20/17 10:43 Dose: 5 mg Polyethylene Glycol (Miralax) 17 gm PO DAILY [facility] Last Admin: 06/20/17 08:48 Dose: 17 gm Prochlorperazine Edisylate (Compazine Inj) 10 mg IVP Q6HR PRN PRN Reason: Nausea / Vomiting Saccharomyces Boulardii (Florastor) 250 mg PO BID [facility] Last Admin: 06/20/17 08:44 Dose: 250 mg Sodium Chloride (Normal Saline Flush 0.9%) 10 ml IVP PRN PRN PRN Reason: NEEDED PER PROVIDER ORDERS Sodium Chloride (Normal Saline Flush 0.9%) 10 ml IVP 0100,0900,1700 [facility] Last Admin: 06/20/17 08:48 Dose: Not Given Tamsulosin HCl (Flomax) 0.4 mg PO QPM [facility] Last Admin: 06/19/17 21:18 Dose: 0.4 mg Acetaminophen 650 mg PO Q6H PRN 03/09/16 Fluticasone/Salmeterol [Advair 100-50 Diskus] 1 inh INH BID 03/09/16 Ipratropium/Albuterol [Duoneb] 3 ml INH Q6H PRN 11/02/16 Mirtazapine [Remeron] 15 mg PO QPM 11/02/16 Tamsulosin HCl [Flomax] 0.4 mg PO QPM@1800 11/02/16 Guaifenesin [Child Mucinex Chest Congestion] 10 ml PO Q4H PRN 02/21/17 Cholecalciferol [Vitamin D3] 5,000 unit PO FR@0800 05/08/17 Senna [Senokot] 1 tab PO DAILY@1200 05/09/17 Gabapentin 200 mg PO QPM 06/09/17 Gabapentin [Neurontin] 200 mg PO 0700,1400 06/18/17 Objective - Vital Signs/Intake & Output Reviewed Vital Signs: Yes Vital Signs: Vital Signs x48h Temp Pulse Pulse Resp BP Pulse Ox 06/20/17 07:54 37.2 C 107 H 21 123/77 95 06/20/17 07:25 93 22 06/20/17 05:00 36.5 C 103 H 20 133/46 H 94 Intake & Output: Intake & Output 06/17/17 06/18/17 06/19/17 06/20/17 23:59 23:59 23:59 23:59 Intake Total 3650 3250 1100 Output Total 200 Balance 3450 3250 1100 - Objective General Appearance: positive: No acute distress, Alert. negative: Lethargic Eyes Bilateral: positive: Normal inspection, PERRL, No lid inflammation, Conjunctivae nml ENT: positive: ENT inspection nml, Pharynx nml, No signs of dehydration. negative: Purulent nasal drainage, Pharyngeal erythema, Oral lesions Neck: positive: Nml inspection, Thyroid nml, No JVD, Trachea midline. negative : Thyromegaly, Lymphadenopathy (R), Lymphadenopathy (L), Stiff neck, Carotid bruit, Swelling/bruising, Tracheal deviation Respiratory: positive: Chest non-tender, No respiratory distress, Breath sounds nml. negative: Wheezes, Rales, Rhonchi Cardiovascular: positive: Regular rate & rhythm, No murmur, No gallop. negative : Irregularly irregular, Extrasystoles, Tachycardia, Bradycardia, Systolic murmur, Diastolic murmur Peripheral Pulses: 2+ Radial (R), 2+ Radial (L), 2+ Dorsalis pedis (R), 2+ Dorsalis pedis (L) Abdomen: positive: Non-tender, No organomegaly, Nml bowel sounds, No distention. negative: Tenderness, Guarding, Rebound Back: positive: Nml inspection. negative: CVA tenderness (R), CVA tenderness (L ) Skin: positive: Color nml, No rash, Warm, Dry. negative: Cyanosis, Diaphoresis , Pallor Extremities: positive: Non-tender, Full ROM, Nml appearance. negative: Calf tenderness, Joint swelling, Manjinder's sign/cords Neurologic/Psychiatric: positive: Sensation nml, Mood/affect nml. negative: Sensory loss, Facial droop, Slurred/abnml speech, Depressed mood/affect - Lab Results Fish Bones: 06/20/17 05:15 06/20/17 05:15 Other Labs: Lab Results x24hrs 06/20/17 06/20/17 06/20/17 Range/Units 08:05 05:15 05:15 WBC 12.8 H (4.8-10.8) x10^3/uL RBC 3.16 L (4.70-6.10) 10^6/uL Hgb 9.8 L (14.0-18.0) g/dL Hct 30.4 L (42.0-52.0) % MCV 96.4 H (80.0-94.0) fL MCH 31.1 H (27.0-31.0) pg MCHC 32.3 (32.0-36.0) g/dL RDW 13.4 (12.0-15.0) % Plt Count 222 (130-450) 10^3/uL MPV 8.5 (7.4-11.4) fL Neut # 10.4 H (1.5-6.6) 10^3/uL Lymph # 1.3 L (1.5-3.5) 10^3/uL Peach # 0.8 (0.0-1.0) 10^3/uL Eos # 0.3 (0.0-0.7) 10^3/uL Baso # 0.0 (0.0-0.1) 10^3/uL Absolute Nucleated RBC 0.00 x10^3/uL Nucleated RBC % 0.0 /100WBC Sodium 137 (135-145) mmol/L Potassium 3.8 (3.5-5.0) mmol/L Chloride 102 (101-111) mmol/L Carbon Dioxide 23 (21-32) mmol/L Anion Gap 12.0 (6-13) BUN 7 (6-20) mg/dL Creatinine 0.7 (0.6-1.2) mg/dL Estimated GFR (MDRD) 107 (>89) Glucose 127 H (70-100) mg/dL POC Whole Bld Glucose 102 H (70 - 100) mg/dL Calcium 8.1 L (8.5-10.3) mg/dL Total Bilirubin 0.9 (0.2-1.0) mg/dL AST 13 (10-42) IU/L ALT < 10 L (10-60) IU/L Alkaline Phosphatase 96 (42-121) IU/L Total Protein 5.7 L (6.7-8.2) g/dL Albumin 2.7 L (3.2-5.5) g/dL Globulin 3.0 (2.1-4.2) g/dL Albumin/Globulin Ratio 0.9 L (1.0-2.2) 06/19/17 06/19/17 06/19/17 Range/Units 20:47 16:26 11:51 WBC (4.8-10.8) x10^3/uL RBC (4.70-6.10) 10^6/uL Hgb (14.0-18.0) g/dL Hct (42.0-52.0) % MCV (80.0-94.0) fL MCH (27.0-31.0) pg MCHC (32.0-36.0) g/dL RDW (12.0-15.0) % Plt Count (130-450) 10^3/uL MPV (7.4-11.4) fL Neut # (1.5-6.6) 10^3/uL Lymph # (1.5-3.5) 10^3/uL Peach # (0.0-1.0) 10^3/uL Eos # (0.0-0.7) 10^3/uL Baso # (0.0-0.1) 10^3/uL Absolute Nucleated RBC x10^3/uL Nucleated RBC % /100WBC Sodium (135-145) mmol/L Potassium (3.5-5.0) mmol/L Chloride (101-111) mmol/L Carbon Dioxide (21-32) mmol/L Anion Gap (6-13) BUN (6-20) mg/dL Creatinine (0.6-1.2) mg/dL Estimated GFR (MDRD) (>89) Glucose (70-100) mg/dL POC Whole Bld Glucose 127 H 115 H 141 H (70 - 100) mg/dL Calcium (8.5-10.3) mg/dL Total Bilirubin (0.2-1.0) mg/dL AST (10-42) IU/L ALT (10-60) IU/L Alkaline Phosphatase (42-121) IU/L Total Protein (6.7-8.2) g/dL Albumin (3.2-5.5) g/dL Globulin (2.1-4.2) g/dL Albumin/Globulin Ratio (1.0-2.2) Assessment/Plan - Problem List (1) Sepsis Impression: (1) Sepsis Conclusion/Plan: no fever but elevated temperature, slight elevated WBC blood culture preliminary show no growth of bacteria, then vancomycin was stopped order lactic acid UA culture and sensitive study to Rocephin discuss with other provider, may resume vanco or add another agent no fever on last night WBC decreased blood culture preliminary show no growth of bacteria continue antibiotics continue mild to moderate IVF vital and lab continue monitor pt has fever, review of CXR and CT of abdomen continue Rocephin and Vancomycin follow up blood and urine culture continue IVF vital, lab continue monitor Patient has previous history of septic shock during presentation in December 2016 secondary to urinary tract infection. Today the patient presented with fever at [facility] however temperature was only 37.1 on arrival, tachycardia with heart rate in the 110s, patient was tachypneic with respiratory rate greater than 20 and patient had leukocytosis of greater than 15 ,000. The patient appeared to be quite dry and was hypotensive both at carriage and again in the emergency department here. Source of patient's infection appeared to be a urinary tract infection likely due to a indwelling Santamaria catheter. Patient did have symptoms of dysuria and fever. The patient's UA was grossly positive and urine in the catheter looked cloudy. Plan: Patient will be continued on IV fluids he has been given 2 L in the emergency department and will be given an additional 1 L bolus and then placed on maintenance fluid We will monitor patient's blood pressure every 4 hours Patient will be given IV ceftriaxone and vancomycin given his previous urine cultures and we will await his urine culture and blood cultures We will remove patient's Santamaria catheter and replaced with new catheter if needed. 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 Today patient appears to be presenting with early sepsis and is again found to have a urinary tract infection. Patient did present with symptoms of dysuria and fever. Patient's urine analysis was grossly positive. The patient's Santamaria catheter had cloudy urine and it was unclear as to when it was last changed. Plan: Patient is being started on IV vancomycin and ceftriaxone as patient's previous urine cultures grew staph aureus and Enterobacter cloacae which were susceptible to vancomycin and ceftriaxone Urine cultures have been collected and will be followed up Patient's Santamaria catheter has been removed in the emergency department and after removal patient was able to urinate therefore we will leave the Santamaria catheter out and allow for urinary tract infection to be treated. We will check bladder scans to see if patient does require urinary catheter in the future. 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 Patient has end- stage COPD and is being followed by palliative care at [facility]. He is on duo nebs and Advair at home with which the patient has been stable. Plan: Patient will be placed on duo nebs as needed along with budesonide and formoterol twice a day We will continue his home dose of oxygen (4) BPH (benign prostatic hyperplasia) Conclusion/Plan: continue Flomax check bladder scan, if pt need Santamaria in the future The patient has history of BPH and has an indwelling Santamaria catheter. The patient is also on Flomax at home. Given the patient's recurrent urinary tract infections and ongoing urinary tract infection the patient's current Santamaria catheter was removed. Patient was able to void after having the catheter removed therefore a new catheter has not yet been placed. We will monitor to see if patient still needs a Santamaria catheter. The patient will get bladder scans throughout the day and if residuals are high or he has discomfort we may need to place a new Santamaria catheter. The patient will be continued on his home dose of Flomax. (5) Diabetes Conclusion/Plan: pt's A1C 6.3, glucose is in the good control Patient has a history of type 2 diabetes but is not currently on any medications. The patient is diet controlled. The patient's blood glucose on presentation the emergency department is in the 140s which is only mildly elevated. Given the patient's urinary tract infection we will try to tightly control his blood glucose therefore the patient will be placed on sliding scale insulin and we will check a hemoglobin A1c. (6) Hyponatremia resolved. Na is 137 (7) urinary retention bladder scan pt had less 100 ml in the bladder. It seems not the issue. continue Flomax (8) urinary incontinence pt did have urinary incontinence continue nurse care continue hold insertion of Santamaria because of infection from catherization
[2017-06-20] MEDS ORDERED: CARBOXYMETHYLCELLULOSE OPHTH DROPS EACHEYE PRN (14:50)
[2017-06-20] MEDS: ACETAMINOPHEN 325 MG TABLET PO PRN (18:28)
[2017-06-20] MEDS ORDERED: SIMETHICONE CHEW 80 MG TABLET PO PRN (18:31)
[2017-06-20] MEDS: MORPHINE 2 MG/ML CARPUJECT IVP PRN (19:22)
[2017-06-20] MEDS ORDERED: KETOROLAC 30 MG/ML VIAL IVP STA (21:02)
[2017-06-20] MEDS: SODIUM CHLORIDE FLUSH 0.9% 10 ML SYRINGE IVP PRN (21:28)
[2017-06-20] MEDS ORDERED: KETOROLAC 30 MG/ML VIAL IVP SCH (21:31)
[2017-06-20] MEDS: GABAPENTIN 100 MG CAPSULE PO SCH (21:32)
[2017-06-20] MEDS: MIRTAZAPINE 15 MG TABLET PO SCH (21:33)
[2017-06-20] MEDS: TAMSULOSIN 0.4 MG CAPSULE PO SCH (21:33)
[2017-06-20] MEDS: LATANOPROST 0.005% OPHTH DROPS EACHEYE SCH (21:33)
[2017-06-20] MEDS: DEXTROSE 5%-0.9% NACL 1,000 ML IV SCH (21:51)
[2017-06-21] MEDS: SODIUM CHLORIDE FLUSH 0.9% 10 ML SYRINGE IVP SCH ×4 (01:37→23:26)
[2017-06-21] MEDS: cefTRIAXone 2 GM in SODIUM CHLORIDE 0.9% MINIBAG 100 ML IV SCH (01:42)
[2017-06-21 05:15] LABS: BASOPHILS % (AUTO) 0.2 %; EOSINOPHILS # (AUTO) 0.4 10^3/uL (0.0-0.7); EOSINOPHILS % (AUTO) 4.5 %; HGB - HEMOGLOBIN 9.6 g/dL (14.0-18.0); MEAN CORPUSCULAR HEMOGLOBIN 31.3 pg (27.0-31.0); MEAN CORPUSCULAR HGB CONC 32.6 g/dL (32.0-36.0); MEAN CORPUSCULAR VOLUME 95.9 fL (80.0-94.0); MEAN PLATELET VOLUME 8.4 fL (7.4-11.4); MONOCYTES # (AUTO) 0.8 10^3/uL (0.0-1.0); MONOCYTES % (AUTO) 8.6 %; NEUTROPHILS # (AUTO) 6.5 10^3/uL (1.5-6.6); NEUTROPHILS % (AUTO) 74.7 %; PLT - PLATELET COUNT 212 10^3/uL (130-450); RED BLOOD COUNT 3.06 10^6/uL (4.70-6.10); RED CELL DISTRIBUTION WIDTH 13.5 % (12.0-15.0); WHITE BLOOD COUNT 8.7 x10^3/uL (4.8-10.8)
[2017-06-21 05:19] LABS: ALBUMIN 2.5 g/dL (3.2-5.5); ALBUMIN/GLOBULIN RATIO 0.8 (1.0-2.2); ALKALINE PHOSPHATASE 84 IU/L (42-121); ALT ALANINE AMINOTRANSFERASE < 10 IU/L (10-60); AST ASPARTATE AMINOTRANSFERASE 12 IU/L (10-42); BILIRUBIN,TOTAL 0.6 mg/dL (0.2-1.0); BUN - BLOOD UREA NITROGEN 8 mg/dL (6-20); CALCIUM 8.1 mg/dL (8.5-10.3); CARBON DIOXIDE - CO2 27 mmol/L (21-32); CHLORIDE 106 mmol/L (101-111); CREATININE 0.8 mg/dL (0.6-1.2); CRP - C-REACTIVE PROTEIN 16.1 mg/dL (0-1.0); GFR - MDRD 92 (>89); GLUCOSE 125 mg/dL (70-100); MAGNESIUM 1.6 mg/dL (1.7-2.8); SODIUM 141 mmol/L (135-145); TOTAL PROTEIN 5.6 g/dL (6.7-8.2)
[2017-06-21] MEDS: FORMOTEROL FUMARATE NEB 20 MCG/2 ML INH SCH ×2 (07:44→20:18)
[2017-06-21] MEDS: BUDESONIDE 0.5 MG/2 ML NEB INH SCH ×2 (07:44→20:18)
[2017-06-21] MEDS: IPRATROPIUM/ALBUTEROL 3 ML NEB INH PRN ×2 (07:44→20:18)
[2017-06-21] MEDS ORDERED: MAGNESIUM SULFATE 2 GRAM 2 GM/50 ML BAG IV ONE (08:00)
[2017-06-21] MEDS: INSULIN ASPART 300 UNIT/3 ML PEN SUBQ SCH ×4 (09:34→22:09)
[2017-06-21] MEDS: ENOXAPARIN 40 MG/0.4 ML SYRINGE SUBQ SCH (10:13)
[2017-06-21] MEDS: POLYETHYLENE GLYCOL 3350 17 GM PACKET PO SCH (10:13)
[2017-06-21] MEDS: SACCHAROMYCES BOULARDII 250 MG CAPSULE PO SCH ×2 (10:13→19:16)
[2017-06-21] MEDS: FAMOTIDINE 20 MG TABLET PO SCH (10:13)
[2017-06-21] MEDS: CLOPIDOGREL 75 MG TABLET PO SCH (10:13)
[2017-06-21] MEDS: DEXTROSE 5%-0.9% NACL 1,000 ML IV SCH ×2 (11:25→22:10)
[2017-06-21] MEDS: oxyCODONE 5 MG TABLET PO PRN (15:05)
--- NOTE | 2017-06-21 15:16 | PROVIDER PROGRESS NOTE ---
Subjective - Prog Note Date Prog Note Date: 06/21/17 - Subjective Pt reports feeling: No change Subjective: pt is still confused. No chest pain, shortness of breath, no fever, no chill, no cough Current Medications - Current Medications Current Medications: Active Medications Acetaminophen (Tylenol) 650 mg PO Q4HR PRN PRN Reason: Pain 1 to 4 Last Admin: 06/19/17 15:52 Dose: 650 mg Albuterol/Ipratropium (Duoneb) 3 ml INH Q4HR PRN PRN Reason: Wheezing Last Admin: 06/21/17 07:44 Dose: 3 ml Budesonide (Pulmicort) 0.5 mg INH RTBID [facility] Last Admin: 06/21/17 07:44 Dose: 0.5 mg Carboxymethylcellulose (Refresh 1% Ophth Drops) 1 drops EACHEYE PRN PRN PRN Reason: Dry Eye Last Admin: 06/20/17 15:07 Dose: 1 drops Clopidogrel Bisulfate (Plavix) 75 mg PO DAILY [facility] Last Admin: 06/21/17 10:13 Dose: 75 mg Enoxaparin Sodium (Lovenox) 40 mg SUBQ DAILY [facility] Last Admin: 06/21/17 10:13 Dose: 40 mg Famotidine (Pepcid) 20 mg PO DAILY [facility] Last Admin: 06/21/17 10:13 Dose: 20 mg Formoterol Fumarate (Perforomist) 20 mcg INH RTBID [facility] Last Admin: 06/21/17 07:44 Dose: 20 mcg Gabapentin (Neurontin) 200 mg PO HS [facility] Last Admin: 06/20/17 21:32 Dose: Not Given Guaifenesin (Robitussin Liquid) 200 mg PO Q4H PRN PRN Reason: Cough Last Admin: 06/19/17 11:05 Dose: 200 mg Ceftriaxone Sodium 2 gm/ (Sodium Chloride) 100 mls @ 200 mls/hr IV Q24H [facility] Last Infusion: 06/21/17 02:15 Dose: Infused Dextrose/Sodium Chloride (D5ns) 1,000 mls @ 83.333 mls/hr IV .Q12H [facility] Last Admin: 06/21/17 11:25 Dose: 83.333 mls/hr Insulin Aspart (Novolog) 1 - 5 unit SUBQ 0800,1200,1700,2100 [facility] PRN Reason: Protocol Last Admin: 06/21/17 12:20 Dose: 1 unit Latanoprost (Xalatan Ophth Drops) 0 drops EACHEYE QPM [facility] Last Admin: 06/20/17 21:33 Dose: Not Given Mirtazapine (Remeron) 15 mg PO QPM [facility] Last Admin: 06/20/17 21:33 Dose: Not Given Morphine Sulfate (Morphine (Carpuject)) 2 mg IVP Q4HR PRN PRN Reason: PAIN Last Admin: 06/20/17 19:22 Dose: 2 mg Ondansetron HCl (Zofran Odt) 4 mg TL Q6HR PRN PRN Reason: Nausea / Vomiting Oxycodone HCl (Roxicodone) 5 mg PO Q4HR PRN PRN Reason: Pain 5 to 7 Last Admin: 06/21/17 15:05 Dose: 5 mg Polyethylene Glycol (Miralax) 17 gm PO DAILY [facility] Last Admin: 06/21/17 10:13 Dose: 17 gm Prochlorperazine Edisylate (Compazine Inj) 10 mg IVP Q6HR PRN PRN Reason: Nausea / Vomiting Saccharomyces Boulardii (Florastor) 250 mg PO BIDWM [facility] Last Admin: 06/21/17 10:13 Dose: 250 mg Simethicone (Mylicon) 80 mg PO 0900,1300,1800,2100 PRN PRN Reason: Gas Sodium Chloride (Normal Saline Flush 0.9%) 10 ml IVP PRN PRN PRN Reason: NEEDED PER PROVIDER ORDERS Last Admin: 06/20/17 21:28 Dose: 10 ml Sodium Chloride (Normal Saline Flush 0.9%) 10 ml IVP 0100,0900,1700 [facility] Last Admin: 06/21/17 10:14 Dose: Not Given Tamsulosin HCl (Flomax) 0.4 mg PO QPM [facility] Last Admin: 06/20/17 21:33 Dose: Not Given Acetaminophen 650 mg PO Q6H PRN 03/09/16 Fluticasone/Salmeterol [Advair 100-50 Diskus] 1 inh INH BID 03/09/16 Ipratropium/Albuterol [Duoneb] 3 ml INH Q6H PRN 11/02/16 Mirtazapine [Remeron] 15 mg PO QPM 11/02/16 Tamsulosin HCl [Flomax] 0.4 mg PO QPM@1800 11/02/16 Guaifenesin [Child Mucinex Chest Congestion] 10 ml PO Q4H PRN 02/21/17 Cholecalciferol [Vitamin D3] 5,000 unit PO FR@0800 05/08/17 Senna [Senokot] 1 tab PO DAILY@1200 05/09/17 Gabapentin 200 mg PO QPM 06/09/17 Gabapentin [Neurontin] 200 mg PO 0700,1400 06/18/17 Objective - Vital Signs/Intake & Output Reviewed Vital Signs: Yes Vital Signs: Vital Signs x48h Temp Pulse Pulse Resp BP Pulse Ox 06/21/17 13:10 36.6 C 88 19 148/57 H 96 06/21/17 07:54 37.2 C 90 19 144/63 H 94 06/21/17 07:48 90 20 Intake & Output: Intake & Output 06/18/17 06/19/17 06/20/17 06/21/17 23:59 23:59 23:59 23:59 Intake Total 3650 3250 2919.997 1100 Output Total 200 Balance 3450 3250 2919.997 1100 - Objective General Appearance: positive: No acute distress, Alert. negative: Lethargic Eyes Bilateral: positive: Normal inspection, PERRL, No lid inflammation, Conjunctivae nml ENT: positive: ENT inspection nml, Pharynx nml, No signs of dehydration. negative: Purulent nasal drainage, Pharyngeal erythema, Oral lesions, Dry mucous membranes Neck: positive: Nml inspection, Thyroid nml, No JVD, Trachea midline. negative : Thyromegaly, Lymphadenopathy (R), Lymphadenopathy (L), Stiff neck, Carotid bruit, Swelling/bruising, Tracheal deviation Respiratory: positive: Chest non-tender, No respiratory distress, Breath sounds nml. negative: Wheezes, Rales, Rhonchi Cardiovascular: positive: Regular rate & rhythm, No murmur, No gallop. negative : Irregularly irregular, Extrasystoles, Tachycardia, Bradycardia, Systolic murmur, Diastolic murmur Peripheral Pulses: 2+ Radial (R), 2+ Radial (L), 2+ Dorsalis pedis (R), 2+ Dorsalis pedis (L) Abdomen: positive: Non-tender, No organomegaly, Nml bowel sounds, No distention. negative: Tenderness, Guarding, Rebound Back: positive: Nml inspection. negative: CVA tenderness (R), CVA tenderness (L ) Skin: positive: Color nml, No rash, Warm, Dry. negative: Cyanosis, Diaphoresis , Pallor Extremities: positive: Non-tender. negative: Calf tenderness, Joint swelling, Manjinder's sign/cords, Other Neurologic/Psychiatric: positive: Sensation nml, Mood/affect nml. negative: Sensory loss, Facial droop, Slurred/abnml speech, Depressed mood/affect - Lab Results Fish Bones: 06/21/17 04:48 06/21/17 04:48 Other Labs: Lab Results x24hrs 06/21/17 06/21/17 06/21/17 Range/Units 11:32 07:51 04:48 WBC (4.8-10.8) x10^3/uL RBC (4.70-6.10) 10^6/uL Hgb (14.0-18.0) g/dL Hct (42.0-52.0) % MCV (80.0-94.0) fL MCH (27.0-31.0) pg MCHC (32.0-36.0) g/dL RDW (12.0-15.0) % Plt Count (130-450) 10^3/uL MPV (7.4-11.4) fL Neut # (1.5-6.6) 10^3/uL Lymph # (1.5-3.5) 10^3/uL [place] # (0.0-1.0) 10^3/uL Eos # (0.0-0.7) 10^3/uL Baso # (0.0-0.1) 10^3/uL Absolute Nucleated RBC x10^3/uL Nucleated RBC % /100WBC ESR (0-20) mm/Hr Sodium (135-145) mmol/L Potassium (3.5-5.0) mmol/L Chloride (101-111) mmol/L Carbon Dioxide (21-32) mmol/L Anion Gap (6-13) BUN (6-20) mg/dL Creatinine (0.6-1.2) mg/dL Estimated GFR (MDRD) (>89) Glucose (70-100) mg/dL POC Whole Bld Glucose 151 H 111 H (70 - 100) mg/dL Lactic Acid 1.0 (0.5-2.2) mmol/L Calcium (8.5-10.3) mg/dL Magnesium (1.7-2.8) mg/dL Total Bilirubin (0.2-1.0) mg/dL AST (10-42) IU/L ALT (10-60) IU/L Alkaline Phosphatase (42-121) IU/L C-Reactive Protein (0-1.0) mg/dL Total Protein (6.7-8.2) g/dL Albumin (3.2-5.5) g/dL Globulin (2.1-4.2) g/dL Albumin/Globulin Ratio (1.0-2.2) 06/21/17 06/21/17 06/21/17 Range/Units 04:48 04:48 04:48 WBC 8.7 (4.8-10.8) x10^3/uL RBC 3.06 L (4.70-6.10) 10^6/uL Hgb 9.6 L (14.0-18.0) g/dL Hct 29.4 L (42.0-52.0) % MCV 95.9 H (80.0-94.0) fL MCH 31.3 H (27.0-31.0) pg MCHC 32.6 (32.0-36.0) g/dL RDW 13.5 (12.0-15.0) % Plt Count 212 (130-450) 10^3/uL MPV 8.4 (7.4-11.4) fL Neut # 6.5 (1.5-6.6) 10^3/uL Lymph # 1.0 L (1.5-3.5) 10^3/uL [place] # 0.8 (0.0-1.0) 10^3/uL Eos # 0.4 (0.0-0.7) 10^3/uL Baso # 0.0 (0.0-0.1) 10^3/uL Absolute Nucleated RBC 0.00 x10^3/uL Nucleated RBC % 0.0 /100WBC ESR 66 H (0-20) mm/Hr Sodium 141 (135-145) mmol/L Potassium 3.5 (3.5-5.0) mmol/L Chloride 106 (101-111) mmol/L Carbon Dioxide 27 (21-32) mmol/L Anion Gap 8.0 (6-13) BUN 8 (6-20) mg/dL Creatinine 0.8 (0.6-1.2) mg/dL Estimated GFR (MDRD) 92 (>89) Glucose 125 H (70-100) mg/dL POC Whole Bld Glucose (70 - 100) mg/dL Lactic Acid (0.5-2.2) mmol/L Calcium 8.1 L (8.5-10.3) mg/dL Magnesium 1.6 L (1.7-2.8) mg/dL Total Bilirubin 0.6 (0.2-1.0) mg/dL AST 12 (10-42) IU/L ALT < 10 L (10-60) IU/L Alkaline Phosphatase 84 (42-121) IU/L C-Reactive Protein 16.1 H (0-1.0) mg/dL Total Protein 5.6 L (6.7-8.2) g/dL Albumin 2.5 L (3.2-5.5) g/dL Globulin 3.1 (2.1-4.2) g/dL Albumin/Globulin Ratio 0.8 L (1.0-2.2) 06/20/17 Range/Units 16:30 WBC (4.8-10.8) x10^3/uL RBC (4.70-6.10) 10^6/uL Hgb (14.0-18.0) g/dL Hct (42.0-52.0) % MCV (80.0-94.0) fL MCH (27.0-31.0) pg MCHC (32.0-36.0) g/dL RDW (12.0-15.0) % Plt Count (130-450) 10^3/uL MPV (7.4-11.4) fL Neut # (1.5-6.6) 10^3/uL Lymph # (1.5-3.5) 10^3/uL [place] # (0.0-1.0) 10^3/uL Eos # (0.0-0.7) 10^3/uL Baso # (0.0-0.1) 10^3/uL Absolute Nucleated RBC x10^3/uL Nucleated RBC % /100WBC ESR (0-20) mm/Hr Sodium (135-145) mmol/L Potassium (3.5-5.0) mmol/L Chloride (101-111) mmol/L Carbon Dioxide (21-32) mmol/L Anion Gap (6-13) BUN (6-20) mg/dL Creatinine (0.6-1.2) mg/dL Estimated GFR (MDRD) (>89) Glucose (70-100) mg/dL POC Whole Bld Glucose 92 (70 - 100) mg/dL Lactic Acid (0.5-2.2) mmol/L Calcium (8.5-10.3) mg/dL Magnesium (1.7-2.8) mg/dL Total Bilirubin (0.2-1.0) mg/dL AST (10-42) IU/L ALT (10-60) IU/L Alkaline Phosphatase (42-121) IU/L C-Reactive Protein (0-1.0) mg/dL Total Protein (6.7-8.2) g/dL Albumin (3.2-5.5) g/dL Globulin (2.1-4.2) g/dL Albumin/Globulin Ratio (1.0-2.2) Assessment/Plan - Problem List (1) Sepsis Impression: (1) Sepsis Conclusion/Plan: no fever, no elevated temperature WBC is down to normal blood culture negative UA culture positive for proteus Miralitis continue Rocephin plan to D/C to [facility] tomorrow no fever but elevated temperature, slight elevated WBC blood culture preliminary show no growth of bacteria, then vancomycin was stopped order lactic acid UA culture and sensitive study to Rocephin discuss with other provider, may resume vanco or add another agent no fever on last night WBC decreased blood culture preliminary show no growth of bacteria continue antibiotics continue mild to moderate IVF vital and lab continue monitor pt has fever, review of CXR and CT of abdomen continue Rocephin and Vancomycin follow up blood and urine culture continue IVF vital, lab continue monitor Patient has previous history of septic shock during presentation in December 2016 secondary to urinary tract infection. Today the patient presented with fever at [facility] however temperature was only 37.1 on arrival, tachycardia with heart rate in the 110s, patient was tachypneic with respiratory rate greater than 20 and patient had leukocytosis of greater than 15 ,000. The patient appeared to be quite dry and was hypotensive both at carriage and again in the emergency department here. Source of patient's infection appeared to be a urinary tract infection likely due to a indwelling Santamaria catheter. Patient did have symptoms of dysuria and fever. The patient's UA was grossly positive and urine in the catheter looked cloudy. Plan: Patient will be continued on IV fluids he has been given 2 L in the emergency department and will be given an additional 1 L bolus and then placed on maintenance fluid We will monitor patient's blood pressure every 4 hours Patient will be given IV ceftriaxone and vancomycin given his previous urine cultures and we will await his urine culture and blood cultures We will remove patient's Santamaria catheter and replaced with new catheter if needed. 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 Today patient appears to be presenting with early sepsis and is again found to have a urinary tract infection. Patient did present with symptoms of dysuria and fever. Patient's urine analysis was grossly positive. The patient's Santamaria catheter had cloudy urine and it was unclear as to when it was last changed. Plan: Patient is being started on IV vancomycin and ceftriaxone as patient's previous urine cultures grew staph aureus and Enterobacter cloacae which were susceptible to vancomycin and ceftriaxone Urine cultures have been collected and will be followed up Patient's Santamaria catheter has been removed in the emergency department and after removal patient was able to urinate therefore we will leave the Santamaria catheter out and allow for urinary tract infection to be treated. We will check bladder scans to see if patient does require urinary catheter in the future. 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 Patient has end- stage COPD and is being followed by palliative care at [facility]. He is on duo nebs and Advair at home with which the patient has been stable. Plan: Patient will be placed on duo nebs as needed along with budesonide and formoterol twice a day We will continue his home dose of oxygen (4) BPH (benign prostatic hyperplasia) Conclusion/Plan: continue Flomax check bladder scan, if pt need Santamaria in the future The patient has history of BPH and has an indwelling Santamaria catheter. The patient is also on Flomax at home. Given the patient's recurrent urinary tract infections and ongoing urinary tract infection the patient's current Santamaria catheter was removed. Patient was able to void after having the catheter removed therefore a new catheter has not yet been placed. We will monitor to see if patient still needs a Santamaria catheter. The patient will get bladder scans throughout the day and if residuals are high or he has discomfort we may need to place a new Santamaria catheter. The patient will be continued on his home dose of Flomax. (5) Diabetes Conclusion/Plan: pt's A1C 6.3, glucose is in the good control Patient has a history of type 2 diabetes but is not currently on any medications. The patient is diet controlled. The patient's blood glucose on presentation the emergency department is in the 140s which is only mildly elevated. Given the patient's urinary tract infection we will try to tightly control his blood glucose therefore the patient will be placed on sliding scale insulin and we will check a hemoglobin A1c. (6) Hyponatremia resolved. Na is 137 (7) urinary retention bladder scan again, plan to d/c without Santamaria, since pt does not have urinary retention US of pelvis bladder scan pt had less 100 ml in the bladder. It seems not the issue. continue Flomax (8) urinary incontinence continue nurse care, support plan to d/c without Santamaria. Santamaria cause pt with recurrent UTI with sepsis
[2017-06-21] MEDS: MORPHINE 2 MG/ML CARPUJECT IVP PRN (17:31)
[2017-06-21] MEDS: GABAPENTIN 100 MG CAPSULE PO SCH (19:15)
[2017-06-21] MEDS: TAMSULOSIN 0.4 MG CAPSULE PO SCH (19:16)
[2017-06-21] MEDS: MIRTAZAPINE 15 MG TABLET PO SCH (19:16)
[2017-06-21] MEDS: ACETAMINOPHEN 325 MG TABLET PO PRN (19:17)
[2017-06-21] MEDS: LATANOPROST 0.005% OPHTH DROPS EACHEYE SCH (19:47)
--- NOTE | 2017-06-22 00:15 | Ultrasound Report ---
EXAM: RENAL ULTRASOUND EXAM DATE: 06/21/2017 08:01 PM. CLINICAL HISTORY: Hydronephrosis. Kidney stones. COMPARISON: CT 06/18/2017. TECHNIQUE: Real-time scanning was performed with static images obtained. FINDINGS: Right Kidney: 10.3 x 5.5 x 6.3 cm. 11 mm hilar calcification corresponding to the CT abnormality. Nor mal echotexture with no contour-deforming masses or hydronephrosis. Left Kidney: 11.3 x 4.7 x 6.4 cm. Normal echotexture with no stones, contour-deforming masses, or h ydronephrosis. Bladder: Bilateral jets seen. The prevoid bladder volume was 54 cc. The patient was unable to void. Other: None. IMPRESSION: No hydronephrosis on either side. Right renal calcification corresponding to the CT abnor mality. [facility] Referring Provider Line: [phone] SITE ID: [id number]
[2017-06-22] MEDS: cefTRIAXone 2 GM in SODIUM CHLORIDE 0.9% MINIBAG 100 ML IV SCH (03:17)
[2017-06-22] MEDS: guaiFENesin 100 MG/5 ML UDC PO PRN (03:34)
[2017-06-22 05:33] LABS: BASOPHILS % (AUTO) 0.3 %; EOSINOPHILS # (AUTO) 0.4 10^3/uL (0.0-0.7); EOSINOPHILS % (AUTO) 4.5 %; HGB - HEMOGLOBIN 9.8 g/dL (14.0-18.0); LYMPHOCYTES # (AUTO) 0.9 10^3/uL (1.5-3.5); LYMPHOCYTES % (AUTO) 10.8 %; MEAN CORPUSCULAR HGB CONC 32.6 g/dL (32.0-36.0); MEAN PLATELET VOLUME 8.3 fL (7.4-11.4); MONOCYTES # (AUTO) 0.8 10^3/uL (0.0-1.0); MONOCYTES % (AUTO) 9.1 %; NEUTROPHILS # (AUTO) 6.5 10^3/uL (1.5-6.6); NEUTROPHILS % (AUTO) 75.3 %; PLT - PLATELET COUNT 250 10^3/uL (130-450); RED BLOOD COUNT 3.16 10^6/uL (4.70-6.10); RED CELL DISTRIBUTION WIDTH 13.4 % (12.0-15.0); WHITE BLOOD COUNT 8.6 x10^3/uL (4.8-10.8)
[2017-06-22 06:12] LABS: ALBUMIN 2.4 g/dL (3.2-5.5); ALBUMIN/GLOBULIN RATIO 0.8 (1.0-2.2); ALKALINE PHOSPHATASE 81 IU/L (42-121); ALT ALANINE AMINOTRANSFERASE < 10 IU/L (10-60); AST ASPARTATE AMINOTRANSFERASE 11 IU/L (10-42); BILIRUBIN,TOTAL 0.4 mg/dL (0.2-1.0); BUN - BLOOD UREA NITROGEN 5 mg/dL (6-20); CARBON DIOXIDE - CO2 27 mmol/L (21-32); CHLORIDE 108 mmol/L (101-111); CREATININE 0.6 mg/dL (0.6-1.2); GFR - MDRD 128 (>89); GLUCOSE 137 mg/dL (70-100); SODIUM 141 mmol/L (135-145); TOTAL PROTEIN 5.5 g/dL (6.7-8.2)
[2017-06-22] MEDS: IPRATROPIUM/ALBUTEROL 3 ML NEB INH PRN ×3 (07:08→17:56)
[2017-06-22] MEDS: FORMOTEROL FUMARATE NEB 20 MCG/2 ML INH SCH ×2 (07:08→17:56)
[2017-06-22] MEDS: BUDESONIDE 0.5 MG/2 ML NEB INH SCH ×2 (07:08→17:57)
[2017-06-22] MEDS ORDERED: POTASSIUM CHLORIDE 20 MEQ TABLET PO ONE ×2 (07:45→08:33)
[2017-06-22] MEDS ORDERED: POTASSIUM CHLOR 10 MEQ/100 ML 10 MEQ/100 ML BAG IV SCH (08:00)
[2017-06-22] MEDS ORDERED: LEVALBUTEROL 1.25 MG/3 ML NEB INH PRN (08:36)
[2017-06-22] MEDS ORDERED: predniSONE 20 MG TABLET PO SCH (09:00)
[2017-06-22] MEDS: INSULIN ASPART 300 UNIT/3 ML PEN SUBQ SCH ×4 (09:08→20:29)
[2017-06-22] MEDS: FAMOTIDINE 20 MG TABLET PO SCH (09:09)
[2017-06-22] MEDS: CLOPIDOGREL 75 MG TABLET PO SCH (09:09)
[2017-06-22] MEDS: SACCHAROMYCES BOULARDII 250 MG CAPSULE PO SCH ×2 (09:09→17:13)
[2017-06-22] MEDS: ENOXAPARIN 40 MG/0.4 ML SYRINGE SUBQ SCH (09:10)
[2017-06-22] MEDS: POLYETHYLENE GLYCOL 3350 17 GM PACKET PO SCH (09:10)
[2017-06-22] MEDS: SODIUM CHLORIDE FLUSH 0.9% 10 ML SYRINGE IVP SCH ×2 (09:10→16:33)
[2017-06-22] MEDS: SODIUM CHLORIDE FLUSH 0.9% 10 ML SYRINGE IVP PRN ×2 (09:28→13:18)
[2017-06-22] MEDS: methylPREDNISolone SUCCINATE 40 MG/ML VIAL IVP SCH ×3 (09:28→21:15)
--- NOTE | 2017-06-22 09:57 | XRAY Report ---
EXAM: CHEST RADIOGRAPHY EXAM DATE: 06/22/2017 09:23 AM. CLINICAL HISTORY: Wheezing, shortness of breath. COMPARISON: 06/18/2017. TECHNIQUE: 1 view. FINDINGS: Lungs/Pleura: Increased consolidation in the right lower lung could represent pneumonia. No large ple ural effusion. Mediastinum: Within exam limitations, the cardiomediastinal contour is normal. Other: None. IMPRESSION: Increased consolidation in the right lower lung could represent pneumonia. Follow-up imaging is recom mended. [facility] Referring Provider Line: [phone] SITE ID: [id number]
[2017-06-22] MEDS: AZITHROMYCIN INJ 500 MG in SODIUM CHLORIDE 0.9% 250 ML IV SCH (12:07)
[2017-06-22] MEDS: DEXTROSE 5%-0.9% NACL 1,000 ML IV SCH (12:08)
--- NOTE | 2017-06-22 12:44 | PROVIDER PROGRESS NOTE ---
Subjective - Prog Note Date Prog Note Date: 06/22/17 - Subjective Pt reports feeling: Worse Subjective: pt develop wheezing. pt is still confused. No fever, chill, chest pain, cough reported Current Medications - Current Medications Current Medications: Active Medications Acetaminophen (Tylenol) 650 mg PO Q4HR PRN PRN Reason: Pain 1 to 4 Last Admin: 06/21/17 19:17 Dose: 650 mg Albuterol/Ipratropium (Duoneb) 3 ml INH Q4HR PRN PRN Reason: Wheezing Last Admin: 06/22/17 10:45 Dose: 3 ml Budesonide (Pulmicort) 0.5 mg INH RTBID [facility] Last Admin: 06/22/17 07:08 Dose: 0.5 mg Carboxymethylcellulose (Refresh 1% Ophth Drops) 1 drops EACHEYE PRN PRN PRN Reason: Dry Eye Last Admin: 06/20/17 15:07 Dose: 1 drops Clopidogrel Bisulfate (Plavix) 75 mg PO DAILY [facility] Last Admin: 06/22/17 09:09 Dose: 75 mg Enoxaparin Sodium (Lovenox) 40 mg SUBQ DAILY [facility] Last Admin: 06/22/17 09:10 Dose: 40 mg Famotidine (Pepcid) 20 mg PO DAILY [facility] Last Admin: 06/22/17 09:09 Dose: 20 mg Formoterol Fumarate (Perforomist) 20 mcg INH RTBID [facility] Last Admin: 06/22/17 07:08 Dose: 20 mcg Gabapentin (Neurontin) 200 mg PO HS [facility] Last Admin: 06/21/17 19:15 Dose: 200 mg Guaifenesin (Robitussin Liquid) 200 mg PO Q4H PRN PRN Reason: Cough Last Admin: 06/22/17 03:34 Dose: 200 mg Ceftriaxone Sodium 2 gm/ (Sodium Chloride) 100 mls @ 200 mls/hr IV Q24H [facility] Last Admin: 06/22/17 03:17 Dose: 200 mls/hr Dextrose/Sodium Chloride (D5ns) 1,000 mls @ 83.333 mls/hr IV .Q12H [facility] Last Admin: 06/22/17 12:08 Dose: 83.333 mls/hr Azithromycin 500 mg/ Sodium (Chloride) 250 mls @ 250 mls/hr IV DAILY [facility] Last Admin: 06/22/17 12:07 Dose: 250 mls/hr Insulin Aspart (Novolog) 1 - 5 unit SUBQ 0800,1200,1700,2100 [facility] PRN Reason: Protocol Last Admin: 06/22/17 12:06 Dose: 1 unit Latanoprost (Xalatan Ophth Drops) 0 drops EACHEYE QPM [facility] Last Admin: 06/21/17 19:47 Dose: 1 drops Levalbuterol HCl (Xopenex) 1.25 mg INH Q4H PRN PRN Reason: Shortness of Air/Wheezing Methylprednisolone (Solu-Medrol (40mg Vial)) 40 mg IVP TID [facility] Last Admin: 06/22/17 09:28 Dose: 40 mg Mirtazapine (Remeron) 15 mg PO QPM [facility] Last Admin: 06/21/17 19:16 Dose: 15 mg Morphine Sulfate (Morphine (Carpuject)) 2 mg IVP Q4HR PRN PRN Reason: PAIN Last Admin: 06/21/17 17:31 Dose: 2 mg Ondansetron HCl (Zofran Odt) 4 mg TL Q6HR PRN PRN Reason: Nausea / Vomiting Oxycodone HCl (Roxicodone) 5 mg PO Q4HR PRN PRN Reason: Pain 5 to 7 Last Admin: 06/21/17 15:05 Dose: 5 mg Polyethylene Glycol (Miralax) 17 gm PO DAILY [facility] Last Admin: 06/22/17 09:10 Dose: 17 gm Prochlorperazine Edisylate (Compazine Inj) 10 mg IVP Q6HR PRN PRN Reason: Nausea / Vomiting Saccharomyces Boulardii (Florastor) 250 mg PO BIDWM [facility] Last Admin: 06/22/17 09:09 Dose: 250 mg Simethicone (Mylicon) 80 mg PO 0900,1300,1800,2100 PRN PRN Reason: Gas Sodium Chloride (Normal Saline Flush 0.9%) 10 ml IVP PRN PRN PRN Reason: NEEDED PER PROVIDER ORDERS Last Admin: 06/22/17 09:28 Dose: 10 ml Sodium Chloride (Normal Saline Flush 0.9%) 10 ml IVP 0100,0900,1700 [facility] Last Admin: 06/22/17 09:10 Dose: 10 ml Tamsulosin HCl (Flomax) 0.4 mg PO QPM [facility] Last Admin: 06/21/17 19:16 Dose: 0.4 mg Acetaminophen 650 mg PO Q6H PRN 03/09/16 Fluticasone/Salmeterol [Advair 100-50 Diskus] 1 inh INH BID 03/09/16 Ipratropium/Albuterol [Duoneb] 3 ml INH Q6H PRN 11/02/16 Mirtazapine [Remeron] 15 mg PO QPM 11/02/16 Tamsulosin HCl [Flomax] 0.4 mg PO QPM@1800 11/02/16 Guaifenesin [Child Mucinex Chest Congestion] 10 ml PO Q4H PRN 02/21/17 Cholecalciferol [Vitamin D3] 5,000 unit PO FR@0800 05/08/17 Senna [Senokot] 1 tab PO DAILY@1200 05/09/17 Gabapentin 200 mg PO QPM 06/09/17 Gabapentin [Neurontin] 200 mg PO 0700,1400 06/18/17 Objective - Vital Signs/Intake & Output Reviewed Vital Signs: Yes Vital Signs: Vital Signs x48h Temp Pulse Pulse Resp BP Pulse Ox 06/22/17 10:46 85 24 06/22/17 09:52 37.1 C 85 19 154/63 H 94 06/22/17 07:09 100 24 06/22/17 05:00 37.0 C 82 18 146/60 H 98 Intake & Output: Intake & Output 06/19/17 06/20/17 06/21/17 06/23/17 23:59 23:59 23:59 00:59 Intake Total 3250 2919.997 2295.83 1060 Balance 3250 2919.997 2295.83 1060 - Objective General Appearance: positive: No acute distress, Alert. negative: Lethargic Eyes Bilateral: positive: Normal inspection, PERRL, No lid inflammation, Conjunctivae nml ENT: positive: ENT inspection nml, Pharynx nml, No signs of dehydration. negative: Purulent nasal drainage, Pharyngeal erythema, Oral lesions Neck: positive: Nml inspection, Thyroid nml, No JVD, Trachea midline. negative : Thyromegaly, Lymphadenopathy (R), Lymphadenopathy (L), Stiff neck, Carotid bruit, Swelling/bruising, Tracheal deviation Respiratory: positive: Chest non-tender, No respiratory distress, Wheezes. negative: Rales, Rhonchi Cardiovascular: positive: Regular rate & rhythm, No murmur, No gallop. negative : Irregularly irregular, Extrasystoles, Tachycardia, Bradycardia, Systolic murmur, Diastolic murmur Peripheral Pulses: 2+ Radial (R), 2+ Radial (L), 2+ Dorsalis pedis (R), 2+ Dorsalis pedis (L) Abdomen: positive: Non-tender, No organomegaly, Nml bowel sounds, No distention. negative: Tenderness, Guarding, Rebound Back: positive: Nml inspection. negative: CVA tenderness (R), CVA tenderness (L ) Skin: positive: Color nml, No rash, Warm, Dry. negative: Cyanosis, Diaphoresis , Pallor Extremities: positive: Non-tender, Full ROM, Nml appearance. negative: Calf tenderness, Joint swelling, Manjinder's sign/cords Neurologic/Psychiatric: positive: Sensation nml. negative: Mood/affect nml, Sensory loss, Facial droop, Slurred/abnml speech, Depressed mood/affect - Lab Results Fish Bones: 06/22/17 05:00 06/22/17 05:00 Other Labs: Lab Results x24hrs 06/22/17 06/22/17 06/22/17 Range/Units 11:41 08:15 05:00 WBC (4.8-10.8) x10^3/uL RBC (4.70-6.10) 10^6/uL Hgb (14.0-18.0) g/dL Hct (42.0-52.0) % MCV (80.0-94.0) fL MCH (27.0-31.0) pg MCHC (32.0-36.0) g/dL RDW (12.0-15.0) % Plt Count (130-450) 10^3/uL MPV (7.4-11.4) fL Neut # (1.5-6.6) 10^3/uL Lymph # (1.5-3.5) 10^3/uL Gladwin # (0.0-1.0) 10^3/uL Eos # (0.0-0.7) 10^3/uL Baso # (0.0-0.1) 10^3/uL Absolute Nucleated RBC x10^3/uL Nucleated RBC % /100WBC Sodium 141 (135-145) mmol/L Potassium 3.1 L (3.5-5.0) mmol/L Chloride 108 (101-111) mmol/L Carbon Dioxide 27 (21-32) mmol/L Anion Gap 6.0 (6-13) BUN 5 L (6-20) mg/dL Creatinine 0.6 (0.6-1.2) mg/dL Estimated GFR (MDRD) 128 (>89) Glucose 137 H (70-100) mg/dL POC Whole Bld Glucose 154 H 143 H (70 - 100) mg/dL Calcium 8.0 L (8.5-10.3) mg/dL Total Bilirubin 0.4 (0.2-1.0) mg/dL AST 11 (10-42) IU/L ALT < 10 L (10-60) IU/L Alkaline Phosphatase 81 (42-121) IU/L Total Protein 5.5 L (6.7-8.2) g/dL Albumin 2.4 L (3.2-5.5) g/dL Globulin 3.1 (2.1-4.2) g/dL Albumin/Globulin Ratio 0.8 L (1.0-2.2) 06/22/17 06/21/17 06/21/17 Range/Units 05:00 20:51 17:02 WBC 8.6 (4.8-10.8) x10^3/uL RBC 3.16 L (4.70-6.10) 10^6/uL Hgb 9.8 L (14.0-18.0) g/dL Hct 30.1 L (42.0-52.0) % MCV 95.0 H (80.0-94.0) fL MCH 31.0 (27.0-31.0) pg MCHC 32.6 (32.0-36.0) g/dL RDW 13.4 (12.0-15.0) % Plt Count 250 (130-450) 10^3/uL MPV 8.3 (7.4-11.4) fL Neut # 6.5 (1.5-6.6) 10^3/uL Lymph # 0.9 L (1.5-3.5) 10^3/uL Gladwin # 0.8 (0.0-1.0) 10^3/uL Eos # 0.4 (0.0-0.7) 10^3/uL Baso # 0.0 (0.0-0.1) 10^3/uL Absolute Nucleated RBC 0.01 x10^3/uL Nucleated RBC % 0.1 /100WBC Sodium (135-145) mmol/L Potassium (3.5-5.0) mmol/L Chloride (101-111) mmol/L Carbon Dioxide (21-32) mmol/L Anion Gap (6-13) BUN (6-20) mg/dL Creatinine (0.6-1.2) mg/dL Estimated GFR (MDRD) (>89) Glucose (70-100) mg/dL POC Whole Bld Glucose 146 H 119 H (70 - 100) mg/dL Calcium (8.5-10.3) mg/dL Total Bilirubin (0.2-1.0) mg/dL AST (10-42) IU/L ALT (10-60) IU/L Alkaline Phosphatase (42-121) IU/L Total Protein (6.7-8.2) g/dL Albumin (3.2-5.5) g/dL Globulin (2.1-4.2) g/dL Albumin/Globulin Ratio (1.0-2.2) Assessment/Plan - Problem List (1) Sepsis Impression: (1) wheezing and pneumonia pt develop wheezing at all lobes, slight lower Sats of O2 CXR ordered. CXR reveals increased consolidation in the right lower lung Xopenex mild solu-metro antibiotics Azithymycin and Rocephin (2) Sepsis Conclusion/Plan: no fever, no elevated temperature, WBC is down to normal, blood culture negative continue antibiotics no fever, no elevated temperature WBC is down to normal blood culture negative UA culture positive for proteus Miralitis continue Rocephin plan to D/C to [facility] tomorrow no fever but elevated temperature, slight elevated WBC blood culture preliminary show no growth of bacteria, then vancomycin was stopped order lactic acid UA culture and sensitive study to Rocephin discuss with other provider, may resume vanco or add another agent no fever on last night WBC decreased blood culture preliminary show no growth of bacteria continue antibiotics continue mild to moderate IVF vital and lab continue monitor pt has fever, review of CXR and CT of abdomen continue Rocephin and Vancomycin follow up blood and urine culture continue IVF vital, lab continue monitor Patient has previous history of septic shock during presentation in December 2016 secondary to urinary tract infection. Today the patient presented with fever at [facility] however temperature was only 37.1 on arrival, tachycardia with heart rate in the 110s, patient was tachypneic with respiratory rate greater than 20 and patient had leukocytosis of greater than 15 ,000. The patient appeared to be quite dry and was hypotensive both at carriage and again in the emergency department here. Source of patient's infection appeared to be a urinary tract infection likely due to a indwelling Santamaria catheter. Patient did have symptoms of dysuria and fever. The patient's UA was grossly positive and urine in the catheter looked cloudy. Plan: Patient will be continued on IV fluids he has been given 2 L in the emergency department and will be given an additional 1 L bolus and then placed on maintenance fluid We will monitor patient's blood pressure every 4 hours Patient will be given IV ceftriaxone and vancomycin given his previous urine cultures and we will await his urine culture and blood cultures We will remove patient's Santamaria catheter and replaced with new catheter if needed. (3) UTI (urinary tract infection) Conclusion/Plan: continue Rocephin UA culture reveals positive Proteus Mirabilis, and sensitive to Rocephin continue Rocephin continue vital monitor continue antibiotics pt's Santamaria was removed, pt has urination, check bladder scan, will follow up follow up UA culture Patient has history of recurrent UTIs including 2 episodes in 2017 with sepsis including most recent episode in December 2016 requiring intensive care with septic shock. Today patient appears to be presenting with early sepsis and is again found to have a urinary tract infection. Patient did present with symptoms of dysuria and fever. Patient's urine analysis was grossly positive. The patient's Santamaria catheter had cloudy urine and it was unclear as to when it was last changed. Plan: Patient is being started on IV vancomycin and ceftriaxone as patient's previous urine cultures grew staph aureus and Enterobacter cloacae which were susceptible to vancomycin and ceftriaxone Urine cultures have been collected and will be followed up Patient's Santamaria catheter has been removed in the emergency department and after removal patient was able to urinate therefore we will leave the Santamaria catheter out and allow for urinary tract infection to be treated. We will check bladder scans to see if patient does require urinary catheter in the future. 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 Patient has end- stage COPD and is being followed by palliative care at [facility]. He is on duo nebs and Advair at home with which the patient has been stable. Plan: Patient will be placed on duo nebs as needed along with budesonide and formoterol twice a day We will continue his home dose of oxygen (5) BPH (benign prostatic hyperplasia) Conclusion/Plan: continue Flomax check bladder scan, if pt need Santamaria in the future The patient has history of BPH and has an indwelling Santamaria catheter. The patient is also on Flomax at home. Given the patient's recurrent urinary tract infections and ongoing urinary tract infection the patient's current Santamaria catheter was removed. Patient was able to void after having the catheter removed therefore a new catheter has not yet been placed. We will monitor to see if patient still needs a Santamaria catheter. The patient will get bladder scans throughout the day and if residuals are high or he has discomfort we may need to place a new Santamaria catheter. The patient will be continued on his home dose of Flomax. (6) Diabetes Conclusion/Plan: pt's A1C 6.3, glucose is in the good control Patient has a history of type 2 diabetes but is not currently on any medications. The patient is diet controlled. The patient's blood glucose on presentation the emergency department is in the 140s which is only mildly elevated. Given the patient's urinary tract infection we will try to tightly control his blood glucose therefore the patient will be placed on sliding scale insulin and we will check a hemoglobin A1c. (7) Hyponatremia resolved. Na is 137 (8) urinary retention twice of bladder scan reveal 104/105 ml as residence plan d/c without Santamaria, since pt is bed-bend, limited fall risk bladder scan again, plan to d/c without Santamaria, since pt does not have urinary retention US of pelvis bladder scan pt had less 100 ml in the bladder. It seems not the issue. continue Flomax (9) urinary incontinence continue nurse care, support plan to d/c without Santamaria. Santamaria cause pt with recurrent UTI with sepsis
[2017-06-22] MEDS: GABAPENTIN 100 MG CAPSULE PO SCH (20:29)
[2017-06-22] MEDS: TAMSULOSIN 0.4 MG CAPSULE PO SCH (20:29)
[2017-06-22] MEDS: LATANOPROST 0.005% OPHTH DROPS EACHEYE SCH (20:29)
[2017-06-22] MEDS: MIRTAZAPINE 15 MG TABLET PO SCH (20:29)
[2017-06-22] MEDS: SODIUM CHLORIDE 0.9% 1,000 ML IV SCH (21:15)
[2017-06-23] MEDS: SODIUM CHLORIDE FLUSH 0.9% 10 ML SYRINGE IVP SCH ×2 (01:43→10:32)
[2017-06-23] MEDS: cefTRIAXone 2 GM in SODIUM CHLORIDE 0.9% MINIBAG 100 ML IV SCH (02:13)
[2017-06-23] MEDS: IPRATROPIUM/ALBUTEROL 3 ML NEB INH PRN (05:58)
[2017-06-23] MEDS: FORMOTEROL FUMARATE NEB 20 MCG/2 ML INH SCH (05:59)
[2017-06-23] MEDS: BUDESONIDE 0.5 MG/2 ML NEB INH SCH (05:59)
[2017-06-23] MEDS: methylPREDNISolone SUCCINATE 40 MG/ML VIAL IVP SCH (06:12)
[2017-06-23 07:58] VITALS: BP 145/66
[2017-06-23 10:29] LABS: BASOPHILS % (AUTO) 0.2 %; HGB - HEMOGLOBIN 10.2 g/dL (14.0-18.0); LYMPHOCYTES # (AUTO) 0.6 10^3/uL (1.5-3.5); LYMPHOCYTES % (AUTO) 6.6 %; MEAN CORPUSCULAR HEMOGLOBIN 31.9 pg (27.0-31.0); MEAN CORPUSCULAR HGB CONC 33.6 g/dL (32.0-36.0); MEAN CORPUSCULAR VOLUME 94.9 fL (80.0-94.0); MEAN PLATELET VOLUME 8.3 fL (7.4-11.4); MONOCYTES # (AUTO) 0.3 10^3/uL (0.0-1.0); MONOCYTES % (AUTO) 3.2 %; NEUTROPHILS # (AUTO) 8.4 10^3/uL (1.5-6.6); PLT - PLATELET COUNT 284 10^3/uL (130-450); RED BLOOD COUNT 3.19 10^6/uL (4.70-6.10); RED CELL DISTRIBUTION WIDTH 13.5 % (12.0-15.0); WHITE BLOOD COUNT 9.4 x10^3/uL (4.8-10.8)
[2017-06-23] MEDS: FAMOTIDINE 20 MG TABLET PO SCH (10:29)
[2017-06-23] MEDS: SACCHAROMYCES BOULARDII 250 MG CAPSULE PO SCH (10:29)
[2017-06-23] MEDS: POLYETHYLENE GLYCOL 3350 17 GM PACKET PO SCH (10:30)
[2017-06-23] MEDS: ENOXAPARIN 40 MG/0.4 ML SYRINGE SUBQ SCH (10:30)
[2017-06-23] MEDS: CLOPIDOGREL 75 MG TABLET PO SCH (10:30)
[2017-06-23] MEDS: INSULIN ASPART 300 UNIT/3 ML PEN SUBQ SCH ×2 (10:32→12:16)
[2017-06-23] MEDS: SODIUM CHLORIDE 0.9% 1,000 ML IV SCH (10:33)
[2017-06-23 10:42] LABS: ALBUMIN 2.5 g/dL (3.2-5.5); ALBUMIN/GLOBULIN RATIO 0.8 (1.0-2.2); ALKALINE PHOSPHATASE 74 IU/L (42-121); ALT ALANINE AMINOTRANSFERASE < 10 IU/L (10-60); AST ASPARTATE AMINOTRANSFERASE 10 IU/L (10-42); BILIRUBIN,TOTAL 0.4 mg/dL (0.2-1.0); BUN - BLOOD UREA NITROGEN 10 mg/dL (6-20); CALCIUM 8.3 mg/dL (8.5-10.3); CARBON DIOXIDE - CO2 25 mmol/L (21-32); CHLORIDE 109 mmol/L (101-111); CREATININE 0.7 mg/dL (0.6-1.2); GFR - MDRD 107 (>89); GLUCOSE 207 mg/dL (70-100); MAGNESIUM 1.6 mg/dL (1.7-2.8); SODIUM 142 mmol/L (135-145); TOTAL PROTEIN 5.7 g/dL (6.7-8.2)
[2017-06-23] MEDS: AZITHROMYCIN INJ 500 MG in SODIUM CHLORIDE 0.9% 250 ML IV SCH (10:57)
--- NOTE | 2017-06-23 11:15 | Discharge Plan ---
"Discharge Plan for SNF / [facility] - DC Plan and Transition Orders Disposition: 03 SNF DC/Xfer Condition: Stable SNF Transition Orders: Admit to: [[facility]] under the care of [Doctor Montenegro] Discharge Diagnosis: [UTI/sepsis, COPD, pneumonia, BPH, urinary incontinence] Medicare Certification: I do not certify that Post Hospital half-way care is medically necessary on a continuing basis for any of the conditions for which she/he is receiving care during hospitalization. Pt is a residence of [facility]. Notify PCP of admission and forward orders to primary provider for signature. Weight on admission and [74.5 kg]. Call PCP immediately if weight increases by [4] pounds or if patient develops dyspnea, chest pain/tightness or edema. House Bowel Program: [Yes] If no BM after 2 days, nurse may give M.O.M. 30ml PO PRN and /or ducolax Supp 1 NC and /or BOSSMAN 250mg P.O., and/or senna 1-2 tabs PO. On day 3 nurse may give repeat above order until residents constipation is resolved. Immunizations: Annual Influenza Vaccine: [Yes]. (between Dec 13 and July 12.) Unless allergy or already given Two-Step PPD: [Yes] per [facility] [phone] or appropriate documentation of approved exceptions Treatments & Other Orders: [May see Dr. Montenegro at arrival to [facility]. Pt's urine residence in bladder was 104 and 105 in twice bladder scan. pt has urinary incontinence. pt's Santamaria is out now.] Oxygen Orders: [y] Lab Tests or X-Rays Orders: [in one week] Orthopedic Orders: [no]. Medications: PLEASE REFER TO THE DISCHARGE MEDICATION LIST. Insulin Orders? [No] Diagnosis: Diabetes Initiate hypo and hyperglycemia protocols for BG <70 and BG >375. May check BG prn for signs/symptoms of dysglycemia. Frequency of BG checks: [AC/Meal/HS] Basal Insulin: [] Lantus 100 units / ml inject subq as follows: [] [] Other: [] Correction Insulin: - Select the type of insulin below [Choose: Novolog/Humalog]100 units /ml insulin inject subq per orders indicate below [] LOW DOSE [] MODERATE DOSE [] MODERATE/HIGH DOSE [] HIGH DOSE GB UNITS GB UNITS GB UNITS GB UNITS 61-140 0 UNITS 61-140 0 UNITS 61-140 0 UNITS 61-140 0 UNITS 141-175 1 UNITS 141-175 1 UNITS 141-175 2 UNITS 141-175 3 UNITS 176-225 2 UNITS 176-225 3 UNITS 176-225 4 UNITS 176-225 5 UNITS 226-275 3 UNITS 226-275 5 UNITS 226-275 6 UNITS 226-275 7 UNITS 276-325 4 UNITS 276-325 7 UNITS 276-325 8 UNITS 276-325 9 UNITS 326-375 5 UNITS 326-375 9 UNITS 326-375 10 UNITS 326-375 11 UNITS >375 CONTACT MD >375 CONTACT MD >375 CONTACT MD >375 CONTACT MD Custom Dosing: [Choose: None/Novolog/Humalog] 100 units/ml Insulin inject subq as follows: GB Units 61-140 [] Units 141-175 [] Units 176-225 [] Units 226-275 [] Units 276-325 []Units 326-375 [] Units >375 Contact MD Allergies and Adverse Reactions: Allergies Allergy/AdvReac Type Severity Reaction Status Date / Time No Known Drug Allergies Allergy Verified 04/29/17 00:07 - Medications New Prescriptions: Ciprofloxacin HCl [Cipro] 500 mg PO BID #10 tablet - Diet Type: Geriatric Texture: Mech soft Liquids: Thin May have monthly special meal: Yes - Therapies | Activity Rehabilitation Potential: Maximize functional status Activity: Activity as Tolerated Weight Bearing: Full Weight Additional Instructions: May see Dr. Montenegro at arrival to [facility], have CXR in one week"
--- NOTE | 2017-06-23 11:41 | DISCHARGE SUMMARY ---
Discharge Summary Discharge Date: 06/23/17 Discharging Provider: LINK Primary Care Provider: Condition at Discharge: Stable Discharge Disposition: SNF DC/Xfer Discharge Facility Name: [facility] - DIAGNOSES Admission Diagnoses: (1) Sepsis (2) UTI (urinary tract infection) (3) COPD (chronic obstructive pulmonary disease) (4) BPH (benign prostatic hyperplasia) (5) Diabetes (6) Hyponatremia Discharge Diagnoses with Status of Each Condition: (1) wheezing and pneumonia great improved, continue Cipro for pneumonia (2) Sepsis resolved. normal temperature, normal WBC, normal HR (3) UTI (urinary tract infection) continue Cipro, no Santamaria (4) COPD (chronic obstructive pulmonary disease) stable, continue home meds regime, continue supplement of O2 (5) BPH (benign prostatic hyperplasia) stable, continue Flomax (6) Diabetes A1C6.3, pt's glucose is good control, no home insulin. (7) Hyponatremia resolved (8) urinary retention mild, two bladder scale reveals around 100cc d/c Santamaria for prevention of recurrent UTI, causing Sepsis (9) urinary incontinence continue nurse care, and support - HPI History of Present Illness: refer from 's HPI from 06/18/17 Patient is an 82-year-old gentleman with a past medical history significant for COPD on 2.5 L of oxygen, hypertension, hyperlipidemia, type 2 diabetes diet- controlled, chronic back pain, cataracts, BPH with urinary retention and a chronic indwelling Santamaria catheter who has had 2 hospitalizations within the last year for sepsis secondary to urinary tract infection once in October 2016 and again in December 2016 during his most recent hospitalization the patient was in the ICU and in septic shock requiring Levophed. The patient presents to the emergency department today from [facility] where he is currently living with a chief complaint of fever and dysuria. According to records the staff at [facility] sent him over to the emergency department early this morning as the patient was hypotensive, tachycardic and had a low-grade fever. According to the patient himself he states that he has been having fevers and chills over the last week and has been experiencing dysuria with soreness around his penis. The patient has not noted any changes in his urine in the catheter however he states he does not really look at the urine in the catheter. The patient denies any abdominal pain, nausea, flank pain, dizziness or any generalized weakness. The patient denies any headaches, blurred vision, runny nose, sore throat, nasal congestion, cough, shortness of air, orthopnea, PND, increased lower extremity swelling, palpitations, chest pain, diarrhea, constipation, joint pain , joint swelling, muscle aches, neck stiffness, recent unintentional weight loss or any new changes in appetite. The patient also denies any focal neurologic deficits. The patient's functional status is very limited he does not ambulate and has difficulty swallowing requiring a dysphagia diet. On presentation to the emergency department the patient was afebrile with a temperature of 37.1, tachycardic with heart rate of 110, initially blood pressure was normotensive but later blood pressure dropped to 97/58 and patient was tachypneic with respiratory rate of 28. The patient was saturating well on his home O2. The patient underwent routine lab work which did reveal a leukocytosis of 15.4 and a mild hyponatremia with sodium of 133 but patient's creatinine and lactic acid were within normal limits. Given the patient's recent hospitalization with septic shock secondary to UTI patient's presentation was very concerning for another urinary tract infection especially in the setting of having a chronic indwelling Santamaria catheter. The patient underwent a urine analysis which revealed positive nitrates, large leukocyte esterase, positive RBCs, 11-25 WBCs and many bacteria indicative of a urinary tract infection. The patient was admitted to the medical selby for early sepsis with urinary tract infection. Patient was given a dose of ceftriaxone in the emergency department. The patient was given 2 L of IV fluid in the emergency department - HOSPITAL COURSE Hospital Course: pt was admitted for UTI caused sepsis. Pt was treated with antibiotics. pt then developed wheezing. The CXR reveals pt had pneumonia. pt continue to bed treated with antibiotics. The blood culture is negative, UA culture is positive. Pt is prescribed Cipro for continuing of antibiotics course. Pt's Santamaria caused pt had multiple hospitalization of UTI and sepsis. The twice of bladder scan reveals pt's residence of urine is around 100cc. Pt's Santamaria was d/c , and pt is bed-bound. nurse care and support for his urinary incontinence is required for pt.. - ALLERGIES Allergies/Adverse Reactions: Allergies Allergy/AdvReac Type Severity Reaction Status Date / Time No Known Drug Allergies Allergy Verified 04/29/17 00:07 - MEDICATIONS Home Medications: Ambulatory Orders Medication Instructions Recorded Confirmed Acetaminophen 650 mg PO Q6H PRN 03/09/16 06/18/17 Fluticasone/Salmeterol [Advair 1 inh INH BID 03/09/16 06/18/17 100-50 Diskus] Clopidogrel [Plavix] 75 mg PO DAILY 30 Days tablet 05/01/16 06/18/17 Ipratropium/Albuterol [Duoneb] 3 ml INH Q6H PRN 11/02/16 06/18/17 Mirtazapine [Remeron] 15 mg PO QPM 11/02/16 06/18/17 Tamsulosin HCl [Flomax] 0.4 mg PO QPM@1800 11/02/16 06/18/17 Latanoprost 0.005% Ophth Drops 1 drops EACHEYE QPM #1 bottle 11/05/16 06/18/17 [Xalatan Ophth Drops] Calcium Carbonate [Tums (Calcium 500 mg PO Q8HR PRN #30 tablet 11/07/16 06/18/17 Carbonate 500mg)] Guaifenesin [Child Mucinex Chest 10 ml PO Q4H PRN 02/21/17 06/18/17 Congestion] Cholecalciferol [Vitamin D3] 5,000 unit PO FR@0800 05/08/17 06/18/17 Senna [Senokot] 1 tab PO DAILY@1200 05/09/17 06/18/17 Gabapentin 200 mg PO QPM 06/09/17 06/18/17 Gabapentin [Neurontin] 200 mg PO 0700,1400 06/18/17 06/18/17 Ciprofloxacin HCl [Cipro] 500 mg PO BID #10 tablet 06/23/17 - PHYSICAL EXAM AT DISCHARGE General Appearance: positive: No acute distress, Alert. negative: Lethargic Eyes Bilateral: positive: Normal inspection, PERRL, No lid inflammation, Conjunctivae nml ENT: positive: ENT inspection nml, Pharynx nml, No signs of dehydration. negative: Purulent nasal drainage, Pharyngeal erythema, Oral lesions Neck: positive: Nml inspection, Thyroid nml, No JVD, Trachea midline. negative : Thyromegaly, Lymphadenopathy (R), Lymphadenopathy (L), Stiff neck, Carotid bruit, Swelling/bruising, Tracheal deviation Respiratory: positive: Chest non-tender, No respiratory distress, Breath sounds nml. negative: Wheezes, Rales, Rhonchi Cardiovascular: positive: Regular rate & rhythm, No gallop, Systolic murmur, Diastolic murmur. negative: Irregularly irregular, Extrasystoles, Tachycardia, Bradycardia Peripheral Pulses: positive: 2+ Abdomen: positive: Non-tender, No organomegaly, Nml bowel sounds, No distention. negative: Tenderness, Guarding Back: positive: Nml inspection. negative: CVA tenderness (R), CVA tenderness (L ) Skin: positive: Color nml, No rash, Warm, Dry. negative: Cyanosis, Diaphoresis , Pallor Extremities: positive: Nml appearance. negative: Calf tenderness, Joint swelling, Manjinder's sign/cords Neurologic/Psychiatric: positive: Sensation nml, Mood/affect nml. negative: Sensory loss, Facial droop, Slurred/abnml speech, Depressed mood/affect - LABS Result Diagrams: 06/23/17 10:21 06/23/17 10:21 - FOLLOW UP Follow Up: May see Dr. Montenegro at arrival to [facility], have CXR in one week. Pt's urine residence was 104 and 105 in twice bladder scan. pt has urinary incontinence. pt 's Santamaria is out now - TIME SPENT Time Spent in Discharge (Minutes): 50
[2017-06-23] MEDS ORDERED: MAGNESIUM OXIDE 400 MG TABLET PO SCH (12:00)
[2017-06-24] MEDS ORDERED: predniSONE 20 MG TABLET PO SCH (08:00)
== END 2017-06-23 15:06 | DRG 698 ==
LOC: EDUNIT# → SUPCPDRO 00:10 → ED 00:10 → MS3 01:49
PROVIDERS: ADMIT Internal Medicine; ATTEND Nurse Practitioner Gerontology
DX: T83.511A Infection and inflammatory reaction due to indwelling urethral catheter, initial encounter (principal); N30.90 Cystitis, unspecified without hematuria; Y84.6 Urinary catheterization as the cause of abnormal reaction of the patient, or of later complication, without mention of misadventure at the time of the procedure; K57.90 Diverticulosis of intestine, part unspecified, without perforation or abscess without bleeding; A41.89 Other specified sepsis; J18.1 Lobar pneumonia, unspecified organism; E87.1 Hypo-osmolality and hyponatremia; J44.9 Chronic obstructive pulmonary disease, unspecified; J44.0 Chronic obstructive pulmonary disease with (acute) lower respiratory infection; N39.0 Urinary tract infection, site not specified; N40.1 Benign prostatic hyperplasia with lower urinary tract symptoms; R33.8 Other retention of urine; R32 Unspecified urinary incontinence; E86.1 Hypovolemia; I11.0 Hypertensive heart disease with heart failure; I50.9 Heart failure, unspecified; F03.90 Unspecified dementia, unspecified severity, without behavioral disturbance, psychotic disturbance, mood disturbance, and anxiety; E11.9 Type 2 diabetes mellitus without complications; E78.5 Hyperlipidemia, unspecified; I95.9 Hypotension, unspecified; R13.10 Dysphagia, unspecified; Z66 Do not resuscitate; Z77.090 Contact with and (suspected) exposure to asbestos; Z99.81 Dependence on supplemental oxygen; Z74.01 Bed confinement status; Z79.02 Long term (current) use of antithrombotics/antiplatelets; Z87.891 Personal history of nicotine dependence; Z91.81 History of falling
CPT/HCPCS: 36415; 71045; 74177; 76770; 80053; 81001; 81003; 83036; 83605; 83690; 83735; 83880; 84484; 85025; 85651; 86140; 87040; 87077; 87086; 87275; 87276; 87640; 94640; 96361; 96365; 99284; 99285

== ENCOUNTER 2017-06-26 13:45 | Outpatient (CLI) | payer MEDICARE, MEDICAID ==
--- NOTE | 2017-06-26 17:45 | CONSULTATION NOTE ---
Palliative Care Follow Up - Referral Referring Provider: Dr Monge Time of Visit: 06/26/2017. 13:45 - 14:15 Referral setting: Custodial Facility ([facility]) Referral Reason: Pneumonia, UTI - Information Sources Records reviewed: RN notes reviewed, Previous records reviewed History/Review of Systems obtained from: Patient, Nursing Exam limitations: Clinical condition (dementia; short-term memory deficits) - History of Present Illness Update Brief HPI Update: This is a yung 82-year-old gentleman with severe end-stage COPD and history of recurrent pneumonias, COPD exacerbations, and recurrent urinary infections both prior to and post-Santamaria catheter placement for BPH and retention. The patient was hospitalized June 18- for pneumonia, sepsis, and UTI. His Santamaria catheter was removed during hospitalization and has not been re-placed since being back at [facility]. He is currently on a 5 day course of levofloxacin for the pneumonia. Nursing reports he was less active and stays in bed since his discharge from hospital a few days ago, with bloating and puffiness of the face. The bloating and puffiness have improved and today he is sitting up in his wheelchair. They report his appetite has not been very good for the last 3 days eating only 0-25 % of his meals. However, he does have a stash of Oreo cookies which he might be snacking on between meals. He has gained weight: 177 pounds today vs 166.6 pounds on June 12, likely a good portion of this is fluid retention. He admits to not feeling very good, making the hand gesture for "so-so". Social History - Living Situation Living arrangement: prison ([facility]) Living Situation: With caregiver(s) Support System: Friends/DPOAs, Gwendolyn and Vinny, visit him frequently. The patient has no other family or close friends available for support. His daughter years ago, and he does not see his 2 grandchildren. Medications/Allergies - Medications Home Medications: Ambulatory Orders Medication Instructions Recorded Confirmed Acetaminophen 650 mg PO Q6H PRN 03/09/16 06/26/17 Fluticasone/Salmeterol [Advair 1 inh INH BID 03/09/16 06/26/17 100-50 Diskus] Clopidogrel [Plavix] 75 mg PO DAILY 30 Days tablet 05/01/16 06/26/17 Ipratropium/Albuterol [Duoneb] 3 ml INH Q6H PRN 11/02/16 06/26/17 Mirtazapine [Remeron] 15 mg PO QPM 11/02/16 06/26/17 Tamsulosin HCl [Flomax] 0.4 mg PO QPM@1800 11/02/16 06/26/17 Latanoprost 0.005% Ophth Drops 1 drops EACHEYE QPM #1 bottle 11/05/16 06/26/17 [Xalatan Ophth Drops] Calcium Carbonate [Tums (Calcium 500 mg PO Q8HR PRN #30 tablet 11/07/16 06/26/17 Carbonate 500mg)] Guaifenesin [Child Mucinex Chest 10 ml PO Q4H PRN 02/21/17 06/26/17 Congestion] Cholecalciferol [Vitamin D3] 5,000 unit PO FR@0800 05/08/17 06/26/17 Senna [Senokot] 1 tab PO DAILY@1200 05/09/17 06/26/17 Gabapentin 200 mg PO QPM 06/09/17 06/26/17 Gabapentin [Neurontin] 200 mg PO 0700,1400 06/18/17 06/26/17 HYDROcod/ACETAM 5/325 [Portage 5/325] 1 tab PO Q4H PRN 06/26/17 06/26/17 Levofloxacin [Levaquin] 750 mg PO DAILY MDD for 5 days 06/26/17 06/26/17 from 06/24/17 - Allergies Allergies/Adverse Reactions: Allergies Allergy/AdvReac Type Severity Reaction Status Date / Time No Known Drug Allergies Allergy Verified 04/29/17 00:07 Review of Systems - Constitutional Constitutional: reports: Fatigue, Weakness, Poor appetite, Weight gain - Ears, Nose & Throat Ears, Nose & Throat: reports: Nasal pain (177 lbs 06/26/2017. 166.6 [id number]. Weigh has been 155-166 lbs since last summer. Patient is still bloated post-discharge, but showing improvement over past 2 days.) - Respiratory Respiratory: reports: Wheezing, SOB with exertion, Other (Not on oxygen during this visit.). denies: Cough, SOB at rest - Gastrointestinal Gastrointestinal: reports: Abdominal distention, Bloating - Genitourinary Genitourinary: reports: Incontinence. denies: Dysuria - Musculoskeletal Musculoskeletal: reports: Assistive devices (Wheelchair), Transfer issues (Non weight bearing), Other (Shoulder pain improved since starting Portage. He's taking 1 or less per day.) - Neurological Neurological: reports: General weakness - Psychiatric Psychiatric: denies: Depression, Anxiety - Endocrine Endocrine: reports: Diabetes type 2 (HbgA1c 6.3) - Hematologic/Lymphatic Hematologic/Lymphatic: reports: Recurrent infections (pneumonia and UTIs) Physical Exam - Vital Signs Temperature: 97.1 F Pulse Rate: 74 O2 Saturation: 96 (on room air) Blood Pressure: 118/56 - Physical Exam General Appearance: positive: No acute distress, Alert Eyes Bilateral: positive: EOMI, Conjunctivae nml, No scleral icterus. negative : No lid inflammation (mild) ENT: positive: No signs of dehydration Neck: positive: No JVD, Trachea midline, Stiff neck Cardiovascular: positive: No gallop, Systolic murmur (2/6) Respiratory: positive: Chest non-tender, No respiratory distress, Diminished throughout, Wheezes Abdomen: positive: Abnml bowel sounds (hypoactive), Distended. negative: Tenderness Skin: positive: Dryness (chronic scaly flakes) Extremities: positive: Nml appearance, No pedal edema Neurologic/Psychiatric: positive: Disoriented to time, Flat affect Palliative Care - POLST Patient has POLST: Yes POLST Status: DNR, Selective Treatment - Palliative Care Discussion: He says that he feels like he is "walking the plank" -- ie, close to walking off the end of the plank (dying). He says he is not scared of . He feels like he's one of the last amongst his family and friends, and that can feel lonely. He tries not to worry about the little things. He feels like he has not left anything in life undone, "All is taken care of." His only daughter is gone, so there's nothing left there. He doesn't see his two grandchildren, he wasn't able to recall their gender -- they don't come to see him. Despite that, he thinks his quality of life is good and he's pretty happy, so he is still willing to be taken to the hospital for treatment of reversible conditions, that life is worth it. He was a little worried about his finances, and then started asking about his car, becoming tearful. He was upset that "they" took his car. I said he wasn't able to drive it anyway, and he responded that he could drive. I explained that any income he has would go toward paying for him to live at [facility] and he accepted that and calmed down. He also calmed down about the car, said it was in the garage (Onie and Vinny's?) When he was feeling tearful, I told him he was cared about and very well-liked here, that he was part of the village, and he liked that. He said, "You are a breath of fresh air." Very sweet. Impression and Recommendations - Palliative Care Impression: This is a yung 82-year-old gentleman with several significant comorbidities and history of recurrent pneumonias and UTIs. He just was discharged earlier this week from hospital for both pneumonia and UTI and he remains at high risk for continuing sequela. He is still weak and somewhat disoriented, but appears to be slowly improving, with the bloating and puffiness slowly resolving. His antibiotic cycle will finish around 06/29. He continues to feel that going to the hospital for treatment, as unpleasant as it is, is still worth it. Palliative care will continue to oversee and monitor him, and will refer him to hospice when it is appropriate and meets the patient's goals and wishes. Recommendations/Counseling Done: Pneumonia: Discharged from hospital a few days ago, recovering. Continue levofloxacin 750mg daily until approximately June 29, and probiotics. End-stage COPD: Currently stable, continue duo nebs as needed, oxygen, Advair twice daily. UTI: Recently discharged from hospital, on levofloxacin and probiotics. Santamaria catheter was removed in the hospital, he is currently voiding without problem. Shoulder pain: Complained of increased pain during hospitalization. Initiation of PRN Portage seems to have resolved it, he doesn't complain of pain. He has been using it about once a day, or less. Voltaren gel has been dropped from his MAR, need to follow up. Advanced care planning: POLST is DNR and selective treatment. He still considers his quality of life good and would like to continue to be treated for reversible conditions, including hospitalization as indicated. Palliative care will continue to oversee his care and transition him to hospice when he meets criteria and hospice meets his goals. Follow-up with [facility] next week. Time Spent: 30 minutes were spent with more than 50% of the time spent on counseling, education, and coordination of care.
== END 2017-06-26 13:46 | disposition home or self-care (01) ==
LOC: PC 13:45
PROVIDERS: ATTEND Nurse Practitioner
DX: Z51.5 Encounter for palliative care (principal); J18.9 Pneumonia, unspecified organism; J44.9 Chronic obstructive pulmonary disease, unspecified; N39.0 Urinary tract infection, site not specified; M62.81 Muscle weakness (generalized); E11.9 Type 2 diabetes mellitus without complications; Z66 Do not resuscitate
CPT/HCPCS: 99309

== ENCOUNTER 2017-07-02 16:55 | Outpatient (CLI) | payer MEDICARE, MEDICAID ==
--- NOTE | 2017-07-02 21:20 | CONSULTATION NOTE ---
Palliative Care Follow Up - Referral Referring Provider: Dr Monge Time of Visit: 07/02/2017. 16:55 - 17:30 Referral setting: [facility] ([facility]) Referral Reason: Functional decline, bladder retention - Information Sources Records reviewed: RN notes reviewed, Previous records reviewed History/Review of Systems obtained from: Patient, Friend, Nursing Exam limitations: Clinical condition (dementia, short-term memory deficits) - History of Present Illness Update Brief HPI Update: This is a yung 82-year-old gentleman with severe end-stage COPD and history of recurrent pneumonias, COPD exacerbations, and recurrent urinary infections both prior to and post-Santamaria catheter placement for BPH and retention. The patient was hospitalized June 18- for pneumonia, sepsis, and UTI. At that time his Santamaria catheter was removed and has not been yet been re-placed since being back at care age. However he is exhibiting bladder retention, nursing reported a bladder scan of 300 cc today, they were able to remove 200 cc with straight catheterization, and then again an additional 34 cc. He indicates extreme discomfort and pain with catheterization. Unlike previous hospitalizations, when the patient has consistently "bounced back" after discharge, this time he has not. He appears ill, stressed, pale, and uncomfortable, reports pain, confirms he feels nauseous. When asked he says he feels awful but is unable to elaborate. Today he is lying in bed, is lethargic with mostly unintelligible speech. His O2 sats are reading at 71-77% while he is lying down and does not appear in respiratory distress. He has not been eating well. The nursing aid got him up into his wheelchair to weigh him, and after this task his O2 sats normalized to 95%. Sitting up he still appears wan with an unhealthy pallor, and complains of pain in shoulders. The levofloxacin regimen has completed. The hallucinations have not occurred for two days, which coincides with the completion of the levofloxacin and also having the [place] on hold. I took the [place] off hold today to use for his pain, and instructed nursing to monitor for hallucinations and other adverse effects. Social History - Living Situation Living arrangement: prison ([facility]) Living Situation: With caregiver(s) Support System: Friends/DPOAs Taylor and her Vinny visit him regularly. He is also very popular and well liked in the [facility]. Medications/Allergies - Medications Home Medications: Ambulatory Orders Medication Instructions Recorded Confirmed Acetaminophen 650 mg PO Q6H PRN 03/09/16 07/03/17 Fluticasone/Salmeterol [Advair 1 inh INH BID 03/09/16 07/03/17 100-50 Diskus] Clopidogrel [Plavix] 75 mg PO DAILY 30 Days tablet 05/01/16 07/03/17 Ipratropium/Albuterol [Duoneb] 3 ml INH Q6H PRN 11/02/16 07/03/17 Mirtazapine [Remeron] 15 mg PO QPM 11/02/16 07/03/17 Tamsulosin HCl [Flomax] 0.4 mg PO QPM@1800 11/02/16 07/03/17 Latanoprost 0.005% Ophth Drops 1 drops EACHEYE QPM #1 bottle 11/05/16 07/03/17 [Xalatan Ophth Drops] Calcium Carbonate [Tums (Calcium 500 mg PO Q8HR PRN #30 tablet 11/07/16 07/03/17 Carbonate 500mg)] Guaifenesin [Child Mucinex Chest 10 ml PO Q4H PRN 02/21/17 07/03/17 Congestion] Cholecalciferol [Vitamin D3] 5,000 unit PO FR@0800 05/08/17 07/03/17 Senna [Senokot] 1 tab PO DAILY@1200 05/09/17 07/03/17 Gabapentin 200 mg PO QPM 06/09/17 07/03/17 Gabapentin [Neurontin] 200 mg PO 0700,1400 06/18/17 07/03/17 HYDROcod/ACETAM 5/325 [[place] 5/325] 1 tab PO Q4H PRN 06/26/17 07/03/17 - Allergies Allergies/Adverse Reactions: Allergies Allergy/AdvReac Type Severity Reaction Status Date / Time No Known Drug Allergies Allergy Verified 04/29/17 00:07 Review of Systems - Constitutional Constitutional: reports: Fatigue, Weakness, Poor appetite, Weight stable (Back to his baseline: 166.8 lbs on 07/02/17. He's been around 160-166 lbs since last summer.) - Ears, Nose & Throat Ears, Nose & Throat: reports: Hearing loss, Dentures - Cardiovascular Cardiovascular: reports: Exertional dyspnea, Decr. exercise tolerance - Respiratory Respiratory: reports: SOB with exertion - Gastrointestinal Gastrointestinal: reports: Nausea, Poor appetite. denies: Abdominal distention - Genitourinary Genitourinary: reports: Incontinence, Other (retention: 300cc post void; voided 200cc with straight cath) - Musculoskeletal Musculoskeletal: reports: Assistive devices (wheelchair), Transfer issues, Other (shoulder pain) - Integumentary Integumentary: reports: Dryness - Neurological Neurological: reports: General weakness, Memory problems, Slurred speech - Psychiatric Psychiatric: reports: Depression Physical Exam - Vital Signs Temperature: 97.1 F Pulse Rate: 93 O2 Saturation: 71 (increased to 95% when sitting up) Blood Pressure: 155/68 - Physical Exam General Appearance: positive: Moderate distress, Lethargic ENT: positive: Dry mucous membranes Neck: positive: No JVD, Trachea midline Cardiovascular: positive: Regular rate & rhythm, No gallop, Systolic murmur (3/6 ) Respiratory: positive: No respiratory distress Skin: positive: Dryness (chronically scaley) Neurologic/Psychiatric: positive: Disoriented to time, Weakness, Slurred/abnml speech, Unintelligible speech, Depressed mood/affect Palliative Care - POLST Patient has POLST: Yes POLST Status: DNR, Selective Treatment Pain: Location (shoulder) Tiredness/Fatigue: Severe (7-10) Drowsiness/Sedation: Severe (7-10) Nausea: Moderate (4-6) Anorexia: Moderate (4-6) - Palliative Care Discussion: Patient remains consistent when asked whether he would still want to go to the hospital, and he says he would want to, saying "What else would I do?" When asked if he thinks it's worth it, he responds yes. His dementia is advanced and unfortunately patient is lacking decisional capacity. I did speak with Taylor, his friend and DPMIYA. She is sad to see that he is not bouncing back like he has after other hospitalizations. For the first time ever , he didn't seem to recognize them. He also did not react with his same level of corine and cheer to having cookie treats given to him. She expresses hope that he will come around and recuperate as he has in the past. She was encouraged that he initially showed some level of improvement after leaving the hospital. We discussed his disease process, with my goal being to prepare her for the inevitable decline, whether it's this occasion, or sometime in the near future. His previous cultures indicate multi-resistant infections, his recurrent infections are reoccurring more and more frequently, and antibiotics are less and less effective. The patient certainly qualifies for Hospice, and I will continue the discussion with the DPOA, weighing benefits and burdens and making that difficult call of determining when the quality of his life indicates a transition to Hospice is appropriate. In the meantime the goal is to keep him as comfortable as possible. 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 He qualifies for Hospice but continues to express the wish to continue treatment if needed. Palliative care will continue to monitor the patient's condition and comfort levels and work with his DPOA, weighing benefits and burdens of ongoing treatment and hospitalizations vs transition to hospice and comfort care. Recommendations/Counseling Done: Pneumonia: Levofloxacin has completed. Hallucinations have abated. Still doing poorly and complaining of general discomfort and pain. End stage COPD: O2 sats significantly decreased (in 70s) while reclining in bed , rebounded to normal levels when patient was sitting in wheelchair. Continue 2- 3L per nasal canula. Shoulder pain: Using Voltaren and Tylenol. Restarted Stock[place] for pain control. Nursing to monitor for adverse reaction such as increased hallucinations. BPH: Bladder scan reveals retention, 300 cc today. Monitor overnight, re-start on Santamaria catheter when indicated. Advanced care planning: POLST DNR and limited. Patient expresses wish to continue with hospitalizations as needed. Continue to work with DPOA and provide educations, with goal to transition to Hospice when burdens outweigh benefits and his quality of life is significantly impacted by continuing treatment. Currently DPOA expresses hope that he will bounce back as he has after previous hospitalizations. Time Spent: 35 minutes were spent with more than 50% of the time spent on counseling, education, and coordination of care.
== END 2017-07-02 16:56 | disposition home or self-care (01) ==
LOC: PC 16:55
PROVIDERS: ATTEND Nurse Practitioner
DX: Z51.5 Encounter for palliative care (principal); J18.9 Pneumonia, unspecified organism; J44.9 Chronic obstructive pulmonary disease, unspecified; M25.519 Pain in unspecified shoulder; N40.1 Benign prostatic hyperplasia with lower urinary tract symptoms; R33.8 Other retention of urine; N39.0 Urinary tract infection, site not specified; Z79.891 Long term (current) use of opiate analgesic; R11.0 Nausea; M62.81 Muscle weakness (generalized); F32.9 Major depressive disorder, single episode, unspecified; F03.90 Unspecified dementia, unspecified severity, without behavioral disturbance, psychotic disturbance, mood disturbance, and anxiety; Z66 Do not resuscitate
CPT/HCPCS: 99310

== ENCOUNTER 2017-07-09 13:50 | Outpatient (CLI) | payer MEDICARE, MEDICAID ==
--- NOTE | 2017-07-09 20:33 | CONSULTATION NOTE ---
Palliative Care Follow Up - Referral Referring Provider: Dr Alvarez Monge Time of Visit: 07/09/2017. 13:50 - 14:35 Referral setting: Group Home Facility ([facility]) Referral Reason: End-stage COPD - Information Sources Records reviewed: RN notes reviewed, Previous records reviewed History/Review of Systems obtained from: Patient, Friend, Nursing, Other (Dr Montenegro, medical director/head team physician of [facility]) Exam limitations: Clinical condition (Dementia, short-term memory issues; lethargy) - History of Present Illness Update Brief HPI Update: This is a yung 82-year-old gentleman with severe end-stage COPD and history of recurrent pneumonias, COPD exacerbations, and urinary tract infections both prior to and post-Santamaria catheter placement for BPH and retention. The patient was hospitalized earlier this month for pneumonia, sepsis, and UTI. His Santamaria was removed and hospital, but subsequently re-placed due to urinary retention. The patient has demonstrated significant and marked good functional and cognitive decline since his most recent hospitalization, sleeping more, eating less, with markedly lethargy and unintelligible speech. He has a less toleration for being up and out of bed and he is now a 2 person transfer previously required 1 person for transfer. Patient has been describing himself as not feeling well or so-so but is unable to elaborate. Shoulder pain has improved with [place] as needed. He denied shortness of breath at rest. He is on 3L oxygen 04/11. History of recent hospitalizations: June 2017 UTI, pneumonia, sepsis. Dec 2016 severe sepsis. October 2016 UTI. 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 Dec 2015 admitted twice: respiratory failure, and pneumonia and COPD exacerbation. November 2015 COPD exacerbation. April 2015 COPD exacerbation. Social History - Living Situation Living arrangement: [facility] ([facility]) Living Situation: With caregiver(s) Support System: Friends and DPOA Taylor and her Vinny visit him regularly. He is very popular and well liked in the facility. Medications/Allergies - Medications Home Medications: Ambulatory Orders Medication Instructions Recorded Confirmed Acetaminophen 650 mg PO Q6H PRN 03/09/16 07/03/17 Fluticasone/Salmeterol [Advair 1 inh INH BID 03/09/16 07/03/17 100-50 Diskus] Clopidogrel [Plavix] 75 mg PO DAILY 30 Days tablet 05/01/16 07/03/17 Ipratropium/Albuterol [Duoneb] 3 ml INH Q6H PRN 11/02/16 07/03/17 Mirtazapine [Remeron] 15 mg PO QPM 11/02/16 07/03/17 Tamsulosin HCl [Flomax] 0.4 mg PO QPM@1800 11/02/16 07/03/17 Latanoprost 0.005% Ophth Drops 1 drops EACHEYE QPM #1 bottle 11/05/16 07/03/17 [Xalatan Ophth Drops] Calcium Carbonate [Tums (Calcium 500 mg PO Q8HR PRN #30 tablet 11/07/16 07/03/17 Carbonate 500mg)] Guaifenesin [Child Mucinex Chest 10 ml PO Q4H PRN 02/21/17 07/03/17 Congestion] Cholecalciferol [Vitamin D3] 5,000 unit PO FR@0800 05/08/17 07/03/17 Senna [Senokot] 1 tab PO DAILY@1200 05/09/17 07/03/17 Gabapentin 200 mg PO QPM 06/09/17 07/03/17 Gabapentin [Neurontin] 200 mg PO 0700,1400 06/18/17 07/03/17 HYDROcod/ACETAM 5/325 [[place] 5/325] 1 tab PO Q4H PRN 06/26/17 07/03/17 - Allergies Allergies/Adverse Reactions: Allergies Allergy/AdvReac Type Severity Reaction Status Date / Time No Known Drug Allergies Allergy Verified 04/29/17 00:07 Review of Systems - Constitutional Constitutional: reports: Fatigue, Weakness, Poor appetite, Weight stable (166/8 lbs 07/02/17. Baseline is 160-166 lbs since last summer) - Ears, Nose & Throat Ears, Nose & Throat: reports: Hearing loss, Dentures - Cardiovascular Cardiovascular: reports: Exertional dyspnea, Decr. exercise tolerance. denies: Edema - Respiratory Respiratory: reports: SOB with exertion - Gastrointestinal Gastrointestinal: reports: Poor appetite. denies: Constipation - Genitourinary Genitourinary: reports: Other (Santamaria catheter; recurrent UTIs) - Musculoskeletal Musculoskeletal: reports: Stiffness, Limited range of motion, Joint pain ( Chronic shoulder pain), Assistive devices (Wheelchair), Transfer issues ( Declined from 1-person to 2-person transfer since most recent hospitalization) - Integumentary Integumentary: reports: Dryness - Neurological Neurological: reports: General weakness, Memory problems, Slurred speech - Psychiatric Psychiatric: reports: Depression. denies: Behavior disturbances Physical Exam - Vital Signs Temperature: 96.9 F Pulse Rate: 53 O2 Saturation: 95 (3L O2) Blood Pressure: 130/68 - Physical Exam General Appearance: positive: No acute distress, Lethargic Eyes Bilateral: positive: No lid inflammation, No scleral icterus ENT: positive: No signs of dehydration Neck: positive: Trachea midline Respiratory: positive: Chest non-tender, Diminished in bases. negative: Wheezes Abdomen: positive: Soft, Obese, Other (mild tenderness RLQ) Skin: positive: Dryness (chronically scaly, red on face and scalp) Extremities: positive: Nml appearance, No pedal edema Neurologic/Psychiatric: positive: Disoriented to time, Weakness, Unintelligible speech, Depressed mood/affect Palliative Care - POLST Patient has POLST: Yes POLST Status: DNR, Selective Treatment Pain: Pain improved, Location (Shoulders) Tiredness/Fatigue: Severe (7-10) Depression: Moderate (4-6) Dyspnea: Comment (with exertion) Anorexia: Mild (1-3) Constipation: Opoid induced (start Miralax) - Palliative Care Discussion: Goals of care have been that as long as his quality of life supported it, we would continue to send the patient to the hospital for reversible conditions, but when it becomes evident he is not responding to treatment and /or experiences complications that impact his quality of life further, that would be the time to transition to comfort measures and Hospice. 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 He has not been rebounded since this last hospitalization, and unfortunately there is nothing more that hospitalization can offer him. His condition and situation was discussed at length and benefits and burdens of continuing to send him to hospital vs admission to Hospice reviewed with Taylor, his DPOA, since the patient lacks decision-making capacity. Taylor is in agreement that his quality of life has deteriorated and the patient is not rebounding after this last bout with sepsis. One concern about admission to Hospice was whether he could stay in "his home," which the facility has become. I assured her this was the case. I spoke with the patient about Hospice and that he would have some new people helping him. His cognition is compromised but he does have a certain level of understanding, if not the capacity to recall many details. He indicated acceptance. I discussed this case with Dr Montenegro, Reclaimer at [facility]. He is in agreement that attending physician will be Dr Bateman, clinical rehab liaison. Impression and Recommendations - Palliative Care Impression: This is a yung 82-year-old gentleman with end-stage COPD and recurrent infections and sepsis. The goal has always been to maximize his quality of life and keep him as comfortable as possible and to continue to treat him as long as it would allow him to go back to his previous level of functioning. When that is no longer the case, as it is now, then the plan was to transition him to Hospice and to concentrate on maximizing comfort and quality of life. He does meet criteria and his DPOA is in agreement to transition to Hospice. Recommendations/Counseling Done: Dementia w/o behavioral disturbances: Patient has severe cognitive deficits is lacking decision making capacity, DPOA/friends are overseeing his care and making his medical decisions. Shoulder pain: Continue [place] 5/325 as needed, as well as Tylenol and gabapentin. Liquid morphine has also been added. Constipation, opioid induced: Start Miralax 17g in 4-8 oz water daily for opioid -induced constipation. Continue Senna daily. Shortness of breath: Morphine solution 20mg/ml. Give 0.25 ml (5mg) PO Q2h PRN for SOB. Continue albuterol/ipratorpium nebulizer as needed, Advair Diskus BID, Urinary retention: Re-placed indwelling Santamaria catheter. Change catheter and bag every month. Poor appetite: Currently on Mirtazapine. Consider Ensure Advanced care planning: Referral to Hospice. Patient meets medical criteria and Hospice aligns with patient and DPOA goals of care. Time Spent: 45 minutes were spent with more than 50% of the time spent on counseling, education, weighing benefits and burdens, anticipatory guidance, and coordination of care.
== END 2017-07-09 13:51 | disposition home or self-care (01) ==
LOC: PC 13:50
PROVIDERS: ATTEND Nurse Practitioner
DX: Z51.5 Encounter for palliative care (principal); F03.90 Unspecified dementia, unspecified severity, without behavioral disturbance, psychotic disturbance, mood disturbance, and anxiety; G89.29 Other chronic pain; M25.519 Pain in unspecified shoulder; K59.03 Drug induced constipation; T40.2X5D Adverse effect of other opioids, subsequent encounter; R06.02 Shortness of breath; R33.9 Retention of urine, unspecified; J44.9 Chronic obstructive pulmonary disease, unspecified; R53.83 Other fatigue; Z99.81 Dependence on supplemental oxygen; Z96.0 Presence of urogenital implants; Z79.891 Long term (current) use of opiate analgesic; M62.81 Muscle weakness (generalized); Z66 Do not resuscitate
CPT/HCPCS: 99310